=== PATIENT | female | born 1970 | race Caucasian/White ===

== ENCOUNTER 2019-09-13 20:26 | Emergency (ER) | payer OTHER ==
[~2019-09-13] VITALS: Ht 162.5 cm; Wt 112.6 kg
[2019-09-13] MEDS ORDERED: NS IV 1000 ML 1,000 ML IV ONE (21:00)
[2019-09-13] MEDS ORDERED: methylPREDNISolone 125 MG (Solu-MEDROL) VIAL IVP ONE (21:00)
[2019-09-13] MEDS ORDERED: HYDROmorphone 2 MG/ML VIAL (DILAUDID) IV ONE ×2 (21:00→22:45)
--- NOTE | 2019-09-13 21:17 | ED Abdominal Pain ---
General Chief Complaint: Abdominal/GI Problems Stated Complaint: LOWER ABD PAIN,VOMITING,BLOOD IN STOOL Nursing Triage Note: PT. REPORTED SHE IS HERE VISITING. PT. STARTED HAVING PAIN AROUND 9:00 AM. THE PAIN IS IN THE LEFT LOWER SIDE OF ABD. SHE HAS HAD VOMITING, AND DIARREHA AND BLOODY STOOL. Sepsis Screen: No Definite Risk Source of Information: Patient Exam Limitations: No Limitations History of Present Illness Date Seen by Provider: Sep 13, 2019 Time Seen by Provider: 20:37 Initial Comments 49-year-old female presents to the emergency room with the recent onset of acute abdominal pain in the left lower quadrant. Patient was diagnosed with ulcerative colitis 8-9 months ago and she is under the care of Teodoro Ruelas nurse practitioner [facility] in [place]. Patient has nausea and vomiting she admits to having bloody stools she is on medication for ulcerative colitis which includes sulfasalazine Bentyl mesalamine and hydrocortisone suppositories. Patient states that she occasionally has iron infusions because of chronic anemia. She states that she normally gets pain medication fluids and steroids IV when she comes in the emergency room. She denies any cardiac or pulmonary issues. The patient has feces consistent with chronic steroid administration with a schaeffer facies. Patient also has excoriated lesions in her forearms numerous places. Patient has given informed consent for diagnostic and therapeutic services. IV fluids will be started laboratory and imaging tests have been ordered. Timing/Duration: 1 Day Severity/Quality: Moderate, Cramping (history of ulcerative colitis with recurrent episodes of colitis) Location: LLQ, Flank, Suprapubic Radiation: LLQ, Back Modifying Factors: Improves With Defecating, Improves With Eating Associated Symptoms: Back Pain Allergies and Home Medications Allergies Coded Allergies: cephalexin (Verified Allergy, Unknown, 09/13/19) ketorolac (Verified Allergy, Unknown, 09/13/19) prochlorperazine (Verified Allergy, Unknown, 09/13/19) Patient Home Medication List Home Medication List Reviewed: Yes Review of Systems Review of Systems Constitutional: malaise, weakness, weight gain EENTM: No Symptoms Reported Respiratory: No Symptoms Reported Cardiovascular: No Symptoms Reported Gastrointestinal: Abdominal Pain, Nausea, Rectal Bleeding Genitourinary: No Symptoms Reported Musculoskeletal: back pain, muscle weakness Skin: change in color, lesions (multiple open excoriated lesions on both forearms identified) Psychiatric/Neurological: Anxiety Endocrine: No Symptoms Reported Hematologic/Lymphatic: No Symptoms Reported Past Ehnkxiy-Treywy-Layajq Hx Patient Social History Alcohol Use: Denies Use Recreational Drug Use: No Smoking Status: Former Smoker Recent Foreign Travel: No Contact w/Someone Who Travel: No Recent Infectious Disease Expo: No Recent Hopitalizations: No Physical Abuse: No Sexual Abuse: No Mistreated: No Fear: No Seasonal Allergies Seasonal Allergies: No Past Medical History Surgeries: Yes Appendectomy, Gallbladder, Hysterectomy, Rectal Respiratory: No Cardiac: No Neurological: No Genitourinary: No Gastrointestinal: Yes Abdominal Hernia, Colitis Musculoskeletal: No Endocrine: No HEENT: No Cancer: No Psychosocial: Yes Anxiety Integumentary: No Blood Disorders: No Family Medical History Reviewed Nursing Family Hx Physical Exam Vital Signs Vital Signs - First Documented 09/13/19 20:31 Temp 36.7 Pulse 110 Resp 20 B/P (MAP) 165/110 (128) Pulse Ox 96 O2 Delivery Room Air Capillary Refill : Less Than 3 Seconds Height/Weight/BMI Height: '" Weight: lbs. oz. kg; 42.00 BMI Method: General Appearance: WD/WN, moderate distress HEENT: PERRL/EOMI, normal ENT inspection, TMs normal, pharynx normal Neck: non-tender, full range of motion, supple, normal inspection Respiratory: chest non-tender, lungs clear, normal breath sounds, no respiratory distress, no accessory muscle use Cardiovascular: regular rate, rhythm, no edema, no gallop, no JVD, no murmur (patient has a history of a cardiac stent in July 2019) Peripheral Pulses: 2+ Carotid (R), 2+ Carotid (L) Gastrointestinal: abnormal bowel sounds (decreased), distended, tenderness (bilateral lower quadrants consistent with diagnosis of diverticulitis and patient stabilization recommended to the patient but he refuses and states he wants to see his private physician in the morning) Extremities: normal range of motion, non-tender, normal inspection, no pedal edema, no calf tenderness Back: normal inspection, no CVA tenderness, no vertebral tenderness Neurologic/Psychiatric: chef french II-XII nml as tested, no motor/sensory deficits, alert, normal mood/affect, oriented x 3 Skin: normal color, warm/dry Lymphatic: no adenopathy Focused Exam Lactate Level 09/13/19 21:13: Lactic Acid Level 1.57 Lactic Acid Level Laboratory Tests Test 09/13/19 21:13 Lactic Acid Level 1.57 MMOL/L (0.50-2.00) Progress/Results/Core Measures Results/Orders Lab Results Laboratory Tests Test 09/13/19 21:13 09/13/19 22:28 Range/Units White Blood Count 5.0 4.3-11.0 10^3/uL Red Blood Count 3.81 L 4.35-5.85 10^6/uL Hemoglobin 10.3 L 11.5-16.0 G/DL Hematocrit 33 L 35-52 % Mean Corpuscular Volume 86 80-99 FL Mean Corpuscular Hemoglobin 27 25-34 PG Mean Corpuscular Hemoglobin Concent 31 L 32-36 G/DL Red Cell Distribution Width 18.7 H 10.0-14.5 % Platelet Count 239 130-400 10^3/uL Mean Platelet Volume 9.4 7.4-10.4 FL Neutrophils (%) (Auto) 72 42-75 % Lymphocytes (%) (Auto) 14 12-44 % Monocytes (%) (Auto) 11 0-12 % Eosinophils (%) (Auto) 1 0-10 % Basophils (%) (Auto) 0 0-10 % Neutrophils # (Auto) 3.6 1.8-7.8 X 10^3 Lymphocytes # (Auto) 0.7 L 1.0-4.0 X 10^3 Monocytes # (Auto) 0.5 0.0-1.0 X 10^3 Eosinophils # (Auto) 0.1 0.0-0.3 10^3/uL Basophils # (Auto) 0.0 0.0-0.1 10^3/uL Neutrophils % (Manual) 80 % Lymphocytes % (Manual) 9 % Monocytes % (Manual) 7 % Eosinophils % (Manual) 3 % Band Neutrophils 1 % Microcytosis MODERATE Sodium Level 140 135-145 MMOL/L Potassium Level 3.7 3.6-5.0 MMOL/L Chloride Level 104 98-107 MMOL/L Carbon Dioxide Level 21 21-32 MMOL/L Anion Gap 15 H 5-14 MMOL/L Blood Urea Nitrogen 10 7-18 MG/DL Creatinine 0.54 L 0.60-1.30 MG/DL Estimat Glomerular Filtration Rate > 60 BUN/Creatinine Ratio 19 Glucose Level 123 H 70-105 MG/DL Lactic Acid Level 1.57 0.50-2.00 MMOL/L Calcium Level 9.1 8.5-10.1 MG/DL Corrected Calcium 9.2 8.5-10.1 MG/DL Total Bilirubin 0.2 0.1-1.0 MG/DL Aspartate Amino Transf (AST/SGOT) 18 5-34 U/L Alanine Aminotransferase (ALT/SGPT) 29 0-55 U/L Alkaline Phosphatase 109 40-136 U/L Total Protein 6.7 6.4-8.2 GM/DL Albumin 3.9 3.2-4.5 GM/DL Urine Color YELLOW Urine Clarity CLEAR Urine pH 6.0 5-9 Urine Specific [place] 1.025 H 1.016-1.022 Urine Protein NEGATIVE NEGATIVE Urine Glucose (UA) NEGATIVE NEGATIVE Urine Ketones NEGATIVE NEGATIVE Urine Nitrite NEGATIVE NEGATIVE Urine Bilirubin NEGATIVE NEGATIVE Urine Urobilinogen 0.2 < = 1.0 MG/DL Urine Leukocyte Esterase NEGATIVE NEGATIVE Urine RBC (Auto) NEGATIVE NEGATIVE Urine RBC 0-2 /HPF Urine WBC 5-10 H /HPF Urine Squamous Epithelial Cells 5-10 /HPF Urine Crystals NONE /LPF Urine Bacteria FEW H /HPF Urine Casts NONE /LPF Urine Mucus SMALL H /LPF Urine Culture Indicated YES Micro Results Microbiology 09/13/19 Influenza Types A,B Antigen (XIMENA) - Final, Complete My Orders Orders - SHIN REYNOLDS DO Cbc And Manual Diff (09/13/19 20:50) Comprehensive Metabolic Panel (09/13/19 20:50) Urinalysis (09/13/19 20:50) Lactic Acid Analyzer (09/13/19 20:50) Blood Culture (09/13/19 20:50) Lactic Acid Analyzer (09/13/19 20:50) Ns Iv 1000 Ml (Sodium Chloride 0.9%) (09/13/19 21:00) Methylprednisolone Sod Succ (Solu-Medrol (09/13/19 21:00) Chest Pa/Lat (2 View) (09/13/19 20:50) Influenza A And B Antigens (09/13/19 20:50) Hydromorphone Injection (Dilaudid Inject (09/13/19 21:00) Hydromorphone Injection (Dilaudid Inject (09/13/19 22:45) Urine Culture (1/24/20 22:28) Medications Given in ED Current Medications Medications Dose Ordered Sig/Stiven Route Start Time Stop Time Status Last Admin Dose Admin Hydromorphone HCl 0.5 mg ONCE ONCE IV 09/13/19 21:00 09/13/19 21:01 DC 09/13/19 21:19 0.5 MG Hydromorphone HCl 0.5 mg ONCE ONCE IV 09/13/19 22:45 09/13/19 22:46 DC 09/13/19 22:36 0.5 MG Methylprednisolone Sodium Succinate 125 mg ONCE ONCE IVP 09/13/19 21:00 09/13/19 21:01 DC 09/13/19 21:19 125 MG Sodium Chloride 1,000 ml @ 100 mls/hr Q10H ONCE IV 09/13/19 21:00 09/13/19 22:58 DC 09/13/19 21:19 100 MLS/HR Vital Signs/I&O 09/13/19 09/13/19 20:31 22:57 Temp 36.7 36.7 Pulse 110 88 Resp 20 20 B/P (MAP) 165/110 (128) 140/85 (128) Pulse Ox 96 96 O2 Delivery Room Air Blood Pressure Mean: 128 Progress Progress Note : Time: 22:11 Progress Note After evaluation reveals a patient's hemoglobin is 10.3 creatinine 0.5 for glucose 123 lactic acid was 1.57 chest x-ray only shows chronic changes. Evaluation patient is progressing well she has responded to the IV analgesics and steroid load. Patient needs to follow-up with her gastroenterology team at [facility]. At 2224 patient reported she was again having more abdominal cramping and asked for a second injection of pain meds. She agreed to provide a urine sample first. Departure Impression Primary Impression: Ulcerative colitis without complications Additional Impression: Abdominal pain Disposition: HOME, SELF-CARE Condition: Stable Departure-Patient Inst. Decision time for Depature: 23:07 Referrals: NO,LOCAL PHYSICIAN (PCP) Primary Care Physician Patient Instructions: Colitis, Ulcerative Colitis (DC) Add. Discharge Instructions: Patient is ready for discharge she has been hydrated. Her abdominal pain is decreased patient had received total of 1 mg of hydromorphone and 125 mg of Solu-Medrol. Patient will follow up with her primary care provider at [facility] All discharge instructions reviewed with patient and/or family. Voiced understanding. SHIN REYNOLDS DO Sep 13, 2019 21:17
[2019-09-13 21:20] LABS: BASOPHILS % (AUTO) 0 % (0-10); EOSINOPHILS # (AUTO) 0.1 10^3/uL (0.0-0.3); EOSINOPHILS % (AUTO) 1 % (0-10); HEMATOCRIT 33 % (35-52); HEMOGLOBIN 10.3 G/DL (11.5-16.0); LYMPHOCYTES # (AUTO) 0.7 X 10^3 (1.0-4.0); LYMPHOCYTES % (AUTO) 14 % (12-44); MEAN CORPUSCULAR HEMOGLOBIN 27 PG (25-34); MEAN CORPUSCULAR HGB CONC 31 G/DL (32-36); MEAN CORPUSCULAR VOLUME 86 FL (80-99); MEAN PLATELET VOLUME 9.4 FL (7.4-10.4); MONOCYTES # (AUTO) 0.5 X 10^3 (0.0-1.0); MONOCYTES % (AUTO) 11 % (0-12); NEUTROPHILS # (AUTO) 3.6 X 10^3 (1.8-7.8); NEUTROPHILS % (AUTO) 72 % (42-75); PLATELET COUNT 239 10^3/uL (130-400); RED CELL DISTRIBUTION WIDTH 18.7 % (10.0-14.5)
[2019-09-13 21:29] LABS: BAND NEUTROPHILS 1 %; EOSINOPHILS % (MANUAL) 3 %; LYMPHOCYTES % (MANUAL) 9 %; MICROCYTOSIS MODERATE; MONOCYTES % (MANUAL) 7 %; NEUTROPHILS % (MANUAL) 80 %
[2019-09-13 21:38] LABS: CARBON DIOXIDE 21 MMOL/L (21-32); CHLORIDE 104 MMOL/L (98-107); POTASSIUM 3.7 MMOL/L (3.6-5.0); SODIUM 140 MMOL/L (135-145)
[2019-09-13 21:39] LABS: ALANINE AMINOTRANSFERASE 29 U/L (0-55); ALBUMIN 3.9 GM/DL (3.2-4.5); ALKALINE PHOSPHATASE 109 U/L (40-136); BILIRUBIN,TOTAL 0.2 MG/DL (0.1-1.0); BUN/CREATININE RATIO 19; CALCIUM 9.1 MG/DL (8.5-10.1); CREATININE SERUM 0.54 MG/DL (0.60-1.30); GFR ESTIMATED > 60; GLUCOSE 123 MG/DL (70-105); TOTAL PROTEIN 6.7 GM/DL (6.4-8.2)
--- NOTE | 2019-09-13 21:49 | Diagnostic Imaging Report ---
INDICATION: Bloody stools, diarrhea, left lower quadrant pain and vomiting. EXAMINATION: Two view chest, 09/13/2019. FINDINGS: Heart and pulmonary vasculature are unremarkable. Atelectasis is seen at the bases with chronic interstitial changes noted. No effusions or infiltrates. IMPRESSION: Chronic findings. No acute process. Dictated by: Dictated on workstation # [id number]
[2019-09-13 22:45] LABS: BACTERIA,URINE FEW /HPF; BILIRUBIN,URINE NEGATIVE (NEGATIVE); CLARITY,URINE CLEAR; COLOR,URINE YELLOW; GLUCOSE, URINE (UA) NEGATIVE (NEGATIVE); KETONES,URINE NEGATIVE (NEGATIVE); LEUKOCYTE ESTERASE ,URINE NEGATIVE (NEGATIVE); NITRITE,URINE NEGATIVE (NEGATIVE); PROTEIN,URINE NEGATIVE (NEGATIVE); RBC,URINE 0-2 /HPF
[2019-09-13 22:57] VITALS: BP 140/85
== END 2019-09-13 22:58 | disposition home or self-care (01) ==
LOC: ER FS 20:27
DX: K51.90 Ulcerative colitis, unspecified, without complications (principal); Z90.49 Acquired absence of other specified parts of digestive tract; Z90.710 Acquired absence of both cervix and uterus; Z88.1 Allergy status to other antibiotic agents; Z88.6 Allergy status to analgesic agent; Z88.8 Allergy status to other drugs, medicaments and biological substances; Z87.891 Personal history of nicotine dependence
CPT/HCPCS: 36415; 71046; 80053; 81000; 83605; 85007; 85027; 87040; 87088; 87804; 96361; 96374; 96375; 96376

== ENCOUNTER 2019-09-26 00:38 | Emergency (ER) | payer OTHER ==
[~2019-09-26] VITALS: Ht 162.6 cm; Wt 113.4 kg
[2019-09-26] MEDS ORDERED: NS IV 1000 ML 1,000 ML IV SCH (01:00)
[2019-09-26] MEDS ORDERED: methylPREDNISolone 125 MG (Solu-MEDROL) VIAL IVP ONE (01:00)
[2019-09-26] MEDS ORDERED: fentaNYL INJECTION 100 MCG/2 ML AMP IVP ONE ×2 (01:00→01:45)
--- NOTE | 2019-09-26 01:00 | ED GI ---
General Chief Complaint: Abdominal/GI Problems Stated Complaint: ABD PAIN Nursing Triage Note: PT AMBULATE TO ROOM FS04 WITH C/O ABD PAIN, N/V, BLOOD DIARRHEA SINCE 1000 YESTERDAY. PT STATES HX OF ULCERATIVE COLLITIS AND THAT THIS FEELS LIKE UC. PT STATES SHE SEES A PROVIDER IN AND IS IN THIS AREA VISITING FAMILY. Sepsis Screen: No Definite Risk Source of Information: Patient Exam Limitations: No Limitations History of Present Illness Date Seen by Provider: Sep 26, 2019 Time Seen by Provider: 00:58 Initial Comments Patient complains of bloody diarrhea nausea vomiting and abdominal cramping since 10 a.m. yesterday. She has a history of ulcerative colitis and this feels like that. She was in the ER for same on September 09. She received IV fluids steroids and pain medicine at that time and improved. Has appointment with her GI doctor next week. Says she is compliant with her Bentyl sulfasalazine and hydrocortisone suppositories. Allergies and Home Medications Allergies Coded Allergies: cephalexin (Verified Allergy, Unknown, 09/13/19) ketorolac (Verified Allergy, Unknown, 09/13/19) prochlorperazine (Verified Allergy, Unknown, 09/13/19) Patient Home Medication List Home Medication List Reviewed: Yes Review of Systems Review of Systems Constitutional: No fever; malaise Respiratory: No Symptoms Reported Cardiovascular: No Symptoms Reported Gastrointestinal: Abdominal Pain, Blood Streaked Stools, Diarrhea, Nausea, Vomiting Genitourinary: No Symptoms Reported Musculoskeletal: no symptoms reported Psychiatric/Neurological: No Symptoms Reported All Other Systems Reviewed Negative Unless Noted: Yes Past Vbdavpz-[id number]-Yxwwzc Hx Patient Social History Alcohol Use: Denies Use Recreational Drug Use: No Smoking Status: Never a Smoker 2nd Hand Smoke Exposure: No Recent Foreign Travel: No Contact w/Someone Who Travel: No Recent Infectious Disease Expo: No Recent Hopitalizations: No Physical Abuse: No Sexual Abuse: No Mistreated: No Fear: No Seasonal Allergies Seasonal Allergies: No Past Medical History Surgeries: Yes Appendectomy, Gallbladder, Hysterectomy, Rectal Respiratory: No Cardiac: No Neurological: No Genitourinary: No Gastrointestinal: Yes Abdominal Hernia, Colitis Musculoskeletal: No Endocrine: No HEENT: No Cancer: No Psychosocial: Yes Anxiety Integumentary: No Blood Disorders: No Physical Exam Vital Signs Vital Signs - First Documented 09/26/19 00:51 Temp 36.6 Pulse 101 Resp 17 B/P (MAP) 154/101 (118) O2 Delivery Room Air Capillary Refill : Less Than 3 Seconds Height/Weight/BMI Height: '" Weight: lbs. oz. kg; 42.00 BMI Method: General Appearance: WD/WN, no apparent distress HEENT: PERRL/EOMI, pharynx normal Neck: supple Respiratory: lungs clear, normal breath sounds Cardiovascular: regular rate, rhythm, no edema Gastrointestinal: normal bowel sounds, soft; No guarding, No rebound; tendern ess (left lower quadrant tenderness) Extremities: normal inspection Neurologic/Psychiatric: alert, normal mood/affect Skin: normal color, warm/dry Focused Exam Lactate Level 09/26/19 01:14: Lactic Acid Level 1.53 Lactic Acid Level Laboratory Tests Test 09/26/19 01:14 Lactic Acid Level 1.53 MMOL/L (0.50-2.00) Progress/Results/Core Measures Results/Orders Lab Results Laboratory Tests Test 09/26/19 01:07 09/26/19 01:14 Range/Units White Blood Count 6.6 4.3-11.0 10^3/uL Red Blood Count 3.58 L 4.35-5.85 10^6/uL Hemoglobin 9.8 L 11.5-16.0 G/DL Hematocrit 31 L 35-52 % Mean Corpuscular Volume 88 80-99 FL Mean Corpuscular Hemoglobin 27 25-34 PG Mean Corpuscular Hemoglobin Concent 31 L 32-36 G/DL Red Cell Distribution Width 17.0 H 10.0-14.5 % Platelet Count 263 130-400 10^3/uL Mean Platelet Volume 9.6 7.4-10.4 FL Neutrophils (%) (Auto) 79 H 42-75 % Lymphocytes (%) (Auto) 9 L 12-44 % Monocytes (%) (Auto) 9 0-12 % Eosinophils (%) (Auto) 1 0-10 % Basophils (%) (Auto) 0 0-10 % Neutrophils # (Auto) 5.2 1.8-7.8 X 10^3 Lymphocytes # (Auto) 0.6 L 1.0-4.0 X 10^3 Monocytes # (Auto) 0.6 0.0-1.0 X 10^3 Eosinophils # (Auto) 0.1 0.0-0.3 10^3/uL Basophils # (Auto) 0.0 0.0-0.1 10^3/uL Sodium Level 143 135-145 MMOL/L Potassium Level 3.5 L 3.6-5.0 MMOL/L Chloride Level 104 98-107 MMOL/L Carbon Dioxide Level 25 21-32 MMOL/L Anion Gap 14 5-14 MMOL/L Blood Urea Nitrogen 6 L 7-18 MG/DL Creatinine 0.56 L 0.60-1.30 MG/DL Estimat Glomerular Filtration Rate > 60 BUN/Creatinine Ratio 11 Glucose Level 155 H 70-105 MG/DL Calcium Level 9.2 8.5-10.1 MG/DL Corrected Calcium 9.2 8.5-10.1 MG/DL Magnesium Level 1.7 1.6-2.4 MG/DL Total Bilirubin 0.2 0.1-1.0 MG/DL Aspartate Amino Transf (AST/SGOT) 20 5-34 U/L Alanine Aminotransferase (ALT/SGPT) 35 0-55 U/L Alkaline Phosphatase 118 40-136 U/L C-Reactive Protein 4.00 H <0.50 MG/DL Total Protein 6.9 6.4-8.2 GM/DL Albumin 4.0 3.2-4.5 GM/DL Lipase 32 8-78 U/L Lactic Acid Level 1.53 0.50-2.00 MMOL/L My Orders Orders - MIKI CASTRO MD Iv 1000 Ml (Sodium Chloride 0.9%) (09/26/19 01:00) Cbc With Automated Diff (09/26/19 00:49) Comprehensive Metabolic Panel (09/26/19 00:49) Lactic Acid Analyzer (09/26/19 00:49) Lipase (09/26/19 00:49) Magnesium (09/26/19 00:49) Crp Fs (09/26/19 00:49) Methylprednisolone Sod Succ (Solu-Medrol (09/26/19 01:00) Fentanyl Injection (Sublimaze Injection (09/26/19 01:00) Ed Iv/Invasive Line Start (09/26/19 01:21) Medications Given in ED Current Medications Medications Dose Ordered Sig/Stiven Route Start Time Stop Time Status Last Admin Dose Admin Fentanyl Citrate 75 mcg ONCE ONCE IVP 09/26/19 01:00 2/6/20 01:01 DC 09/26/19 01:12 75 MCG Methylprednisolone Sodium Succinate 125 mg ONCE ONCE IVP 09/26/19 01:00 09/26/19 01:01 DC 09/26/19 01:12 125 MG Vital Signs/I&O 09/26/19 00:51 Temp 36.6 Pulse 101 Resp 17 B/P (MAP) 154/101 (118) O2 Delivery Room Air Blood Pressure Mean: 118 Progress Progress Note : Time: 01:43 Progress Note Feels better after medications and fluids. Test results discussed with patient. I do not think she needs a CT scan at this point (not acute abdomen). Stable for discharge Departure Impression Primary Impression: Abdominal pain Additional Impression: Ulcerative colitis Disposition: HOME, SELF-CARE Condition: Stable Departure-Patient Inst. Decision time for Depature: 01:44 Referrals: NO,LOCAL PHYSICIAN (PCP/Family) Primary Care Physician Patient Instructions: Ulcerative Colitis (DC) Add. Discharge Instructions: Clear liquid diet for next 24 hours. Continue regular medicines. Take your Stephenson for pain. See your Dr. next week as scheduled. All discharge instructions reviewed with patient and/or family. Voiced understanding. MIKI CASTRO MD Sep 26, 2019 01:00
[2019-09-26 01:23] LABS: HEMATOCRIT 31 % (35-52); HEMOGLOBIN 9.8 G/DL (11.5-16.0); MEAN CORPUSCULAR HEMOGLOBIN 27 PG (25-34); MEAN CORPUSCULAR VOLUME 88 FL (80-99); WHITE BLOOD COUNT 6.6 10^3/uL (4.3-11.0)
[2019-09-26 01:24] LABS: BASOPHILS % (AUTO) 0 % (0-10); EOSINOPHILS # (AUTO) 0.1 10^3/uL (0.0-0.3); EOSINOPHILS % (AUTO) 1 % (0-10); LYMPHOCYTES # (AUTO) 0.6 X 10^3 (1.0-4.0); LYMPHOCYTES % (AUTO) 9 % (12-44); MEAN CORPUSCULAR HGB CONC 31 G/DL (32-36); MEAN PLATELET VOLUME 9.6 FL (7.4-10.4); MONOCYTES # (AUTO) 0.6 X 10^3 (0.0-1.0); MONOCYTES % (AUTO) 9 % (0-12); NEUTROPHILS # (AUTO) 5.2 X 10^3 (1.8-7.8); NEUTROPHILS % (AUTO) 79 % (42-75); PLATELET COUNT 263 10^3/uL (130-400)
[2019-09-26 01:33] LABS: BILIRUBIN,TOTAL 0.2 MG/DL (0.1-1.0); BUN/CREATININE RATIO 11; CALCIUM 9.2 MG/DL (8.5-10.1); CARBON DIOXIDE 25 MMOL/L (21-32); CHLORIDE 104 MMOL/L (98-107); CREATININE SERUM 0.56 MG/DL (0.60-1.30); GFR ESTIMATED > 60; GLUCOSE 155 MG/DL (70-105); MAGNESIUM 1.7 MG/DL (1.6-2.4); POTASSIUM 3.5 MMOL/L (3.6-5.0); SODIUM 143 MMOL/L (135-145)
[2019-09-26 01:34] LABS: ALANINE AMINOTRANSFERASE 35 U/L (0-55); ALKALINE PHOSPHATASE 118 U/L (40-136); LIPASE 32 U/L (8-78); TOTAL PROTEIN 6.9 GM/DL (6.4-8.2)
[2019-09-26 02:23] VITALS: BP 149/78
== END 2019-09-26 02:23 | disposition home or self-care (01) ==
LOC: EDUNIT# 00:38 → ER FS 00:40
DX: K51.90 Ulcerative colitis, unspecified, without complications (principal); Z88.1 Allergy status to other antibiotic agents; Z88.6 Allergy status to analgesic agent; Z88.8 Allergy status to other drugs, medicaments and biological substances; Z90.49 Acquired absence of other specified parts of digestive tract; Z90.710 Acquired absence of both cervix and uterus
CPT/HCPCS: 36415; 80053; 83605; 83690; 83735; 85025; 86141

== ENCOUNTER 2019-10-06 18:50 | Emergency (ER) | payer OTHER ==
[~2019-10-06] VITALS: Ht 162 cm; Wt 113.0 kg
--- NOTE | 2019-10-06 19:36 | ED General ---
General Chief Complaint: Abdominal/GI Problems Stated Complaint: ABD PAIN,VOMITING Nursing Triage Note: PT PRESENTS WITH LLQ PAIN THAT STARTED AROUND 0900 TODAY. PT ALSO COMPLAINING OF NAUSEA AND DIARRHEA Nursing Sepsis Screen: No Definite Risk Source of Information: Patient History of Present Illness Date Seen by Provider: Oct 06, 2019 Time Seen by Provider: 19:43 Initial Comments Patient is a 49-year-old female with known past medical history significant for ulcerative colitis. She comes to the ER today with what she describes to be a typical flare of her symptoms. She has small amounts of blood in the stool. She has had diarrhea and vomiting over the course of today only. She has abdominal pain that is in the lower left quadrant. No fever. She has not eaten or drank since this morning. Denies urinary symptoms. Patient does take mesalamine home and she has doubled her dose according to instruction she had previously been given but this did not help alleviate her symptoms. Allergies and Home Medications Allergies Coded Allergies: cephalexin (Verified Allergy, Unknown, 09/13/19) ketorolac (Verified Allergy, Unknown, 09/13/19) prochlorperazine (Verified Allergy, Unknown, 09/13/19) Home Medications Oxycodone Hcl 5 Mg Tab, 10 MG PO Q6H PRN for PAIN-SEVERE Prescribed by: MARQUES WANG on 10/06/192109 Patient Home Medication List Home Medication List Reviewed: Yes Review of Systems Review of Systems Constitutional: no symptoms reported EENTM: no symptoms reported Respiratory: no symptoms reported Cardiovascular: no symptoms reported Gastrointestinal: see HPI Genitourinary: no symptoms reported Musculoskeletal: no symptoms reported Skin: no symptoms reported All Other Systems Reviewed Negative Unless Noted: Yes Past Xorovzb-Ypzjoh-Iopbxz Hx Patient Social History Alcohol Use: Denies Use Recreational Drug Use: No Smoking Status: Never a Smoker 2nd Hand Smoke Exposure: No Recent Foreign Travel: No Contact w/Someone Who Travel: No Recent Infectious Disease Expo: No Recent Hopitalizations: No Physical Abuse: No Sexual Abuse: No Seasonal Allergies Seasonal Allergies: No Past Medical History Surgeries: Yes Appendectomy, Gallbladder, Hysterectomy, Rectal Respiratory: No Cardiac: Yes High Cholesterol Neurological: No Genitourinary: No Gastrointestinal: Yes Abdominal Hernia, Colitis Musculoskeletal: No Endocrine: No HEENT: No Cancer: No Psychosocial: Yes Anxiety, Depression Integumentary: No Blood Disorders: No Physical Exam Vital Signs Vital Signs - First Documented 10/06/19 19:11 Temp 37.1 Pulse 118 Resp 18 B/P (MAP) 191/136 (154) Pulse Ox 100 O2 Delivery Room Air Capillary Refill : Less Than 3 Seconds Height, Weight, BMI Height: '" Weight: lbs. oz. kg; 43.00 BMI Method: General Appearance: No Apparent Distress, WD/WN, Other (mild distress due to discomfort) HEENT: PERRL/EOMI, Normal ENT Inspection Neck: Full Range of Motion, Supple Respiratory: Lungs Clear, Normal Breath Sounds Cardiovascular: Regular Rate, Rhythm Gastrointestinal: Soft, Other (tenderness to palpation diffusely but no guarding or rebound.) Extremity: Normal Capillary Refill Neurologic/Psychiatric: Alert, Oriented x3 Skin: Normal Color Progress/Results/Core Measures Suspected Sepsis Recent Fever Within 48 Hours: No Infection Criteria Present: None New/Unexplained Altered Menta: No Sepsis Screen: No Definite Risk SIRS Temperature: Pulse: 118 Respiratory Rate: 18 Laboratory Tests 10/06/19 20:05: White Blood Count 6.9 Blood Pressure 191 /136 Mean: 154 Laboratory Tests 10/06/19 20:05: Creatinine 0.53L, Platelet Count 318, Total Bilirubin 0.2 Results/Orders Lab Results Laboratory Tests Test 10/06/19 19:46 10/06/19 20:05 Range/Units Urine Color YELLOW Urine Clarity CLEAR Urine pH 7.5 5-9 Urine Specific [place] 1.015 L 1.016-1.022 Urine Protein NEGATIVE NEGATIVE Urine Glucose (UA) NEGATIVE NEGATIVE Urine Ketones NEGATIVE NEGATIVE Urine Nitrite NEGATIVE NEGATIVE Urine Bilirubin NEGATIVE NEGATIVE Urine Urobilinogen 0.2 < = 1.0 MG/DL Urine Leukocyte Esterase NEGATIVE NEGATIVE Urine RBC (Auto) NEGATIVE NEGATIVE Urine RBC NONE /HPF Urine WBC NONE /HPF Urine Squamous Epithelial Cells 2-5 /HPF Urine Crystals NONE /LPF Urine Bacteria FEW H /HPF Urine Casts NONE /LPF Urine Mucus NEGATIVE /LPF Urine Culture Indicated NO White Blood Count 6.9 4.3-11.0 10^3/uL Red Blood Count 3.83 L 4.35-5.85 10^6/uL Hemoglobin 10.7 L 11.5-16.0 G/DL Hematocrit 33 L 35-52 % Mean Corpuscular Volume 86 80-99 FL Mean Corpuscular Hemoglobin 28 25-34 PG Mean Corpuscular Hemoglobin Concent 32 32-36 G/DL Red Cell Distribution Width 16.5 H 10.0-14.5 % Platelet Count 318 130-400 10^3/uL Mean Platelet Volume 9.7 7.4-10.4 FL Neutrophils (%) (Auto) 78 H 42-75 % Lymphocytes (%) (Auto) 10 L 12-44 % Monocytes (%) (Auto) 8 0-12 % Eosinophils (%) (Auto) 2 0-10 % Basophils (%) (Auto) 0 0-10 % Neutrophils # (Auto) 5.4 1.8-7.8 X 10^3 Lymphocytes # (Auto) 0.7 L 1.0-4.0 X 10^3 Monocytes # (Auto) 0.6 0.0-1.0 X 10^3 Eosinophils # (Auto) 0.1 0.0-0.3 10^3/uL Basophils # (Auto) 0.0 0.0-0.1 10^3/uL Sodium Level 140 135-145 MMOL/L Potassium Level 3.7 3.6-5.0 MMOL/L Chloride Level 102 98-107 MMOL/L Carbon Dioxide Level 25 21-32 MMOL/L Anion Gap 13 5-14 MMOL/L Blood Urea Nitrogen 11 7-18 MG/DL Creatinine 0.53 L 0.60-1.30 MG/DL Estimat Glomerular Filtration Rate > 60 BUN/Creatinine Ratio 21 Glucose Level 124 H 70-105 MG/DL Calcium Level 9.4 8.5-10.1 MG/DL Corrected Calcium 9.5 8.5-10.1 MG/DL Total Bilirubin 0.2 0.1-1.0 MG/DL Aspartate Amino Transf (AST/SGOT) 14 5-34 U/L Alanine Aminotransferase (ALT/SGPT) 21 0-55 U/L Alkaline Phosphatase 114 40-136 U/L Total Protein 6.9 6.4-8.2 GM/DL Albumin 3.9 3.2-4.5 GM/DL My Orders Orders - MARQUES WANG DO Ed Iv/Invasive Line Start (10/06/19 19:41) Cbc With Automated Diff (10/06/19 19:41) Comprehensive Metabolic Panel (10/06/19 19:41) Urinalysis (10/06/19 19:41) Ondansetron Injection (Zofran Injectio (10/06/19 19:45) Ns Iv 1000 Ml (Sodium Chloride 0.9%) (10/06/19 19:45) Hydromorphone Injection (Dilaudid Inject (10/06/19 19:45) Hydromorphone Injection (Dilaudid Inject (10/06/19 20:45) Medications Given in ED Current Medications Medications Dose Ordered Sig/Stiven Route Start Time Stop Time Status Last Admin Dose Admin Hydromorphone HCl 1 mg ONCE ONCE IVP 10/06/19 19:45 10/06/19 19:46 DC 10/06/19 20:07 1 MG Hydromorphone HCl 1.5 mg Q2HR PRN IV 10/06/19 20:45 10/06/19 20:43 1.5 MG Ondansetron HCl 4 mg ONCE ONCE IVP 10/06/19 19:45 10/06/19 19:46 DC 10/06/19 20:07 4 MG Vital Signs/I&O 10/06/19 19:11 Temp 37.1 Pulse 118 Resp 18 B/P (MAP) 191/136 (154) Pulse Ox 100 O2 Delivery Room Air Capillary Refill : Less Than 3 Seconds Blood Pressure Mean: 154 Progress Note : Time: 19:45 Progress Note Patient is seen and examined. Based on her physical exam, I do not feel imaging is warranted this evening although this can change if some dramatic lab results are returned. Plan is to give IV fluids and pain medication. Will check basic labs. 20:40: Patient is reexamined. Labs are reviewed with no acute findings. Patient is feeling improved but does still continue to have significant pain. We'll give an additional dose of Dilaudid. IV fluids are running. 21:10: Patient currently feeling much improved and requesting discharge home. She is emulating a steady gait. She is tolerating by mouth. Patient is discharged to home and recommended follow-up with her primary care physician as per her normal routine. She is given #10 oxycodone for pain over the next couple of days. Departure Impression Primary Impression: Abdominal pain Disposition: HOME, SELF-CARE Condition: Improved Departure-Patient Inst. Referrals: NO,LOCAL PHYSICIAN (PCP/Family) Primary Care Physician Scripts Oxycodone Hcl (Oxycodone IR) 5 Mg Tab 10 MG PO Q6H PRN for PAIN-SEVERE for 2 Days, #10 TAB Prov: MARQUES WANG DO 10/06/19 MARQUES WANG DO Oct 06, 2019 19:36
[2019-10-06] MEDS ORDERED: ONDANSETRON 4 MG/2 ML (SDV) Z0FRAN IVP ONE (19:45)
[2019-10-06] MEDS ORDERED: NS IV 1000 ML 1,000 ML IV SCH (19:45)
[2019-10-06] MEDS ORDERED: HYDROmorphone 2 MG/ML VIAL (DILAUDID) IVP ONE (19:45)
[2019-10-06 20:04] LABS: BACTERIA,URINE FEW /HPF; BILIRUBIN,URINE NEGATIVE (NEGATIVE); CLARITY,URINE CLEAR; COLOR,URINE YELLOW; GLUCOSE, URINE (UA) NEGATIVE (NEGATIVE); KETONES,URINE NEGATIVE (NEGATIVE); LEUKOCYTE ESTERASE ,URINE NEGATIVE (NEGATIVE); NITRITE,URINE NEGATIVE (NEGATIVE); PH,URINE 7.5 (5-9); PROTEIN,URINE NEGATIVE (NEGATIVE)
[2019-10-06 20:17] LABS: BASOPHILS % (AUTO) 0 % (0-10); EOSINOPHILS # (AUTO) 0.1 10^3/uL (0.0-0.3); EOSINOPHILS % (AUTO) 2 % (0-10); HEMATOCRIT 33 % (35-52); HEMOGLOBIN 10.7 G/DL (11.5-16.0); LYMPHOCYTES # (AUTO) 0.7 X 10^3 (1.0-4.0); LYMPHOCYTES % (AUTO) 10 % (12-44); MEAN CORPUSCULAR HEMOGLOBIN 28 PG (25-34); MEAN CORPUSCULAR HGB CONC 32 G/DL (32-36); MEAN CORPUSCULAR VOLUME 86 FL (80-99); MEAN PLATELET VOLUME 9.7 FL (7.4-10.4); MONOCYTES # (AUTO) 0.6 X 10^3 (0.0-1.0); MONOCYTES % (AUTO) 8 % (0-12); NEUTROPHILS # (AUTO) 5.4 X 10^3 (1.8-7.8); NEUTROPHILS % (AUTO) 78 % (42-75); PLATELET COUNT 318 10^3/uL (130-400); RED CELL DISTRIBUTION WIDTH 16.5 % (10.0-14.5); WHITE BLOOD COUNT 6.9 10^3/uL (4.3-11.0)
[2019-10-06 20:33] LABS: BUN/CREATININE RATIO 21; CARBON DIOXIDE 25 MMOL/L (21-32); CHLORIDE 102 MMOL/L (98-107); CREATININE SERUM 0.53 MG/DL (0.60-1.30); GFR ESTIMATED > 60; GLUCOSE 124 MG/DL (70-105); POTASSIUM 3.7 MMOL/L (3.6-5.0); SODIUM 140 MMOL/L (135-145)
[2019-10-06 20:34] LABS: ALANINE AMINOTRANSFERASE 21 U/L (0-55); ALBUMIN 3.9 GM/DL (3.2-4.5); ALKALINE PHOSPHATASE 114 U/L (40-136); BILIRUBIN,TOTAL 0.2 MG/DL (0.1-1.0); CALCIUM 9.4 MG/DL (8.5-10.1); TOTAL PROTEIN 6.9 GM/DL (6.4-8.2)
[2019-10-06] MEDS ORDERED: HYDROmorphone 2 MG/ML VIAL (DILAUDID) IV PRN (20:45)
[2019-10-06] MEDS ORDERED: OXC5T PO (21:10)
[2019-10-06 21:14] VITALS: BP 151/91
== END 2019-10-06 21:18 | disposition home or self-care (01) ==
LOC: EDUNIT# 18:50 → ER FS 18:51
DX: R10.32 Left lower quadrant pain (principal); Z88.1 Allergy status to other antibiotic agents; Z88.6 Allergy status to analgesic agent; Z88.8 Allergy status to other drugs, medicaments and biological substances; Z90.49 Acquired absence of other specified parts of digestive tract; Z90.710 Acquired absence of both cervix and uterus
CPT/HCPCS: 36415; 80053; 81000; 85025

== ENCOUNTER 2019-10-08 20:55 | Emergency (ER) | payer OTHER ==
[~2019-10-08] VITALS: Ht 160 cm; Wt 115.0 kg
[~2019-10-08 20:55] MED LIST: OXC5T PO
[2019-10-08 21:30] LABS: BASOPHILS % (AUTO) 0 % (0-10); EOSINOPHILS # (AUTO) 0.1 10^3/uL (0.0-0.3); EOSINOPHILS % (AUTO) 2 % (0-10); HEMATOCRIT 33 % (35-52); HEMOGLOBIN 10.4 G/DL (11.5-16.0); LYMPHOCYTES # (AUTO) 0.7 X 10^3 (1.0-4.0); LYMPHOCYTES % (AUTO) 11 % (12-44); MEAN CORPUSCULAR HEMOGLOBIN 28 PG (25-34); MEAN CORPUSCULAR HGB CONC 32 G/DL (32-36); MEAN CORPUSCULAR VOLUME 87 FL (80-99); MEAN PLATELET VOLUME 9.3 FL (7.4-10.4); MONOCYTES # (AUTO) 0.5 X 10^3 (0.0-1.0); MONOCYTES % (AUTO) 7 % (0-12); NEUTROPHILS # (AUTO) 5.3 X 10^3 (1.8-7.8); NEUTROPHILS % (AUTO) 80 % (42-75); PLATELET COUNT 299 10^3/uL (130-400); RED CELL DISTRIBUTION WIDTH 15.9 % (10.0-14.5); WHITE BLOOD COUNT 6.6 10^3/uL (4.3-11.0)
[2019-10-08] MEDS ORDERED: NS 100 ML (IVPB) BAG IV ONE (21:30)
[2019-10-08] MEDS ORDERED: CATHETER FLUSH 10 ML SYR IV PRN (21:30)
[2019-10-08] MEDS ORDERED: HOLD METFORMIN - RECEIVED CONTRAST 20 ML VIAL IV SCH (21:30)
[2019-10-08] MEDS ORDERED: IOHEXOL 350 MG/ML 100 ML (OMNIPAQUE 350) VIAL IV ONE (21:30)
--- NOTE | 2019-10-08 21:33 | ED GI ---
General Chief Complaint: Abdominal/GI Problems Stated Complaint: LEFT LOWER ABD PAIN,VOMITING,BLOOD IN STOOL Nursing Triage Note: PT COMPLAINING OF LLQ PAIN. PT SEEN 2 DAYS AGO WITH SAME SYMPTOMS. PT STATES SHE HAS AN APPT WITH HER GI DR TOMORROW Sepsis Screen: No Definite Risk Source of Information: Patient History of Present Illness Date Seen by Provider: Oct 08, 2019 Time Seen by Provider: 21:33 Initial Comments 49-year-old female presenting with continued complaints of left lower quadrant abdominal pain. She has a history of Crohn's and it has been flared up in the last several days. She was seen here 2 days ago on the and her symptoms had improved with treatment. She has doubled her sulfasalazine as well as been taking oxycodone for pain. She uses Zofran at home but today she had increased pain and vomiting. She continues to have blood this well. She has an appointment to see her GI doctor on Monday afternoon in [place]. However tonight her symptoms were bad enough that she came to the emergency department to see if there is anything else that could be done. Allergies and Home Medications Allergies Coded Allergies: cephalexin (Verified Allergy, Unknown, 09/13/19) ketorolac (Verified Allergy, Unknown, 09/13/19) prochlorperazine (Verified Allergy, Unknown, 09/13/19) Home Medications Oxycodone Hcl 5 Mg Tab, 10 MG PO Q6H PRN for PAIN-SEVERE Prescribed by: MARQUES WANG on 10/06/190 Patient Home Medication List Home Medication List Reviewed: Yes Review of Systems Review of Systems Constitutional: chills; No fever; malaise EENTM: No Symptoms Reported Respiratory: No Symptoms Reported Cardiovascular: No Symptoms Reported Gastrointestinal: See HPI, Abdominal Pain (especially in the left lower quadrant), Diarrhea, Nausea, Rectal Bleeding, Vomiting Genitourinary: Denies Burning, Denies Frequency, Denies Pain Musculoskeletal: no symptoms reported Skin: no symptoms reported Psychiatric/Neurological: Anxiety Endocrine: No Symptoms Reported Past Aihzkpc-Wxpouo-Ziowhc Hx Past Med/Social Hx: Reviewed Nursing Past Med/Soc Hx Patient Social History Alcohol Use: Denies Use Recreational Drug Use: No Smoking Status: Never a Smoker 2nd Hand Smoke Exposure: No Recent Foreign Travel: No Contact w/Someone Who Travel: No Recent Infectious Disease Expo: No Recent Hopitalizations: No Seasonal Allergies Seasonal Allergies: No Past Medical History Surgeries: Yes Appendectomy, Gallbladder, Hysterectomy, Rectal Respiratory: No Cardiac: Yes High Cholesterol Neurological: No Genitourinary: No Gastrointestinal: Yes Abdominal Hernia, Colitis, Crohns Disease Musculoskeletal: No Endocrine: No HEENT: No Cancer: No Psychosocial: Yes Anxiety, Depression Integumentary: No Blood Disorders: No Physical Exam Vital Signs Vital Signs - First Documented 10/08/19 21:00 Temp 36.4 Pulse 102 Resp 18 B/P (MAP) 176/127 (143) Pulse Ox 99 O2 Delivery Room Air Capillary Refill : Less Than 3 Seconds Height/Weight/BMI Height: '" Weight: lbs. oz. kg; 44.00 BMI Method: General Appearance: WD/WN, moderate distress, obese HEENT: PERRL/EOMI, pharynx normal Neck: non-tender, supple, normal inspection Respiratory: chest non-tender, lungs clear, normal breath sounds Cardiovascular: normal peripheral pulses, regular rate, rhythm Gastrointestinal: soft, no pulsatile mass, abnormal bowel sounds (hypoactive), guarding ( left lower quadrant); No rebound; tenderness (left lower quadrant); No hernia Extremities: normal range of motion, non-tender, normal capillary refill Back: normal inspection, no CVA tenderness, no vertebral tenderness Neurologic/Psychiatric: alert, oriented x 3 Skin: normal color, warm/dry Progress/Results/Core Measures Results/Orders Lab Results Laboratory Tests Test 10/08/19 21:19 10/08/19 22:10 Range/Units White Blood Count 6.6 4.3-11.0 10^3/uL Red Blood Count 3.78 L 4.35-5.85 10^6/uL Hemoglobin 10.4 L 11.5-16.0 G/DL Hematocrit 33 L 35-52 % Mean Corpuscular Volume 87 80-99 FL Mean Corpuscular Hemoglobin 28 25-34 PG Mean Corpuscular Hemoglobin Concent 32 32-36 G/DL Red Cell Distribution Width 15.9 H 10.0-14.5 % Platelet Count 299 130-400 10^3/uL Mean Platelet Volume 9.3 7.4-10.4 FL Neutrophils (%) (Auto) 80 H 42-75 % Lymphocytes (%) (Auto) 11 L 12-44 % Monocytes (%) (Auto) 7 0-12 % Eosinophils (%) (Auto) 2 0-10 % Basophils (%) (Auto) 0 0-10 % Neutrophils # (Auto) 5.3 1.8-7.8 X 10^3 Lymphocytes # (Auto) 0.7 L 1.0-4.0 X 10^3 Monocytes # (Auto) 0.5 0.0-1.0 X 10^3 Eosinophils # (Auto) 0.1 0.0-0.3 10^3/uL Basophils # (Auto) 0.0 0.0-0.1 10^3/uL Sodium Level 141 135-145 MMOL/L Potassium Level 3.5 L 3.6-5.0 MMOL/L Chloride Level 101 98-107 MMOL/L Carbon Dioxide Level 27 21-32 MMOL/L Anion Gap 13 5-14 MMOL/L Blood Urea Nitrogen 8 7-18 MG/DL Creatinine 0.56 L 0.60-1.30 MG/DL Estimat Glomerular Filtration Rate > 60 BUN/Creatinine Ratio 14 Glucose Level 117 H 70-105 MG/DL Calcium Level 9.4 8.5-10.1 MG/DL Corrected Calcium 9.5 8.5-10.1 MG/DL Total Bilirubin 0.2 0.1-1.0 MG/DL Aspartate Amino Transf (AST/SGOT) 15 5-34 U/L Alanine Aminotransferase (ALT/SGPT) 20 0-55 U/L Alkaline Phosphatase 113 40-136 U/L Total Protein 6.6 6.4-8.2 GM/DL Albumin 3.9 3.2-4.5 GM/DL Lipase 28 8-78 U/L Urine Color YELLOW Urine Clarity CLEAR Urine pH 7.0 5-9 Urine Specific [place] 1.010 L 1.016-1.022 Urine Protein NEGATIVE NEGATIVE Urine Glucose (UA) NEGATIVE NEGATIVE Urine Ketones NEGATIVE NEGATIVE Urine Nitrite NEGATIVE NEGATIVE Urine Bilirubin NEGATIVE NEGATIVE Urine Urobilinogen 0.2 < = 1.0 MG/DL Urine Leukocyte Esterase NEGATIVE NEGATIVE Urine RBC (Auto) NEGATIVE NEGATIVE Urine RBC 0-2 /HPF Urine WBC 0-2 /HPF Urine Squamous Epithelial Cells 0-2 /HPF Urine Crystals NONE /LPF Urine Bacteria NEGATIVE /HPF Urine Casts NONE /LPF Urine Mucus NEGATIVE /LPF Urine Culture Indicated NO My Orders Orders - STERLING STREETER MD Comprehensive Metabolic Panel (10/08/19 20:58) Lipase (10/08/19 20:58) Ua Culture If Indicated (10/08/19 20:58) Ed Iv/Invasive Line Start (10/08/19 20:58) Cbc With Automated Diff (10/08/19 20:58) Ct Abdomen/Pelvis W (10/08/19 20:58) Iohexol Injection (Omnipaque 350 Mg/Ml 1 (10/08/19 21:30) Received Contrast (Hold Metformin- Contr (10/08/19 21:30) Sodium Chloride Flush (Catheter Flush Sy (10/08/19 21:30) Ns (Ivpb) (Sodium Chloride 0.9% Ivpb Bag (10/08/19 21:30) Ns Iv 1000 Ml (Sodium Chloride 0.9%) (10/08/19 22:04) Hydromorphone Injection (Dilaudid Inject (10/08/19 22:04) Ondansetron Injection (Zofran Injectio (10/08/19 22:04) Methylprednisolone Sod Succ (Solu-Medrol (10/08/19 22:47) Hydromorphone Injection (Dilaudid Inject (10/08/19 22:47) Rx-Ondansetron Po (Rx-Zofran Po) (10/08/19 23:30) Hydromorphone Injection (Dilaudid Inject (10/08/19 23:30) Medications Given in ED Current Medications Medications Dose Ordered Sig/Stiven Route Start Time Stop Time Status Last Admin Dose Admin Iohexol 100 ml ONCE ONCE IV 10/08/19 21:30 10/08/19 21:31 DC 10/08/19 21:31 100 ML Sodium Chloride 10 ml NEEDED PRN IV 10/08/19 21:30 10/08/19 21:32 10 ML Sodium Chloride 100 ml ONCE ONCE IV 10/08/19 21:30 10/08/19 21:31 DC 10/08/19 21:31 100 ML Vital Signs/I&O 10/08/19 21:00 Temp 36.4 Pulse 102 Resp 18 B/P (MAP) 176/127 (143) Pulse Ox 99 O2 Delivery Room Air Blood Pressure Mean: 143 Progress Progress Note #1: Progress Note Recheck labs and compared to the . Since her symptoms have continued and worsened will obtain a CT scan to see if there is been any change or if she might have an abscess or fluid collection that might be contributing to her symptoms Progress Note #2: Time: 21:58 Progress Note Updated patient that her labs remained stable without elevation of her white blood cell count. Her hemoglobin is stable at 10.4. Her chemistry is stable without acute significant abnormality on her electrolytes, renal or hepatic function. Will add on IV fluids in addition to Dilaudid and Zofran for her pain and nausea. Awaiting CT scan to determine disposition Progress Note #3: Time: 22:[address] scan shows chronic inflammatory changes but no acute abscess or perforation. LLQ does not show acute changes and appears stable from CT done Apr 2019. Will see if can control her pain with medicines tonight and see how she feels after the dilaudid and zofran infuses. Progress Note #4: Time: 22:49 Progress Note d/w pt that tests are all stable so will try repeating dilaudid and give solumedrol to try and calm down inflammation and see if can get her to a tolerable level for discharge. Progress Note #5: Time: 23:24 Progress Note On recheck her pain was between 5-6 and she felt with just a little more pain med she could go home. will give 0.5 mg dilaudid and send with zofran take home pack. she has 2 oxycodone at home still and has appt Monday afternoon with GI in . Diagnostic Imaging Diagonstic Imaging: CT Plain Films/CT/US/NM/MRI: abdomen, pelvis Comments NAME: PAULA [facility] REC#: [id number] PT STATUS: REG ER : 1970 PHYSICIAN: STERLING STREETER MD ADMIT DATE: 10/08/19/ER FS Signed Date of Exam:10/08/19 CT ABDOMEN/PELVIS W INDICATION: Abdominal pain. TECHNIQUE: Multiple contiguous axial images were obtained through the abdomen and pelvis after administration of intravenous contrast. Auto Exposure Controls were utilized during the CT exam to meet ALARA standards for radiation dose reduction. COMPARISON: 05/04/2019. The visualized portions of the lung bases demonstrate no consolidation. A small 4 mm nodule in the left lower lobe is unchanged. There is no pleural fluid or free intraperitoneal air. The liver shows diffuse fatty infiltration, without focal lesion. Patient has had cholecystectomy. There is no biliary dilatation. The spleen, adrenals, and pancreas appear normal. The kidneys bilaterally appear unremarkable. There is no retroperitoneal mass or adenopathy. There is no ascites or abscess. There are postoperative changes status post appendectomy. Urinary bladder appears unremarkable. Visualized bowel loops show no overt obstruction. There is again noted to be some wall thickening in the ascending colon and transverse colon compatible with colitis, this finding has not changed compared to the previous study. IMPRESSION: No acute change compared to 05/04/2019. Findings compatible with colitis with wall thickening and the ascending and transverse colon appears unchanged from 05/04/2019. There is no abscess or bowel obstruction. Patient appears to have had prior appendectomy. There is diffuse fatty infiltration of the liver. Patient's had prior cholecystectomy. A small 4 mm nodule in the left lower lobe is noted which is probably not of significance as it has not changed compared to 06/06/2017. Dictated by: Dictated on workstation # [id number] Dict: 10/08/192157 Trans: 10/08/192207 [facility] [id number] Interpreted by: IZABELLA SARGENT MD Electronically signed by: IZABELLA SARGENT MD 10/08/192207 Departure Impression Primary Impression: Ulcerative colitis, left sided Qualified Codes: K51.511 - Left sided colitis with rectal bleeding Additional Impression: Rectal hemorrhage due to ulcerative colitis Disposition: HOME, SELF-CARE Condition: Improved Departure-Patient Inst. Decision time for Depature: 23:31 Referrals: NO,LOCAL PHYSICIAN (PCP/Family) Primary Care Physician Patient Instructions: Ulcerative Colitis (DC), Inflammatory Bowel Disease (DC) Add. Discharge Instructions: Follow up with your GI doctor Monday as scheduled. Continued your regular medicines as prescribed. All discharge instructions reviewed with patient and/or family. Voiced understanding. STERLING STREETER MD Oct 08, 2019 21:33
[2019-10-08 21:48] LABS: BUN/CREATININE RATIO 14; CARBON DIOXIDE 27 MMOL/L (21-32); CHLORIDE 101 MMOL/L (98-107); CREATININE SERUM 0.56 MG/DL (0.60-1.30); GFR ESTIMATED > 60; GLUCOSE 117 MG/DL (70-105); POTASSIUM 3.5 MMOL/L (3.6-5.0); SODIUM 141 MMOL/L (135-145)
[2019-10-08 21:49] LABS: ALANINE AMINOTRANSFERASE 20 U/L (0-55); ALBUMIN 3.9 GM/DL (3.2-4.5); ALKALINE PHOSPHATASE 113 U/L (40-136); BILIRUBIN,TOTAL 0.2 MG/DL (0.1-1.0); CALCIUM 9.4 MG/DL (8.5-10.1); LIPASE 28 U/L (8-78); TOTAL PROTEIN 6.6 GM/DL (6.4-8.2)
[2019-10-08] MEDS ORDERED: HYDROmorphone 2 MG/ML VIAL (DILAUDID) IV STA ×3 (22:04→23:30)
[2019-10-08] MEDS ORDERED: NS IV 1000 ML 1,000 ML IV STA (22:04)
[2019-10-08] MEDS ORDERED: ONDANSETRON 4 MG/2 ML (SDV) Z0FRAN IVP STA (22:04)
--- NOTE | 2019-10-08 22:09 | Diagnostic Imaging Report ---
INDICATION: Abdominal pain. TECHNIQUE: Multiple contiguous axial images were obtained through the abdomen and pelvis after administration of intravenous contrast. Auto Exposure Controls were utilized during the CT exam to meet ALARA standards for radiation dose reduction. COMPARISON: 05/04/2019. The visualized portions of the lung bases demonstrate no consolidation. A small 4 mm nodule in the left lower lobe is unchanged. There is no pleural fluid or free intraperitoneal air. The liver shows diffuse fatty infiltration, without focal lesion. Patient has had cholecystectomy. There is no biliary dilatation. The spleen, adrenals, and pancreas appear normal. The kidneys bilaterally appear unremarkable. There is no retroperitoneal mass or adenopathy. There is no ascites or abscess. There are postoperative changes status post appendectomy. Urinary bladder appears unremarkable. Visualized bowel loops show no overt obstruction. There is again noted to be some wall thickening in the ascending colon and transverse colon compatible with colitis, this finding has not changed compared to the previous study. IMPRESSION: No acute change compared to 05/04/2019. Findings compatible with colitis with wall thickening and the ascending and transverse colon appears unchanged from 05/04/2019. There is no abscess or bowel obstruction. Patient appears to have had prior appendectomy. There is diffuse fatty infiltration of the liver. Patient's had prior cholecystectomy. A small 4 mm nodule in the left lower lobe is noted which is probably not of significance as it has not changed compared to 06/06/2017. Dictated by: Dictated on workstation # [id number]
[2019-10-08 22:20] LABS: BACTERIA,URINE NEGATIVE /HPF; BILIRUBIN,URINE NEGATIVE (NEGATIVE); CLARITY,URINE CLEAR; COLOR,URINE YELLOW; GLUCOSE, URINE (UA) NEGATIVE (NEGATIVE); KETONES,URINE NEGATIVE (NEGATIVE); LEUKOCYTE ESTERASE ,URINE NEGATIVE (NEGATIVE); NITRITE,URINE NEGATIVE (NEGATIVE); PROTEIN,URINE NEGATIVE (NEGATIVE); RBC,URINE 0-2 /HPF; SQUAMOUS EPITHELIAL CELL,UR 0-2 /HPF; WBC,URINE 0-2 /HPF
[2019-10-08] MEDS ORDERED: methylPREDNISolone 125 MG (Solu-MEDROL) VIAL IVP STA (22:47)
[2019-10-08] MEDS ORDERED: RX-ONDANSETRON 4 MG ODT (ZOFRAN) PPK #4 PO PRN (23:30)
[2019-10-08 23:43] VITALS: BP 160/88
== END 2019-10-08 23:42 | disposition home or self-care (01) ==
LOC: EDUNIT# 20:55 → ER FS 20:56
DX: K51.511 Left sided colitis with rectal bleeding (principal); Z88.1 Allergy status to other antibiotic agents; Z88.6 Allergy status to analgesic agent; Z88.8 Allergy status to other drugs, medicaments and biological substances
CPT/HCPCS: 36415; 74177; 80053; 81000; 83690; 85025

== ENCOUNTER 2019-10-13 19:32 | Emergency (ER) | payer OTHER ==
[~2019-10-13] VITALS: Ht 162.6 cm; Wt 118.9 kg
[2019-10-13] MEDS ORDERED: ONDANSETRON 4 MG/2 ML (SDV) Z0FRAN IVP STA (20:29)
[2019-10-13] MEDS ORDERED: NS IV 1000 ML 1,000 ML IV STA (20:29)
[2019-10-13] MEDS ORDERED: methylPREDNISolone 125 MG (Solu-MEDROL) VIAL IVP STA (20:29)
[2019-10-13 20:59] LABS: BACTERIA,URINE TRACE /HPF; BILIRUBIN,URINE NEGATIVE (NEGATIVE); CLARITY,URINE CLEAR; COLOR,URINE YELLOW; GLUCOSE, URINE (UA) NEGATIVE (NEGATIVE); KETONES,URINE NEGATIVE (NEGATIVE); LEUKOCYTE ESTERASE ,URINE NEGATIVE (NEGATIVE); NITRITE,URINE NEGATIVE (NEGATIVE); PH,URINE 6.5 (5-9); PROTEIN,URINE NEGATIVE (NEGATIVE); SQUAMOUS EPITHELIAL CELL,UR 0-2 /HPF
[2019-10-13 21:00] LABS: BASOPHILS % (AUTO) 1 % (0-10); EOSINOPHILS # (AUTO) 0.1 10^3/uL (0.0-0.3); EOSINOPHILS % (AUTO) 1 % (0-10); HEMATOCRIT 32 % (35-52); HEMOGLOBIN 10.4 G/DL (11.5-16.0); LYMPHOCYTES # (AUTO) 0.6 X 10^3 (1.0-4.0); LYMPHOCYTES % (AUTO) 9 % (12-44); MEAN CORPUSCULAR HEMOGLOBIN 28 PG (25-34); MEAN CORPUSCULAR HGB CONC 32 G/DL (32-36); MEAN CORPUSCULAR VOLUME 87 FL (80-99); MEAN PLATELET VOLUME 9.4 FL (7.4-10.4); MONOCYTES # (AUTO) 0.5 X 10^3 (0.0-1.0); MONOCYTES % (AUTO) 8 % (0-12); NEUTROPHILS # (AUTO) 5.2 X 10^3 (1.8-7.8); NEUTROPHILS % (AUTO) 77 % (42-75); PLATELET COUNT 280 10^3/uL (130-400); RED CELL DISTRIBUTION WIDTH 15.9 % (10.0-14.5); WHITE BLOOD COUNT 6.7 10^3/uL (4.3-11.0)
[2019-10-13] MEDS ORDERED: HYDROmorphone 2 MG/ML VIAL (DILAUDID) IV ONE (21:00)
[2019-10-13 21:16] LABS: ALANINE AMINOTRANSFERASE 22 U/L (0-55); ALBUMIN 3.8 GM/DL (3.2-4.5); ALKALINE PHOSPHATASE 117 U/L (40-136); BILIRUBIN,TOTAL < 0.2 MG/DL (0.1-1.0); BUN/CREATININE RATIO 23; CALCIUM 8.8 MG/DL (8.5-10.1); CARBON DIOXIDE 26 MMOL/L (21-32); CHLORIDE 98 MMOL/L (98-107); CREATININE SERUM 0.52 MG/DL (0.60-1.30); GFR ESTIMATED > 60; GLUCOSE 129 MG/DL (70-105); LIPASE 43 U/L (8-78); POTASSIUM 3.9 MMOL/L (3.6-5.0); SODIUM 137 MMOL/L (135-145); TOTAL PROTEIN 6.6 GM/DL (6.4-8.2)
--- NOTE | 2019-10-13 22:13 | ED GI ---
General Chief Complaint: Abdominal/GI Problems Stated Complaint: LEFT LOWER ABDOMINAL PAIN/NAUSEA AND VOMITTING Nursing Triage Note: pt states she has been having an ulcerative colitis flair up the past week, states she saw primary Monday who wanted her to double up on medications. has gi appointment this week Sepsis Screen: No Definite Risk Source of Information: Patient History of Present Illness Date Seen by Provider: Oct 13, 2019 Time Seen by Provider: 22:13 Initial Comments 49-year-old female presenting with recurrent complaints of some abdominal pain. She has a history of ulcerative colitis and inflammatory bowel disease and has been flaring up over the last week or better. This is her third visit in the last week week coming to the emergency department. She did give to her primary clinic on Monday and saw her regular doctor as well. She has an appointment to see her GI specialist on Monday. She has been doubling up on her mesalamine but still having increased pain. She states that after her visit on the she had been doing better until tonight. She has had nausea but no vomiting. She has continued to see some blood in her stool. She does have steroid suppositories. S he continues to try and treat this at home but was having increased pain so she came to the emergency department. Allergies and Home Medications Allergies Coded Allergies: cephalexin (Verified Allergy, Unknown, 09/13/19) ketorolac (Verified Allergy, Unknown, 09/13/19) prochlorperazine (Verified Allergy, Unknown, 09/13/19) Home Medications Oxycodone Hcl 5 Mg Tab, 10 MG PO Q6H PRN for PAIN-SEVERE Prescribed by: MARQUES WANG on 10/06/192109 Prednisone 20 Mg Tab, 40 MG PO DAILY Prescribed by: STERLING STREETER on 10/13/192231 Patient Home Medication List Home Medication List Reviewed: Yes Review of Systems Review of Systems Constitutional: No chills, No fever; malaise EENTM: No Symptoms Reported Respiratory: No Symptoms Reported Cardiovascular: No Symptoms Reported Gastrointestinal: See HPI, Abdominal Pain (left sided), Diarrhea (bloody diarrhea), Nausea, Rectal Bleeding Genitourinary: Denies Burning, Denies Pain Musculoskeletal: no symptoms reported Skin: no symptoms reported Psychiatric/Neurological: No Symptoms Reported Past [place]-Samndo-Tvqahh Hx Past Med/Social Hx: Reviewed Nursing Past Med/Soc Hx Patient Social History Alcohol Use: Denies Use Recreational Drug Use: No 2nd Hand Smoke Exposure: No Recent Foreign Travel: No Contact w/Someone Who Travel: No Recent Infectious Disease Expo: No Recent Hopitalizations: No Physical Abuse: No Sexual Abuse: No Mistreated: No Fear: No Seasonal Allergies Seasonal Allergies: No Past Medical History Surgeries: Yes Appendectomy, Gallbladder, Hysterectomy, Rectal Respiratory: No Cardiac: Yes High Cholesterol Neurological: No Genitourinary: No Gastrointestinal: Yes Abdominal Hernia, Colitis, Crohns Disease Musculoskeletal: No Endocrine: No HEENT: No Cancer: No Psychosocial: Yes Anxiety, Depression Integumentary: No Blood Disorders: No Physical Exam Vital Signs Vital Signs - First Documented 10/13/19 20:23 Temp 36.4 Pulse 100 Resp 14 B/P (MAP) 165/117 (133) Pulse Ox 96 O2 Delivery Room Air Capillary Refill : Less Than 3 Seconds Height/Weight/BMI Height: '" Weight: lbs. oz. 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, alert, oriented x 3 Skin: normal color, warm/dry Progress/Results/Core Measures Results/Orders Lab Results Laboratory Tests Test 10/13/19 20:45 Range/Units White Blood Count 6.7 4.3-11.0 10^3/uL Red Blood Count 3.71 L 4.35-5.85 10^6/uL Hemoglobin 10.4 L 11.5-16.0 G/DL Hematocrit 32 L 35-52 % Mean Corpuscular Volume 87 80-99 FL Mean Corpuscular Hemoglobin 28 25-34 PG Mean Corpuscular Hemoglobin Concent 32 32-36 G/DL Red Cell Distribution Width 15.9 H 10.0-14.5 % Platelet Count 280 130-400 10^3/uL Mean Platelet Volume 9.4 7.4-10.4 FL Neutrophils (%) (Auto) 77 H 42-75 % Lymphocytes (%) (Auto) 9 L 12-44 % Monocytes (%) (Auto) 8 0-12 % Eosinophils (%) (Auto) 1 0-10 % Basophils (%) (Auto) 1 0-10 % Neutrophils # (Auto) 5.2 1.8-7.8 X 10^3 Lymphocytes # (Auto) 0.6 L 1.0-4.0 X 10^3 Monocytes # (Auto) 0.5 0.0-1.0 X 10^3 Eosinophils # (Auto) 0.1 0.0-0.3 10^3/uL Basophils # (Auto) 0.0 0.0-0.1 10^3/uL Urine Color YELLOW Urine Clarity CLEAR Urine pH 6.5 5-9 Urine Specific [place] 1.015 L 1.016-1.022 Urine Protein NEGATIVE NEGATIVE Urine Glucose (UA) NEGATIVE NEGATIVE Urine Ketones NEGATIVE NEGATIVE Urine Nitrite NEGATIVE NEGATIVE Urine Bilirubin NEGATIVE NEGATIVE Urine Urobilinogen 0.2 < = 1.0 MG/DL Urine Leukocyte Esterase NEGATIVE NEGATIVE Urine RBC (Auto) NEGATIVE NEGATIVE Urine RBC NONE /HPF Urine WBC 2-5 /HPF Urine Squamous Epithelial Cells 0-2 /HPF Urine Crystals NONE /LPF Urine Leucine Crystals /LPF Urine Bacteria TRACE /HPF Urine Casts NONE /LPF Urine Mucus NEGATIVE /LPF Urine Culture Indicated YES Sodium Level 137 135-145 MMOL/L Potassium Level 3.9 3.6-5.0 MMOL/L Chloride Level 98 98-107 MMOL/L Carbon Dioxide Level 26 21-32 MMOL/L Anion Gap 13 5-14 MMOL/L Blood Urea Nitrogen 12 7-18 MG/DL Creatinine 0.52 L 0.60-1.30 MG/DL Estimat Glomerular Filtration Rate > 60 BUN/Creatinine Ratio 23 Glucose Level 129 H 70-105 MG/DL Calcium Level 8.8 8.5-10.1 MG/DL Corrected Calcium 9.0 8.5-10.1 MG/DL Total Bilirubin < 0.2 0.1-1.0 MG/DL Aspartate Amino Transf (AST/SGOT) 20 5-34 U/L Alanine Aminotransferase (ALT/SGPT) 22 0-55 U/L Alkaline Phosphatase 117 40-136 U/L Total Protein 6.6 6.4-8.2 GM/DL Albumin 3.8 3.2-4.5 GM/DL Lipase 43 8-78 U/L My Orders Orders - STERLING STREETER MD Comprehensive Metabolic Panel (10/13/19 20:29) Lipase (10/13/19 20:) Ua Culture If Indicated (10/13/19 20:29) Ed Iv/Invasive Line Start (10/13/19 20:29) Cbc With Automated Diff (10/13/19 20:29) Ns Iv 1000 Ml (Sodium Chloride 0.9%) (10/13/19 20:29) Ondansetron Injection (Zofran Injectio (10/13/19 20:29) Methylprednisolone Sod Succ (Solu-Medrol (10/13/19 20:29) Hydromorphone Injection (Dilaudid Inject (10/13/19 21:00) Urine Culture (10/13/19 20:45) Hydromorphone Injection (Dilaudid Inject (10/13/19 22:27) Medications Given in ED Current Medications Medications Dose Ordered Sig/Stiven Route Start Time Stop Time Status Last Admin Dose Admin Hydromorphone HCl 1 mg ONCE ONCE IV 10/13/19 21:00 10/13/19 21:01 DC 10/13/19 21:27 1 MG Vital Signs/I&O 10/13/19 20:23 Temp 36.4 Pulse 100 Resp 14 B/P (MAP) 165/117 (133) Pulse Ox 96 O2 Delivery Room Air Blood Pressure Mean: 133 Progress Progress Note #1: Progress Note obtain labs and urine while I was in performing a procedure on another patient. Will start with Solumedrol, IVF and Zofran for her symptoms. Progress Note #2: Time: 20:58 Progress Note Pt still having pain but labs appear stable. will give a dose of Dilaudid 1 mg to see if that helps her symptoms. Progress Note #3: Time: 22:22 Progress Note Respiratory patient that her tests were all stable and no significant change from the last week. With her having a CT scan at this week and an appointment coming up on Monday with GI will repeat an additional dose of Dilaudid and then discharge on a steroid. Keep her appointment with GI this week and continue on her regular medicines at home. Departure Impression Primary Impression: Ulcerative colitis, left sided Qualified Codes: K51.511 - Left sided colitis with rectal bleeding Disposition: HOME, SELF-CARE Condition: Stable Departure-Patient Inst. Decision time for Depature: 22:29 Referrals: NO,LOCAL PHYSICIAN (PCP/Family) Primary Care Physician Patient Instructions: Inflammatory Bowel Disease (DC), Ulcerative Colitis (DC) Add. Discharge Instructions: Continue to stay well hydrated Try the steroids for pain and inflammation. Keep your follow up with your GI doctor on Monday as scheduled All discharge instructions reviewed with patient and/or family. Voiced understanding. Scripts Prednisone (Prednisone) 20 Mg Tab 40 MG PO DAILY for inflammatory bowel for 7 Days, #14 TAB 0 Refills Prov: STERLING STREETER MD 10/13/[address]ER MD Oct 13, 2019 22:13
[2019-10-13] MEDS ORDERED: HYDROmorphone 2 MG/ML VIAL (DILAUDID) IV STA (22:27)
[2019-10-13] MEDS ORDERED: PRD20T PO (22:32)
[2019-10-13 22:44] VITALS: BP 164/121
== END 2019-10-13 22:44 | disposition home or self-care (01) ==
LOC: EDUNIT# 19:32 → ER FS 19:34
DX: K51.511 Left sided colitis with rectal bleeding (principal); Z88.1 Allergy status to other antibiotic agents; Z88.6 Allergy status to analgesic agent; Z88.8 Allergy status to other drugs, medicaments and biological substances
CPT/HCPCS: 36415; 80053; 81000; 83690; 85025; 87088; 99282

== ENCOUNTER → 2019-10-26 | Emergency (ER) | payer OTHER ==
[~2019-10-26] VITALS: Ht 162.5 cm; Wt 114.7 kg
[~2019-10-26] MED LIST changes: +PRD20T PO
[2019-10-26 19:20] VITALS: BP 162/110
--- NOTE | 2019-10-26 19:46 | NUR ---
pt. left AMA after talking with the doctor.
--- NOTE | 2019-10-26 19:50 | NUR ---
pt. left without signing the AMA form.
--- NOTE | 2019-10-26 19:57 | ED Abdominal Pain ---
General Chief Complaint: Abdominal/GI Problems Stated Complaint: LOWER LEFT ABD PAIN V/D Nursing Triage Note: Pt. arrived to the er with the c/o N/V/D for 5 days. Pt was seen in the ER a couple of weeks ago for the same complaint and was to see her GI Doctor. Pt stated she did see her GI Doctor and her medication that she takes was increased and she is to make a diary of everything she eats and if not better she stated she will have to have a scope in the future. Sepsis Screen: No Definite Risk History of Present Illness Date Seen by Provider: Oct 26, 2019 Time Seen by Provider: 19:50 Initial Comments 49-year-old female states she has history of Crohn's describes sharp abdominal pain and rectal pain diarrhea with some blood earlier today some vomiting no fevers she was seen at least 3 times here last month having received IV Dilaudid each time Allergies and Home Medications Allergies Coded Allergies: cephalexin (Verified Allergy, Unknown, 09/13/19) ketorolac (Verified Allergy, Unknown, 09/13/19) prochlorperazine (Verified Allergy, Unknown, 09/13/19) Home Medications Oxycodone Hcl 5 Mg Tab, 10 MG PO Q6H PRN for PAIN-SEVERE Prescribed by: MARQUES WANG on 10/06/192109 Prednisone 20 Mg Tab, 40 MG PO DAILY Prescribed by: STERLING STREETER on 10/13/192231 Patient Home Medication List Home Medication List Reviewed: Yes Review of Systems Review of Systems Constitutional: No fever EENTM: No Symptoms Reported Respiratory: No Symptoms Reported Cardiovascular: No Symptoms Reported Gastrointestinal: Abdominal Pain, Diarrhea, Vomiting Genitourinary: No Symptoms Reported Musculoskeletal: no symptoms reported Skin: no symptoms reported Psychiatric/Neurological: No Symptoms Reported Past Fhgieai-Ofncse-Vlhayt Hx Patient Social History 2nd Hand Smoke Exposure: No Recent Foreign Travel: No Contact w/Someone Who Travel: No Recent Infectious Disease Expo: No Recent Hopitalizations: No Physical Abuse: No Sexual Abuse: No Mistreated: No Fear: No Seasonal Allergies Seasonal Allergies: No Past Medical History Surgeries: Yes Appendectomy, Gallbladder, Hysterectomy, Rectal Respiratory: No Cardiac: Yes High Cholesterol, Hypertension Neurological: No Genitourinary: No Gastrointestinal: Yes Abdominal Hernia, Colitis, Crohns Disease Musculoskeletal: No Endocrine: No HEENT: No Cancer: No Psychosocial: Yes Anxiety, Depression Integumentary: No Blood Disorders: No Physical Exam Vital Signs Vital Signs - First Documented 10/26/19 19:20 Temp 36.6 Pulse 115 Resp 22 B/P (MAP) 162/110 (127) Pulse Ox 98 O2 Delivery Room Air Capillary Refill : Less Than 3 Seconds Height/Weight/BMI Height: '" Weight: lbs. oz. kg; 43.00 BMI Method: General Appearance: WD/WN, mild distress HEENT: PERRL/EOMI, pharynx normal, other (mucosa moist) Neck: supple Respiratory: lungs clear Cardiovascular: regular rate, rhythm Gastrointestinal: normal bowel sounds; No guarding, No rebound; other (mild difuse tenderness) Progress/Results/Core Measures Results/Orders My Orders Orders - LIZZETH FERRER MD Iv Heplock-Insert (Order) (10/26/19 19:33) Cbc With Automated Diff (10/26/19 19:33) Comprehensive Metabolic Panel (10/26/19 19:33) Lipase (10/26/19 19:33) Lactic Acid Analyzer (10/26/19 19:33) Vital Signs/I&O 10/26/19 19:20 Temp 36.6 Pulse 115 Resp 22 B/P (MAP) 162/110 (127) Pulse Ox 98 O2 Delivery Room Air Blood Pressure Mean: 127 Progress Progress Note : Progress Note a work up (IV, IV fluids, lab work, etc) was ordered explained to patient I would not order IV narcotics prior to having lab results or further information to indicate that this would be justified based on the results of her assessment she then almost immediately got up and left the ER without further discussion she understands that a workup had been ordered to assess her condition, but does not wish to pursue it Departure Impression Primary Impression: Abdominal pain Qualified Codes: R10.84 - Generalized abdominal pain Disposition: 07 AGAINST MEDICAL ADVICE Condition: Against Medical Advice Departure-Patient Inst. Referrals: NO,LOCAL PHYSICIAN (PCP/Family) Primary Care Physician LIZZETH FERRER MD Oct 26, 2019 19:57
--- OUTSIDE RECORDS SUMMARY | 2019-10-30 04:01 | XMS REPORT | Continuity of Care Document ---
Author Author [facility] Organization [facility] Address 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 Name Role Phone UNKNOWN PCP Unavailable Allergies, Adverse Reactions, Alerts Allergen Type Severity Reaction Last Updated Verified Status Prochlorperazine Allergy Severe ANXIETY July 27, 2019 Yes Active Cephalexin Allergy Moderate HIVES July 27, 2019 Yes Active Ketorolac Allergy Moderate HIVES July 27, 2019 Yes A ctive Medications Medication Status Dose Units Route Sig Qty Days Start Date End Date Instructions Alprazolam Active 2 Once A Day as needed for Anxiety Dicyclomine Hcl Active 20 Four Times Duloxetine Hcl Active 60 Once A Day for Anxiety Ferrous Gluconate Active 240 Once A Day for Supplement Lansoprazole Active 30 Once A Day for Gerd Mirtazapine Active 15 Everyday At 9 Pm for Sleep Simvastatin Active 40 Once A Day for High Cholestrol Sulfasalazine Active 500 Four Times Problems No problem information available. Procedures Procedure Date Performed Status THER/PROPH/DIAG IV INF INIT June 28, 2019 completed TX/PRO/DX INJ NEW DRUG ADDON June 28, 2019 completed EMERGENCY DEPT VISIT June 28, 2019 completed ROUTINE VENIPUNCTURE July 27, [address] ABD & PELVIS W/O CONTRAST July 27, 2019 completed COMPREHEN METABOLIC PANEL July 27, 2019 completed URINALYSIS NONAUTO W/SCOPE July 27, 2019 completed BL SMEAR W/DIFF WBC COUNT July 27, 2019 completed COMPLETE CBC W/AUTO DIFF WBC July 27, 2019 completed THER/PROPH/DIAG INJ SC/IM July 27, 2019 completed EMERGENCY DEPT VISIT July 27, 2019 completed EMERGENCY DEPT VISIT July 27, 2019 completed INJECTION, MORPHINE SULFATE, UP TO 10 MG July 27, 2019 completed Computed tomography of abdomen and pelvis without contrast N ovember 2019 completed Computed tomography of abdomen and pelvis without contrast D ec2018 completed Insertion of intravenous saline lock July 27, 2019 act silvia Relevant Diagnostic Tests and/or Laboratory Data Laboratory Results Test Date/Time Result Interpretation Reference Range Result Co mment Performing Site White Blood Count October 27, 2019 6:45am 5.6 4.0-11.0 MAIN LAB, [address] [facility] [address] [place] [address] Red Blood Count October 27, 2019 6:45am 4.05 3.80-5.80 MAIN LAB, [address] [facility] [address] [place] [address] Hemoglobin October 27, 2019 6:45am 11.4 11.5-16.5 MAIN LAB, [facility] [address] [place] [address] Hematocrit October 27, 2019 6:45am 35.6 37.0-47.0 MAIN LAB, [address] [place] [address] [address] [place] [address] Mean Corpuscular Volume October 27, 2019 6:45am 88 76- 96 MAIN LAB, [address] [place] [address] [address] [place] [address] Mean Corpuscular Hemoglobin October 27, 2019 6:45am 28.1 27.0-32.0 MAIN LAB, [address] [place] [address] [address] [place] [address] Mean Corpuscular Hemoglobin Concent October 27, 2019 6:45am 32.0 31.0-35.0 MAIN LAB, [address] [place] [address] [address] [place] [address] Red Cell Distribution Width October 27, 2019 6:45am 14.7 11.0-16.0 MAIN LAB, [address] [place] [address] [address] [place] [address] Platelet Count October 27, 2019 6:45am 215 150-500 MAIN LAB, [address] [place] [address] [address] [place] [address] Mean Platelet Volume October 27, 2019 6:45am 9.5 6.0-10 .0 MAIN LAB, [address] [place] [address] [address] [place] [address] Neutrophils (%) (Auto) October 27, 2019 6:45am 93.8 45.0 -70.0 MAIN LAB, [address] [place] [address] [address] [place] [address] Lymphocytes (%) (Auto) October 27, 2019 6:45am 4.9 20.0 -40.0 MAIN LAB, [address] [facility] [address] [place] [address] Monocytes (%) (Auto) October 27, 2019 6:45am 1.1 3.0-10 .0 MAIN LAB, [address] [facility] [address] [place] [address] Eosinophils (%) (Auto) October 27, 2019 6:45am 0.0 1.0- 5.0 MAIN LAB, [address] [place] [address] [address] [place] [address] Basophils (%) (Auto) October 27, 2019 6:45am 0.2 0.0-0. 5 MAIN LAB, [address] [place] [address] [address] [place] [address] Neutrophils # (Auto) October 27, 2019 6:45am 5.21 2.00-7 .50 MAIN LAB, [address] [place] [address] [address] [place] [address] Lymphocytes # (Auto) October 27, 2019 6:45am 0.27 1.50-4 .00 MAIN LAB, [address] [place] [address] [address] [place] [address] Monocytes # (Auto) October 27, 2019 6:45am 0.06 0.20-0.8 0 MAIN LAB, [address] [place] [address] [address] [place] [address] Eosinophils # (Auto) October 27, 2019 6:45am 0.00 0.04-0 .40 MAIN LAB, [address] [place] [address] [address] [place] [address] Basophils # (Auto) October 27, 2019 6:45am 0.01 0.02-0.1 0 MAIN LAB, [address] [place] [address] [address] [place] [address] Neutrophils % (Manual) October 27, 2019 6:45am 94 39-7 9 MAIN LAB, [address] [place] [address] [address] [place] [address] Band Neutrophils % October 27, 2019 6:45am 0 0-10 MAIN LAB, [address] [place] [address] [address] [place] [address] Lymphocytes % (Manual) October 27, 2019 6:45am 4 20-6 0 MAIN LAB, [address] [place] [address] [address] [place] [address] Monocytes % (Manual) October 27, 2019 6:45am 2 0-9 MAIN LAB, [address] [place] [address] [address] [place] [address] Eosinophils % (Manual) October 27, 2019 6:45am 0 0-7 MAIN LAB, [address] [place] [address] [address] [place] [address] Basophils % (Manual) October 27, 2019 6:45am 0 0-8 MAIN LAB, [address] [place] [address] [address] [place] [address] Platelet Morphology Comment October 27, 2019 6:45am ADEQUATE MAIN LAB, [address] [place] [address] [address] [place] [address] Red Blood Cell Morphology October 27, 2019 6:45am NORMAL MAIN LAB, [address] [place] [address] [address] [place] [address] Volume Urine Centrifuged October 27, 2019 7:25am 12 Test based ON 12 ml volume. MAIN LAB, [address] [place] [address] [address] [place] [address] Urine Color October 27, 2019 7:25am STRAW STRAW MAIN LAB, [address] [place] [address] [place] [address] Urine Clarity October 27, 2019 7:25am CLEAR CLEAR MAIN LAB, [address] [place] [address] [address] [place] [address] Urine Specific [place] October 27, 2019 7:25am 1.020 1.01 0-1.020 MAIN LAB, [address] [place] [address] [address] [place] [address] Urine pH October 27, 2019 7:25am 5.5 5.0-6.0 MAIN LAB, [address] [place] [address] [address] [place] [address] Urine Leukocyte Esterase October 27, 2019 7:25am NEGATIVE NE GATIVE MAIN LAB, [address] [place] [address] [address] [place] [address] Urine Nitrite October 27, 2019 7:25am NEGATIVE NEGATIVE MAIN LAB, [address] [place] [address] [address] [place] [address] Urine Protein October 27, 2019 7:25am NEGATIVE NEGATIVE MAIN LAB, [address] [place] [address] [address] [place] [address] Urine Glucose (UA) October 27, 2019 7:25am 2+ NEGATIVE MAIN LAB, [address] [place] [address] [address] [place] [address] Urine Ketones October 27, 2019 7:25am 1+ NEGATIVE MAIN LAB, [address] [place] [address] [place] [address] Urine Urobilinogen October 27, 2019 7:25am 0.2 0.2-1.0 MAIN LAB, [address] [place] [address] [address] [place] [address] Urine Bilirubin October 27, 2019 7:25am NEGATIVE NEGATIVE MAIN LAB, [address] [facility] [address] [place] [address] Urine Occult Blood October 27, 2019 7:25am TRACE NEGATIVE MAIN LAB, [address] [facility] [address] [place] [address] Urine WBC October 27, 2019 7:25am NONE OCCASIONAL MAIN LAB, [address] [facility] [address] [place] [address] Urine RBC October 27, 2019 7:25am 2-4 OCCASIONAL MAIN LAB, [address] [facility] [address] [place] [address] Urine Epithelial Cells October 27, 2019 7:25am NONE OCCA SIONAL MAIN LAB, [address] [facility] [address] [place] [address] Urine Other Casts October 27, 2019 7:25am NONE NEGATIVE MAIN LAB, [address] [facility] [address] [place] [address] Urine Bacteria October 27, 2019 7:25am NONE NONE MAIN LAB, [address] [facility] [address] [place] [address] Urine Other Crystals October 27, 2019 7:25am NONE NONE MAIN LAB, [address] [facility] [address] [place] [address] Urine Mucus October 27, 2019 7:25am NONE NONE MAIN LAB, [address] [facility] [address] [place] [address] Urine Culture Indicated October 27, 2019 7:25am NO NO MAIN LAB, [address] [facility] [address] [place] [address] Sodium Level October 27, 2019 6:45am 137 137-145 MAIN LAB, [address] [facility] [address] [place] [address] Potassium Level October 27, 2019 6:45am 4.1 3.5-5.1 MAIN LAB, [address] [facility] [address] [place] [address] Chloride Level October 27, 2019 6:45am 101 98-107 MAIN LAB, [address] [facility] [address] [place] [address] Carbon Dioxide Level October 27, 2019 6:45am 23.8 22-30 MAIN LAB, [address] [facility] [address] [place] [address] Anion Gap October 27, 2019 6:45am 16.3 8-16 MAIN LAB, [address] [facility] [address] [place] [address] Blood Urea Nitrogen October 27, 2019 6:45am 11 7-17 MAIN LAB, [address] [facility] [address] [place] [address] Creatinine October 27, 2019 6:45am 0.97 0.52-1.04 MAIN LAB, [address] [facility] [address] [place] [address] Est Glomerular Filtrat Rate mL/min October 27, 2019 6:45am 60.79 GFR NORMALS:Stage I: GFR >90Stage II GFR 60-89Stage III GFR 30-60Stage IV: GFR 15-29Stage V: GFR <15 MAIN LAB, [address] [facility] [address] [place] [address] BUN/Creatinine Ratio October 27, 2019 6:45am 11.34 MAIN LAB, [address] [place] [address] [address] [place] [address] Glucose Level October 27, 2019 6:45am 322 74-106 MAIN LAB, [address] [place] [address] [address] [place] [address] Hemoglobin A1c October 27, 2019 6:45am 7.3 4.0-5.6 MAIN LAB, [address] [place] [address] [address] [place] [address] Calculated Osmolality October 27, 2019 6:45am 294.9 273-3 04 MAIN LAB, [address] [place] [address] [address] [place] [address] Calcium Level October 27, 2019 6:45am 8.4 8.4-10.2 MAIN LAB, [address] [place] [address] [address] [place] [address] Total Bilirubin October 27, 2019 6:45am 0.2 0.2-1.3 MAIN LAB, [address] [place] [address] [address] [place] [address] Aspartate Amino Transf (AST/SGOT) October 27, 2019 6:45am 17 14-36 MAIN LAB, [address] [place] [address] [address] [place] [address] Alanine Aminotransferase (ALT/SGPT) October 27, 2019 6:45am 42 9-52 MAIN LAB, [address] [place] [address] [address] [place] [address] Alkaline Phosphatase October 27, 2019 6:45am 158 38-126 MAIN LAB, [address] [place] [address] [address] [place] [address] Total Protein October 27, 2019 6:45am 7.0 6.4-8.4 MAIN LAB, [address] [place] [address] [address] [place] [address] Albumin October 27, 2019 6:45am 3.3 3.4-5.5 MAIN LAB, [address] [facility] [address] [place] [address] Globulin October 27, 2019 6:45am 3.7 2.3-3.5 MAIN LAB, [address] [facility] [address] [place] [address] Albumin/Globulin Ratio October 27, 2019 6:45am 0.891 MAIN LAB, [address] [facility] [address] [place] [address] Lipase October 27, 2019 6:45am 121 23-300 MAIN LAB, [address] [facility] [address] [place] [address] Phencyclidine (PCP) Screen July 27, 2019 1:00pm NEGATIVE NEGATIVE MAIN LAB, [address] [facility] [address] [facility] [place] [address] Propoxyphene Screen July 27, 2019 1:00pm NEGATIVE NEGA TIVE MAIN LAB, [address] [facility] [address] [place] [address] C-Reactive Protein October 27, 2019 7:25am 0.9 0-0.9 MAIN LAB, [address] [facility] [address] [place] [address] Health Concerns Concerns Follow up with primary care provider Advance Directives Advance Directive Response Recorded Date/Time Advance Directives No June 28, 2019 1 0:16pm Advance Directive on File No July 27, 2019 12:18pm Durable POA for HC No July 27, 2019 1 2:18pm Power of Nail Technician No July 27, 2019 1 2:18pm Organ Donor No July 27, 2019 1 2:18pm Living Will No July 27, 2019 1 2:18pm Chief Complaint and Reason for Visit Chief Complaint Abdominal Pain Reason for Visit [id number] Encounters Encounter Location(s) Arrival/Admit Date Discharge/Depart Date Provider(s) Departed Emergency Room [facility] October 27, 2019 6: 46am October 27, 2019 9:10am DENTON HOOPER DNP Departed Emergency Room [facility] July 27, 2019 12:42pm July 27, 2019 3:07pm PERRI LIPSCOMB APRN Departed Emergency Room [facility] June 28, 2019 10:10pm June 29, 2019 12:40am KINGA ROGERS Recent Diagnosis Onset Date Abdominal pain Assessments Diagnosis Onset Date Resolution Status Abdominal pain Functional Status Observation Response Date Recorded Activities of Daily Living Performs w/o Assistance October 6:50am Goals Acute Goals Problem: General Exam Goal:Continued Wellness Instructions: Follow up with Primary Care Provider & Follow Discharge Instructions given in ER. Immunizations Immunization Event Date Not Given Reason Dose Number Tentering Machine Off Bearer Lot Number Vaccine Information Statement (VIS) Detail Mental Status Observation Response Date Recorded Cognitive Function Intact October 27, 2019 6:50 am Medical Equipment No Medical Equipment Information available Insurance Providers Guarantor Mignon Rg Address [address] [place] [id number] Contact Info. Home Phone: Payer Policy Id Coverage Id Subscriber's Name Subscriber Id Effect silvia Date Expiration Date [employer] [id number] Mignon Rg [id number] Plan of Treatment Continue ulcerative colitis flare regimen. Follow up with your primary care provider this next week. Talk with primary care provider about A1C results for diabetes (lab results not available at this time) Push fluids. Call or return to the ER if needed. Future Tests Future scheduled test information is unavailable Pending Tests Pending diagnostic test information is unavailable Future Visits Future appointment information is unavailable Referrals to Other Providers Reason for Referral Referral Start Date Provider Provider Conta ct Information Provider Address UNKNOWN Future Procedures Future procedure information is unavailable Future Medications Future medication information is unavailable Patient Instructions Ulcerative Colitis (DC) Social History Smoking Status Status Date of Observation October 27, 2019 6:48am Observation Status Observation Response Date of Response Alcohol Use none October 27, 2019 7:37 am Drug Use none October 27, 2019 7:37 am Smoking Status Former smoker October 27, 2019 6:48 am Smoked in the last 12 months? No October 27, 2019 6:48am Do you dip or chew tobacco? Yes October 26 6:48am Approx how many cigs per day? 0 October 27, 2019 6:48am Level of Dependence Low October 27, 2019 6:48 am Former smoker, last day smoked? 11/05 6:48am Assigned Sex Female Vital Signs Vital Reading Result Collection Date/Time Weight 250 [lb_av] October 27, 2019 6:47 am BMI (Body Mass Index) 42.9 kg/m2 October 27, 2019 6: 47am
--- OUTSIDE RECORDS SUMMARY | 2019-10-30 04:02 | XMS REPORT | Continuity of Care Document ---
Author Author [facility] Address [address] [place] [address] Phone Care Team Providers Care Machine Compositor Name Role Phone Surya Nicolas Rndphys Unavailable Shivani Cheng PCP Monique Ray Jr Rndphys Allergies, Adverse Reactions, Alerts Allergen Type Severity Reaction Last Updated Verified Status cephalexin Allergy Unkno wn Hives October 02, 2019 11:13pm Yes Active ketorolac Allergy Unknown Hives October 02, 2019 11:13pm Yes Active prochlorperazine Adverse Reaction Shakiness October 02, 2019 11:13p m Yes Active Medications Medication Status Dose Units Route Sig Qty Days Start Date End Date Instructions Prednisone Active 0 Route .COMPLEX 63 September 15, 2019 7:10pm 10 mg orally ;6 po qd x 3d then 5 po qd x 3d, then 4 po qd x 3d, then 3 po qd x 3d, then 2 po qd x 3d then 1 po qd x 3d then stop Hydrocodone-Acetaminophen Active 1 TAB Oral Q4H 10 September 15, 2019 7:10pm Sulfasalazine Active 500 MG Oral Four Times Daily September 16, 2019 8:58am Acetaminophen Active 500 MG Oral Every 6 Hours August 24, 2017 11:39am Simvastatin Active 40 MG Oral Daily August 24, 2017 11:39am Dicyclomine Active 20 MG Oral Three Times a Day August 24, 2017 11:39am Gemfibrozil Active 600 MG Oral Twice a Day August 24, 2017 11:39am Lansoprazole Active 30 MG Oral Twice a Day August 24, 2017 11:39am Alprazolam Active 2 MG Oral Daily August 24, 2017 11:39am Duloxetine Active 120 MG Oral Daily August 24, 2017 11:39am Mirtazapine Active 15 MG Oral Bedtime February 07, 2018 11:53am Hydrocortisone Active 1 APPLIC Rectally Bedtime 28.35 February 07, 2018 12:11pm Ciprofloxacin Hcl Active 500 MG Oral Twice a Day 14 October 03, 2019 3:19am Methylprednisolone Active 0 Oral .COMPLEX October 24, 2019 12:02am orally per package directions Problems Active Problems Medical Problem Onset Date Status Abdominal pain, left lower quadrant Active Long-term current use of anxiolytic medication Active Generalized anxiety disorder with panic attacks Active MDD (major depressive disorder) Active Insomnia Active Ulcerative colitis with rectal bleeding Active Diverticulosis Active Hepatic steatosis Acti ve Type 2 diabetes mellitus Active Colitis Active Diarrhea Active Mixed hyperlipidemia A ctive Drug-seeking behavior Active RUBY (iron deficiency anemia) Active Morbid obesity with BMI of 40.0-44.9, adult Active Newly diagnosed diabetes Active COPD (chronic obstructive pulmonary disease) Active GERD (gastroesophageal reflux disease) Active Abdominal pain Active Abdominal pain Active Hemorrhoids Active Hepatosplenomegaly Act silvia Hypertension Active Ulcerative colitis Act silvia Nausea Active Ulcerative colitis, chronic Active Inactive/Resolved Problems Medical Problem Onset Date Status Acute on chronic blood loss anemia Resolved Hematuria Resolved Infective proctitis Re solved Gastroenteritis Resolv ed Hyperglycemia Resolved Ileus Resolved Narcotic bowel syndrome Resolved Proctitis Resolved Resolved History of appendectomy Resolved History of esophagogastroduodenoscopy (EGD) Resolved History of colonoscopy Resolved Constipation Resolved Spasmodic colon Resolv ed Procedures Procedure Date Performed Status CT abdomen pelvis w con October 22 8:41pm completed Blood Culture October 23, 2019 active XR acute abdomen series October 24 7:04pm active Relevant Diagnostic Tests and/or Laboratory Data Laboratory Results Test Date/Time Result Interpretation Reference Range Result Comment Performing Site White Blood Count October 23, 2019 7:45pm 5.1 10^3/uL 4.5-11.0 [facility], [address] [facility] [address] White Blood Count October 25, 2019 7:40pm 6.6 10^3/uL 4.5-11.0 [facility] [address] [facility] [address] Red Blood Count October 23, 2019 7:45pm 4.28 10^6/uL 3.50-5.40 [facility] [address] [facility] [address] Red Blood Count October 25, 2019 7:40pm 3.62 10^6/uL 3.50-5.40 [facility], [address] [facility] [address] Hemoglobin October 23, 2019 7:45pm 12.0 g/dL 12.0-16.0 [facility], [address] [facility] [address] Hemoglobin October 25, 2019 7:40pm 10.1 g/dL 12.0-16.0 [facility], [address] [facility] percy [facility] [address] Hematocrit October 25, 2019 7:40pm 31.2 % 36-48 [facility], [address] [place] [address] Hematocrit October 23, 2019 7:45pm 36.5 % 36-48 [facility], [address] [place] [address] Mean Corpuscular Volume October 24, 2 020 7:40pm 86.1 fL 79-99 [facility], [address] [facility] [address] Mean Corpuscular Volume October 22 020 7:45pm 85.4 fL 79-99 [facility], [address] [facility] [address] Mean Corpuscular Hemoglobin October 7:40pm 27.9 pg 25.0-34.0 [facility], [address] [facility] [address] Mean Corpuscular Hemoglobin October 7:45pm 28.0 pg 25.0-34.0 [facility], [address] [place] [address] [facility] [address] Mean Corpuscular Hemoglobin Concent October 23, 2019 7:45pm 32.8 g/dL 31.0-36.0 [facility], [address] [facility] [address] Mean Corpuscular Hemoglobin Concent October 25, 2019 7:40pm 32.4 g/dL 31.0-36.0 [facility], [address] [place] [address] Red Cell Distribution Width October 7:40pm 16.9 % 11.0-15.0 [facility], [address] [place] [address] [facility] [address] Red Cell Distribution Width October 7:45pm 16.7 % 11.0-15.0 [facility], [address] [facility] [address] Platelet Count October 23, 2019 7:45pm 239 10^3 uL 130-400 [facility], [address] [place] [facility] [address] Platelet Count October 25, 2019 7:40pm 214 10^3 uL 130-400 [facility], [address] [place] [facility] [address] Mean Platelet Volume October 25, 2019 7:40p m 7.2 fL 7.0-11.0 [facility], [address] [facility] [address] Mean Platelet Volume October 23, 2019 7:45p m 7.6 fL 7.0-11.0 [facility], [address] [facility] [address] Neutrophils (%) (Auto) October 22 7:45pm 79.4 % 43.0-72.0 [facility], [address] [facility] [address] Lymphocytes (%) (Auto) October 22 7:45pm 9.4 % 15.0-45.0 [facility], [address] [facility] [address] Monocytes (%) (Auto) October 23, 2019 7:45p m 9.5 % 1.0-12.0 [facility], [address] [facility] [address] Eosinophils (%) (Auto) October 22 7:45pm 0.8 % 0.0-6.0 [facility], [address] [facility] [address] Basophils (%) (Auto) October 23, 2019 7:45p m 0.9 % 0.0-2.0 [facility], [address] [place] [address] Neutrophils # (Auto) October 23, 2019 7:45p m 4.1 10^3 uL 1.0-8.0 [facility], [address] [facility] [address] Lymphocytes # (Auto) October 23, 2019 7:45p m 0.5 10^3 uL 1.0-3.0 [facility], [address] [place] [address] Monocytes # (Auto) October 23, 2019 7:45pm 0.5 10^3 uL 0.0-1.0 [facility], [address] [place] [address] Eosinophils # (Auto) October 23, 2019 7:45p m 0.0 10^3 uL 0.0-0.4 [facility], [address] [place] [address] Basophils # (Auto) October 23, 2019 7:45pm 0.0 10^3 uL 0.0-0.2 [facility], [address] [place] [address] Neutrophils % (Manual) October 24 7:40pm 83.0 % 50-65 [facility], [address] [place] [address] Lymphocytes % (Manual) October 24 7:40pm 8.0 % 15-45 [facility], [address] [place] [address] Monocytes % (Manual) October 25, 2019 7:40p m 6.0 % 0-10 [facility], [address] [place] [address] Eosinophils % (Manual) October 24 7:40pm 3.0 % 0-5 [facility], [address] [place] [address] Neutrophils # (Manual) October 24 7:40pm 5.5 # 1.0-8.0 [facility], [address] [place] [address] Lymphocytes # (Manual) October 24 7:40pm 0.5 # 1.0-3.0 [facility], [address] [place] [address] Monocytes # (Manual) October 25, 2019 7:40p m 0.4 # 0.0-1.0 [facility], [address] [facility] [address] Eosinophils # (Manual) October 24 7:40pm 0.2 # 0.0-0.4 [facility], [address] [place] [address] Anisocytosis October 25, 2019 7:40pm 1+ [facility], [address] [place] [address] Erythrocyte Sedimentation Rate October 23, 2019 7:45pm 39 mm/Hr 0-20 [facility], [address] [place] [address] Prothrombin Time October 23, 2019 7:45pm 11.8 Seconds 11.8-14.7 [facility], [address] [place] [address] INR International Normalized Ratio M 2019 7:45pm 0.87 0.87-1.14 Therapeutic Range: Prophylaxis - Thromb osis 2.0-3.0 Mechanical Heart Valves 2.5-3.5 Myocardial Infarction 2.0-3.0 [facility], [address] [place] [address] Urine Color October 25, 2019 8:41pm Yellow Yellow [facility], [address] [place] [address] Urine Color October 23, 2019 10:13pm Yellow Yellow [facility], [address] [place] [address] Urine Appearance October 25, 2019 8:41pm Clear Clear [facility], [address] [place] [address] Urine Appearance October 23, 2019 10:13pm Clear Clear [facility], [address] [place] [address] Urine pH October 23, 2019 10:13pm 6.0 [facility], [address] [place] [address] Urine pH October 25, 2019 8:41pm 5.5 [facility], [address] [place] [address] Urine Specific Dodson October 24 8:41pm 1.025 [facility], [address] [place] [address] Urine Specific Dodson October 22 10:13pm 1.010 [facility], [address] [place] [address] Urine Protein October 25, 2019 8:41pm Negative Neg-Trace [facility], [address] [place] [address] Urine Protein October 23, 2019 10:13pm Negative Neg-Trace [facility], [address] [place] [address] Urine Glucose (UA) October 25, 2019 8:41pm Negative Negative [facility], [address] [place] [address] Urine Glucose (UA) October 23, 2019 10:13pm Negative Negative [facility], [address] [facility] [address] Urine Ketones October 23, 2019 10:13pm Negative Negative [facility], [address] [facility] [address] Urine Ketones October 25, 2019 8:41pm Negative Negative [facility], [address] [place] [address] Urine Blood October 23, 2019 10:13pm Negative Negative [facility], [address] [facility] [address] Urine Blood October 25, 2019 8:41pm Negative Negative [facility], [address] [facility] [address] Urine Nitrite October 25, 2019 8:41pm Negative Negative [facility], [address] [facility] [address] Urine Nitrite October 23, 2019 10:13pm Negative Negative [facility], [address] [facility] [address] Urine Bilirubin October 23, 2019 10:13pm Negative Negative [facility], [address] [facility] [address] Urine Bilirubin October 25, 2019 8:41pm Negative Negative [facility], [address] [facility] [address] Urine Urobilinogen October 25, 2019 8:41pm 0.2 [facility], [address] [facility] [address] Urine Urobilinogen October 23, 2019 10:13pm 0.2 [facility], [address] [facility] [address] Urine Leukocyte Esterase October 25, 2019 8:41pm Negative Negative [facility], [address] [facility] [address] Urine Leukocyte Esterase October 23, 2019 10:13pm Negative Negative [facility], [address] [facility] [address] Urine Culture Indicated October 22, 2 020 10:13pm Not Indicated No Culture Reflex Ordered.The specimen did not meet the following criteria OR contained >25 epithelials, indicating contamination. * Culture Criteria: * * * * Urinalysis Leukocyte 1+ or > * * Urinalysis Nitrates + * * Microscopic WBC 10 or > * * Microscopic Bacteria 2+ or > * * Microscopic Yeast 2+ or > * [facility], [address] [place] [address] Urine Culture Indicated October 24 8:41pm Not Indicated No Culture Reflex Ordered.The specimen did not meet the following criteria OR contained >25 epithelials, indicating contamination. * Culture Criteria: * * * * Urinalysis Leukocyte 1+ or > * * Urinalysis Nitrates + * * Microscopic WBC 10 or > * * Microscopic Bacteria 2+ or > * * Microscopic Yeast 2+ or > * [address] [place] [address] Urinalysis Comment October 25, 2019 8:41pm See comment Asymptomatic bacteriuria should seldom if ever be treated unless related to or urologic surgery.Symptomatic urinary tract infection (UTI) is defined by 2 or more of the following without an alternative explanation:- Fever- Flank pain or tenderness- Suprapubic pain or tenderness- Costovertebral angle pain or tenderness- Acute hematuria- Dysuria- New or marked increase in frequency / urgencyPyuria alone is not a criterion for symptomatic UTI.Source: [facility] Safety Network Criteria for Defining UTI EventsTreatment [id number] line: Nitrofurantoin for 5 days; Bactrim DS for 3 [id number] line: Beta-lactams for 5 days; Cipro or Levaquin for 3 daysTingley Fluoroquinolones for severe infections or those with no alternative treatment options. Serious adverse effects outweigh benefits for patients with uncomplicated infections [address] [address] Urinalysis Comment October 23, 2019 10:13pm See comment Asymptomatic bacteriuria should seldom if ever be treated unless related to or urologic surgery.Symptomatic urinary tract infection (UTI) is defined by 2 or more of the following without an alternative explanation:- Fever- Flank pain or tenderness- Suprapubic pain or tenderness- Costovertebral angle pain or tenderness- Acute hematuria- Dysuria- New or marked increase in frequency / urgencyPyuria alone is not a criterion for symptomatic UTI.Source: [facility] Safety Network Criteria for Defining UTI EventsTreatment [id number] line: Nitrofurantoin for 5 days; Bactrim DS for 3 [id number] line: Beta-lactams for 5 days; Cipro or Levaquin for 3 daysTingley Fluoroquinolones for severe infections or those with no alternative treatment options. Serious adverse effects outweigh benefits for patients with uncomplicated infections [address] [place] [address] Sodium Level October 23, 2019 7:45pm 139 mmol/L 135-150 [facility], [address] [facility] [address] Sodium Level October 25, 2019 7:40pm 140 mmol/L 135-150 [facility], [address] [facility] [address] Potassium Level October 25, 2019 7:40pm 3.5 mmol/L 3.4-5.2 [facility], [address] [place] [address] Potassium Level October 23, 2019 7:45pm 3.4 mmol/L 3.4-5.2 [facility], [address] [place] [address] Chloride Level October 23, 2019 7:45pm 102 mmol/L 100-112 [facility], [address] [place] [address] Chloride Level October 25, 2019 7:40pm 107 mmol/L 100-112 [facility], [address] [place] [address] Carbon Dioxide Level October 25, 2019 7:40p m 22 mEq/L 18 [facility], [address] [place] [address]187 Carbon Dioxide Level October 23, 2019 7:45p m 23 mEq/L 1830 [facility], [address] [place] [address] Anion Gap October 25, 2019 7:40pm 11 mmol/L 811 [facility], [address] [place] [address] Anion Gap October 23, 2019 7:45pm 14 mmol/L 8 [facility], [address] [place] [address] Blood Urea Nitrogen October 25, 2019 7:40pm 16 mg/dL 01-08 [facility], [address] [place] [address] Blood Urea Nitrogen October 23, 2019 7:45pm 10 mg/dL 01-08 [facility], [address] [place] [address] Creatinine October 25, 2019 7:40pm 0.69 mg/dL 0.60-1.30 [facility], [address] [place] [address] Creatinine October 23, 2019 7:45pm 0.78 mg/dL 0.60-1.30 [facility], [address] [facility] [address] Glomerular Filtration Rate Calc Bernard h 2019 7:45pm > 60 mL/Min The GFR is not validated for use in drug dosing adjustments.Continue to use estimated creatinine clearance per dosingreference text.Chronic Kidney Disease is defined as either kidney damage ora GFR less than 60 ml/min that persists for at least 3months. Stage 3 = 30-59 ml/min Stage 4 = 15-29 ml/min Stage 5 = <15 ml/min [facility], [address] [facility] [address] Glomerular Filtration Rate Calc Bernard 2019 7:40pm > 60 mL/Min The GFR is not validated for use in drug dosing adjustments.Continue to use estimated creatinine clearance per dosingreference text.Chronic Kidney Disease is defined as either kidney damage ora GFR less than 60 ml/min that persists for at least 3months. Stage 3 = 30-59 ml/min Stage 4 = 15-29 ml/min Stage 5 = <15 ml/min [facility], [address] [facility] [address] Glucose Level October 23, 2019 7:45pm 170 mg/dL 70-99 [facility], [address] [facility] [address] Glucose Level October 25, 2019 7:40pm 170 mg/dL 70-99 [facility], [address] [facility] [address] Lactic Acid Level October 23, 2019 11:26pm 2.2 mmol/L 0.4-2.0 Critical result called and verbal read back verified. [facility], [address] [place] [address] Calcium Level October 23, 2019 7:45pm 9.3 mg/dL 8.6-10.5 [facility], [address] [facility] [address] Calcium Level October 25, 2019 7:40pm 8.8 mg/dL 8.6-10.5 [facility], [address] [facility] [address] Total Bilirubin October 23, 2019 7:45pm 0.3 mg/dL 0.0-1.2 [facility], [address] [place] [address]14 Total Bilirubin October 25, 2019 7:40pm < 0.2 mg/dL 0.0-1.2 [facility], [address] [place] [address] Aspartate Amino Transf (AST/SGOT) [facility] 2019 7:45pm 20 U/L [facility], [address] [place] [address]54 Aspartate Amino Transf (AST/SGOT) [facility] 2019 7:40pm 14 U/L [facility], [address] [place] [address]63 Alanine Aminotransferase (ALT/SGPT) October 23, 2019 7:45pm 30 U/L [facility], [address] [place] [address]190 Alanine Aminotransferase (ALT/SGPT) October 25, 2019 7:40pm 30 U/L [facility], [address] [place] [address] Troponin I October 23, 2019 7:45pm 0.02 ng/mL 0.00-0.05 [facility], [address] [place] [address] C-Reactive Protein, Quantitative Mar 2019 7:40pm 4.6 mg/L <5.1 [facility], [address] [place] [address]233 C-Reactive Protein, Quantitative Mar 2019 7:45pm 17.9 mg/L <5.1 [facility], [address] [place] [address] 15471 Total Protein October 23, 2019 7:45pm 7.2 g/dL 6.4-8.2 [facility], [address] [place] [address]171 Total Protein October 25, 2019 7:40pm 6.2 g/dL 6.4-8.2 [facility], [address] [place] [address] Albumin October 25, 2019 7:40pm 3.2 g/dL 3.3-4.5 [facility], [address] [place] [address]29 Albumin October 23, 2019 7:45pm 3.6 g/dL 3.3-4.5 [facility], [address] [place], [place] [id number] Albumin/Globulin Ratio October 22 7:45pm 1.0 0.7-2.0 [facility], [facility] [place], [place] [id number] Albumin/Globulin Ratio October 24 7:40pm 1.1 0.7-2.0 [facility], [facility] [place] [id number] Alkaline Phosphatase October 23, 2019 7:45p m 156 U/L 50-136 [facility], [facility] [address] [place], [place] [id number] Alkaline Phosphatase October 25, 2019 7:40p m 128 U/L 50-136 [facility], [facility] [address] [place], [place] [id number] Lipase October 23, 2019 7:45pm 33 U/L 8-78 [facility], [facility] [address] [place] [address] Lipase October 25, 2019 7:40pm 38 U/L 8-78 [facility], [address] [place] [address] Procalcitonin October 23, 2019 7:45pm 0.08 ng/mL 0.00-0.10 PCT Conc. Interpretation < 0.5 ng/mL Low risk for progression to severe sepsis &/or shock0.5-2.0 ng/mL Sepsis should be considered> 2.0 ng/mL High risk for progression to severe sepsis &/or shock [facility], [facility] [place] [id number] Diagnostic Imaging Reports Report Dictated Date/Time Dictated By Status Radiology Report October 23, 2019 9:52pm [place] [address] CT Scan Report Signed Patient: Mignon Rg MR#: [id number] : 1970 Acct:[id number] Age/Sex: 49 / F ADM Date: 10/23/19 Loc: ED Attending Provider: Ordering Provider: Edgar W Fidencio,DO Date of Service: 10/23/19 Procedure(s): CT abdomen pelvis w con Accession Number(s): [id number] EXAM: CT Abdomen and Pelvis with IV contrast INDICATION: Left lower quadrant abdominal pain. History of ulcerative colitis TECHNIQUE: Multi-detector row CT images were acquired from the lung bases through the abdomen and pelvis with the use of IV contrast. Sagittal and coronal images were acquired from the transaxial data. All CT scans performed at this facility utilize dose optimization techniques as appropriate to the exam, including the following: Automated exposure control and adjustment of the mA and/or KV according to patient size (this includes techniques or standardized protocols for targeted exams where dose is matched to the indication/reason for exam). IV CONTRAST: Administered ORAL CONTRAST: None DLP: [id number] mGycm COMPARISON: CT abdomen pelvis dated 10/03/2019 FINDINGS: Stable punctate scar in the left lower lobe (series 3, image 11). Normal size heart. The liver is mildly enlarged, with mild to moderate diffuse steatosis. No discrete hepatic lesion. The major portal veins are patent. Prior cholecystectomy without biliary ductal dilatation. Mild splenomegaly measuring 14 cm craniocaudal. Normal adrenal glands. Normal pancreas. Normal kidneys. No retroperitoneal lymphadenopathy. Aortoiliac vessels are patent and normal caliber containing mild atherosclerotic plaque. The small and large bowel loops are normal in caliber. Submucosal fatty deposition in the proximal colon. Prior appendectomy. Mild asymmetric anterior rectal wall thickening in the mid/lower rectum (series 3, image 87) this appears similar to prior study, and is in a similar location where there was acute appearing inflammation in May 2017. No lymphadenopathy, fluid collection, or free air. Normal urinary bladder. Vaginal cuff is grossly normal. There is no pelvic lymphadenopathy. No destructive osseous lesion is seen. There are new calcific densities medial to the medial acetabulum on the right (series 4, image 85). IMPRESSION: 1. No bowel obstruction, fluid collection, or ascites. Prior appendectomy. 2. Mild asymmetric anterior mid/lower rectal wall thickening which is in the location of prior inflammation when compared to a CT abdomen pelvis dated 06/05/2017. This may represent residual scarring. Consider follow-up with colonoscopy if not recently performed. 3. New calcific densities medial to the right acetabulum since 10/03/2019, which may represent heterotopic ossification or sequelae of interval trauma. No acute fracture is identified. 4. Mild Hepatosplenomegaly. Mild to moderate diffuse hepatic steatosis. Dictated By: Stella Stokes MD Signed By: 10/23/192151 DD/ 51 TD/TT: Trading Floor Operator: SANYA cc: Edgar Nicolas DO; Charles Cheng~ Health Concerns Health Concerns may be documented in an alternate section. Advance Directives Advance Directive Response Recorded Date/Time Advance Directive on File? No September 15, 2019 10:49pm Chief Complaint and Reason for Visit Chief Complaint abdominal pain Abdominal Pain Encounters Encounter Location(s) [facility] rival/Admit Date Discharge/Depart Date Provider(s) Departed Emergency [facility] October 23, 2019 7:28pm October 23 12:11am null Departed Emergency [facility]gency [facility] October 25, 2019 6:23pm October 24 9:37pm null Assessments No Assessments Information Available Family History Relationship Condition A ge at Onset Recorded Date/Time Unknown Family History U nknown October 25, 2019 8:23pm Functional Status No Functional Status information available Goals Acute Goals Problem: Abdominal Pain Goal: Relief of abdominal pain Plan: Refer to patient instructions provided. Problem: General Adult Complaint Goal: Establish baseline assessment. Return to ADL's. Plan: Refer to patient instructions provided. Immunizations No Immunization Information Available Mental Status No Mental Status Information Available Medical Equipment No Medical Equipment Information available Insurance Providers Guarantor Mignon Rg Address [address] [address] Contact Info. Home Phone: Payer Policy Id Coverage Id Subscriber's Name Subscriber Id Effective Date Expiration Date [facility] [id number] Mignon Rg [id number] Self Pay Self N/A Plan of Treatment Future Tests Future scheduled test information is unavailable Pending Tests Pending diagnostic test information is unavailable Future Visits Future appointment information is unavailable Referrals to Other Providers Reason for Referral Referral Start Date Provider Provider Conta ct Information Provider Address Soham Soto Work Phone: [address] [facility] [address] [address] Preferably in the next 1 to 2 days Thom robles Email: [email or web address] Work Phone: [facility] [address], [address] [place] [address] DRGorgeNONE NONE NONE NONE [facility] NONE NONE [facility] NONE NONE [facility] DRGorgeNONE DRGorgeNONE DRGorgeNONE DRGorgeNONE DRGorgeNONE DRGorgeNONE DRGorgeNONE DRGorgeNONE DRGorgeNONE DRGorgeNONE [facility] DOCTOR Soham Soto Work Phone: [address] [facility] [address] [facility] NONE NONE Jude Talbert Work Phone: [facility] [address] [place] [address] NONE [facility] NONE NONE DRGorgeNONE NONE Future Procedures Future procedure information is unavailable Future Medications Future medication information is unavailable Patient Instructions Abdominal Pain (ED) Gastroenteritis (ED) Hemorrhoids (ED) Hematuria (ED) Abdominal Pain (ED) Constipation (ED) Acute Diarrhea (ED) Acute Abdominal Pain (ED) Acute Abdominal Pain (ED) Abdominal Pain (ED) Irritable Bowel Syndrome (ED) Anemia (ED) Ulcerative Colitis (DC) Colitis (ED) Ulcerative Colitis (ED) Abdominal Pain (ED) Abdominal Pain (ED) Colitis (ED) Ulcerative Colitis (ED) Social History Smoking Status Status Date of Observation Ex-smoker (finding) October 25, 2019 6:36pm Observation Status Observation Response Lito e of Response quit date 11/05 6:36pm second hand exposure Yes October 25, 2019 6:36pm housing house October 25, 2019 6:36pm household members family October 25, 2019 6:36pm children October 24 6:36pm service No Bernard 2019 6:36pm Recent Travel No October 242019 8:23pm current occupational status employed October 25, 2019 6:36pm current occupational exposures/hazards No October 25, 2019 6:36pm Assigned Sex Female Vital Signs Vital Reading Result Ref erence Range Collection Date/Time Height 64 [in_i] October 23, 2019 7:34pm Weight 250.00 [lb_av] October 23, 2019 7:34pm Body Temperature 97.6 [degF] 97.5-99.5 October 23, 2019 7:34pm Heart Rate 107 /min 60-90 October 24, 2019 12:01am Respiratory rate 0 /min -October 24, 2019 12:01am Oxygen saturation by Pulse oximetry 95 % 90- 100 October 24, 2019 12:01am BP Systolic 129 mm[Hg] 1 00-160 October 24, 2019 12:01am BP Diastolic 85 mm[Hg] 5 0-80 October 24, 2019 12:01am BMI (Body Mass Index) 42.9 kg/m2 October 23, 2019 7:34pm Height 64 [in_i] October 25, 2019 6:27pm Weight 250.00 [lb_av] October 25, 2019 6:27pm Body Temperature 99.0 [degF] 97.5-99.5 October 25, 2019 6:35pm Heart Rate 107 /min 60-90 October 25, 2019 6:35pm Respiratory rate 20 /min -October 25, 2019 6:35pm Oxygen saturation by Pulse oximetry 100 % 90-100 October 25, 2019 6:35pm BP Systolic 147 mm[Hg] 1 00-160 October 25, 2019 6:35pm BP Diastolic 105 mm[Hg] 50-80 October 25, 2019 6:35pm BMI (Body Mass Index) 42.9 kg/m2 October 25, 2019 6:27pm Hospital Discharge Instructions Additional Instructions 1. Continue your home medications, including your home pain medications. 2. Continue the recommendations provided by your software applications developer. 3. Clear liquids until you are feeling better, then advance your diet slowly as tolerated. 4. Follow with your software applications developer in the next 1 to 2 days for close follow -up, return to the emergency room if needed
--- OUTSIDE RECORDS SUMMARY | 2019-10-30 04:02 | XMS REPORT | Continuity of Care Document ---
Author Author [facility] Address [address] [place] [address] Phone Care Team Providers Care Service Associate Name Role Phone Surya Nicolas Rndphys Unavailable [...] Active Ulcerative colitis Act silvia Nausea Active Constipation Active Ulcerative colitis, chronic Active Hypokalemia Active Inactive/Resolved Problems Medical Problem Onset Date [...] 8:41pm completed Blood Culture October 23, 2019 completed XR abdomen min 2V October 28, 2019 8:09pm completed XR acute abdomen series October 24 7:04pm completed Relevant Diagnostic Tests and/or Laboratory Data Laboratory Results Test Date/Time Result Interpretation Reference Range Result Comment Performing Site White Blood Count October 23, 2019 7:45pm 5.1 10^3/uL 4.5-11.0 [facility], [address] [facility] [address] White Blood Count October 28, 2019 7:50pm 7.4 10^3/uL 4.5-11.0 [facility] [address] [facility] [address] White Blood Count October 25, 2019 7:40pm 6.6 10^3/uL 4.5-11.0 [facility], [address] [place] [facility] [address] Red Blood Count October 28, 2019 7:50pm 3.77 10^6/uL 3.50-5.40 [facility], [address] [facility] [address] Red Blood Count October 23, 2019 7:45pm 4.28 10^6/uL 3.50-5.40 [facility], [address] [facility] [address] Red Blood Count October 25, 2019 7:40pm 3.62 10^6/uL 3.50-5.40 [facility], [address] [place] [address] [facility] [address] Hemoglobin October 23, 2019 7:45pm 12.0 g/dL 12.0-16.0 [facility], [address] [place] [address] [facility] [address] Hemoglobin October 25, 2019 7:40pm 10.1 g/dL 12.0-16.0 [facility], [address] [facility] percy [facility] [address] Hemoglobin October 28, 2019 7:50pm 10.7 g/dL 12.0-16.0 [facility], [address] [place] [address] [facility] [address] Hematocrit October 25, 2019 7:40pm 31.2 % 36-48 [facility], [address] [place] [address] Hematocrit October 28, 2019 7:50pm 32.5 % 36-48 [facility], [address] [place] [address] Hematocrit October 23, 2019 7:45pm 36.5 % 36-48 [facility], [address] [place] [address] Mean Corpuscular Volume October 24, 2 020 7:40pm 86.1 fL 79- [facility], [address] [place] [address] [place] [address] Mean Corpuscular Volume October 22, 2 020 7:45pm 85.4 fL 79- [facility], [address] [facility] [address] Mean Corpuscular Volume October 27, 020 7:50pm 86.1 fL 79-99 [facility], [address] [facility] [address] Mean Corpuscular Hemoglobin October 7:50pm 28.3 pg 25.0-34.0 [facility], [address] [facility] [address] Mean Corpuscular Hemoglobin October 7:45pm 28.0 pg 25.0-34.0 [facility], [address] [facility] [address] Mean Corpuscular Hemoglobin October 7:40pm 27.9 pg 25.0-34.0 [facility], [address] [facility] [address] Mean Corpuscular Hemoglobin Concent October 28, 2019 7:50pm 32.9 g/dL 31.0-36.0 [facility], [address] [facility] [address] Mean Corpuscular Hemoglobin Concent October 23, 2019 7:45pm 32.8 g/dL 31.0-36.0 [facility], [address] [facility] [address] Mean Corpuscular Hemoglobin Concent October 25, 2019 7:40pm 32.4 g/dL 31.0-36.0 [facility], [address] [facility] [address] Red Cell Distribution Width October 7:40pm 16.9 % 11.0-15.0 [facility], [address] [facility] [address] Red Cell Distribution Width October 7:50pm 16.7 % 11.0-15.0 [facility], [address] [facility] [address] Red Cell Distribution Width October 7:45pm 16.7 % 11.0-15.0 [facility], [address] [facility] [address] Platelet Count October 25, 2019 7:40pm 214 10^3 uL 130-400 [facility], [address] [facility] [address] Platelet Count October 28, 2019 7:50pm 255 10^3 uL 130-400 [facility], [address] [facility] [address] Platelet Count October 23, 2019 7:45pm 239 10^3 uL 130-400 [facility], [address] [facility] [address] Mean Platelet Volume October 25, 2019 7:40p m 7.2 fL 7.0-11.0 [facility], [address] [facility] [address] Mean Platelet Volume October 28, 2019 7:50p m 7.2 fL 7.0-11.0 [facility], [address] [facility] [address] Mean Platelet Volume October 23, 2019 7:45p m 7.6 fL 7.0-11.0 [facility], [address] [facility] [address] Neutrophils (%) (Auto) October 22 7:45pm 79.4 % 43.0-72.0 [facility], [address] [facility] [address] Lymphocytes (%) (Auto) October 22 7:45pm 9.4 % 15.0-45.0 [facility], [address] [facility] [address] Monocytes (%) (Auto) October 23, 2019 7:45p m 9.5 % 1.0-12.0 [facility], [address] [facility] [address] Eosinophils (%) (Auto) October 22 7:45pm 0.8 % 0.0-6.0 [facility], [address] [facility] [address] Basophils (%) (Auto) October 23, 2019 7:45p m 0.9 % 0.0-2.0 [facility], [address] [facility] [address] Neutrophils # (Auto) October 23, 2019 7:45p m 4.1 10^3 uL 1.0-8.0 [facility], [address] [facility] [address] Lymphocytes # (Auto) October 23, 2019 7:45p m 0.5 10^3 uL 1.0-3.0 [facility], [address] [facility] [address] Monocytes # (Auto) October 23, 2019 7:45pm 0.5 10^3 uL 0.0-1.0 [facility], [address] [place] [address] percy [facility] [address] Eosinophils # (Auto) October 23, 2019 7:45p m 0.0 10^3 uL 0.0-0.4 [facility], [address] [place] [address] percy [facility] [address] Basophils # (Auto) October 23, 2019 7:45pm 0.0 10^3 uL 0.0-0.2 [facility], [address] [place] [address] Neutrophils % (Manual) October 24 7:40pm 83.0 % 50-65 [facility], [address] [place] [address] Neutrophils % (Manual) October 27 7:50pm 80.0 % 50-65 [facility], [address] [place] [address] Lymphocytes % (Manual) October 27 7:50pm 11.0 % 15-45 [facility], [address] [place] [address] Lymphocytes % (Manual) October 24 7:40pm 8.0 % 15-45 [facility], [address] [place] [address] Monocytes % (Manual) October 25, 2019 7:40p m 6.0 % 0-10 [facility], [address] [place] [address] percy [facility] [address] Monocytes % (Manual) October 28, 2019 7:50p m 7.0 % 0-10 [facility], [address] [place] [address] Eosinophils % (Manual) October 24 7:40pm 3.0 % 0-5 [facility], [address] [place] [address] Eosinophils % (Manual) October 27 7:50pm 2.0 % 0-5 [facility], [address] [place] [address] percy [facility] [address] Neutrophils # (Manual) October 27 7:50pm 5.9 # 1.0-8.0 [facility], [address] [place] [address] Neutrophils # (Manual) October 24 7:40pm 5.5 # 1.0-8.0 [facility], [address] [place] [address] Lymphocytes # (Manual) October 24 7:40pm 0.5 # 1.0-3.0 [facility], [address] [place] [address] Lymphocytes # (Manual) October 27 7:50pm 0.8 # 1.0-3.0 [facility], [address] [place] [address] Monocytes # (Manual) October 28, 2019 7:50p m 0.5 # 0.0-1.0 [facility], [address] [place] [address] Monocytes # (Manual) October 25, 2019 7:40p m 0.4 # 0.0-1.0 [facility], [address] [place] [address] Eosinophils # (Manual) October 24 7:40pm 0.2 # 0.0-0.4 [facility], [address] [place], [place] [id number] Eosinophils # (Manual) October 27 7:50pm 0.1 # 0.0-0.4 [facility], [address] [place], [place] [id number] Anisocytosis October 25, 2019 7:40pm 1+ [facility], [address] [place] [address] Erythrocyte Sedimentation Rate October 23, 2019 7:45pm 39 mm/Hr 0-20 [facility], [facility]. [address] [place] [address] Prothrombin Time October 23, 2019 7:45pm 11.8 Seconds 11.8-14.7 [facility], [address] [place] [address] INR International Normalized Ratio M 2019 7:45pm 0.87 0.87-1.14 Therapeutic Range: Prophylaxis - Thromb osis 2.0-3.0 Mechanical Heart Valves 2.5-3.5 Myocardial Infarction 2.0-3.0 [facility], [address] [place] [address] Urine Color October 28, 2019 7:58pm Yellow Yellow [facility], [facility] [place] [address] Urine Color October 25, 2019 8:41pm Yellow Yellow [facility], [address] [place] [address] Urine Color October 23, 2019 10:13pm Yellow Yellow [facility], [address] [facility] [address] Urine Appearance October 23, 2019 10:13pm Clear Clear [facility], [address] [facility] Priya greer [facility] [address] Urine Appearance October 25, 2019 8:41pm Clear Clear [facility], [address] [facility] Priya greer [facility] [address] Urine Appearance October 28, 2019 7:58pm Clear Clear [facility], [address] [place] [address] Urine pH October 25, 2019 8:41pm 5.5 [facility], [address] [place] [address]67 Urine pH October 23, 2019 10:13pm 6.0 [facility], [address] [place] [address] Urine pH October 28, 2019 7:58pm 6.5 [facility], [address] [place] [address] Urine Specific [place] October 22 10:13pm 1.010 [facility], [address] [place] [address] Urine Specific [place] October 24 8:41pm 1.025 [facility], [address] [place] [address]312 Urine Specific [place] October 27 7:58pm <=1.005 [facility], [address] [place] [address] Urine Protein October 25, 2019 8:41pm Negative Neg-Trace [facility], [address] [place], [place] [address]gabriella greer [facility] [address] Urine Protein October 28, 2019 7:58pm Negative Neg-Trace [facility], [address] [place] [address] [facility] [address] Urine Protein October 23, 2019 10:13pm Negative Neg-Trace [facility], [address] [place] [address] [facility] [address] Urine Glucose (UA) October 28, 2019 7:58pm Negative Negative [facility], [address] [place] [address] [facility] [address] Urine Glucose (UA) October 23, 2019 10:13pm Negative Negative [facility], [address] [facility] [address] Urine Glucose (UA) October 25, 2019 8:41pm Negative Negative [facility], [address] [place] [address] Urine Ketones October 23, 2019 10:13pm Negative Negative [facility], [address] [place] [address] Urine Ketones October 25, 2019 8:41pm Negative Negative [facility], [address] [facility] [address] Urine Ketones October 28, 2019 7:58pm Negative Negative [facility], [address] [facility] [address] Urine Blood October 23, 2019 10:13pm Negative Negative [facility], [address] [facility] [address] Urine Blood October 28, 2019 7:58pm Negative Negative [facility], [address] [facility] [address] Urine Blood October 25, 2019 8:41pm Negative Negative [facility], [address] [facility] [address] Urine Nitrite October 23, 2019 10:13pm Negative Negative [facility], [address] [facility] [address] Urine Nitrite October 28, 2019 7:58pm Negative Negative [facility], [address] [facility] [address] Urine Nitrite October 25, 2019 8:41pm Negative Negative [facility], [address] [facility] [address] Urine Bilirubin October 25, 2019 8:41pm Negative Negative [facility], [address] [facility] [address] Urine Bilirubin October 23, 2019 10:13pm Negative Negative [facility], [address] [facility] [address] Urine Bilirubin October 28, 2019 7:58pm Negative Negative [facility], [address] [facility] [address] Urine Urobilinogen October 23, 2019 10:13pm 0.2 [facility], [address] [place] [address] Urine Urobilinogen October 25, 2019 8:41pm 0.2 [facility], [address] [place] [address] Urine Urobilinogen October 28, 2019 7:58pm 0.2 [facility], [address] [facility] [address] Urine Leukocyte Esterase October 25, 2019 8:41pm Negative Negative [facility], [address] [facility] [address] Urine Leukocyte Esterase October 28, 2019 7:58pm Negative Negative [facility], [address] [facility] [address] Urine Leukocyte Esterase October 23, 2019 10:13pm Negative Negative [facility], [address] [facility] [address] Urine Culture Indicated October 22 10:13pm Not Indicated No Culture Reflex Ordered.The specimen did not meet the following criteria OR contained >25 epithelials, indicating contamination. * Culture Criteria: * * * * Urinalysis Leukocyte 1+ or > * * Urinalysis Nitrates + * * Microscopic WBC 10 or > * * Microscopic Bacteria 2+ or > * * Microscopic Yeast 2+ or > * [facility], [address] [facility] [address] Urine Culture Indicated October 27 7:58pm Not Indicated No Culture Reflex Ordered.The specimen did not meet the following criteria OR contained >25 epithelials, indicating contamination. * Culture Criteria: * * * * Urinalysis Leukocyte 1+ or > * * Urinalysis Nitrates + * * Microscopic WBC 10 or > * * Microscopic Bacteria 2+ or > * * Microscopic Yeast 2+ or > * [facility], [address] [place] [address] Urine Culture Indicated October 24 8:41pm Not [...] * Microscopic Yeast 2+ or > * [address] [address] Urinalysis Comment October 25, 2019 8:41pm See [...] is not a criterion for symptomatic UTI.Source: [facility] National Healthcare Safety Network Criteria for Defining UTI EventsTreatment [id number] line: Nitrofurantoin for 5 days; Bactrim DS for 3 [id number] line: Beta-lactams for 5 days; Cipro or Levaquin for 3 daysR[place] Fluoroquinolones for severe infections or those with no alternative treatment options. Serious adverse effects outweigh benefits for patients with uncomplicated infections [address] [place] [address] Urinalysis Comment October 28, 2019 7:58pm See comment Asymptomatic bacteriuria should seldom if [...] is not a criterion for symptomatic UTI.Source: [facility] National Healthcare Safety Network Criteria for Defining UTI EventsTreatment [id number] line: Nitrofurantoin for 5 days; Bactrim DS for 3 [id number] line: Beta-lactams for 5 days; Cipro or Levaquin for 3 daysR[place] Fluoroquinolones for severe infections or those with no alternative treatment options. Serious adverse effects outweigh benefits for patients with uncomplicated infections [address] [place] [address] [place] [address] Urinalysis Comment October 23, 2019 10:13pm See [...] is not a criterion for symptomatic UTI.Source: [facility] National Healthcare Safety Network Criteria for Defining UTI EventsTreatment [id number] line: Nitrofurantoin for 5 days; Bactrim DS for 3 [id number] line: Beta-lactams for 5 days; Cipro or Levaquin for 3 daysR[place] Fluoroquinolones for severe infections or those with no alternative treatment options. Serious adverse effects outweigh benefits for patients with uncomplicated infections [facility], [address] [facility] [address] Sodium Level October 23, 2019 7:45pm 139 mmol/L 135-150 [facility], [address] [facility] [address] Sodium Level October 28, 2019 7:50pm 140 mmol/L 135-150 [facility], [address] [facility] [address] Sodium Level October 25, 2019 7:40pm 140 mmol/L 135-150 [facility], [address] [facility] [address] Potassium Level October 23, 2019 7:45pm 3.4 mmol/L 3.4-5.2 [facility], [address] [facility] [address] Potassium Level October 25, 2019 7:40pm 3.5 mmol/L 3.4-5.2 [facility], [address] [facility] [address] Potassium Level October 28, 2019 7:50pm 3.2 mmol/L 3.4-5.2 [facility], [address] [facility] [address] Chloride Level October 23, 2019 7:45pm 102 mmol/L 100-112 [facility], [address] [place] [address] Chloride Level October 25, 2019 7:40pm 107 mmol/L 100-112 [facility], [address] [facility] percy [facility] [address] Chloride Level October 28, 2019 7:50pm 104 mmol/L 100-112 [facility], [address] [facility] percy [facility] [address] Carbon Dioxide Level October 23, 2019 7:45p m 23 mEq/L [facility], [address] [facility] [address] Carbon Dioxide Level October 28, 2019 7:50p m 24 mEq/L [facility], [address] [facility] [address] Carbon Dioxide Level October 25, 2019 7:40p m 22 mEq/L 18 [facility], [address] [facility] [address] Anion Gap October 28, 2019 7:50pm 12 mmol/L 8 [facility], [address] [facility] [address] Anion Gap October 23, 2019 7:45pm 14 mmol/L 03-31 [facility], [address] [facility] [address] Anion Gap October 25, 2019 7:40pm 11 mmol/L 8 [facility], [address] [facility] [address] Blood Urea Nitrogen October 23, 2019 7:45pm 10 mg/dL 01-08 [facility], [address] [facility] [address] Blood Urea Nitrogen October 25, 2019 7:40pm 16 mg/dL 01-08 [facility], [address] [facility] [address] Blood Urea Nitrogen October 28, 2019 7:50pm 14 mg/dL 01-08 [facility], [address] [facility] [address] Creatinine October 23, 2019 7:45pm 0.78 mg/dL 0.60-1.30 [facility], [address] [facility] [address] Creatinine October 28, 2019 7:50pm 0.81 mg/dL 0.60-1.30 [facility], [address] [facility] [address] Creatinine October 25, 2019 7:40pm 0.69 mg/dL 0.60-1.30 [facility], [address] [facility] [address] Glomerular Filtration Rate Calc Bernard h 2019 7:50pm > 60 mL/Min The GFR is not validated for use in drug dosing adjustments.Continue to use estimated creatinine clearance per dosingreference text.Chronic Kidney Disease is defined as either kidney damage ora GFR less than 60 ml/min that persists for at least 3months. Stage 3 = 30-59 ml/min Stage 4 = 15-29 ml/min Stage 5 = <15 ml/min [facility], [address] [facility] [address] Glomerular Filtration Rate Calc Bernard h 2019 [...] 15-29 ml/min Stage 5 = <15 ml/min [facility], [address] [facility] [address] Glomerular Filtration Rate Calc Bernard h 2019 7:40pm > 60 mL/Min The GFR is not validated for use in drug dosing adjustments.Continue to use estimated creatinine clearance per dosingreference text.Chronic Kidney Disease is defined as either kidney damage ora GFR less than 60 ml/min that persists for at least 3months. Stage 3 = 30-59 ml/min Stage 4 = 15-29 ml/min Stage 5 = <15 ml/min [facility], [address] [facility] [address] Glucose Level October 28, 2019 7:50pm 147 mg/dL 70-99 [facility], [address] [facility] [address] Glucose Level October 23, 2019 7:45pm 170 mg/dL 70-99 [facility], [address] [facility] [address] Glucose Level October 25, 2019 7:40pm 170 mg/dL 70-99 [facility], [address] [facility] [address] Lactic Acid Level October 23, 2019 11:26pm 2.2 mmol/L 0.4-2.0 Critical result called and verbal read back verified. [facility], [address] [facility] [address] Calcium Level October 28, 2019 7:50pm 8.9 mg/dL 8.6-10.5 [facility], [address] [facility] [address] Calcium Level October 23, 2019 7:45pm 9.3 mg/dL 8.6-10.5 [facility], [address] [facility] [address] Calcium Level October 25, 2019 7:40pm 8.8 mg/dL 8.6-10.5 [facility], [address] [facility] [address] Total Bilirubin October 23, 2019 7:45pm 0.3 mg/dL 0.0-1.2 [facility], [address] [facility] [address] Total Bilirubin October 28, 2019 7:50pm 0.2 mg/dL 0.0-1.2 [facility], [address] [facility] [address] Total Bilirubin October 25, 2019 7:40pm < 0.2 mg/dL 0.0-1.2 [facility], [address] [facility] [address] Aspartate Amino Transf (AST/SGOT) [facility] 2019 7:50pm 14 U/L [facility], [address] [facility] [address] Aspartate Amino Transf (AST/SGOT) [facility] 2019 7:40pm 14 U/L [facility], [address] [facility] [address]647 Aspartate Amino Transf (AST/SGOT) [facility] 2019 7:45pm 20 U/L [facility], [address] [facility] [address] Alanine Aminotransferase (ALT/SGPT) October 25, 2019 7:40pm 30 U/L [facility], [address] [facility] [address] Alanine Aminotransferase (ALT/SGPT) October 28, 2019 7:50pm 25 U/L [facility], [address] [facility] [address] Alanine Aminotransferase (ALT/SGPT) October 23, 2019 7:45pm 30 U/L 12- [facility], [address] [place] [address] Troponin I October 23, 2019 7:45pm 0.02 ng/mL 0.00-0.05 [facility], [address] [facility] [address] C-Reactive Protein, Quantitative Mar 2019 7:45pm 17.9 mg/L <5.1 [facility], [address] [place] [address] C-Reactive Protein, Quantitative Mar 2019 7:40pm 4.6 mg/L <5.1 [facility], [address] [place] [address]31 Total Protein October 25, 2019 7:40pm 6.2 g/dL 6.4-8.2 [facility], [address] [facility] [address] Total Protein October 23, 2019 7:45pm 7.2 g/dL 6.4-8.2 [facility], [address] [facility] [address] Total Protein October 28, 2019 7:50pm 6.4 g/dL 6.4-8.2 [facility], [address] [facility] [address] Albumin October 23, 2019 7:45pm 3.6 g/dL 3.3-4.5 [facility], [address] [place] [address] Albumin October 25, 2019 7:40pm 3.2 g/dL 3.3-4.5 [facility], [address] [place] [address] Albumin October 28, 2019 7:50pm 3.3 g/dL 3.3-4.5 [facility], [address] [place] [address] Albumin/Globulin Ratio October 22 7:45pm 1.0 0.7-2.0 [facility], [address] [facility] [address] Albumin/Globulin Ratio October 24 7:40pm 1.1 0.7-2.0 [facility], [address] [facility] [address] Albumin/Globulin Ratio October 27 7:50pm 1.1 0.7-2.0 [facility], [address] [place] [address] Alkaline Phosphatase October 25, 2019 7:40p m 128 U/L 50-136 [facility], [address] [place] [address] Alkaline Phosphatase October 23, 2019 7:45p m 156 U/L 50-136 [facility], [address] [place] [address] Alkaline Phosphatase October 28, 2019 7:50p m 133 U/L 50-136 [facility], [address] [place] [address] 31203 Lipase October 28, 2019 7:50pm 50 U/L 8-78 [facility], [address] [place] [address] Lipase October 23, 2019 7:45pm 33 U/L 8-78 [facility], [address] [place] [address] Lipase October 25, 2019 7:40pm 38 U/L 8-78 [facility], [address] [place] [address]606 Procalcitonin October 23, 2019 7:45pm 0.08 ng/mL 0.00-0.10 PCT Conc. Interpretation < 0.5 ng/mL Low risk for progression to severe sepsis &/or shock0.5-2.0 ng/mL Sepsis should be considered> 2.0 ng/mL High risk for progression to severe sepsis &/or shock [facility], [address] [place] [address] Microbiology Results Procedure Source Result Collection Date/Time Result Date/Time Result Comment Performing Site Blood Culture Blood Bloo d cultures are monitored every 10 minutes. October 23, 2019 8:10pm October 28, 2019 8:21pm [facility], [address] [place], [place] [id number] Diagnostic Imaging Reports Report Dictated Date/Time Dictated By Status Radiology Report October 23, 2019 9:52pm Stella Stokes MD completed [place] [id number] CT Scan Report Signed Patient: Mignon Rg MR#: [id number] : 1970 Acct:[id number] Age/Sex: 49 / F ADM Date: 10/23/19 Loc: ED Attending Provider: Ordering Provider: Edgar Nicolas DO Date of Service: 10/23/19 Procedure(s): CT abdomen pelvis w con Accession Number(s): [id number] EXAM: CT Abdomen and Pelvis with IV [...] MD Signed By: 10/23/192151 DD/ 51 TD/TT: Land Degradation Analyst: SANYA cc: Edgar Nicolas DO; Charles Cheng~ Radiology Report October 25, 2019 9:54pm Stella Stokes MD completed [place] [address] [place] [address] XRay Report Signed Patient: Mignon Rg MR#: [id number] : 1970 Acct:[id number] Age/Sex: 49 / F ADM Date: 10/25/19 Loc: ED Attending Provider: Ordering Provider: Mike Dent PA-C Date of Service: 10/25/19 Procedure(s): XR acute abdomen series Accession Number(s): [id number] Exam: Acute abdomen series Clinical history: Ulcerative colitis. Technique: PA view of the chest, upright views of the abdomen and AP views of the abdomen obtained. Comparison: CT abdomen pelvis dated 10/23/2019. Findings: Heart size and pulmonary vasculature is within normal limits. No pleural effusion, pneumothorax, or focal consolidation is seen. Cholecystectomy clips are seen. Scattered gas throughout nondilated small and large bowel. No free air seen beneath the hemidiaphragms. The osseous structures are intact. No abnormal calcifications. Impression: No evidence of mechanical bowel obstruction or free intraperitoneal air. Dictated By: Stella Stokes MD Signed By: 10/25/192153 DD/ 53 TD/TT: Land Degradation Analyst: SANYA cc: Mike Dent PA-C; Charles Cheng~ Health Concerns Health Concerns may be documented in an alternate section. Advance Directives Advance Directive Response Recorded Date/Time Advance Directive on File? No September 15, 2019 10:49pm Chief Complaint and Reason for Visit Chief Complaint abdominal pain Abdominal Pain abdominal pain Encounters Encounter Location(s) Ar rival/Admit Date Discharge/Depart Date Provider(s) [facility] October 23, 2019 7:28pm October 23 12:11am null [facility] October 25, 2019 6:23pm October 24 9:37pm null [facility] October 28, 2019 7:46pm October 27 9:35pm null Assessments No Assessments Information Available Family History Relationship Condition A ge at Onset Recorded Date/Time Unknown Family History U nknown October 28, 2019 8:08pm Functional Status No Functional Status information available Goals Acute Goals Problem: Abdominal Pain Goal: Relief of abdominal pain Plan: Refer to patient instructions provided. Problem: General Adult Complaint Goal: Establish baseline assessment. Return to [facility]'s. Plan: Refer to patient instructions provided. Problem: Abdominal Pain Goal: Relief of abdominal pain Plan: Refer to patient instructions provided. Immunizations No Immunization Information Available Mental Status No Mental Status Information Available Medical Equipment No Medical Equipment Information available Insurance Providers Guarantor Mignon Rg Address [address] [facility] [address] Contact Info. Home Phone: Payer Policy Id Coverage Id Subscriber's Name Subscriber Id Effective Date Expiration Date [facility] [id number] Mignon Rg [id number] Self Pay Self N/A Plan of Treatment Future Tests Future scheduled test information is unavailable Pending Tests Pending diagnostic test information is unavailable Future Visits Future appointment information is unavailable Referrals to Other Providers Reason for Referral Referral Start Date Provider Provider Conta ct Information Provider Address Soham Soto Work Phone: [address] [facility] [address] [address]NONE CUELLO Preferably in the next 1 to 2 days Thom Desouza [facility] Email: [email or web address] Work Phone: [facility] [address], [place] [address] [place] [address] DRGorgeNONE NONE NONE NONE [facility] NONE NONE [facility] NONE NONE [facility] NONE NONE NONE NONE NONE DRGorgeNONE NONE NONE NONE NONE [place] OUT DOCTOR Prosper Soto Work Phone: [address] [facility] [address] [facility] Work Phone: [address] [facility] [address] [facility] DR.NONE BALDWINNONE Jude Talbert Work Phone: [facility] [address] [place] [address] NONE [facility] NONE NONE NONE NONE Future Procedures Future procedure information is [...] Pain (ED) Colitis (ED) Ulcerative Colitis (ED) Constipation (ED) Hypokalemia (ED) Ulcerative Colitis (ED) Social History Smoking Status Status Date of Observation Ex-smoker (finding) October 28, 2019 7:52pm Observation Status Observation Response Lito e of Response quit date 11/05 7:52pm second hand exposure Yes October 28, 2019 7:52pm housing house October 28, 2019 7:52pm household members family October 28, 2019 7:52pm children October 27 7:52pm service No Bernard h 2019 7:52pm Recent Travel No October 272019 8:08pm current occupational status employed October 28, 2019 7:52pm current occupational exposures/hazards No October 28, 2019 7:52pm Assigned Sex Female Vital Signs Vital Reading Result Ref erence Range Collection Date/Time Height 64 [in_i] October 23, 2019 7:34pm Weight 250.00 [lb_av] October 23, 2019 7:34pm Body Temperature 97.6 [degF] 97.5-99.5 October 23, 2019 7:34pm Heart Rate 107 /min 60-90 October 24, 2019 12:01am Respiratory rate 0 /min 12-20 October 24, 2019 12:01am Oxygen saturation by Pulse [...] Index) 42.9 kg/m2 October 25, 2019 6:27pm Height 64 [in_i] October 28, 2019 7:49pm Weight 250.00 [lb_av] October 28, 2019 7:49pm Body Temperature 97.3 [degF] 97.5-99.5 October 28, 2019 7:52pm Heart Rate 115 /min 60-90 October 28, 2019 7:52pm Respiratory rate 18 /min 12-20 October 28, 2019 7:52pm Oxygen saturation by Pulse oximetry 95 % 90- 100 October 28, 2019 9:30pm BP Systolic 171 mm[Hg] 1 00-160 October 28, 2019 9:20pm BP Diastolic 106 mm[Hg] 50-80 October 28, 2019 9:20pm BMI (Body Mass Index) 42.9 kg/m2 October 28, 2019 7:49pm Hospital Discharge Instructions Additional Instructions 1. Continue your home medications, including your home pain medications. 2. Continue the recommendations provided by your copy reader. 3. Clear liquids until you are feeling better, then advance your diet slowly as tolerated. 4. Follow with your copy reader in the next 1 to 2 days for close follow -up, return to the emergency room if needed
--- OUTSIDE RECORDS SUMMARY | 2019-10-30 04:03 | XMS REPORT | Continuity of Care Document ---
Author Author [facility] Address [address] [place] [address] Phone Care Team Providers Care Gas Pump Attendant Name Role Phone Trista Nicolas M. Michael PCP Allergies, Adverse Reactions, Alerts Allergen Type Severity [...] Active 500 MG Oral Twice a Day October 03, 2019 3:19am Methylprednisolone Active 0 [...] completed Blood Culture October 23, 2019 active Relevant Diagnostic Tests and/or Laboratory Data Laboratory Results Test Date/Time Result Interpretation Reference Range Result Comment Performing Site White Blood Count October 23, 2019 7:45pm 5.1 10^3/uL 4.5-11.0 [facility], [address] [facility] [address] Red Blood Count October 23, 2019 7:45pm 4.28 10^6/uL 3.50-5.40 [facility], [address] [facility] [address] Hemoglobin October 23, 2019 7:45pm 12.0 g/dL 12.0-16.0 [facility], [address] [facility] [address] Hematocrit October 23, 2019 7:45pm 36.5 % 36-48 [facility] [address] [facility] [address] Mean Corpuscular Volume October 22 7:45pm 85.4 fL 79-99 [facility], [address] [place] [address] [facility] [address] Mean Corpuscular Hemoglobin October 7:45pm 28.0 pg 25.0-34.0 [facility], [address] [facility] [address] Mean Corpuscular Hemoglobin Concent October 23, 2019 7:45pm 32.8 g/dL 31.0-36.0 [facility], [address] [facility] [address] Red Cell Distribution Width October 7:45pm 16.7 % 11.0-15.0 [facility], [address] [place] [address] Platelet Count October 23, 2019 7:45pm 239 10^3 uL 130-400 [facility], [address] [place] [address] Mean Platelet Volume October 23, 2019 7:45p m 7.6 fL 7.0-11.0 [facility], [address] [place] [address] Neutrophils (%) (Auto) October 22 7:45pm 79.4 % 43.0-72.0 [facility], [address] [place] [address] Lymphocytes (%) (Auto) October 22 7:45pm 9.4 % 15.0-45.0 [facility], [address] [place] [address] Monocytes (%) (Auto) October 23, 2019 7:45p m 9.5 % 1.0-12.0 [facility], [address] [facility] [address] Eosinophils (%) (Auto) October 22 7:45pm 0.8 % 0.0-6.0 [facility], [address] [place] [address] Basophils (%) (Auto) October 23, 2019 7:45p m 0.9 % 0.0-2.0 [facility], [address] [place] [address] Neutrophils # (Auto) October 23, 2019 7:45p m 4.1 10^3 uL 1.0-8.0 [facility], [address] [place] [address] Lymphocytes # (Auto) October 23, 2019 7:45p m 0.5 10^3 uL 1.0-3.0 [facility], [address] [place] [address] Monocytes # (Auto) October 23, 2019 7:45pm 0.5 10^3 uL 0.0-1.0 [facility], [address] [place] [address] Eosinophils # (Auto) October 23, 2019 7:45p m 0.0 10^3 uL 0.0-0.4 [facility], [address] [place] [address] Basophils # (Auto) October 23, 2019 7:45pm 0.0 10^3 uL 0.0-0.2 [facility], [address] [place] [address] Erythrocyte Sedimentation Rate October 23, 2019 7:45pm 39 mm/Hr 0-20 [facility], [address] [place] [address] Prothrombin Time October 23, 2019 7:45pm 11.8 Seconds 11.8-14.7 [facility], [address] [place], [place] [address] INR International Normalized Ratio M 2019 7:45pm 0.87 0.87-1.14 Therapeutic Range: Prophylaxis - Thromb osis 2.0-3.0 Mechanical Heart Valves 2.5-3.5 Myocardial Infarction 2.0-3.0 [facility], [address] [place] [address] Urine Color October 23, 2019 10:13pm Yellow Yellow [facility], [address] [place] [address] Urine Appearance October 23, 2019 10:13pm Clear Clear [facility], [address] [place] [address] Urine pH October 23, 2019 10:13pm 6.0 [facility], [address] [place] [address] Urine Specific [place] October 22 10:13pm 1.010 [facility], [address] [place] [address] Urine Protein October 23, 2019 10:13pm Negative Neg-Trace [facility], [address] [facility] [address] Urine Glucose (UA) October 23, 2019 10:13pm Negative Negative [facility], [address] [facility] [address] Urine Ketones October 23, 2019 10:13pm Negative Negative [facility], [address] [facility] [address] Urine Blood October 23, 2019 10:13pm Negative Negative [facility], [address] [facility] [address] Urine Nitrite October 23, 2019 10:13pm Negative Negative [facility], [address] [facility] [address] Urine Bilirubin October 23, 2019 10:13pm Negative Negative [facility], [address] [facility] [address] Urine Urobilinogen October 23, 2019 10:13pm 0.2 [facility], [address] [place] [address] Urine Leukocyte Esterase October 23, 2019 10:13pm Negative Negative [facility], [address] [facility] [address] Urine Culture Indicated October 22 020 10:13pm Not Indicated No Culture Reflex Ordered.The specimen did not meet the following criteria OR contained >25 epithelials, indicating contamination. * Culture Criteria: * * * * Urinalysis Leukocyte 1+ or > * * Urinalysis Nitrates + * * Microscopic WBC 10 or > * * Microscopic Bacteria 2+ or > * * Microscopic Yeast 2+ or > * [facility], [address] [facility] [address] Urinalysis Comment October 23, 2019 10:13pm See [...] is not a criterion for symptomatic UTI.Source: [facility] National Healthcare Safety Network Criteria for Defining UTI EventsTreatment [id number] line: Nitrofurantoin for 5 days; Bactrim DS for 3 [id number] line: Beta-lactams for 5 days; Cipro or Levaquin for 3 daysWoodworth Fluoroquinolones for severe infections or those with no alternative treatment options. Serious adverse effects outweigh benefits for patients with uncomplicated infections [facility], [address] [place] [address] Sodium Level October 23, 2019 7:45pm 139 mmol/L 135-150 [facility], [address] [place] [address] Potassium Level October 23, 2019 7:45pm 3.4 mmol/L 3.4-5.2 [facility], [address] [place] [address] Chloride Level October 23, 2019 7:45pm 102 mmol/L 100-112 [facility], [address] [place] [address] Carbon Dioxide Level October 23, 2019 7:45p m 23 mEq/L 18-30 [facility] [address] [place] [address]47 Anion Gap October 23, 2019 7:45pm 14 mmol/L 8- [facility], [address] [place] [address] Blood Urea Nitrogen October 23, 2019 7:45pm 10 mg/dL 5- [place] [address] [place] [address] Creatinine October 23, 2019 7:45pm 0.78 mg/dL 0.60-1.30 [facility], [address] [place] [address]885 Glomerular Filtration Rate Calc [facility] 2019 7:45pm > 60 mL/Min The GFR is not validated for use in drug dosing adjustments.Continue to use estimated creatinine clearance per dosingreference text.Chronic Kidney Disease is defined as either kidney damage ora GFR less than 60 ml/min that persists for at least 3months. Stage 3 = 30-59 ml/min Stage 4 = 15-29 ml/min Stage 5 = <15 ml/min [facility], [address] [place] [address] Glucose Level October 23, 2019 7:45pm 170 mg/dL 70-99 [facility], [facility] [place] [address] Lactic Acid Level October 23, 2019 11:26pm 2.2 mmol/L 0.4-2.0 Critical result called and verbal read back verified. [facility], [facility] [place] [address] Calcium Level October 23, 2019 7:45pm 9.3 mg/dL 8.6-10.5 [facility], [address] [place] [address] Total Bilirubin October 23, 2019 7:45pm 0.3 mg/dL 0.0-1.2 [facility], [address] [place] [address] Aspartate Amino Transf (AST/SGOT) [facility] 2019 7:45pm 20 U/L 6-37 [facility], [facility] [address] [place] [address]27 Alanine Aminotransferase (ALT/SGPT) October 23, 2019 7:45pm 30 U/L 12-78 [facility], [facility] [address] [place] [address] Troponin I October 23, 2019 7:45pm 0.02 ng/mL 0.00-0.05 [facility], [facility] [place] [address] C-Reactive Protein, Quantitative Mar 2019 7:45pm 17.9 mg/L <5.1 [facility], [facility] [place] [address] Total Protein October 23, 2019 7:45pm 7.2 g/dL 6.4-8.2 [facility], [facility] [address] [address] Albumin October 23, 2019 7:45pm 3.6 g/dL 3.3-4.5 [facility], [address] [place], [place] [id number] Albumin/Globulin Ratio October 22 7:45pm 1.0 0.7-2.0 [place] [id number] Alkaline Phosphatase October 23, 2019 7:45p m 156 U/L 50-136 [facility], [address] [place], [place] [id number] Lipase October 23, 2019 7:45pm 33 U/L 8-78 [facility], [address] [place] [address] Procalcitonin October 23, 2019 7:45pm 0.08 ng/mL 0.00-0.10 PCT Conc. Interpretation < 0.5 ng/mL Low risk for progression to severe sepsis &/or shock0.5-2.0 ng/mL Sepsis should be considered> 2.0 ng/mL High risk for progression to severe sepsis &/or shock [facility], [address] [place], [place] [id number] Health Concerns Health Concerns may be documented in an alternate section. Advance Directives Advance Directive Response Recorded Date/Time Advance Directive on File? No September 15, 2019 10:49pm Chief Complaint and Reason for Visit Chief Complaint abdominal pain Encounters Encounter Location(s) Ar rival/Admit Date Discharge/Depart Date Provider(s) Departed Emergency [facility]alt-Emergency Department October 23, 2019 7:28pm October 23 12:11am null Assessments No Assessments Information Available Family History Relationship Condition A ge at Onset Recorded Date/Time Unknown Family History U nknown October 23, 2019 9:32pm Functional Status No Functional Status information available Goals Acute Goals Problem: Abdominal Pain Goal: Relief of abdominal pain Plan: Refer to patient instructions provided. Immunizations No Immunization Information Available Mental Status No Mental Status Information Available Medical Equipment No Medical Equipment Information available Insurance Providers Guarantor Mignon Rg Address [address] [facility] [address] Contact Info. Home Phone: Payer Policy Id Coverage Id Subscriber's Name Subscriber Id Effective Date Expiration Date [employer] [id number] Mignon Ifrah [id number] Self Pay Self N/A Plan of Treatment Future Tests Future scheduled test information is unavailable Pending Tests Pending diagnostic test information is unavailable Future Visits Future appointment information is unavailable Referrals to Other Providers Reason for Referral Referral Start Date Provider Provider Conta ct Information Provider Address Soham Soto Work Phone: [address] [facility] [address]NONE Preferably in the next 1 to 2 days Thom Desouza trista Email: [email or web address] Work Phone: [facility] [address] [place] [address] [facility] [address].NONE DR.NONE [facility] DR.NONE DR.NONE [facility] DR.NONE DR.NONE [facility] DR.NONE DR.NONE DR.NONE DR.NONE DR.NONE DR.NONE DR.NONE DR.NONE DR.NONE DR.NONE [facility] DR.NONE DR.NONE Jude Talbert Work Phone: [facility] [address] [place] [facility] [address]NONE [facility] DR.NONE DR.NONE DR.NONE DR.NONE Future Procedures Future procedure information is unavailable [...] Pain (ED) Abdominal Pain (ED) Colitis (ED) Social History Smoking Status Status Date of Observation Ex-smoker (finding) October 23, 2019 7:34pm Observation Status Observation Response Lito e of Response quit date 11/05 7:34pm second hand exposure Yes October 23, 2019 7:34pm housing house October 23, 2019 7:34pm household members family October 23, 2019 7:34pm children October 22 7:34pm service No Bernard 2019 7:34pm Recent Travel No October 222019 9:32pm current occupational status employed October 23, 2019 7:34pm current occupational exposures/hazards No October 23, 2019 7:34pm Assigned Sex Female Vital Signs Vital Reading Result Ref erence Range Collection Date/Time Height 64 [in_i] October 23, 2019 7:34pm Weight 250.00 [lb_av] October 23, 2019 7:34pm Body Temperature 97.6 [degF] 97.5-99.5 October 23, 2019 7:34pm Heart Rate 107 /min 60-90 October 24, 2019 12:01am Respiratory rate 0 /min 12-October 24, 2019 12:01am Oxygen saturation by Pulse oximetry 95 % 90- 100 October 24, 2019 12:01am BP Systolic 129 mm[Hg] 1 00-160 October 24, 2019 12:01am BP Diastolic 85 mm[Hg] 5 0-80 October 24, 2019 12:01am BMI (Body Mass Index) 42.9 kg/m2 October 23, 2019 7:34pm Hospital Discharge Instructions Additional Instructions 1. Continue your home medications, including your home pain medications. 2. Continue the recommendations provided by your insulation cutter and former. 3. Clear liquids until you are feeling better, then advance your diet slowly as tolerated. 4. Follow with your insulation cutter and former in the next 1 to 2 days for close follow -up, return to the emergency room if needed
--- OUTSIDE RECORDS SUMMARY | 2019-10-30 04:05 | XMS REPORT | Continuity of Care Document ---
Author Author [facility] Organization [facility] Address [address] [place] [address] Phone Support Name Relationship Address Phone Kirsten García PRS K[place] Mendoza [phone] Ken Catherine PRS [address] [place] [address] Allergies, Adverse Reactions, Alerts Allergen Type Severity Reaction Last Updated Verified Status cephalexin Allergy Rash October 27, 2019 Yes Acti ve ketorolac Allergy Hives October 27, 2019 Yes Acti ve prochlorperazine Adverse Reaction Palpitations October 27, 2019 Yes Active Medications Medication Status Dose Units Route Sig Qty Days Start Date End Date Instructions Hydrocodone-Acetaminophen Discontinued 1 TAB Q8H 7 June 03, 2019 12:24am June 16, 2019 8:21pm Methylprednisolone Discontinued 4 MG DAILY June 16, 2019 8:20pm June 23, 2019 10:48am Prednisone Discontinued 0 .COMPLEX 48 June 16, 2019 10:17pm June 23, 2019 10:48am follow package instructions. QS Hydrocodone-Acetaminophen Discontinued 1 TAB Q8H 10 June 16, 2019 10:20pm August 16, 2019 9:26pm Prednisone Discontinued 10 MG DAILY 60 June 23, 2019 3:04pm August 16, 2019 9:27pm two tid 4 day, one qid 4 day, one tid 4 day, one bid 4 day Metoclopramide Hcl Discontinued 10 MG THREE TIMES A DAY June 24, 2019 8:24am October 27, 2019 9:05am Sulfasalazine Active 500 MG Q6H May 05, 2019 2:08pm Hydrocodone-Acetaminophen Discontinued 1 TAB EVERY 4-6 HOURS May 05, 2019 2:08pm June 23, 2019 10:47am Simvastatin Active 40 MG DAILY May 05, 2019 2:08pm Dicyclomine Active 20 MG FOUR TIMES DAILY May 05, 2019 2:08pm Gemfibrozil Discontinued 600 MG TWICE A DAY May 05, 2019 2:08pm October 27, 2019 9:05am Lansoprazole Active 30 MG DAILY May 05, 2019 2:08pm Mirtazapine Discontinued 15 MG DAILY AT BEDTIME May 05, 2019 2:08pm October 27, 2019 9:05am Alprazolam Active 2 MG DAILY May 05, 2019 2:08pm Duloxetine Active 120 MG DAILY AT BEDTIME May 05, 2019 2:08pm Prednisone Discontinued 20 MG DAILY 5 5 September 26, 2019 4:00pm October 27, 2019 9:05am Nitrofurantoin Monohyd/M-Cryst Discontinue d 100 MG TWICE A DAY 14 September 26, 2019 4:02pm October 27, 2019 9:05am must administ er with a meal/food Prednisone Discontinued 60 MG DAILY 12 4 October 27, 2019 5:11am October 27, 2019 9:05am Problems Active Problems Medical Problem Onset Date Status UTI (urinary tract infection) Active Hx of ulcerative colitis Active Exacerbation of ulcerative colitis Active Patient refusal of treatment Active Anemia Active Colitis Active Depressed Active HLD (hyperlipidemia) A ctive Proctitis Active MDD (major depressive disorder), recurrent episode, mi ld Active Abdominal pain Active Abdominal pain Active Hypertension Active Ulcerative colitis Act silvia Ulcerative colitis Act silvia Proctocolitis Active Abdominal pain, non-surgical Active Acidosis, lactic Activ e Inactive/Resolved Problems Medical Problem Onset Date Status Intractable abdominal pain Resolved Pancolitis Resolved Abdominal pain Resolve d Abdominal pain Resolve d Procedures No procedure information available. Relevant Diagnostic Tests and/or Laboratory Data Laboratory Results Test Date/Time Result Interpretation Reference Range Result Comment Performing Site White Blood Count 4.6 K/uL 4.8-10.8 [facility], [address] [place] [address] 48221 Red Blood Count 3.98 M /uL 4.20-5.40 [facility], [address] [place] [address] 35616 Hemoglobin 11.1 gm/dL 12.0-16.0 [facility], [address] [place] [address] 13114 Hematocrit 35.1 % 37.0-47.0 [facility], [address] [place] [address] 69553 Mean Corpuscular Volume 88.2 fL 81.0-99.0 [facility], [address] [place] [address] Mean Corpuscular Hemoglobin 27.8 pg 27.0-31.0 [facility], [address] [place] [address] Mean Corpuscular Hemoglobin Concent 31.6 g/dL 30.0-37.0 [facility], [address] [place] [address] Red Cell Distribution Width 18.1 % 11.5-14.5 [facility], [address] [place] [address] Platelet Count 216 K/uL 130-400 [facility], [address] [place] [address] Neutrophils (%) (Auto) 91.1 % 42.2-75.2 [facility], [address] [place] [address] Lymphocytes (%) (Auto) 5.1 % 20.5-51.1 [facility], [address] [place] [address] Monocytes (%) (Auto) 2 .2 % 0.0-10.0 [facility], [address] [place] [address] Eosinophils (%) (Auto) 0.5 % 0.0-3.0 [facility], [address] [place] [address] Basophils (%) (Auto) 0 .9 % 0.0-1.0 [facility], [address] [place] [address] Neutrophils # (Auto) 4 .2 K/uL 2.0-6.9 [facility], [address] [place] [address] Lymphocytes # (Auto) 0 .2 K/uL 1.2-3.4 [facility], [address] [place] [address] Monocytes # (Auto) 0.1 K/ul 0.1-0.6 [facility], [address] [place] [address] Eosinophils # (Auto) 0 .0 K/uL 0.0-0.7 [facility], [address] [place] [address] Basophils # (Auto) 0.0 K/ul 0.0-0.20 [facility], [address] [place] [address] 43601 Urine Color Yellow Yellow [facility], [address] [place] [address] 86408 Urine Appearance CLEAR Clear [facility], [address] [place] [address] 29231 Urine Glucose (UA) 2+ (500 mg/dL) mg/dL Negative [facility], [address] [place] [address]29 Urine Bilirubin Negati ve mg/dL Negative [facility], [address] [place] [address] 78482 Urine Ketones Negative mg/dL Negative [facility], [address] [place] [address] 79980 Urine Specific Kerman 1.010 1.010-1.025 [facility], [address] [place] [address] 69382 Urine Occult Blood Neg ative Negative [facility], [address] [place] [address] 80600 Urine pH 6.0 [facility], [address] [place] [address] 49053 Urine Protein Negative mg/dL Negative [facility], [address] [place] [address] 15195 Urine Urobilinogen 0.2 mg/dL E.U./dL Negative [facility], [address] [place] [address] 14241 Urine Nitrate Negative Negative [facility], [address] [place] [address] 73639 Urine Leukocyte Esterase Negative Negative [facility], [address] [place] [address] 60099 Urine RBC 0-1 /hpf None [facility], [address] [place] [address] 53383 Urine WBC Negative /hpf [facility], [address] [place] [address] 46258 Urine Squamous Epithelial Cells 1-2 /hpf [facility], [address] [place] [address] 60160 Urine Bacteria Negative Negative [facility], [address] [place] [address] 70803 Sodium Level 138 mEq/L 136-145 [facility], [address] [place] [address] 04267 Potassium Level 4.1 mE q/L 3.5-5.0 [facility], [address] [place] [address] 98896 Chloride Level 102 mEq /L 98-107 [facility], [address] [address] Carbon Dioxide Level 2 3.5 mEq/L 21-32 [facility], [address] [place] [address] 95606 Random Glucose 245 mg/ dL 70-110 [facility], [address] [place] [address] 65366 Blood Urea Nitrogen 11 mg/dL 7-18 C [facility], [address] [place] [address] 00025 Creatinine 0.8 mg/dL 0.6-1.0 [facility], [address] [place] [address] 84574 Glomerular Filtration Rate Calc 75.9 mL/min [facility], [address] [place], [place] [id number] Calcium Level 8.5 mg/dL 8.8-10.5 [facility], [address] [place] [address] 69187 Total Bilirubin 0.20 m g/dL 0.00-1.00 [facility], [address] [place], [place] [id number] Aspartate Amino Transf (AST/SGOT) 20 U/L 15-37 [facility], [address] [place] [address] 32505 Alanine Aminotransferase (ALT/SGPT) 42 U/L 12-78 [facility], [address] [place] [address] 21003 Total Protein 6.9 gm/dL 6.4-8.2 [facility], [address] [place] [address] 94864 Albumin 3.4 gm/dL 3.4-5.0 [facility], [address] [place] [address] 69353 Alkaline Phosphatase 1 52 U/L 50-136 [facility], [address] [place] [address] 17313 Lipase 135 U/L 65-230 [facility], [address] [place] [address] 64430 Diagnostic Imaging Reports Report Dictated Date/Time Dictated By Status Radiology Report July 28, 2019 3:22pm Kash Wiley MD completed [facility] [address] [place] [address] Scan Report Signed Patient: Mignon Kirk MR#: [id number] : 1970 Acct:[id number] Age/Sex: 49 / F ADM Date: 9 Loc: MS 242-[address]: Ezio Pollard MD Ordering Physician: Valeriy Gallegos MD Date of Service: 07/27/19 Procedure(s): Abdomen pelvis w Accession Number(s): [id number] cc: ~ Patient: Mignon Kirk Time Out: 15:22 Exam(s): CT ABDOMEN + PELVIS W Contrast IV Amt: 100ml of omnipaque 300 CT ABDOMEN AND PELVIS WITH CONTRAST INDICATION: Pain. COMPARISON: 06/23/2019. TECHNIQUE: Multiple contiguous axial CT images are obtained through the abdomen and pelvis after the intravenous administration of contrast dated 07/27/2019. Sagittal and coronal reformatted images are reviewed. FINDINGS: The visualized lung bases are clear. The liver demonstrates diffusely decreased density throughout, consistent with fatty infiltration of the liver. No focal hepatic mass. The spleen is unremarkable. The adrenal glands are unremarkable. The pancreas is unremarkable. Cholecystectomy. The bilateral kidneys and ureters are unremarkable. Scattered vascular calcifications without aneurysmal dilatation of the abdominal aorta. The urinary bladder is unremarkable. The uterus is not visualized, likely surgically absent. No abnormal adnexal mass lesion. Eccentric mural thickening of the rectum is identified. Prior appendectomy. Diffuse mural thickening of the colon wall is noted with mild fatty infiltration without adjacent fat stranding. No bowel obstruction or pneumatosis. No significant adenopathy, free air or free fluid within the abdomen or pelvis. No acute osseous abnormality. IMPRESSION: 1. Slightly irregular and eccentric mural thickening of the rectum. This could relate to an underlying infectious or inflammatory process. However, direct visualization is recommended as underlying malignancy at this location is not excluded. 2. Appearance of the colon likely relates to sequelae of reported history of ulcerative colitis. 3. Fatty infiltration of the liver. 4. Cholecystectomy, appendectomy and hysterectomy. 5. Additional findings as above. 6. Agree with preliminary interpretation. All CT scans use one or more of the following dose optimizing techniques: automated exposure control, mA and/or KvP adjustment based on patient size and exam type or iterative reconstruction. at 1522 Dictated By: Kash Wiley MD Signed By: 07/28/19 1522 07/28/19 1522 DD/ 1522 TD/TT: 07/28/19 1522Transcriptionist: MERYL Radiology Report July 28, 2019 5:53pm Marianne Johnston MD [facility] [address] [place] [address] CT Scan Report Signed Patient: Mignon Kirk MR#: [id number] : 1970 Acct:[id number] Age/Sex: 49 / F ADM Date: 9 Loc: MS 242-[address]: Ezio Pollard MD Ordering Physician: Ezio Pollard MD Date of Service: 07/28/19 Procedure(s): CTA abdomen pelvis w/wo Accession Number(s): [id number] cc: ~ Patient: Mignon Kirk Time Out: 17:53 Exam(s): CTA ABDOMEN + PELVIS W/WO Contrast IV Amt: 100 ML OMNIPAQUE 300 EXAM: CT ANGIOGRAM OF THE ABDOMEN AND PELVIS WITH CONTRAST INDICATION: Patient with lactic acidosis. Patient has surgical history of hysterectomy, cholecystectomy, appendectomy and hernia repair. COMPARISON: CT scan of the abdomen and pelvis with contrast dated 07/27/2019. TECHNIQUE: CT angiogram of the abdomen and pelvis performed with 100 mL of Omnipaque 300 IV contrast. Coronal and sagittal MIP images were created to better evaluate anatomy. 3-D rotating MIP images of the abdominal and pelvic vascular structures were created. FINDINGS: The visualized lung bases are clear. Bones show no significant abnormality. There is diffuse low attenuation changes seen throughout the liver likely related to diffuse fatty infiltration. The spleen, pancreas and adrenal glands are unremarkable. The gallbladder is surgically absent. There is no intrahepatic ductal dilation. The common bile duct measures roughly 12 mm and is stable. There is no obstructive abnormality seen. Both kidneys are unremarkable with no stones, mass or hydronephrosis. The bladder is partially fluid filled and otherwise unremarkable. The uterus is surgically resected. The ovaries are not visualized and may also be surgically resected. Anterior abdominal wall periumbilical changes are also noted which may be related to history of hernia repair. There is no intraabdominal free air or free fluid. There is no lymphadenopathy. There is diffuse gastric wall thickening which may be related to incomplete distention. There is no intestinal obstruction. There is bowel wall thickening involving the rectum. This was also noted on prior CT scan dated 07/27/2019. There is also decompression of the left colon with bowel wall thickening which may be related to incomplete distention. Appendectomy changes are seen. The remainder of the intestines are unremarkable. Small bowel shows no significant abnormality. There is no aneurysmal dilation involving the abdominal aorta or iliac arteries. There is mild atherosclerotic disease without significant stenosis. The celiac artery, SMA and bilateral renal arteries are patent. The KOKO is patent. The extra-abdominal and extra-pelvic soft tissue structures are unremarkable. Appendectomy is noted. IMPRESSION: 1. There is stable bowel wall thickening involving the rectum which may be related to proctitis, but a mass should be excluded. Colonoscopy may help better evaluate. 2. There is also bowel wall thickening of the left colon and stomach, but these structures are incompletely distended. 3. There is diffuse fatty infiltration of the liver. 4. Postop changes are seen consistent with cholecystectomy, appendectomy and hysterectomy. Anterior abdominal wall periumbilical changes are also noted which may be related to history of hernia repair. 5. There is no evidence of aneurysmal dilation or dissection involving the abdominal aorta or iliac arteries. 6. I agree with [facility] report. All CT scans use one or more of the following dose optimizing techniques: automated exposure control, mA and/or KvP adjustment based on patient size and exam type, or iterative reconstruction. at 1753 Dictated By: Marianne Johnston MD Signed By: 07/28/191752 DD/ 52 TD/TT: 07/28/191752Transcriptionist: OV Health Concerns Health Concerns may be documented in an alternate section. Advance Directives Advance Directive Response Recorded Date/Time Does the patient have an Advance Directive on File? No July 27, 2019 9:08pm Do you have a Medical Power of Wind Turbine Technician? N o July 27, 2019 9:08pm Do you have a Health Care Proxy? No July 27, 2019 9:08pm Do you have a Living Will? No July 27, 2019 9:08pm Chief Complaint and Reason for Visit Chief Complaint LLQ abdominal pain H X colitis Encounters Encounter Location(s) Ar rival/Admit Date Discharge/Depart Date Provider(s) Discharged Inpatient [facility]Surgical July 27, 2019 8:35pm July 212018 11:35am Omari Adams MD Departed Emergency [facility]Emergency Department October 27, 2019 1:14am October 27, 2019 5:18am null Assessments Please return to the emergency department in 12 hours for abdominal recheck. Please return sooner with any new, worsening, further concerning symptoms. Please follow-up with yo shiv sponge hooker at the next available appointment. Functional Status No Functional Status information available Goals Goals may be documented in an alternate section. Immunizations No Immunization Information Available Mental Status No Mental Status Information Available Medical Equipment No Medical Equipment Information available Insurance Providers Guarantor Mignon Kirk Address [address] [facility] [address] Contact Info. Home Phone: Payer Policy Id Coverage Id Subscriber's Name Subscriber Id Effective Date Expiration Date Cigna Other [id number] Mignon Kirk [id number] Self Pay Self N/A Plan of Treatment Future Tests Future scheduled test information is unavailable Pending Tests Pending diagnostic test information is unavailable Future Visits Future appointment information is unavailable Referrals to Other Providers Reason for Referral Referral Start Date Provider Provider Conta ct Information Provider Address Call for next available appointment. P lease return to the emergency department if you are unable to be seen by your primary care physician in the instructed timeframe. Please return to the emergency department any new, worsening, further concerning symptoms. PCP Your Call for next available appointment. Pl ease return to the emergency department if you are unable to be seen by your sponge hooker in the instructed timeframe. Please return to the emergency department any new, worsening, further concerning symptoms. Director Channel Your Future Procedures Future procedure information is unavailable Future Medications Future medication information is unavailable Patient Instructions Ulcerative Colitis (ED) Chronic Abdominal Pain (ED) Social History Smoking Status Status Date of Observation Unknown if ever smoked October 26 1:52am Observation Status Observation Response Lito e of Response Smoking Status Former Smoker October 27, 2019 1:52am Exposure to Secondhand Smoke No October 27, 2019 1:52am Alcohol Use Occasionally October 27, 2019 1:52am Illicit Drug Use No Bernard 2019 1:52am Assigned Sex Female Vital Signs Vital Reading Result Ref erence Range Collection Date/Time Height 64 [in_i] October 27, 2019 1:15am Weight 113.39 kg October 27, 2019 1:15am Body Temperature 98.4 [degF] 97.5-100.3 October 27, 2019 5:00am Heart Rate 124 /min 60-1 00 October 27, 2019 5:10am Respiratory rate 22 /min 12-20 October 27, 2019 5:10am Oxygen saturation by Pulse oximetry 98 % 95- 100 October 27, 2019 5:10am BP Systolic 225 mm[Hg] 9 0-140 October 27, 2019 5:10am BP Diastolic 113 mm[Hg] 60-90 October 27, 2019 5:10am BMI (Body Mass Index) 42.9 kg/m2 October 27, 2019 1:15am
== END ==
LOC: EDUNIT# 19:12 → ER FS 19:14
DX: R10.84 Generalized abdominal pain (principal); Z88.1 Allergy status to other antibiotic agents; Z88.6 Allergy status to analgesic agent; Z88.8 Allergy status to other drugs, medicaments and biological substances; Z87.19 Personal history of other diseases of the digestive system
CPT/HCPCS: 99282

== ENCOUNTER 2019-11-07 23:09 | Emergency (ER) | payer OTHER ==
[~2019-11-07] VITALS: Ht 163 cm; Wt 118.4 kg
[2019-11-07] MEDS ORDERED: ONDA4TAB11 (23:33)
[2019-11-07] MEDS ORDERED: TRAZ-227 (23:33)
[2019-11-07] MEDS ORDERED: METR500T (23:33)
[2019-11-07] MEDS ORDERED: DCCL10A2 PO (23:33)
[2019-11-07] MEDS ORDERED: SLF500T PO (23:33)
[2019-11-07] MEDS ORDERED: SIMV40TA PO (23:33)
[2019-11-07] MEDS ORDERED: DULO60CA6 PO (23:33)
[2019-11-07] MEDS ORDERED: ALPR2TAB4 (23:33)
[2019-11-07] MEDS ORDERED: CIPR500T4 (23:33)
[2019-11-07] MEDS ORDERED: DULO60CA59 (23:33)
[2019-11-07] MEDS ORDERED: LACTATED RINGERS 1,000 ML IV ONE (23:36)
[2019-11-07] MEDS ORDERED: fentaNYL INJECTION 100 MCG/2 ML AMP IVP ONE (23:45)
[2019-11-08 00:01] LABS: BILIRUBIN,URINE NEGATIVE (NEGATIVE); CLARITY,URINE CLEAR; COLOR,URINE YELLOW; GLUCOSE, URINE (UA) NEGATIVE (NEGATIVE); KETONES,URINE NEGATIVE (NEGATIVE); LEUKOCYTE ESTERASE ,URINE NEGATIVE (NEGATIVE); NITRITE,URINE NEGATIVE (NEGATIVE); PH,URINE 5.5 (5-9); PROTEIN,URINE NEGATIVE (NEGATIVE)
[2019-11-08 00:02] LABS: BASOPHILS % (AUTO) 0 % (0-10); EOSINOPHILS # (AUTO) 0.1 10^3/uL (0.0-0.3); EOSINOPHILS % (AUTO) 1 % (0-10); HEMATOCRIT 30 % (35-52); HEMOGLOBIN 9.5 G/DL (11.5-16.0); LYMPHOCYTES # (AUTO) 0.6 X 10^3 (1.0-4.0); LYMPHOCYTES % (AUTO) 12 % (12-44); MEAN CORPUSCULAR HEMOGLOBIN 28 PG (25-34); MEAN CORPUSCULAR HGB CONC 31 G/DL (32-36); MEAN CORPUSCULAR VOLUME 89 FL (80-99); MEAN PLATELET VOLUME 8.4 FL (7.4-10.4); MONOCYTES # (AUTO) 0.3 X 10^3 (0.0-1.0); MONOCYTES % (AUTO) 6 % (0-12); NEUTROPHILS % (AUTO) 81 % (42-75); PLATELET COUNT 252 10^3/uL (130-400)
[2019-11-08 00:11] LABS: BACTERIA,URINE TRACE /HPF; WBC,URINE RARE /HPF
[2019-11-08 00:12] LABS: AMORPHOUS SEDIMENT,UR RARE AMOR URATES /LPF
[2019-11-08 00:15] LABS: AMPHETAMINE SCREEN, URINE NEGATIVE (NEGATIVE); BARBITURATE SCREEN URINE NEGATIVE (NEGATIVE); BENZODIAZEPINES SCREEN URINE POSITIVE (NEGATIVE); CANNABINOID SCREEN, URINE NEGATIVE (NEGATIVE); COCAINE SCREEN URINE NEGATIVE (NEGATIVE); METHADONE STAT NEGATIVE (NEGATIVE); METHAMPHETAMINE SCREEN URINE S NEGATIVE (NEGATIVE); OPIATE SCREEN URINE POSITIVE (NEGATIVE); OXYCODONE STAT NEGATIVE (NEGATIVE); PROPOXYPHENE STAT NEGATIVE (NEGATIVE); TRICYCLIC ANTIDEPRESSANTS SCRE NEGATIVE (NEGATIVE)
[2019-11-08 00:22] LABS: ERYTHROCYTE SEDIMENTATION RATE 63 MM/HR (0-30)
[2019-11-08 00:33] LABS: ALANINE AMINOTRANSFERASE 27 U/L (0-55); ALBUMIN 3.8 GM/DL (3.2-4.5); ALKALINE PHOSPHATASE 125 U/L (40-136); BILIRUBIN,TOTAL 0.2 MG/DL (0.1-1.0); BUN/CREATININE RATIO 18; CALCIUM 8.6 MG/DL (8.5-10.1); CARBON DIOXIDE 25 MMOL/L (21-32); CHLORIDE 104 MMOL/L (98-107); CREATININE SERUM 0.74 MG/DL (0.60-1.30); GFR ESTIMATED > 60; GLUCOSE 118 MG/DL (70-105); LIPASE 18 U/L (8-78); POTASSIUM 3.9 MMOL/L (3.6-5.0); SODIUM 140 MMOL/L (135-145); TOTAL PROTEIN 6.5 GM/DL (6.4-8.2)
[2019-11-08] MEDS ORDERED: morphine INJ 10 MG/ML 1ML (SYR OR VIAL) IVP STA (01:20)
[2019-11-08] MEDS ORDERED: OXYC-471 PO (01:28)
[2019-11-08] MEDS ORDERED: PRD20T PO (01:28)
--- NOTE | 2019-11-08 01:28 | ED Abdominal Pain ---
General Chief Complaint: Abdominal/GI Problems Stated Complaint: LEFT LOWER ABD PAIN,NAUSEA,DIARRHEA Nursing Triage Note: left lower abdominal pain, n/v/d Sepsis Screen: No Definite Risk Source of Information: Patient, Old Records Exam Limitations: No Limitations History of Present Illness Date Seen by Provider: Nov 07, 2019 Time Seen by Provider: 23:22 Initial Comments This 49-year-old woman presents to the emergency room with abdominal pain, nausea, vomiting, and diarrhea. She has history of ulcerative colitis presumptively diagnosed by CT scans. She has not yet had colonoscopy. She has been seen numerous times in the emergency room at [place]. She lives in the [place] area and sees Teodoro Ruelas NP at [facility]. However, she recently has been staying with her aunt in [place] and her niece in [place]. She states she was seen at her PCP office earlier today and had labs and a CT scan obtained. She presently takes sulfasalazine and Bentyl regularly. Her PCP today started her on Cipro, Flagyl, Zofran, and hydrocodone. She reports labs were unremarkable. CT scans on chart suggest proximal colon inflammation. She is afebrile. Allergies and Home Medications Allergies Coded Allergies: cephalexin (Verified Allergy, Unknown, 09/13/19) ketorolac (Verified Allergy, Unknown, 09/13/19) prochlorperazine (Verified Allergy, Unknown, 09/13/19) Home Medications Dicyclomine HCl 20 Mg/2 Ml Inj, 20 MG PO QID, (Reported) Oxycodone HCl/Acetaminophen 1 Each Tablet, 1 EACH PO Q4H PRN for PAIN-SEVERE Prescribed by: LAURA VINCENT on 11/08/19 0129 Oxycodone Hcl 5 Mg Tab, 10 MG PO Q6H PRN for PAIN-SEVERE Prescribed by: MARQUES WANG on 10/06/192109 Prednisone 20 Mg Tab, 40 MG PO DAILY Prescribed by: STERLING STREETER on 10/13/192231 Prednisone 20 Mg Tab, 40 MG PO DAILY Prescribed by: LAURA VINCENT on 11/08/19 0128 Sulfasalazine 500 Mg Tablet, 500 MG PO QID, (Reported) Patient Home Medication List Home Medication List Reviewed: Yes Review of Systems Review of Systems Constitutional: no symptoms reported EENTM: No Symptoms Reported Respiratory: No Symptoms Reported Cardiovascular: No Symptoms Reported Gastrointestinal: See HPI Genitourinary: No Symptoms Reported Musculoskeletal: no symptoms reported Skin: no symptoms reported Psychiatric/Neurological: See HPI Endocrine: No Symptoms Reported Hematologic/Lymphatic: No Symptoms Reported Past Wjhadft-Jrhrvl-Yodgij Hx Past Med/Social Hx: Reviewed and Corrections made Patient Social History Alcohol Use: Rarely Uses Recreational Drug Use: No Smoking Status: Former Smoker 2nd Hand Smoke Exposure: No Recent Foreign Travel: No Contact w/Someone Who Travel: No Recent Infectious Disease Expo: No Recent Hopitalizations: No Physical Abuse: No Sexual Abuse: No Mistreated: No Fear: No Immunizations Up To Date Tetanus Booster (TDap): Unknown Seasonal Allergies Seasonal Allergies: No Past Medical History Surgeries: Yes Appendectomy, Gallbladder, Hysterectomy, Rectal Respiratory: No Cardiac: Yes High Cholesterol, Hypertension 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 oz. 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 tested, no motor/sensory deficits, alert, normal mood/affect, oriented x 3 Skin: normal color, warm/dry Progress/Results/Core Measures Results/Orders Lab Results Laboratory Tests Test 11/07/19 23:50 Range/Units White Blood Count 5.0 4.3-11.0 10^3/uL Red Blood Count 3.42 L 4.35-5.85 10^6/uL Hemoglobin 9.5 L 11.5-16.0 G/DL Hematocrit 30 L 35-52 % Mean Corpuscular Volume 89 80-99 FL Mean Corpuscular Hemoglobin 28 25-34 PG Mean Corpuscular Hemoglobin Concent 31 L 32-36 G/DL Red Cell Distribution Width 14.0 10.0-14.5 % Platelet Count 252 130-400 10^3/uL Mean Platelet Volume 8.4 7.4-10.4 FL Neutrophils (%) (Auto) 81 H 42-75 % Lymphocytes (%) (Auto) 12 12-44 % Monocytes (%) (Auto) 6 0-12 % Eosinophils (%) (Auto) 1 0-10 % Basophils (%) (Auto) 0 0-10 % Neutrophils # (Auto) 4.0 1.8-7.8 X 10^3 Lymphocytes # (Auto) 0.6 L 1.0-4.0 X 10^3 Monocytes # (Auto) 0.3 0.0-1.0 X 10^3 Eosinophils # (Auto) 0.1 0.0-0.3 10^3/uL Basophils # (Auto) 0.0 0.0-0.1 10^3/uL Erythrocyte Sedimentation Rate 63 H 0-30 MM/HR Urine Color YELLOW Urine Clarity CLEAR Urine pH 5.5 5-9 Urine Specific [place] 1.015 L 1.016-1.022 Urine Protein NEGATIVE NEGATIVE Urine Glucose (UA) NEGATIVE NEGATIVE Urine Ketones NEGATIVE NEGATIVE Urine Nitrite NEGATIVE NEGATIVE Urine Bilirubin NEGATIVE NEGATIVE Urine Urobilinogen 0.2 < = 1.0 MG/DL Urine Leukocyte Esterase NEGATIVE NEGATIVE Urine RBC (Auto) NEGATIVE NEGATIVE Urine RBC NONE /HPF Urine WBC RARE /HPF Urine Crystals PRESENT H /LPF Urine Amorphous Sediment RARE MELVI URATES H /LPF Urine Bacteria TRACE /HPF Urine Casts NONE /LPF Urine Mucus NEGATIVE /LPF Urine Culture Indicated NO Sodium Level 140 135-145 MMOL/L Potassium Level 3.9 3.6-5.0 MMOL/L Chloride Level 104 98-107 MMOL/L Carbon Dioxide Level 25 21-32 MMOL/L Anion Gap 11 5-14 MMOL/L Blood Urea Nitrogen 13 7-18 MG/DL Creatinine 0.74 0.60-1.30 MG/DL Estimat Glomerular Filtration Rate > 60 BUN/Creatinine Ratio 18 Glucose Level 118 H 70-105 MG/DL Calcium Level 8.6 8.5-10.1 MG/DL Corrected Calcium 8.8 8.5-10.1 MG/DL Total Bilirubin 0.2 0.1-1.0 MG/DL Aspartate Amino Transf (AST/SGOT) 12 5-34 U/L Alanine Aminotransferase (ALT/SGPT) 27 0-55 U/L Alkaline Phosphatase 125 40-136 U/L C-Reactive Protein High Sensitivity 1.64 H 0.00-0.50 MG/DL Total Protein 6.5 6.4-8.2 GM/DL Albumin 3.8 3.2-4.5 GM/DL Lipase 18 8-78 U/L Urine Opiates Screen POSITIVE H NEGATIVE Urine Oxycodone Screen NEGATIVE NEGATIVE Urine Methadone Screen NEGATIVE NEGATIVE Urine Propoxyphene Screen NEGATIVE NEGATIVE Urine Barbiturates Screen NEGATIVE NEGATIVE Ur Tricyclic Antidepressants Screen NEGATIVE NEGATIVE Urine Phencyclidine Screen NEGATIVE NEGATIVE Urine Amphetamines Screen NEGATIVE NEGATIVE Urine Methamphetamines Screen NEGATIVE NEGATIVE Urine Benzodiazepines Screen POSITIVE H NEGATIVE Urine Cocaine Screen NEGATIVE NEGATIVE Urine Cannabinoids Screen NEGATIVE NEGATIVE My Orders Orders - LAURA KASPER MD Ed Iv/Invasive Line Start (11/07/19 23:25) Cbc With Automated Diff (11/07/19 23:25) Comprehensive Metabolic Panel (11/07/19 23:25) Hs C Reactive Protein (11/07/19 23:25) Erythrocyte Sedimentation Rate (11/07/19 23:25) Drug Screen Stat (Urine) (11/07/19 23:25) Lipase (11/07/19 23:25) Ua Culture If Indicated (11/07/19 23:25) Fentanyl Injection (Sublimaze Injection (11/07/19 23:45) Lactated Ringers (Lr 1000 Ml Iv Solution (11/07/19 23:36) Methylprednisolone Sod Succ (Solu-Medrol (11/08/19 01:30) Morphine Injection (Morphine Injection (11/08/19 01:20) Oxycodone/Apap 5/325mg Tablet (Percocet (11/08/19 01:30) Medications Given in ED Current Medications Medications Dose Ordered Sig/Stiven Route Start Time Stop Time Status Last Admin Dose Admin Fentanyl Citrate 50 mcg ONCE ONCE IVP 11/07/19 23:45 11/07/19 23:46 DC 11/07/19 23:43 50 MCG Lactated Ringer's 1,000 ml @ 0 mls/hr Q0M ONCE IV 11/07/19 23:36 11/07/19 23:37 DC 11/07/19 23:43 0 MLS/HR Methylprednisolone Sodium Succinate 125 mg ONCE ONCE IVP 11/08/19 01:30 11/08/19 01:31 DC 11/08/19 01:37 125 MG Oxycodone/ Acetaminophen 1 tab ONCE ONCE PO 11/08/19 01:30 11/08/19 01:31 DC 11/08/19 01:37 1 TAB Vital Signs/I&O 11/07/19 11/07/19 11/08/19 11/08/19 23:19 23:43 01:37 01:40 Temp 36.6 36.6 36.6 36.5 Pulse 106 89 Resp 18 16 B/P (MAP) 154/114 (127) 141/90 (127) Pulse Ox 93 94 O2 Delivery Room Air Room Air Blood Pressure Mean: 127 Progress Progress Note : Progress Note Labs were drawn as we do not have access to the labs performed earlier today. ESR was elevated but labs otherwise were relatively unremarkable. Hemoglobin was stable as she states her prior hemoglobin was about 9.5. Patient was initially treated with fentanyl for control of her pain. This was not effective. It was followed by morphine and oxycodone. Patient was asking for dialogue by name. We discussed the need to have her chronic pain managed by a primary care provider for consistency. She reports that has been over a month since she use steroids. I administered Solu-Medrol and prescribed prednisone. She was encouraged to keep her follow-up with the broomcorn thresher next week and to pursue endoscopy. Departure Impression Primary Impression: Ulcerative colitis Qualified Codes: K51.919 - Ulcerative colitis, unspecified with unspecified complications Additional Impression: Generalized abdominal pain Disposition: HOME, SELF-CARE Condition: Improved Departure-Patient Inst. Decision time for Depature: 01:23 Referrals: NO,LOCAL PHYSICIAN (PCP/Family) Primary Care Physician Patient Instructions: Acute Abdomen (Belly Pain), Ulcerative Colitis in Adults Add. Discharge Instructions: Drink plenty of clear liquids to stay well-hydrated. Use your previously prescribed medications as directed. For less severe pain you may use the hydrocodone previously prescribed. For more severe pain you may use the oxycodone prescribed from the ER. Keep your referral appointment with the broomcorn thresher. Discuss medication adjustments and endoscopy. Return to care if you have worsening symptoms. Please work out a system of pain management with your primary care provider that does not involve frequent visits to the emergency room. Chronic pain management should be provided by a single physician with consistency and routine. All discharge instructions reviewed with patient and/or family. Voiced understanding. Scripts Oxycodone HCl/Acetaminophen (Oxycodone-Acetaminophen 5-325) 1 Each Tablet 1 EACH PO Q4H PRN for PAIN-SEVERE MDD 6, #5 TAB Prov: LAURA KASPER MD 11/08/19 Prednisone (Prednisone) 20 Mg Tab 40 MG PO DAILY, #8 TAB 0 Refills Prov: LAURA KASPER MD 11/08/19 LAURA KASPER MD Nov 08, 2019 01:28
[2019-11-08] MEDS ORDERED: oxyCODONE/APAP 5/325MG (PERCOCET 5) TABLET PO ONE (01:30)
[2019-11-08] MEDS ORDERED: methylPREDNISolone 125 MG (Solu-MEDROL) VIAL IVP ONE (01:30)
[2019-11-08 01:40] VITALS: BP 141/90
== END 2019-11-08 01:43 | disposition home or self-care (01) ==
LOC: EDUNIT# 23:09 → ER 23:12
DX: K51.90 Ulcerative colitis, unspecified, without complications (principal); Z88.1 Allergy status to other antibiotic agents; Z88.6 Allergy status to analgesic agent; Z88.8 Allergy status to other drugs, medicaments and biological substances; Z87.891 Personal history of nicotine dependence
CPT/HCPCS: 36415; 80053; 80306; 81000; 83690; 85025; 85652; 86141; 96361; 96374; 96375

== ENCOUNTER 2019-11-13 12:45 | Emergency (ER) | payer OTHER ==
[~2019-11-13] VITALS: Ht 163 cm; Wt 115.2 kg
[~2019-11-13 12:45] MED LIST changes: +ALPR2TAB4; +CIPR500T4; +DCCL10A2 PO; +DULO60CA59; +DULO60CA6 PO; +METR500T; +ONDA4TAB11; +OXYC-471 PO; +SIMV40TA PO; +SLF500T PO; +TRAZ-227
[2019-11-13] MEDS ORDERED: NS IV 1000 ML 1,000 ML IV ONE (13:30)
[2019-11-13] MEDS ORDERED: ONDANSETRON 4 MG/2 ML (SDV) Z0FRAN IVP ONE ×2 (13:30→16:00)
--- NOTE | 2019-11-13 13:35 | ED GI ---
General Chief Complaint: Abdominal/GI Problems Stated Complaint: LLQ PAIN; N&V; BLOODY STOOL Nursing Triage Note: Patient reports LLQ abdomen with with N/V/D. Patient reports this started at 0030 this morning Sepsis Screen: No Definite Risk Source of Information: Patient Exam Limitations: No Limitations, Physical Impairments (is nauseated and in pain) History of Present Illness Date Seen by Provider: Nov 13, 2019 Time Seen by Provider: 13:14 Initial Comments 49-year-old female presents to the emergency room brought in by herself. Patient reports that she has had nausea vomiting and hematochezia. Patient has a history of ulcerative colitis and has been treated with medications. He states that she's had multiple episodes of any medication the past was told to come to the emergency room by her GI specialist. Patient states the blood was bright red although she is not actively bleeding at this time. Patient has multiple excoriations on her upper arms she states that these skin lesions or from her ulcerative colitis. Patient was asking for pain medication and nausea medication upon arrival. Patient is obese and appears cushingoid and may have been on steroids in the past. She denies cardiovascular or pulmonary disease. Denies renal disease. Patient to give informed consent for diagnostic and therapeutic services. Patient does appear to be dehydrated states that she has not been able to keep any liquids down without throwing them up she did consent for IV hydration. Patient admits to aren't deficiency and anemia of chronic disease. Timing/Duration: 3-4 Days Severity/Quality: Moderate Location: RLQ, LLQ, Epigastric, Flank Radiation: Back, Epigastric, Flank, Periumbilical Activities at Onset: Activity (appears to make his symptoms worse) Modifying Factors: Improves With Coughing, Improves With Defecating (. Some pressure although she does have a medication history), Improves With Eating, Improves With Vomiting Associated Symptoms: Back Pain, Fatigue, Nausea/Vomiting, Weakness Allergies and Home Medications Allergies Coded Allergies: cephalexin (Verified Allergy, Unknown, 09/13/19) ketorolac (Verified Allergy, Unknown, 09/13/19) prochlorperazine (Verified Allergy, Unknown, 09/13/19) Home Medications Dicyclomine HCl 20 Mg/2 Ml Inj, 20 MG PO QID, (Reported) Oxycodone HCl/Acetaminophen 1 Each Tablet, 1 EACH PO Q4H PRN for PAIN-SEVERE Prescribed by: LAURA VINCENT on 11/08/19 0129 Oxycodone Hcl 5 Mg Tab, 10 MG PO Q6H PRN for PAIN-SEVERE Prescribed by: MARQUES WANG on 10/06/192109 Prednisone 20 Mg Tab, 40 MG PO DAILY Prescribed by: STERLING STREETER on 10/13/192231 Prednisone 20 Mg Tab, 40 MG PO DAILY Prescribed by: LAURA VINCENT on 11/08/19 0128 Sulfasalazine 500 Mg Tablet, 500 MG PO QID, (Reported) Patient Home Medication List Home Medication List Reviewed: Yes Review of Systems Review of Systems Constitutional: malaise, weakness, weight gain EENTM: No Symptoms Reported, Nose Congestion Respiratory: No Symptoms Reported, Cough (minimal) Cardiovascular: Lightheadedness Gastrointestinal: Abdomen Distended, Abdominal Pain, Blood Streaked Stools, Nausea, Rectal Bleeding, Vomiting, Other (history of ulcerative colitis) Genitourinary: No Symptoms Reported Musculoskeletal: back pain, muscle weakness Skin: change in color, lesions (excoriative lesions of the upper extremities) Psychiatric/Neurological: Anxiety, Depressed Endocrine: No Symptoms Reported (unable to tolerate fluids) Hematologic/Lymphatic: Anemia (iron deficiency anemia of chronic disease) Past Sefgdpx-Wfmeji-Wpniif Hx Past Med/Social Hx: Reviewed Nursing Past Med/Soc Hx Patient Social History Alcohol Use: Denies Use Recreational Drug Use: No Smoking Status: Never a Smoker 2nd Hand Smoke Exposure: No Recent Foreign Travel: No Contact w/Someone Who Travel: No Recent Infectious Disease Expo: No Recent Hopitalizations: No Immunizations Up To Date Tetanus Booster (TDap): Unknown Seasonal Allergies Seasonal Allergies: No Past Medical History Surgeries: Yes Appendectomy, Gallbladder, Hysterectomy, Rectal Respiratory: No Cardiac: Yes High Cholesterol, Hypertension Neurological: No QUALITY HEAD History: Hysterectomy Genitourinary: No Gastrointestinal: Yes Abdominal Hernia, Colitis, Gastroesophageal Reflux, Gastrointestinal Bleed (history of ulcerative colitis) Musculoskeletal: No Chronic Back Pain Endocrine: No HEENT: No Cancer: No Psychosocial: Yes Anxiety, Depression Integumentary: Yes (patient has multiple lesions on her upper extremities that are excoriated) Blood Disorders: Yes (iron deficiency and anemia of chronic disease) Physical Exam Vital Signs Vital Signs - First Documented 11/13/19 13:01 Temp 36.6 Pulse 108 Resp 18 B/P (MAP) 128/108 (115) Pulse Ox 98 O2 Delivery Room Air Capillary Refill : Less Than 3 Seconds Height/Weight/BMI Height: '" Weight: lbs. oz. kg; 43.00 BMI Method: General Appearance: moderate distress (from nausea and vomiting), obese (bases and appears cushingoid) HEENT: PERRL/EOMI, normal ENT inspection, pharynx normal Neck: non-tender, full range of motion, supple, normal inspection Respiratory: chest non-tender, lungs clear, normal breath sounds, no respiratory distress, no accessory muscle use Cardiovascular: normal peripheral pulses, regular rate, rhythm, no edema, no gallop, no JVD, no murmur Peripheral Pulses: 2+ Carotid (R), 2+ Carotid (L) Gastrointestinal: distended Extremities: normal range of motion, non-tender, normal inspection, no pedal edema, no calf tenderness, normal capillary refill Back: normal inspection, decreased range of motion, muscle spasm, vertebral tenderness 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, no motor/sensory deficits, alert, normal mood/affect, oriented x 3 Skin: normal color, other (multiple excoriated lesions on both upper extremities) Lymphatic: no adenopathy Progress/Results/Core Measures Results/Orders Lab Results Laboratory Tests Test 11/13/19 13:05 11/13/19 13:25 11/13/19 13:50 Range/Units Urine Opiates Screen NEGATIVE NEGATIVE Urine Oxycodone Screen NEGATIVE NEGATIVE Urine Methadone Screen NEGATIVE NEGATIVE Urine Propoxyphene Screen NEGATIVE NEGATIVE Urine Barbiturates Screen NEGATIVE NEGATIVE Ur Tricyclic Antidepressants Screen NEGATIVE NEGATIVE Urine Phencyclidine Screen NEGATIVE NEGATIVE Urine Amphetamines Screen NEGATIVE NEGATIVE Urine Methamphetamines Screen NEGATIVE NEGATIVE Urine Benzodiazepines Screen POSITIVE H NEGATIVE Urine Cocaine Screen NEGATIVE NEGATIVE Urine Cannabinoids Screen NEGATIVE NEGATIVE Urine Color YELLOW Urine Clarity CLEAR Urine pH 7.0 5-9 Urine Specific [place] 1.020 1.016-1.022 Urine Protein NEGATIVE NEGATIVE Urine Glucose (UA) TRACE H NEGATIVE Urine Ketones NEGATIVE NEGATIVE Urine Nitrite NEGATIVE NEGATIVE Urine Bilirubin NEGATIVE NEGATIVE Urine Urobilinogen 0.2 < = 1.0 MG/DL Urine Leukocyte Esterase NEGATIVE NEGATIVE Urine RBC (Auto) NEGATIVE NEGATIVE Urine RBC NONE /HPF Urine WBC RARE /HPF Urine Squamous Epithelial Cells RARE /HPF Urine Crystals NONE /LPF Urine Bacteria NONE /HPF Urine Casts NONE /LPF Urine Mucus NEGATIVE /LPF Urine Culture Indicated NO White Blood Count 6.7 4.3-11.0 10^3/uL Red Blood Count 3.75 L 4.35-5.85 10^6/uL Hemoglobin 10.4 L 11.5-16.0 G/DL Hematocrit 33 L 35-52 % Mean Corpuscular Volume 87 80-99 FL Mean Corpuscular Hemoglobin 28 25-34 PG Mean Corpuscular Hemoglobin Concent 32 32-36 G/DL Red Cell Distribution Width 14.0 10.0-14.5 % Platelet Count 279 130-400 10^3/uL Mean Platelet Volume 9.6 7.4-10.4 FL Neutrophils (%) (Auto) 81 H 42-75 % Lymphocytes (%) (Auto) 9 L 12-44 % Monocytes (%) (Auto) 7 0-12 % Eosinophils (%) (Auto) 1 0-10 % Basophils (%) (Auto) 0 0-10 % Neutrophils # (Auto) 5.5 1.8-7.8 X 10^3 Lymphocytes # (Auto) 0.6 L 1.0-4.0 X 10^3 Monocytes # (Auto) 0.5 0.0-1.0 X 10^3 Eosinophils # (Auto) 0.0 0.0-0.3 10^3/uL Basophils # (Auto) 0.0 0.0-0.1 10^3/uL Neutrophils % (Manual) 74 % Lymphocytes % (Manual) 17 % Monocytes % (Manual) 8 % Eosinophils % (Manual) 0 % Basophils % (Manual) 0 % Band Neutrophils 1 % Blood Morphology Comment NORMAL Sodium Level 141 135-145 MMOL/L Potassium Level 3.7 3.6-5.0 MMOL/L Chloride Level 102 98-107 MMOL/L Carbon Dioxide Level 25 21-32 MMOL/L Anion Gap 14 5-14 MMOL/L Blood Urea Nitrogen 17 7-18 MG/DL Creatinine 0.62 0.60-1.30 MG/DL Estimat Glomerular Filtration Rate > 60 BUN/Creatinine Ratio 27 Glucose Level 115 H 70-105 MG/DL Calcium Level 8.6 8.5-10.1 MG/DL Corrected Calcium 9.0 8.5-10.1 MG/DL Magnesium Level 1.9 1.6-2.4 MG/DL Total Bilirubin 0.2 0.1-1.0 MG/DL Aspartate Amino Transf (AST/SGOT) 11 5-34 U/L Alanine Aminotransferase (ALT/SGPT) 16 0-55 U/L Alkaline Phosphatase 118 40-136 U/L Total Protein 6.4 6.4-8.2 GM/DL Albumin 3.5 3.2-4.5 GM/DL My Orders Orders - SHIN REYNOLDS DO Cbc And Manual Diff (11/13/19 13:25) Comprehensive Metabolic Panel (11/13/19 13:25) Magnesium (11/13/19 13:25) Urinalysis (11/13/19 13:25) Drug Screen Stat (Urine) (11/13/19 13:25) Ns Iv 1000 Ml (Sodium Chloride 0.9%) (11/13/19 13:30) Peripheral Iv Line Care 00,04,08,12,16,20 (11/13/19 13:25) Ondansetron Injection (Zofran Injectio (11/13/19 13:30) Hydromorphone Injection (Dilaudid Inject (11/13/19 14:45) Ondansetron Injection (Zofran Injectio (11/13/19 16:00) Hydromorphone Injection (Dilaudid Inject (11/13/19 16:00) Medications Given in ED Current Medications Medications Dose Ordered Sig/Stiven Route Start Time Stop Time Status Last Admin Dose Admin Hydromorphone HCl 1 mg ONCE ONCE IVP 11/13/19 14:45 11/13/19 14:46 DC 11/13/19 14:51 1 MG Ondansetron HCl 4 mg ONCE ONCE IVP 11/13/19 13:30 11/13/19 13:31 DC 11/13/19 13:52 4 MG Sodium Chloride 1,000 ml @ 100 mls/hr Q10H ONCE IV 11/13/19 13:30 11/13/19 23:29 11/13/19 13:52 100 MLS/HR Vital Signs/I&O 11/13/19 11/13/19 13:01 14:51 Temp 36.6 36.6 Pulse 108 Resp 18 B/P (MAP) 128/108 (115) Pulse Ox 98 O2 Delivery Room Air Blood Pressure Mean: 115 Departure Impression Primary Impression: Ulcerative colitis Additional Impressions: Hematochezia Abdominal pain Disposition: HOME, SELF-CARE Condition: Improved Departure-Patient Inst. Decision time for Depature: 16:05 Referrals: NO,LOCAL PHYSICIAN (PCP) Primary Care Physician Patient Instructions: Acute Abdomen (Belly Pain), Adult (DC), Bloody Stools, Dehydration, Adult (DC), Ulcerative Colitis in Adults Add. Discharge Instructions: Patient had CT scan of her abdomen 1 month ago and did not want to have repeat CT scan. She has ulcerative colitis and has had a prior history of rectal ulcers with bleeding and believes that this is what it is again. Patient will follow up with her component design engineer continue on her medications she was given 21 mg injections of Dilaudid while she was in the emergency room and 24 mg injections of Zofran. She feels better and wants to continue with clear liquids at home. All discharge instructions reviewed with patient and/or family. Voiced understanding. SHIN REYNOLDS DO Nov 13, 2019 13:35
[2019-11-13 13:59] LABS: BILIRUBIN,URINE NEGATIVE (NEGATIVE); CLARITY,URINE CLEAR; COLOR,URINE YELLOW; GLUCOSE, URINE (UA) TRACE (NEGATIVE); KETONES,URINE NEGATIVE (NEGATIVE); LEUKOCYTE ESTERASE ,URINE NEGATIVE (NEGATIVE); NITRITE,URINE NEGATIVE (NEGATIVE); PROTEIN,URINE NEGATIVE (NEGATIVE)
[2019-11-13 14:00] LABS: SQUAMOUS EPITHELIAL CELL,UR RARE /HPF; WBC,URINE RARE /HPF
[2019-11-13 14:02] LABS: HEMATOCRIT 33 % (35-52); HEMOGLOBIN 10.4 G/DL (11.5-16.0); MEAN CORPUSCULAR HEMOGLOBIN 28 PG (25-34); MEAN CORPUSCULAR VOLUME 87 FL (80-99); WHITE BLOOD COUNT 6.7 10^3/uL (4.3-11.0)
[2019-11-13 14:03] LABS: BASOPHILS % (AUTO) 0 % (0-10); EOSINOPHILS % (AUTO) 1 % (0-10); LYMPHOCYTES # (AUTO) 0.6 X 10^3 (1.0-4.0); LYMPHOCYTES % (AUTO) 9 % (12-44); MEAN CORPUSCULAR HGB CONC 32 G/DL (32-36); MEAN PLATELET VOLUME 9.6 FL (7.4-10.4); MONOCYTES # (AUTO) 0.5 X 10^3 (0.0-1.0); MONOCYTES % (AUTO) 7 % (0-12); NEUTROPHILS # (AUTO) 5.5 X 10^3 (1.8-7.8); NEUTROPHILS % (AUTO) 81 % (42-75); PLATELET COUNT 279 10^3/uL (130-400)
--- OUTSIDE RECORDS SUMMARY | 2019-11-13 14:05 | XMS REPORT | Continuity of Care Document ---
Author Author [facility] Address [address] [place] [address] Phone Care Team Providers Care Curtain Stretcher Name Role Phone Shivani Cheng PCP Monique Ray Jr Rndphys [...] Constipation Resolved Spasmodic colon Resolv ed Procedures No procedure information available. Relevant Diagnostic Tests and/or Laboratory Data Laboratory Results Test Date/Time Result Interpretation Reference Range Result Comment Performing Site White Blood Count November 11, 2019 7:30pm 6.8 10^3/uL 4.5-11.0 [facility], [facility] [address] [facility] [address] Red Blood Count November 11, 2019 7:30pm 3.34 10^6/uL 3.50-5.40 [place] [address] [facility] [address] Hemoglobin November 11, 2019 7:30pm 9.4 g/dL 12.0-16.0 [place] [address] [facility] [address] Hematocrit November 11, 2019 7:30pm 28.3 % 36-48 [place] [address] [address] [facility] [address] Mean Corpuscular Volume November 11, 2019 7:30pm 84.7 fL 79-99 [facility], [address] [facility] [address] Mean Corpuscular Hemoglobin November 102019 7:30pm 28.2 pg 25.0-34.0 [facility], [address] [place] [address] Mean Corpuscular Hemoglobin Concent November 11, 2019 7:30pm 33.3 g/dL 31.0-36.0 [facility], [address] [place] [address] Red Cell Distribution Width November 102019 7:30pm 15.0 % 11.0-15.0 [facility], [address] [place] [address] percy [facility] [address] Platelet Count November 11, 2019 7:30pm 270 10^3 uL 130-400 [facility], [address] [place] [address] [facility] [address] Mean Platelet Volume November 10 0 7:30pm 7.1 fL 7.0-11.0 [facility], [address] [facility] [address] Neutrophils % (Manual) November 10 020 7:30pm 80.0 % 50-65 [facility], [address] [place] [address] [facility] [address] Band Neutrophils % (Manual) November 102019 7:30pm 2.0 % 0-10 [facility], [address] [facility] [address] Lymphocytes % (Manual) November 10 020 7:30pm 9.0 % 15-45 [facility], [address] [facility] [address] Monocytes % (Manual) November 10 0 7:30pm 5.0 % 0-10 [facility], [address] [facility] [address] Eosinophils % (Manual) November 10 020 7:30pm 4.0 % 0-5 [facility], [facility] [facility] [address] Neutrophils # (Manual) November 10 020 7:30pm 5.6 # 1.0-8.0 [facility], [facility] [facility] [address] Lymphocytes # (Manual) November 10 020 7:30pm 0.6 # 1.0-3.0 [facility], [address] [facility] [address] Monocytes # (Manual) November 10 0 7:30pm 0.3 # 0.0-1.0 [facility], [address] [facility] [place] [address] Eosinophils # (Manual) November 10 7:30pm 0.3 # 0.0-0.4 [facility], [address] [place] [address] Anisocytosis November 11, 2019 7:30pm 1+ [facility], [address] [place] [address] Urine Color November 11, 2019 8:25pm Yellow Yellow [facility], [address] [facility] [address] Urine Appearance November 11, 2019 8:25pm Clear Clear [facility], [address] [place] [address] Urine pH November 11, 2019 8:25pm 6.5 [facility], [address] [place] [address] Urine Specific [place] November 10 8:25pm 1.015 [facility], [address] [place] [address] Urine Protein November 11, 2019 8:25pm Negative Neg-Trace [facility], [address] [place] [address] Urine Glucose (UA) November 11, 2019 8:25pm Negative Negative [facility], [address] [place] [address] Urine Ketones November 11, 2019 8:25pm Negative Negative [facility], [address] [facility] [address] Urine Blood November 11, 2019 8:25pm Negative Negative [facility], [address] [place] [address] [facility] [address] Urine Nitrite November 11, 2019 8:25pm Negative Negative [facility], [address] [facility] [address] Urine Bilirubin November 11, 2019 8:25pm Negative Negative [facility], [address] [facility] [address] [facility] [address] Urine Urobilinogen November 11, 2019 8:25pm 0.2 [facility], [address] [facility] [address] Urine Leukocyte Esterase November 11, 2019 8:25pm Negative Negative [facility], [address] [facility] [address] Urine Culture Indicated November 11, 2019 8:25pm Not Indicated No Culture Reflex Ordered.The specimen did not meet the following criteria OR contained >25 epithelials, indicating contamination. * Culture Criteria: * * * * Urinalysis Leukocyte 1+ or > * * Urinalysis Nitrates + * * Microscopic WBC 10 or > * * Microscopic Bacteria 2+ or > * * Microscopic Yeast 2+ or > * [facility], [address] [facility] [address] Urinalysis Comment November 11, 2019 8:25pm See comment Asymptomatic bacteriuria should seldom if [...] is not a criterion for symptomatic UTI.Source: [facility] National Healthcare Safety Network Criteria for Defining UTI EventsTreatment [id number] line: Nitrofurantoin for 5 days; Bactrim DS for 3 [id number] line: Beta-lactams for 5 days; Cipro or Levaquin for 3 [place] Fluoroquinolones for severe infections or those with no alternative treatment options. Serious adverse effects outweigh benefits for patients with uncomplicated infections [facility], [address] [facility] [address] Sodium Level November 11, 2019 7:30pm 138 mmol/L 135-150 [facility], [address] [facility] [address] Potassium Level November 11, 2019 7:30pm 3.5 mmol/L 3.4-5.2 [facility], [address] [facility] [address] Chloride Level November 11, 2019 7:30pm 102 mmol/L 100-112 [facility], [address] [facility] [address] Carbon Dioxide Level November 10 0 7:30pm 23 mEq/L 18-30 [facility], [address] [facility] [address] Anion Gap November 11, 2019 7:30pm 13 mmol/L 8-11 [facility], [address] [facility] [address] Blood Urea Nitrogen November 11, 2019 7:30p m 14 mg/dL 5-21 [facility], [address] [facility] [address] Creatinine November 11, 2019 7:30pm 0.72 mg/dL 0.60-1.30 [facility], [address] [facility] [address] Glomerular Filtration Rate Calc Bernard h 2019 7:30pm > 60 mL/Min The GFR is not validated for use in drug dosing adjustments.Continue to use estimated creatinine clearance per dosingreference text.Chronic Kidney Disease is defined as either kidney damage ora GFR less than 60 ml/min that persists for at least 3months. Stage 3 = 30-59 ml/min Stage 4 = 15-29 ml/min Stage 5 = <15 ml/min [facility], [address] [facility] [address] Glucose Level November 11, 2019 7:30pm 136 mg/dL 70-99 [facility], [address] [place] [address] Calcium Level November 11, 2019 7:30pm 8.9 mg/dL 8.6-10.5 [facility], [address] [place] [address] Total Bilirubin November 11, 2019 7:30pm 0.2 mg/dL 0.0-1.2 [facility], [address] [place] [address] Aspartate Amino Transf (AST/SGOT) [facility] 2019 7:30pm 10 U/L 6-37 [facility], [address] [place] [address] Alanine Aminotransferase (ALT/SGPT) November 11, 2019 7:30pm 19 U/L 12-78 [facility], [address] [place] [address] Total Protein November 11, 2019 7:30pm 6.2 g/dL 6.4-8.2 [facility], [address] [place] [address] Albumin November 11, 2019 7:30pm 3.3 g/dL 3.3-4.5 [facility], [address] [place] [address] Albumin/Globulin Ratio November 10 020 7:30pm 1.1 0.7-2.0 [facility], [address] [place] [address] Alkaline Phosphatase November 10 0 7:30pm 114 U/L 50-136 [facility], [address] [place] [address] Lipase November 11, 2019 7:30pm 35 U/L 8-78 [facility], [address] [place] [address] Health Concerns Health Concerns may be documented in an alternate section. Advance Directives Advance Directive Response Recorded Date/Time Advance Directive on File? No September 15, 2019 10:49pm Chief Complaint and Reason for Visit Chief Complaint abdominal pain Encounters Encounter Location(s) Ar rival/Admit Date Discharge/Depart Date Provider(s) Departed Emergency [facility] ealt-Emergency Department November 11, 2019 6:52pm November 11, 2019 9:25pm null Assessments No Assessments Information Available Family History Relationship Condition A ge at Onset Recorded Date/Time Unknown Family History U nknown November 11, 2019 7:07pm Functional Status No Functional Status information available Goals Acute Goals Problem: Abdominal Pain Goal: Relief of abdominal pain Plan: Refer to patient instructions provided. Immunizations No Immunization Information Available Mental Status No Mental Status Information Available Medical Equipment No Medical Equipment Information available Insurance Providers Guarantor Mignon Rg Address [address] [address] Contact Info. Home Phone: Payer Policy Id Coverage Id Subscriber's Name Subscriber Id Effective Date Expiration Date Jena [id number] Mignon Ifrah [id number] Self Pay Self N/A Plan of Treatment Future Tests Future scheduled test information is unavailable Pending Tests Pending diagnostic test information is unavailable Future Visits Future appointment information is unavailable Referrals to Other Providers Reason for Referral Referral Start Date Provider Provider Conta ct Information Provider Address Soham Soto Work Phone: [address] [place] [address] DRGorgeNONE NONE Preferably in the next 1 to 2 days Thom Desouza [facility] Email: [email or web address] Work Phone: [facility] [address] [place] [address] [address]NONE DR.NONE [facility] DR.NONE DR.NONE [facility] DR.NONE DR.NONE [facility] DR.NONE DR.NONE DR.NONE DR.NONE DR.NONE DR.NONE DR.NONE DR.NONE DR.NONE DRGorgeNONE OF [facility] DOCTOR Soham Soto Work Phone: [address] [place] [address] Soham Soto Work Phone: [address] [place] [address] Soham Soto Work Phone: [address] [place] [address] [facility] NONE DRGorgeNONE Jude Talbert Work Phone: [facility] [address] [place] [address] DRGorgeNONE [facility] NONE DR.NONE BALDWINNONE NONE Future Procedures Future procedure information is [...] Constipation (ED) Hypokalemia (ED) Ulcerative Colitis (ED) Abdominal Pain (ED) Social History Smoking Status Status Date of Observation Ex-smoker (finding) November 11, 2019 7:01pm Observation Status Observation Response Lito e of Response Recent Travel No October 222019 9:32pm Recent Travel No 2019 12:46am Recent Travel No 2019 3:09pm Recent Travel No March 012018 5:19pm Recent Travel No October 192018 8:31pm Recent Travel No uar y 2018 1:15am Recent Travel No Decembe r 2017 10:32pm Recent Travel No Novembe r 2017 8:38am Recent Travel No June 18, 2018 6:34pm Recent Travel No June 03, 2018 9:05pm Recent Travel No February 072017 12:03pm quit date 11/05 7:01pm second hand exposure Yes November 11, 2019 7:01pm housing house October 7:01pm household members family November 11, 2019 7:01pm children November 10, 2 020 7:01pm service No Bernard h 2019 7:01pm current occupational status employed November 11, 2019 7:01pm current occupational exposures/hazards No November 11, 2019 7:01pm Recent Travel No October 272019 8:08pm Recent Travel No October 242019 8:23pm Recent Travel No September 15, 2019 10:58pm Recent Travel No 2017 9:10pm Recent Travel No March 032017 3:48pm Recent Travel No December 10:32pm Assigned Sex Female Vital Signs Vital Reading Result Ref erence Range Collection Date/Time Height 64 [in_i] November 11, 2019 6:59pm Weight 250.00 [lb_av] November 11, 2019 6:59pm Body Temperature 98.7 [degF] 97.5-99.5 November 11, 2019 7:00pm Heart Rate 104 /min 60-90 November 11, 2019 9:15pm Respiratory rate 13 /min 12-20 November 11, 2019 9:08pm Oxygen saturation by Pulse oximetry 98 % 90- 100 November 11, 2019 9:16pm BP Systolic 162 mm[Hg] 1 00-160 November 11, 2019 9:08pm BP Diastolic 120 mm[Hg] 50-80 November 11, 2019 9:08pm BMI (Body Mass Index) 42.9 kg/m2 November 11, 2019 6:59pm Hospital Discharge Instructions Additional Instructions 1. Follow up with PCP/GI for further evaluation and treatment. 2. Push fluids. 3. Continue Oxycodone at home as directed. 4. Continue other pain medications. 5. Return here if worse or concerns.
[2019-11-13 14:13] LABS: ALANINE AMINOTRANSFERASE 16 U/L (0-55); ALKALINE PHOSPHATASE 118 U/L (40-136); BILIRUBIN,TOTAL 0.2 MG/DL (0.1-1.0); BUN/CREATININE RATIO 27; CALCIUM 8.6 MG/DL (8.5-10.1); CARBON DIOXIDE 25 MMOL/L (21-32); CHLORIDE 102 MMOL/L (98-107); CREATININE SERUM 0.62 MG/DL (0.60-1.30); GFR ESTIMATED > 60; GLUCOSE 115 MG/DL (70-105); MAGNESIUM 1.9 MG/DL (1.6-2.4); POTASSIUM 3.7 MMOL/L (3.6-5.0); SODIUM 141 MMOL/L (135-145)
[2019-11-13 14:14] LABS: ALBUMIN 3.5 GM/DL (3.2-4.5); TOTAL PROTEIN 6.4 GM/DL (6.4-8.2)
[2019-11-13 14:34] LABS: AMPHETAMINE SCREEN, URINE NEGATIVE (NEGATIVE); BARBITURATE SCREEN URINE NEGATIVE (NEGATIVE); BENZODIAZEPINES SCREEN URINE POSITIVE (NEGATIVE); CANNABINOID SCREEN, URINE NEGATIVE (NEGATIVE); COCAINE SCREEN URINE NEGATIVE (NEGATIVE); METHADONE STAT NEGATIVE (NEGATIVE); METHAMPHETAMINE SCREEN URINE S NEGATIVE (NEGATIVE); OPIATE SCREEN URINE NEGATIVE (NEGATIVE); OXYCODONE STAT NEGATIVE (NEGATIVE); PROPOXYPHENE STAT NEGATIVE (NEGATIVE); TRICYCLIC ANTIDEPRESSANTS SCRE NEGATIVE (NEGATIVE)
[2019-11-13] MEDS ORDERED: HYDROmorphone 2 MG/ML VIAL (DILAUDID) IVP ONE (14:45)
[2019-11-13 15:05] LABS: BAND NEUTROPHILS 1 %; BASOPHILS % (MANUAL) 0 %; EOSINOPHILS % (MANUAL) 0 %; LYMPHOCYTES % (MANUAL) 17 %; MONOCYTES % (MANUAL) 8 %; NEUTROPHILS % (MANUAL) 74 %; RBC MORPH NORMAL
[2019-11-13] MEDS ORDERED: HYDROmorphone 2 MG/ML VIAL (DILAUDID) IV ONE (16:00)
[2019-11-13 16:17] VITALS: BP 150/98
== END 2019-11-13 16:20 | disposition home or self-care (01) ==
LOC: EDUNIT# 12:45 → ER FS 12:46
DX: K51.90 Ulcerative colitis, unspecified, without complications (principal); I10 Essential (primary) hypertension; E78.00 Pure hypercholesterolemia, unspecified; K21.9 Gastro-esophageal reflux disease without esophagitis; M54.9 Dorsalgia, unspecified; F41.9 Anxiety disorder, unspecified; F32.9 Major depressive disorder, single episode, unspecified; D50.9 Iron deficiency anemia, unspecified; D63.8 Anemia in other chronic diseases classified elsewhere; L98.9 Disorder of the skin and subcutaneous tissue, unspecified
CPT/HCPCS: 36415; 80053; 80306; 81000; 83735; 85007; 85027; 99282

== ENCOUNTER 2019-11-15 21:25 | Emergency (ER) | payer OTHER ==
[~2019-11-15] VITALS: Ht 162 cm; Wt 113.0 kg
--- OUTSIDE RECORDS SUMMARY | 2019-11-15 21:32 | XMS REPORT | Continuity of Care Document ---
Author Author [facility] Address [address] 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 Name Role Phone Shivani Cheng PCP Gabriella Donnelly Rndphys Surya Nicolas Rndphys Unavailable Allergies, Adverse Reactions, Alerts Allergen Type [...] 24, 2019 12:02am orally per package directions Metronidazole Active 500 MG Oral Three Times a Day November 14, 2019 10:47am Ciprofloxacin Hcl Active 500 MG Oral Twice a Day 14 November 14, 2019 10:48am Problems Active Problems Medical Problem Onset Date Status Abdominal pain, left lower quadrant Active Long-term current use of anxiolytic medication Active Generalized anxiety disorder with panic attacks Active MDD (major depressive disorder) Active Insomnia Active Ulcerative colitis with rectal bleeding Active Diverticulosis Active Hepatic steatosis Acti ve Type 2 diabetes mellitus Active Colitis Active Colitis Active Diarrhea Active Mixed hyperlipidemia [...] Active Constipation Active Ulcerative colitis, chronic Active Abdominal pain, acute, left lower quadrant Active Hypokalemia Active Inactive/Resolved Problems Medical Problem Onset Date Status Acute on chronic blood loss anemia Resolved Hematuria Resolved Infective proctitis Re solved Gastroenteritis Resolv ed Hyperglycemia Resolved Ileus Resolved Narcotic bowel syndrome Resolved Proctitis Resolved Resolved History of appendectomy Resolved History of esophagogastroduodenoscopy (EGD) Resolved History of colonoscopy Resolved Constipation Resolved Spasmodic colon Resolv ed Procedures Procedure Date Performed Status XR abdomen 1V November 14, 2019 8:06am completed Relevant Diagnostic Tests and/or Laboratory Data Laboratory Results Test Date/Time Result Interpretation Reference Range Result Comment Performing Site White Blood Count November 14, 2019 8:35am 8.7 10^3/uL 4.5-11.0 [facility] [address] [facility] [address] White Blood Count November 11, 2019 7:30pm 6.8 10^3/uL 4.5-11.0 [facility] [address] [facility] [address] Red Blood Count November 14, 2019 8:35am 3.96 10^6/uL 3.50-5.40 [facility], [address] [facility] [address] Red Blood Count November 11, 2019 7:30pm 3.34 10^6/uL 3.50-5.40 [facility], [address] [facility] [address] Hemoglobin November 14, 2019 8:35am 11.0 g/dL 12.0-16.0 [facility], [address] [facility] [address] Hemoglobin November 11, 2019 7:30pm 9.4 g/dL 12.0-16.0 [facility], [address] [place] [address] percy [facility] [address] Hematocrit November 14, 2019 8:35am 34.1 % 36-48 [facility], [address] [place] [address] Hematocrit November 11, 2019 7:30pm 28.3 % 36-48 [facility], [address] [place] [address] Mean Corpuscular Volume November 14, 2019 8:35am 86.1 fL 79-99 [facility], [address] [place] [address] [facility] [address] Mean Corpuscular Volume November 11, 2019 7:30pm 84.7 fL 79-99 [facility], [address] [place] [address] [facility] [address] Mean Corpuscular Hemoglobin November 102019 7:30pm 28.2 pg 25.0-34.0 [facility], [address] [place] [address] Mean Corpuscular Hemoglobin November 132019 8:35am 27.8 pg 25.0-34.0 [facility], [address] [place] [address] Mean Corpuscular Hemoglobin Concent November 14, 2019 8:35am 32.2 g/dL 31.0-36.0 [facility], [address] [place] [address] Mean Corpuscular Hemoglobin Concent November 11, 2019 7:30pm 33.3 g/dL 31.0-36.0 [facility], [address] [place] [address] Red Cell Distribution Width November 102019 7:30pm 15.0 % 11.0-15.0 [facility], [address] [place] [address] Red Cell Distribution Width November 132019 8:35am 15.0 % 11.0-15.0 [facility], [address] [place] [address] Platelet Count November 14, 2019 8:35am 261 10^3 uL 130-400 [facility], [address] [place] [address] Platelet Count November 11, 2019 7:30pm 270 10^3 uL 130-400 [facility], [address] [place] [address] Mean Platelet Volume November 10 0 7:30pm 7.1 fL 7.0-11.0 [facility], [address] [place] [address] Mean Platelet Volume November 13 0 8:35am 7.6 fL 7.0-11.0 [facility], [address] [place] [address] Neutrophils % (Manual) November 10 020 7:30pm 80.0 % 50-65 [facility], [address] [place] [address] Neutrophils % (Manual) November 13 020 8:35am 96.0 % 50-65 [facility], [address] [place] [address] Band Neutrophils % (Manual) November 132019 8:35am 1.0 % 0-10 [facility], [address] [place] [address] Band Neutrophils % (Manual) November 102019 7:30pm 2.0 % 0-10 [facility], [address] [place] [address] Lymphocytes % (Manual) November 10 020 7:30pm 9.0 % 15-45 [facility], [address] [place] [address] Lymphocytes % (Manual) November 13 020 8:35am 3.0 % 15-45 [facility], [address] [place] [address] Monocytes % (Manual) November 10 0 7:30pm 5.0 % 0-10 [facility], [address] [facility] [address] Eosinophils % (Manual) November 10 020 7:30pm 4.0 % 0-5 [facility], [address] [facility] [address] Neutrophils # (Manual) November 13 8:35am 8.4 # 1.0-8.0 [facility], [address] [facility] [address] Neutrophils # (Manual) November 10 7:30pm 5.6 # 1.0-8.0 [facility], [address] [facility] [address] Lymphocytes # (Manual) November 13 8:35am 0.3 # 1.0-3.0 [facility], [address] [facility] [address] Lymphocytes # (Manual) November 10 7:30pm 0.6 # 1.0-3.0 [facility], [address] [place] [address] Monocytes # (Manual) November 10 0 7:30pm 0.3 # 0.0-1.0 [facility], [address] [place] [address] Eosinophils # (Manual) November 10 7:30pm 0.3 # 0.0-0.4 [facility], [address] [place] [address] Anisocytosis November 11, 2019 7:30pm 1+ [facility], [address] [place] [address] Erythrocyte Sedimentation Rate November 14, 2019 8:35am 37 mm/Hr 0-20 [facility], [address] [place] [address] Urine Color November 11, 2019 8:25pm Yellow Yellow [facility], [address] [place] [address] Urine Color November 14, 2019 9:22am Yellow Yellow [facility], [address] [place] [address] Urine Appearance November 14, 2019 9:22am Clear Clear [facility], [address] [place] [address] [place] [address] Urine Appearance November 11, 2019 8:25pm Clear Clear [facility], [address] [facility] [facility] [address] Urine pH November 14, 2019 9:22am 6.0 [facility], [address] [facility] [place] [address] Urine pH November 11, 2019 8:25pm 6.5 [facility], [address] [facility] [address] Urine Specific [place] November 13, 2 020 9:22am 1.010 [facility], [address] [facility] [address] Urine Specific [place] November 10, 2 020 8:25pm 1.015 [facility], [address] [facility] [place] percy [facility] [address] Urine Protein November 14, 2019 9:22am Negative Neg-Trace [facility], [address] [facility] [place] [address] Urine Protein November 11, 2019 8:25pm Negative Neg-Trace [facility], [address] [place] [address] [facility] [address] Urine Glucose (UA) November 14, 2019 9:22am 3+ Negative [facility], [address] [place] [address] [facility] [address] Urine Glucose (UA) November 11, 2019 8:25pm Negative Negative [facility], [address] [place], [place] [address]g[facility]ella [facility] [address] Urine Ketones November 14, 2019 9:22am Negative Negative [facility], [address] [place] [address] [place] [address] Urine Ketones November 11, 2019 8:25pm Negative Negative [facility], [address] [facility] [address] Urine Blood November 14, 2019 9:22am Negative Negative [facility], [address] [facility] [address] Urine Blood November 11, 2019 8:25pm Negative Negative [facility], [address] [facility] [address] Urine Nitrite November 11, 2019 8:25pm Negative Negative [facility], [address] [facility] [place] [address] Urine Nitrite November 14, 2019 9:22am Negative Negative [facility], [address] [facility] [address] Urine Bilirubin November 11, 2019 8:25pm Negative Negative [facility], [address] [place] [address] Urine Bilirubin November 14, 2019 9:22am Negative Negative [facility], [address] [place] [address] Urine Urobilinogen November 14, 2019 9:22am 0.2 [facility], [address] [place] [address] Urine Urobilinogen November 11, 2019 8:25pm 0.2 [facility], [address] [place] [address] Urine Leukocyte Esterase November 14, 2019 9:22am Negative Negative [facility], [address] [place] [address] Urine Leukocyte Esterase November 11, 2019 8:25pm Negative Negative [facility], [address] [place] [address] Urine Culture Indicated November 11, 2019 8:25pm [...] * Microscopic Yeast 2+ or > * [facility], [address] [place] [address] Urine Culture Indicated November 14, 2019 9:22am Not Indicated No Culture Reflex Ordered.The specimen did not meet the following criteria OR contained >25 epithelials, indicating contamination. * Culture Criteria: * * * * Urinalysis Leukocyte 1+ or > * * Urinalysis Nitrates + * * Microscopic WBC 10 or > * * Microscopic Bacteria 2+ or > * * Microscopic Yeast 2+ or > * [facility], [address] [place] [address] Urinalysis Comment November 11, 2019 8:25pm See [...] symptomatic UTI.Source: [facility] National Healthcare Safety Network Criteria for Defining UTI EventsTreatment [id number] line: Nitrofurantoin for 5 days; Bactrim DS for 3 syje9jt line: Beta-lactams for 5 days; Cipro or Levaquin for 3 daysBaker Fluoroquinolones for severe infections or those with no alternative treatment options. Serious adverse effects outweigh benefits for patients with uncomplicated infections [facility], [address] [place] [address] Urinalysis Comment November 14, 2019 9:22am See comment Asymptomatic bacteriuria should seldom if [...] symptomatic UTI.Source: [facility] National Healthcare Safety Network Criteria for Defining UTI EventsTreatment [id number] line: Nitrofurantoin for 5 days; Bactrim DS for 3 mgel3gm line: Beta-lactams for 5 days; Cipro or Levaquin for 3 daysBaker Fluoroquinolones for severe infections or those with no alternative treatment options. Serious adverse effects outweigh benefits for patients with uncomplicated infections [facility], [address] [facility] [address] Sodium Level November 14, 2019 8:35am 137 mmol/L 135-150 [facility], [address] [facility] [address] Sodium Level November 11, 2019 7:30pm 138 mmol/L 135-150 [facility], [address] [facility] [address] Potassium Level November 14, 2019 8:35am 4.3 mmol/L 3.4-5.2 [facility], [address] [facility] [address] Potassium Level November 11, 2019 7:30pm 3.5 mmol/L 3.4-5.2 [facility], [address] [facility] [address] Chloride Level November 11, 2019 7:30pm 102 mmol/L 100-112 [facility], [address] [facility] [address] Chloride Level November 14, 2019 8:35am 100 mmol/L 100-112 [facility], [address] [place] [address] Carbon Dioxide Level November 10 0 7:30pm 23 mEq/L [facility], [address] [facility] [address] Carbon Dioxide Level November 13 0 8:35am 22 mEq/L [facility], [address] [facility] [address] Anion Gap November 11, 2019 7:30pm 13 mmol/L 8 [facility], [address] [facility] [address] Anion Gap November 14, 2019 8:35am 15 mmol/L 03-31 [facility], [address] [facility] [address] Blood Urea Nitrogen November 14, 2019 8:35a m 10 mg/dL 01-08 [facility], [address] [facility] [address] Blood Urea Nitrogen November 11, 2019 7:30p m 14 mg/dL 01-08 [facility], [address] [place] [address] Creatinine November 11, 2019 7:30pm 0.72 mg/dL 0.60-1.30 [facility], [address] [facility] [address] Creatinine November 14, 2019 8:35am 0.81 mg/dL 0.60-1.30 [facility], [address] [facility] [address] Glomerular Filtration Rate Calc [facility] 2019 8:35am > 60 mL/Min The GFR is not validated for use in drug dosing adjustments.Continue to use estimated creatinine clearance per dosingreference text.Chronic Kidney Disease is defined as either kidney damage ora GFR less than 60 ml/min that persists for at least 3months. Stage 3 = 30-59 ml/min Stage 4 = 15-29 ml/min Stage 5 = <15 ml/min [facility], [address] [facility] [address] Glomerular Filtration Rate Calc [facility] 2019 7:30pm > 60 mL/Min The GFR is not validated for use in drug dosing adjustments.Continue to use estimated creatinine clearance per dosingreference text.Chronic Kidney Disease is defined as either kidney damage ora GFR less than 60 ml/min that persists for at least 3months. Stage 3 = 30-59 ml/min Stage 4 = 15-29 ml/min Stage 5 = <15 ml/min [facility], [address] [place] [address] Glucose Level November 11, 2019 7:30pm 136 mg/dL 70-99 [facility], [address] [place] [address] Glucose Level November 14, 2019 8:35am 335 mg/dL 70-99 [facility], [address] [place] [address] Calcium Level November 11, 2019 7:30pm 8.9 mg/dL 8.6-10.5 [facility], [address] [place] [address] Calcium Level November 14, 2019 8:35am 9.4 mg/dL 8.6-10.5 [facility], [address] [place] [address] Total Bilirubin November 14, 2019 8:35am 0.2 mg/dL 0.0-1.2 [facility], [address] [place] [address] Total Bilirubin November 11, 2019 7:30pm 0.2 mg/dL 0.0-1.2 [facility], [address] [place] [address] Aspartate Amino Transf (AST/SGOT) [facility] 2019 7:30pm 10 U/L [facility], [address] [place] [address] Aspartate Amino Transf (AST/SGOT) [facility] 2019 8:35am 13 U/L [facility], [facility] [address] [place] [address] Alanine Aminotransferase (ALT/SGPT) November 14, 2019 8:35am 17 U/L [facility], [address] [place] [address] Alanine Aminotransferase (ALT/SGPT) November 11, 2019 7:30pm 19 U/L [facility], [facility]. [address] [place] [address] C-Reactive Protein, Quantitative Mar 2019 8:35am 9.7 mg/L <5.1 [facility], [address] [place] [address] Total Protein November 11, 2019 7:30pm 6.2 g/dL 6.4-8.2 [facility], [address] [place] [address] Total Protein November 14, 2019 8:35am 7.0 g/dL 6.4-8.2 [facility], [address] [place] [address] Albumin November 11, 2019 7:30pm 3.3 g/dL 3.3-4.5 [facility], [address] [place] [address] Albumin November 14, 2019 8:35am 3.5 g/dL 3.3-4.5 [facility], [address] [place] [address] Albumin/Globulin Ratio November 10, 020 7:30pm 1.1 0.7-2.0 [facility], [address] [place] [address] Albumin/Globulin Ratio November 13, 020 8:35am 1.0 0.7-2.0 [facility], [address] [place] [address] Alkaline Phosphatase November 13 0 8:35am 130 U/L 50-136 [facility], [address] [place] [address] Alkaline Phosphatase November 10 0 7:30pm 114 U/L 50-136 [facility], [address] [place] [address] Lipase November 11, 2019 7:30pm 35 U/L 8-78 [facility], [address] [place] [address] Lipase November 14, 2019 8:35am 16 U/L 8-78 N [facility], [address] [place] [address] Health Concerns Health Concerns may be documented in an alternate section. Advance Directives Advance Directive Response Recorded Date/Time Advance Directive on File? No September 15, 2019 10:49pm Chief Complaint and Reason for Visit Chief Complaint abdominal pain Abdominal Pain Encounters Encounter Location(s) Ar rival/Admit Date Discharge/Depart Date Provider(s) Departed Emergency [facility] Department November 11, 2019 6:52pm November 11, 2019 9:25pm null Departed Emergency [facility] November 14, 2019 7:43am November 14, 2019 11:15am null Assessments No Assessments Information Available Family History Relationship Condition A ge at Onset Recorded Date/Time Unknown Family History U nknown November 14, 2019 8:12am Functional Status No Functional Status information available [...] Providers Guarantor Mignon Rg Address [address] [address] Contact Info. Home Phone: Payer Policy Id Coverage Id Subscriber's Name Subscriber Id Effective Date Expiration Date Jena [id number] Mignon Rg [id number] Self Pay Self N/A Plan of Treatment Future Tests Future scheduled test information is unavailable Pending Tests Pending diagnostic test information is unavailable Future Visits Future appointment information is unavailable Referrals to Other Providers Reason for Referral Referral Start Date Provider Provider Conta ct Information Provider Address Soham Soto Work Phone: [address] [place] [address] Soham Soto Work Phone: [address] [place] [address] NONE NONE Preferably in the next 1 to 2 days Thom [facility] Email: [email or web address] [place] Work Phone: [facility] [address], [place] [address] [facility] [address].NONE [facility] DRGorgeNONE DRGorgeNONE [facility] DRGorgeNONE DR.NONE [facility] DR.NONE DR.NONE DR.NONE DR.NONE DR.NONE DR.NONE DR.NONE DR.NONE DR.NONE DR.NONE OF [facility] DOCTOR Soham Soto Work Phone: [address] [place] [address] Soham Soto Work Phone: [address] [facility] [address] M Prosper Soto Work Phone: [address] [facility] [address] [facility] [address].NONE Jude Talbert Work Phone: [facility] [address] [place] [facility] [address] [address]NONE CUELLO [facility] DR.NONE DR.NONE DR.NONE CUELLO Future Procedures Future procedure information is unavailable [...] (ED) Abdominal Pain (ED) Abdominal Pain (ED) Social History Smoking Status Status Date of Observation Ex-smoker (finding) November 14, 2019 7:52am Observation Status Observation Response Lito e of Response quit date 11/05 7:52am second hand exposure Yes November 14, 2019 7:52am housing house October 7:52am household members family November 14, 2019 7:52am children November 13, 020 7:52am service No Bernard 2019 7:52am current occupational status employed November 14, 2019 7:52am current occupational exposures/hazards No November 14, 2019 7:52am Recent Travel No October 222019 9:32pm Recent Travel No [email or web address] 12:46am Recent Travel No uar 2019 3:09pm Recent Travel No March 012018 5:19pm Recent Travel No October 192018 8:31pm Recent Travel No Februar y 2018 1:15am Recent Travel No Decembe r 2017 10:32pm Recent Travel No Novembe r 2017 8:38am Recent Travel No June 18, 2018 6:34pm Recent Travel No June 03, 2018 9:05pm Recent Travel No February 072017 12:03pm Recent Travel No October 272019 8:08pm Recent [...] 11, 2019 9:15pm Respiratory rate 13 /min 12-November 11, 2019 9:08pm Oxygen saturation by Pulse oximetry 98 % 90- 100 November 11, 2019 9:16pm BP Systolic 162 mm[Hg] 1 00-160 November 11, 2019 9:08pm BP Diastolic 120 mm[Hg] 50-80 November 11, 2019 9:08pm BMI (Body Mass Index) 42.9 kg/m2 November 11, 2019 6:59pm Height 64 [in_i] November 14, 2019 7:49am Weight 250.00 [lb_av] November 14, 2019 7:49am Body Temperature 97.7 [degF] 97.5-99.5 November 14, 2019 7:54am Heart Rate 95 /min 60-90 November 14, 2019 7:54am Respiratory rate 20 /min 12-20 November 14, 2019 7:54am Oxygen saturation by Pulse oximetry 93 % 90- 100 November 14, 2019 11:01am BP Systolic 167 mm[Hg] 1 00-160 November 14, 2019 11:15am BP Diastolic 104 mm[Hg] 50-80 November 14, 2019 11:15am BMI (Body Mass Index) 42.9 kg/m2 November 14, 2019 7:49am Hospital Discharge Instructions Additional Instructions 1. Follow up with PCP/GI for further evaluation and treatment. 2. Push fluids. 3. Continue Oxycodone at home as directed. 4. Continue other pain medications. 5. Return here if worse or concerns.
[2019-11-15] MEDS ORDERED: NS IV 1000 ML 1,000 ML IV SCH (21:45)
--- NOTE | 2019-11-15 21:51 | ED Abdominal Pain ---
General Chief Complaint: Abdominal/GI Problems Stated Complaint: LEFT LOWER ABD PAIN,VOMITING,BLOOD IN STOOL Nursing Triage Note: Pt complaining of LLQ pain with nausea, vomiting, and diarrhea Sepsis Screen: No Definite Risk Source of Information: Patient Exam Limitations: No Limitations History of Present Illness Date Seen by Provider: Nov 15, 2019 Time Seen by Provider: 21:36 Initial Comments This 49-year-old female presents to the emergency room for the ninth time over the past 2 months. Patient consistently states she has pain in her lower left abdomen. She states that she has diarrhea and does not believe that she is constipated. She is concerned about a possible mass in her abdomen. Her last CT scan of her abdomen was in mid September and she states that the symptoms have worsened over time. Patient does have a history of ulcer colitis has been treated with sulfasalazine for colitis.. Patient is also on a combination of alprazolam and oxycodone. I had informed the patient and her visit 2 days ago that this combination is dangerous and she should work with her provider to gradually decrease the benzodiazepine. Patient states that she has not been able to get in to see her primary care provider has seen the emergency room 8 times prior to this admission. Strong recommendation for gastroenterology follow-up was made to days ago. Patient has given informed consent for diagnostic and therapeutic services. She is upset about recommendations to follow-up in the outpatient clinic when she states she can make an appointment to see her primary care provider. Timing/Duration: 1 Week (chronic left lower quadrant pain over the past 2 months and 9 subsequent emergency room visits) Severity/Quality: Moderate, Cramping, Stabbing Location: LLQ, Flank Radiation: LLQ, Back, Flank Activities at Onset: Activity, Emotional Stress Modifying Factors: Improves With Breathing, Improves With Defecating (with diarrhea per patient), Improves With Lying down Associated Symptoms: Back Pain, Nausea/Vomiting, Weakness Allergies and Home Medications Allergies Coded Allergies: cephalexin (Verified Allergy, Unknown, 09/13/19) ketorolac (Verified Allergy, Unknown, 09/13/19) prochlorperazine (Verified Allergy, Unknown, 09/13/19) Home Medications Dicyclomine HCl 20 Mg/2 Ml Inj, 20 MG PO QID, (Reported) Ondansetron HCl 4 Mg Tab, 4 MG PO Q6H Prescribed by: SHIN REYNOLDS on 11/15/19 2307 Oxycodone HCl/Acetaminophen 1 Each Tablet, 1 EACH PO Q4H PRN for PAIN-SEVERE Prescribed by: LAURA VINCENT on 11/08/19 0129 Oxycodone Hcl 5 Mg Tab, 10 MG PO Q6H PRN for PAIN-SEVERE Prescribed by: MARQUES WANG on 10/06/192109 Prednisone 20 Mg Tab, 40 MG PO DAILY Prescribed by: STERLING STREETER on 10/13/192231 Prednisone 20 Mg Tab, 40 MG PO DAILY Prescribed by: LAURA VINCENT on 11/08/19 0128 Sulfasalazine 500 Mg Tablet, 500 MG PO QID, (Reported) Patient Home Medication List Home Medication List Reviewed: Yes Review of Systems Review of Systems Constitutional: malaise, weakness, other (Rondec abdominal pain left lower quadrant) EENTM: No Symptoms Reported Respiratory: No Symptoms Reported, Shortness of Air (with exertion secondary to pain) Cardiovascular: See HPI (history of hyperlipidemia and hypertension) Gastrointestinal: Abdominal Pain (left lower quadrant over the past 2 months 9 ER visits) Genitourinary: Other (suprapubic pain patient believes is from her GI system) Musculoskeletal: back pain, muscle pain (lumbar paraspinal muscles), muscle stiffness Skin: change in color, lesions (numerous excoriated lesions on the upper extremities patient admits that she picks her scab's) Psychiatric/Neurological: Anxiety, Depressed (or chronic pain) Endocrine: Other (patient has been on 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) Past Rjrcijr-Lreqdh-Eibjeb Hx Past Med/Social Hx: Reviewed Nursing Past Med/Soc Hx Patient Social History Alcohol Use: Denies Use Recreational Drug Use: No Smoking Status: Never a Smoker 2nd Hand Smoke Exposure: No Recent Foreign Travel: No Contact w/Someone Who Travel: No Recent Infectious Disease Expo: No Recent Hopitalizations: No Physical Abuse: No Sexual Abuse: No Immunizations Up To Date Tetanus Booster (TDap): Unknown Seasonal Allergies Seasonal Allergies: No Past Medical History Surgeries: Yes Appendectomy, Gallbladder, Hysterectomy, Rectal Respiratory: No Cardiac: Yes High Cholesterol, Hypertension 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 Genitourinary: No Gastrointestinal: Yes Abdominal Hernia, Colitis, Gastroesophageal Reflux, Gastrointestinal Bleed, Chronic Diarrhea Musculoskeletal: Yes (chronic back pain) Degenerate Disk Disease, Arthritis, Chronic Back Pain Endocrine: Yes (patient has a cushingoid facies consistent with prednisone use) HEENT: No Cancer: No Psychosocial: Yes Anxiety, Depression Integumentary: Yes (patient has multiple lesions on her upper extremities that are excoriated) Blood Disorders: Yes (iron deficiency and anemia of chronic disease) Physical Exam Vital Signs Vital Signs - First Documented 11/15/19 21:27 Temp 36.9 Pulse 108 Resp 18 B/P (MAP) 155/102 (119) Pulse Ox 98 O2 Delivery Room Air Capillary Refill : Less Than 3 Seconds Height/Weight/BMI Height: '" Weight: lbs. oz. kg; 43.00 BMI Method: General Appearance: moderate distress (veterinary to abdominal pain), obese (morbid), other HEENT: PERRL/EOMI, normal ENT inspection, pharynx normal Neck: non-tender, full range of motion, supple, normal inspection (with a endomorphic build) Respiratory: chest non-tender, lungs clear, normal breath sounds, no respiratory distress, no accessory muscle use, rales (secondary to atelectasis in the posterior bases that clear with deep inhalation) Cardiovascular: regular rate, rhythm, no edema, no gallop, no JVD, no murmur Peripheral Pulses: 2+ Carotid (R), 2+ Carotid (L) Gastrointestinal: normal bowel sounds, soft, no organomegaly, no pulsatile mass, tenderness (left lower quadrant no peritoneal reaction) Extremities: normal range of motion (decreased range of motion secondary to obesity), non-tender, normal inspection, no pedal edema, no calf tenderness (negative Homans sign) Back: normal inspection, CVA tenderness (L), muscle spasm (lumbar paraspinal muscles) 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 The patient admits I picked my scabs".), warm/dry, other (old excoriated lesions on both forearms) Lymphatic: no adenopathy Focused Exam Lactate Level 11/15/19 21:52: Lactic Acid Level 1.64 Lactic Acid Level Laboratory Tests Test 11/15/19 21:52 Lactic Acid Level 1.64 MMOL/L (0.50-2.00) Progress/Results/Core Measures Results/Orders Lab Results Laboratory Tests Test 11/15/19 21:50 11/15/19 21:52 Range/Units Urine Color YELLOW Urine Clarity CLEAR Urine pH 6.5 5-9 Urine Specific [place] 1.015 L 1.016-1.022 Urine Protein NEGATIVE NEGATIVE Urine Glucose (UA) NEGATIVE NEGATIVE Urine Ketones TRACE H NEGATIVE Urine Nitrite NEGATIVE NEGATIVE Urine Bilirubin NEGATIVE NEGATIVE Urine Urobilinogen 0.2 < = 1.0 MG/DL Urine Leukocyte Esterase NEGATIVE NEGATIVE Urine RBC (Auto) TRACE H NEGATIVE Urine RBC 5-10 H /HPF Urine WBC NONE /HPF Urine Crystals NONE /LPF Urine Bacteria NONE /HPF Urine Casts NONE /LPF Urine Mucus SMALL H /LPF Urine Culture Indicated NO Urine Opiates Screen NEGATIVE NEGATIVE Urine Oxycodone Screen NEGATIVE NEGATIVE Urine Methadone Screen NEGATIVE NEGATIVE Urine Propoxyphene Screen NEGATIVE NEGATIVE Urine Barbiturates Screen NEGATIVE NEGATIVE Ur Tricyclic Antidepressants Screen NEGATIVE NEGATIVE Urine Phencyclidine Screen NEGATIVE NEGATIVE Urine Amphetamines Screen NEGATIVE NEGATIVE Urine Methamphetamines Screen NEGATIVE NEGATIVE Urine Benzodiazepines Screen POSITIVE H NEGATIVE Urine Cocaine Screen NEGATIVE NEGATIVE Urine Cannabinoids Screen NEGATIVE NEGATIVE White Blood Count 10.6 4.3-11.0 10^3/uL Red Blood Count 3.81 L 4.35-5.85 10^6/uL Hemoglobin 10.5 L 11.5-16.0 G/DL Hematocrit 33 L 35-52 % Mean Corpuscular Volume 87 80-99 FL Mean Corpuscular Hemoglobin 28 25-34 PG Mean Corpuscular Hemoglobin Concent 32 32-36 G/DL Red Cell Distribution Width 13.6 10.0-14.5 % Platelet Count 285 130-400 10^3/uL Mean Platelet Volume 9.2 7.4-10.4 FL Neutrophils (%) (Auto) 84 H 42-75 % Lymphocytes (%) (Auto) 7 L 12-44 % Monocytes (%) (Auto) 8 0-12 % Eosinophils (%) (Auto) 0 0-10 % Basophils (%) (Auto) 0 0-10 % Neutrophils # (Auto) 8.8 H 1.8-7.8 X 10^3 Lymphocytes # (Auto) 0.7 L 1.0-4.0 X 10^3 Monocytes # (Auto) 0.8 0.0-1.0 X 10^3 Eosinophils # (Auto) 0.0 0.0-0.3 10^3/uL Basophils # (Auto) 0.0 0.0-0.1 10^3/uL Neutrophils % (Manual) 89 % Lymphocytes % (Manual) 4 % Monocytes % (Manual) 5 % Eosinophils % (Manual) 0 % Basophils % (Manual) 0 % Band Neutrophils 2 % Blood Morphology Comment NORMAL Sodium Level 137 135-145 MMOL/L Potassium Level 3.3 L 3.6-5.0 MMOL/L Chloride Level 97 L 98-107 MMOL/L Carbon Dioxide Level 26 21-32 MMOL/L Anion Gap 14 5-14 MMOL/L Blood Urea Nitrogen 17 7-18 MG/DL Creatinine 0.73 0.60-1.30 MG/DL Estimat Glomerular Filtration Rate > 60 BUN/Creatinine Ratio 23 Glucose Level 203 H 70-105 MG/DL Lactic Acid Level 1.64 0.50-2.00 MMOL/L Calcium Level 9.0 8.5-10.1 MG/DL Corrected Calcium 9.1 8.5-10.1 MG/DL Total Bilirubin 0.2 0.1-1.0 MG/DL Aspartate Amino Transf (AST/SGOT) 8 5-34 U/L Alanine Aminotransferase (ALT/SGPT) 16 0-55 U/L Alkaline Phosphatase 114 40-136 U/L Total Protein 6.6 6.4-8.2 GM/DL Albumin 3.9 3.2-4.5 GM/DL My Orders Orders - SHIN REYNOLDS DO Cbc And Manual Diff (11/15/19 21:42) Comprehensive Metabolic Panel (11/15/19 21:42) Lactic Acid Analyzer (11/15/19 21:42) Urinalysis (11/15/19 21:42) Ns Iv 1000 Ml (Sodium Chloride 0.9%) (11/15/19 21:45) Ct Abdomen/Pelvis Wo (11/15/19 21:42) Drug Screen Stat (Urine) (11/15/19 21:45) Ed Iv/Invasive Line Start (11/15/19 21:51) Ondansetron Injection (Zofran Injectio (11/15/19 22:03) Ondansetron Injection (Zofran Injectio (11/15/19 22:30) Medications Given in ED Current Medications Medications Dose Ordered Sig/Stiven Route Start Time Stop Time Status Last Admin Dose Admin Ondansetron HCl 4 mg ONCE ONCE IVP 11/15/19 22:30 11/15/19 22:31 DC 11/15/19 22:21 4 MG Vital Signs/I&O 11/15/19 21:27 Temp 36.9 Pulse 108 Resp 18 B/P (MAP) 155/102 (119) Pulse Ox 98 O2 Delivery Room Air Blood Pressure Mean: 119 Progress Progress Note : Time: 22:[address] Scan imaging results are completed. WBC 10.6 hemoglobin 10.5 potassium 3.3 glucose 203 creatinine 0.73 lactate 1.64 and urine tox screen is positive for benzodiazepines patient is prescribed alprazolam. Patient's altered also prescribed oxycodone however this is difficult to test with our laboratory assessment. CT scan of the abdomen reveals bowel is nondilated no free air or diverticulitis cholecystectomy and hysterectomy are seen hepatomegaly and probable hepatic steatosis seen no obstructing ureteral calculi or hydronephrosis. Aortic atherosclerosis no abdominal aortic aneurysm. Small fat- containing ventral abdominal wall hernia. This does not appear to be obstructed. The patient was informed of the findings and recommended to hydrate and Zofran 4 mg IV was given for the nausea. Patient has been in the emergency room 9 times over the past 2 months and has been strongly commended to follow-up with her primary care team for chronic abdominal pain. There is no evidence of cancer no evidence of other acute lower bowel abnormalities. Patient was strongly advised to hydrate minimized her opioid use and in light of the high levels of anxiety behavioral services are also recommended. Patient has some difficulty understanding the incongruity of some her statements. Again she said that she would follow-up with her primary care providers. Initial ECG Impression Date: Nov 15, 2019 Departure Impression Primary Impression: Abdominal pain Additional Impression: Nausea alone Disposition: HOME, SELF-CARE Condition: Improved Departure-Patient Inst. Decision time for Depature: 23:03 Referrals: NO,LOCAL PHYSICIAN (PCP) Primary Care Physician Patient Instructions: Dehydration, Adult (DC), Nausea and Vomiting, Adult (DC), Viral Gastroenteritis, Adult (DC) Add. Discharge Instructions: 49-year-old female presents with left lower quadrant pain but no evidence of significant pathology. Patient has chronic pain and has used opioid therapy however I do not believe continued opioids are appropriate. Zofran 4 mg IV was given to the patient and she was strongly encouraged to follow up with her primary care providers. Patient should hydrate with water and avoid any foods or spicy or irritating to her GI system. All discharge instructions reviewed with patient and/or family. Voiced understanding. Scripts Ondansetron HCl (Zofran) 4 Mg Tab 4 MG PO Q6H for Nausea, #20 TAB Prov: SHIN REYNOLDS DO 11/15/19 SHIN REYNOLDS DO Nov 15, 2019 21:51
[2019-11-15 22:02] LABS: BILIRUBIN,URINE NEGATIVE (NEGATIVE); CLARITY,URINE CLEAR; COLOR,URINE YELLOW; GLUCOSE, URINE (UA) NEGATIVE (NEGATIVE); KETONES,URINE TRACE (NEGATIVE); LEUKOCYTE ESTERASE ,URINE NEGATIVE (NEGATIVE); NITRITE,URINE NEGATIVE (NEGATIVE); PH,URINE 6.5 (5-9); PROTEIN,URINE NEGATIVE (NEGATIVE)
[2019-11-15] MEDS ORDERED: ONDANSETRON 4 MG/2 ML (SDV) Z0FRAN ONE (22:03)
[2019-11-15 22:09] LABS: BASOPHILS % (AUTO) 0 % (0-10); EOSINOPHILS % (AUTO) 0 % (0-10); HEMATOCRIT 33 % (35-52); HEMOGLOBIN 10.5 G/DL (11.5-16.0); LYMPHOCYTES # (AUTO) 0.7 X 10^3 (1.0-4.0); LYMPHOCYTES % (AUTO) 7 % (12-44); MEAN CORPUSCULAR HEMOGLOBIN 28 PG (25-34); MEAN CORPUSCULAR HGB CONC 32 G/DL (32-36); MEAN CORPUSCULAR VOLUME 87 FL (80-99); MEAN PLATELET VOLUME 9.2 FL (7.4-10.4); MONOCYTES # (AUTO) 0.8 X 10^3 (0.0-1.0); MONOCYTES % (AUTO) 8 % (0-12); NEUTROPHILS # (AUTO) 8.8 X 10^3 (1.8-7.8); NEUTROPHILS % (AUTO) 84 % (42-75); PLATELET COUNT 285 10^3/uL (130-400); RED CELL DISTRIBUTION WIDTH 13.6 % (10.0-14.5); WHITE BLOOD COUNT 10.6 10^3/uL (4.3-11.0)
[2019-11-15 22:29] LABS: BUN/CREATININE RATIO 23; CARBON DIOXIDE 26 MMOL/L (21-32); CHLORIDE 97 MMOL/L (98-107); CREATININE SERUM 0.73 MG/DL (0.60-1.30); GFR ESTIMATED > 60; POTASSIUM 3.3 MMOL/L (3.6-5.0); SODIUM 137 MMOL/L (135-145)
[2019-11-15 22:29] LABS: AMPHETAMINE SCREEN, URINE NEGATIVE (NEGATIVE); BARBITURATE SCREEN URINE NEGATIVE (NEGATIVE); BENZODIAZEPINES SCREEN URINE POSITIVE (NEGATIVE); CANNABINOID SCREEN, URINE NEGATIVE (NEGATIVE); COCAINE SCREEN URINE NEGATIVE (NEGATIVE); METHADONE STAT NEGATIVE (NEGATIVE); METHAMPHETAMINE SCREEN URINE S NEGATIVE (NEGATIVE); OPIATE SCREEN URINE NEGATIVE (NEGATIVE); OXYCODONE STAT NEGATIVE (NEGATIVE); PROPOXYPHENE STAT NEGATIVE (NEGATIVE); TRICYCLIC ANTIDEPRESSANTS SCRE NEGATIVE (NEGATIVE)
[2019-11-15 22:30] LABS: ALANINE AMINOTRANSFERASE 16 U/L (0-55); ALBUMIN 3.9 GM/DL (3.2-4.5); ALKALINE PHOSPHATASE 114 U/L (40-136); BILIRUBIN,TOTAL 0.2 MG/DL (0.1-1.0); GLUCOSE 203 MG/DL (70-105); TOTAL PROTEIN 6.6 GM/DL (6.4-8.2)
[2019-11-15] MEDS ORDERED: ONDANSETRON 4 MG/2 ML (SDV) Z0FRAN IVP ONE (22:30)
[2019-11-15 22:36] LABS: BAND NEUTROPHILS 2 %; BASOPHILS % (MANUAL) 0 %; EOSINOPHILS % (MANUAL) 0 %; LYMPHOCYTES % (MANUAL) 4 %; MONOCYTES % (MANUAL) 5 %; NEUTROPHILS % (MANUAL) 89 %; RBC MORPH NORMAL
[2019-11-15] MEDS ORDERED: ONDN4T PO (23:07)
[2019-11-15 23:20] VITALS: BP 150/99
--- NOTE | 2019-11-16 07:38 | Diagnostic Imaging Report ---
PROCEDURE: CT abdomen and pelvis without contrast. TECHNIQUE: Multiple contiguous axial images were obtained through the abdomen and pelvis without the use of intravenous contrast. Auto Exposure Controls were utilized during the CT exam to meet ALARA standards for radiation dose reduction. INDICATION: Left lower quadrant abdominal pain. COMPARISON: 10/08/[address] with IV contrast. FINDINGS: Lung bases are clear. Diffuse fatty infiltration of the liver. Cholecystectomy clips. The pancreas, spleen, adrenals, kidneys, collecting systems and bladder negative. Hysterectomy. Appendectomy. Mild colonic diverticulosis without evidence of active diverticulitis. No evidence of bowel obstruction. No free intraperitoneal air or fluid. No lymphadenopathy. No acute osseous findings. IMPRESSION: 1. No acute CT findings in the abdomen or pelvis on this noncontrast exam. 2. Hepatic steatosis. 3. Cholecystectomy. Appendectomy. Hysterectomy. Dictated by: Dictated on workstation # [id number]
== END 2019-11-15 23:21 | disposition home or self-care (01) ==
LOC: EDUNIT# 21:25 → ER FS 21:26
DX: R10.32 Left lower quadrant pain (principal); R11.0 Nausea; I10 Essential (primary) hypertension; E78.00 Pure hypercholesterolemia, unspecified; K21.9 Gastro-esophageal reflux disease without esophagitis; F41.9 Anxiety disorder, unspecified; F32.9 Major depressive disorder, single episode, unspecified
CPT/HCPCS: 36415; 74176; 80053; 80306; 81000; 83605; 85007; 85027; 96361; 96374

== ENCOUNTER 2019-12-20 21:16 | Emergency (ER) | payer OTHER ==
[~2019-12-20] VITALS: Ht 64 cm; Wt 105.0 kg
[~2019-12-20 21:16] MED LIST changes: +ONDN4T PO
--- OUTSIDE RECORDS SUMMARY | 2019-12-20 21:23 | XMS REPORT ---
Author Author Mignon Pace [facility] Address [address] [place] [address] Care Team Providers Care Mobile Home Park Manager Name Role Phone Jh Pace Unavailable PROBLEMS Type Condition ICD9-CM Code [id number] Code Onset Dates Condition S tatus SNOMED Code Problem GERD (gastroesophageal reflux disease) K21.9 Active 455048706 Problem Hyperlipidemia E78.5 Active 54812 004 Problem Depression F32.9 Active 08409244 Problem Major depressive disorder in full remission, unspecified whether recurrent F32.5 Active 28620753 Problem Anxiety F41.9 Active 39649461 Problem Hypercholesterolemia E78.00 Active 11554057 Problem Tobacco dependence F17.200 Active 8 8011814 Problem Chronic anemia D64.9 Active 20286 8006 Problem GERD without esophagitis K21.9 Activ e 156168270 Problem Essential hypertension I10 Active [id number] ALLERGIES No Information ENCOUNTERS Encounter Location Date Diagnosis [facility] [address] [facility] [id number] [address] Nov, [address] [address] 18 F eb, 2019 GERD without esophagitis K21.[address] [address] 23 J an, 2019 Chronic anemia D64.9 ; Essential hypertension I10 ; Major depressive disorder in full remission, unspecified whether recurrent F32.5 ; Hypercholesterolemia E78.00 and GERD without esophagitis K21.[address] [address] 08 J un, [address] [address] 07 J un, 2017 Screening for diabetes mellitus (DM) Z13.1 ; Screening for thyroid disorder Z13.29 ; Elevated liver enzymes R74.8 ; Hypercholesteremia E78.00 ; Essential hypertension I10 and GERD without esophagitis K21.9 [facility] [address] [facility] [id number] [address] Jun, [facility] [address] [place] [id number] 17 N ov, 2015 Adult Medicine [address] [facility] [id number] [address] Jun, [facility] [address] [place] [address], 2015 Hyperlipidemia E78.5 ; Anemia D64.9 ; GERD (gastroesophageal reflux disease) K21.9 and Tobacco dependence F17.200 IMMUNIZATIONS No Known Immunizations SOCIAL HISTORY Never Assessed REASON FOR VISIT Care Coordination PLAN OF CARE VITAL SIGNS MEDICATIONS Unknown Medications RESULTS No Results PROCEDURES No Known procedures INSTRUCTIONS MEDICATIONS ADMINISTERED No Known Medications MEDICAL (GENERAL) HISTORY Type Description Date Medical History Anemia Medical History High Cholesterol Medical History GERD Medical History Anxiety Medical History Depression Surgical History Appendectomy Surgical History Gallbladder Surgical History Complete Hysterectomy Surgical History Umbilical Hernia Repair Surgical History R ACL Repair Surgical History R Carpal Tunnel Surgical History R Foot Surgical History colonoscopy with polypectomy 05/2016 Hospitalization History Surgeries Hospitalization History Multiple Staph Infections, IV Antibi otics Needed
--- OUTSIDE RECORDS SUMMARY | 2019-12-20 21:26 | XMS REPORT | Continuity of Care Document ---
Author Author [facility] Organization [facility] Address 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 Name Role Phone UNKNOWN PCP Unavailable Allergies, Adverse Reactions, Alerts Allergen Type Severity Reaction Last Updated Verified Status Prochlorperazine Allergy Severe ANXIETY November 18, 2019 Yes Active Cephalexin Allergy Moderate HIVES November 18, 2019 Yes Ac tive Ketorolac Allergy Moderate HIVES November 18, 2019 Yes Act silvia Medications Medication Status Dose Units Route Sig Qty Days Start Date End Date Instructions Alprazolam Active 2 Once A Day as needed for Anxiety Dicyclomine Hcl Active 20 Four Times Duloxetine Hcl Active 60 Once A Day for Anxiety Ferrous Gluconate Active 240 Once A Day for Supplement Lansoprazole Active 30 Once A Day for Gerd Simvastatin Active 40 Once A Day for High Cholestrol Sulfasalazine Active 500 Four Times Mirtazapine Discontinued 15 Everyday At 9 Pm for Sleep November 18, 2019 Prednisone Discontinued 20 Once A Day 18 Mar 2019 2:42am November 18, 2019 3 Each day for 3 days then 2 Each day fo r 3 days then 1 Each day for3 days Problems No problem information available. Procedures Procedure [...] TO 10 MG July 27, 2019 completed ROUTINE VENIPUNCTURE October 27, 2019 completed COMPREHEN METABOLIC PANEL October 27, 2019 completed URINALYSIS NONAUTO W/SCOPE October 27, 2019 completed GLYCOSYLATED HEMOGLOBIN TEST October 27, 2019 completed ASSAY OF LIPASE October 27, 2019 completed BL SMEAR W/DIFF WBC COUNT October 27, 2019 completed COMPLETE CBC W/AUTO DIFF WBC October 27, 2019 completed C-REACTIVE PROTEIN October 27, 2019 completed HYDRATE IV INFUSION ADD-ON October 27, 2019 completed THER/PROPH/DIAG INJ IV PUSH October 27, 2019 completed TX/PRO/DX INJ NEW DRUG ADDON October 27, 2019 completed EMERGENCY DEPT VISIT October 27, 2019 completed EMERGENCY DEPT VISIT October 27, 2019 completed INJECTION, HYDROMORPHONE, UP TO 4 MG October 27, 2019 completed INJECTION, ONDANSETRON HYDROCHLORIDE, PER 1 MG October 27, 2019 completed INJECTION, FENTANYL CITRATE, 0.1 MG October 27, 2019 completed INFUSION, NORMAL SALINE SOLUTION , 1000 CC October 27, 2019 completed THER/PROPH/DIAG INJ SC/IM November 14, 2019 completed EMERGENCY DEPT VISIT November 14, 2019 completed EMERGENCY DEPT VISIT November 14, 2019 completed INJECTION, HYDROMORPHONE, UP TO 4 MG November 14, 2019 completed INJECTION, METHYLPREDNISOLONE SODIUM SUCCINATE, UP TO 125 MG November 14, 2019 completed Computed tomography of abdomen and pelvis without contrast N ov2018 completed Computed tomography of abdomen and pelvis without contrast D ecember 2018 completed Insertion of intravenous saline lock July 27, 2019 act silvia Relevant Diagnostic Tests and/or Laboratory Data Laboratory Results Test Date/Time Result Interpretation Reference Range Result Co mment Performing Site White Blood Count November 18, 2019 8:10pm 8.1 4.0-11.0 MAIN LAB, [address] [facility] [address] [place] [address] Red Blood Count November 18, 2019 8:10pm 3.96 3.80-5.80 MAIN LAB, [address] [facility] [address] [place] [address] Hemoglobin November 18, 2019 8:10pm 10.9 11.5-16.5 MAIN LAB, [address] [facility] [address] [place] [address] Hematocrit November 18, 2019 8:10pm 35.0 37.0-47.0 MAIN LAB, [facility] [address] [place] [address] Mean Corpuscular Volume November 18, 2019 8:10pm 88 76 -96 MAIN LAB, [address] [place] [address] [address] [place] [address] Mean Corpuscular Hemoglobin November 18, 2019 8:10pm 27.5 27.0-32.0 MAIN LAB, [address] [place] [address] [address] [place] [address] Mean Corpuscular Hemoglobin Concent November 18, 2019 8:10pm 31.1 31.0-35.0 MAIN LAB, [address] [place] [address] [address] [place] [address] Red Cell Distribution Width November 18, 2019 8:10pm 13.5 11.0-16.0 MAIN LAB, [address] [place] [address] [address] [place] [address] Platelet Count November 18, 2019 8:10pm 282 150-500 MAIN LAB, [address] [place] [address] [address] [place] [address] Mean Platelet Volume November 18, 2019 8:10pm 9.0 6.0-1 0.0 MAIN LAB, [address] [place] [address] [address] [place] [address] Neutrophils (%) (Auto) November 18, 2019 8:10pm 82.6 45. 0-70.0 MAIN LAB, [address] [place] [address] [address] [place] [address] Lymphocytes (%) (Auto) November 18, 2019 8:10pm 8.4 20. 0-40.0 MAIN LAB, [address] [place] [address] [address] [place] [address] Monocytes (%) (Auto) November 18, 2019 8:10pm 7.6 3.0-1 0.0 MAIN LAB, [address] [place] [address] [address] [place] [address] Eosinophils (%) (Auto) November 18, 2019 8:10pm 0.9 1.0 -5.0 MAIN LAB, [address] [place] [address] [address] [place] [address] Basophils (%) (Auto) November 18, 2019 8:10pm 0.5 0.0-0 .5 MAIN LAB, [address] [place] [address] [address] [place] [address] Neutrophils # (Auto) November 18, 2019 8:10pm 6.70 2.00- 7.50 MAIN LAB, [address] [place] [address] [address] [place] [address] Lymphocytes # (Auto) November 18, 2019 8:10pm 0.68 1.50- 4.00 MAIN LAB, [address] [place] [address] [address] [place] [address] Monocytes # (Auto) November 18, 2019 8:10pm 0.62 0.20-0. 80 MAIN LAB, [address] [place] [address] [address] [place] [address] Eosinophils # (Auto) November 18, 2019 8:10pm 0.07 0.04- 0.40 MAIN LAB, [address] [place] [address] [address] [place] [address] Basophils # (Auto) November 18, 2019 8:10pm 0.04 0.02-0. 10 MAIN LAB, [address] [place] [address] [address] [place] [address] Neutrophils % (Manual) October 27, 2019 6:45am 94 39-7 9 MAIN LAB, [address] [place] [address] [address] [place] [address] Band Neutrophils % October 27, 2019 6:45am 0 0-10 MAIN LAB, [address] [place] [address] [address] [place] [address] Lymphocytes % (Manual) October 27, 2019 6:45am 4 20-6 0 MAIN LAB, [address] [place] [address] [address] [place] [address] Monocytes % (Manual) October 27, 2019 6:45am 2 0-9 MAIN LAB, [address] [place] [address] [address] [place] [address] Eosinophils % (Manual) October 27, 2019 6:45am 0 0-7 MAIN LAB, [address] [place] [address] [address] [place] [address] Basophils % (Manual) October 27, 2019 6:45am 0 0-8 MAIN LAB, [address] [place] [address] [address] [place] [address] Platelet Morphology Comment October 27, 2019 6:45am ADEQUATE MAIN LAB, [address] [place] [address] [address] [place] [address] Red Blood Cell Morphology October 27, 2019 6:45am NORMAL MAIN LAB, [address] [place] [address] [address] [place] [address] Volume Urine Centrifuged October 27, 2019 7:25am 12 Test based ON 12 ml volume. MAIN LAB, [address] [place] [address] Urine Color October 27, 2019 7:25am STRAW STRAW MAIN LAB, [address] [place] [address] [address] [place] [address] Urine Clarity October 27, 2019 7:25am CLEAR CLEAR MAIN LAB, [address] [place] [address] [place] [address] Urine Specific Elmer October 27, 2019 7:25am 1.020 1.01 0-1.020 MAIN LAB, [address] [place] [address] [facility] [place] [address] Urine pH October 27, 2019 7:25am 5.5 5.0-6.0 MAIN LAB, [address] [place] [address] [facility] [place] [address] Urine Leukocyte Esterase October 27, 2019 7:25am NEGATIVE NE GATIVE MAIN LAB, [address] [place] [address] Urine Nitrite October 27, 2019 7:25am NEGATIVE NEGATIVE MAIN LAB, [address] [place] [address] Urine Protein October 27, 2019 7:25am NEGATIVE NEGATIVE MAIN LAB, [address] [place] [address] Urine Glucose (UA) October 27, 2019 7:25am 2+ NEGATIVE MAIN LAB, [address] [place] [address] Urine Ketones October 27, 2019 7:25am 1+ NEGATIVE MAIN LAB, [address] [place] [address] Urine Urobilinogen October 27, 2019 7:25am 0.2 0.2-1.0 MAIN LAB, [address] [place] [address] Urine Bilirubin October 27, 2019 7:25am NEGATIVE NEGATIVE MAIN LAB, [address] [place] [address] [place] [address] Urine Occult Blood October 27, 2019 7:25am TRACE NEGATIVE MAIN LAB, [address] [place] [address] Urine WBC October 27, 2019 7:25am NONE OCCASIONAL MAIN LAB, [address] [place] [address] Urine RBC October 27, 2019 7:25am 2-4 OCCASIONAL MAIN LAB, [address] [place] [address] Urine Epithelial Cells October 27, 2019 7:25am NONE OCCA SIONAL MAIN LAB, [address] [place] [address] [address] [place] [address] Urine Other Casts October 27, 2019 7:25am NONE NEGATIVE MAIN LAB, [address] [facility] [address] [place] [address] Urine Bacteria October 27, 2019 7:25am NONE NONE MAIN LAB, [address] [facility] [address] [place] [address] Urine Other Crystals October 27, 2019 7:25am NONE NONE MAIN LAB, [address] [facility] [address] [place] [address] Urine Mucus October 27, 2019 7:25am NONE NONE MAIN LAB, [address] [facility] [address] [place] [address] Urine Culture Indicated October 27, 2019 7:25am NO NO MAIN LAB, [address] [place] [address] [address] [place] [address] Sodium Level November 18, 2019 8:10pm 139 137-145 MAIN LAB, [facility] [address] [place] [address] Potassium Level November 18, 2019 8:10pm 3.3 3.5-5.1 MAIN LAB, [address] [place] [address] [address] [place] [address] Chloride Level November 18, 2019 8:10pm 101 98-107 MAIN LAB, [address] [place] [address] [address] [place] [address] Carbon Dioxide Level November 18, 2019 8:10pm 30.7 22-30 MAIN LAB, [address] [place] [address] [address] [place] [address] Anion Gap November 18, 2019 8:10pm 10.6 8-16 MAIN LAB, [address] [place] [address] [address] [place] [address] Blood Urea Nitrogen November 18, 2019 8:10pm 8 7-17 MAIN LAB, [address] [place] [address] [address] [place] [address] Creatinine November 18, 2019 8:10pm 0.81 0.52-1.04 MAIN LAB, [address] [facility] [address] [place] [address] Est Glomerular Filtrat Rate mL/min November 18, 2019 8:10pm 74.84 GFR NORMALS:Stage I: GFR >90Stage II GFR 60-89Stage III GFR 30-60Stage IV: GFR 15-29Stage V: GFR <15 MAIN LAB, [address] [place] [address] [address] [place] [address] BUN/Creatinine Ratio November 18, 2019 8:10pm 9.87 MAIN LAB, [address] [facility] [address] [place] [address] Glucose Level November 18, 2019 8:10pm 161 74-106 MAIN LAB, [address] [facility] [address] [place] [address] Hemoglobin A1c October 27, 2019 6:45am 7.3 4.0-5.6 MAIN LAB, [address] [facility] [address] [place] [address] Calculated Osmolality November 18, 2019 8:10pm 288.8 273- 304 MAIN LAB, [address] [facility] [address] [place] [address] Calcium Level November 18, 2019 8:10pm 8.5 8.4-10.2 MAIN LAB, [address] [place] [address] [address] [place] [address] Total Bilirubin November 18, 2019 8:10pm 0.3 0.2-1.3 MAIN LAB, [address] [place] [address] [address] [place] [address] Aspartate Amino Transf (AST/SGOT) October 27, 2019 6:45am 17 14-36 MAIN LAB, [address] [place] [address] [place] [address] Alanine Aminotransferase (ALT/SGPT) November 18, 2019 8:10pm 20 9-52 MAIN LAB, [address] [place] [address] [address] [place] [address] Alkaline Phosphatase November 18, 2019 8:10pm 120 38-12 6 MAIN LAB, [address] [place] [address] [address] [place] [address] Total Protein November 18, 2019 8:10pm 7.0 6.4-8.4 MAIN LAB, [address] [place] [address] [address] [place] [address] Albumin November 18, 2019 8:10pm 3.2 3.4-5.5 MAIN LAB, [address] [place] [address] [address] [place] [address] Globulin November 18, 2019 8:10pm 3.8 2.3-3.5 MAIN LAB, [facility] [address] [place] [address] Albumin/Globulin Ratio November 18, 2019 8:10pm 0.842 MAIN LAB, [address] [place] [address] [address] [place] [address] Lipase November 18, 2019 8:10pm 80 23-300 MAIN LAB, [facility] [address] [place] [address] Lactic Acid Level November 18, 2019 8:10pm 1.7 0.4-2.0 MAIN LAB, [address] [facility] [address] [facility] [place] [address] Phencyclidine (PCP) Screen July 27, 2019 1:00pm NEGATIVE NEGATIVE MAIN LAB, [address] [facility] [address] [place] [address] Propoxyphene Screen July 27, 2019 1:00pm NEGATIVE NEGA TIVE MAIN LAB, [address] [facility] [address] [facility] [place] [address] C-Reactive Protein October 27, 2019 7:25am 0.9 0-0.9 MAIN LAB, [address] [facility] [address] [place] [address] Health Concerns Concerns Follow up with PCP. Advance Directives Advance Directive Response Recorded Date/Time Advance Directives No June 28, 2019 1 0:16pm Advance Directive on File No November 17 7:28pm Durable POA for HC No November 18, 2019 7:2 8pm Power of Gate Attendant No November 18, 2019 7:2 8pm Organ Donor Yes November 18, 2019 7:3 3pm Living Will No November 18, 2019 7:2 8pm Chief Complaint and Reason for Visit Chief Complaint Abdominal Pain Reason for Visit [id number] Encounters Encounter Location(s) Arrival/Admit Date Discharge/Depart Date Provider(s) Departed Emergency Room [facility] November 18, 2019 7 :25pm November 18, 2019 8:25pm PRESTON MOORE Departed Emergency Room [facility] November 14, 2019 1 :40am November 14, 2019 2:55am SARANYA DELONG APRN Departed Emergency Room [facility] October 27, 2019 6: 46am October 27, 2019 9:10am DENTON HOOPER DNP Departed Emergency Room [facility] July 27, 2019 12:42pm July 27, 2019 3:07pm PERRI LIPSCOMB APRN Departed Emergency Room [facility] June 28, 2019 10:10pm June 29, 2019 12:40am KINGA ROGERS Assessments No Assessments Information Available Functional Status Observation Response Date Recorded Activities of Daily Living Performs w/o Assistance October 7:29pm Goals Acute Goals Problem: Pain Goal: Decreased Pain Instructions: Follow up with Primary Care Provider & Follow Discharge Instructions given in ER. Immunizations Immunization Event Date Not Given Reason Dose Number Sizing Sponger Lot Number Vaccine Information Statement (VIS) Detail Mental Status Observation Response Date Recorded Cognitive Function Intact November 18, 2019 7:2 9pm Medical Equipment No Medical Equipment Information available Insurance Providers Guarantor Mignon Rg Address [address] [address] Contact Info. Home Phone: Payer Policy Id Coverage Id Subscriber's Name Subscriber Id Effect silvia Date Expiration Date [employer] [id number] Mignon Rg [id number] Plan of Treatment The patient left AMA. Future Tests Future scheduled test information is unavailable Pending Tests Test Name Date ordered Aspartate Amino Transf (AST/SGOT) November 18, 2019 8:1 0pm Future Visits Future appointment information is unavailable Referrals to Other Providers Reason for Referral Referral Start Date Provider Provider Conta ct Information Provider Address UNKNOWN Future Procedures Future procedure information is unavailable Future Medications Future medication information is unavailable Patient Instructions Patient instructions are unavailable Social History Smoking Status Status Date of Observation November 18, 2019 7:29pm Observation Status Observation Response Date of Response Alcohol Use none November 18, 2019 9:4 1pm Drug Use none November 18, 2019 9:4 1pm Smoking Status Former smoker November 18, 2019 7:2 9pm Smoked in the last 12 months? No October 7:29pm Do you dip or chew tobacco? Yes November 18, 2019 7:29pm Approx how many cigs per day? 0 October 7:29pm Level of Dependence Low November 18, 2019 7:2 9pm Former smoker, last day smoked? 11/05November 172019 7:29pm Assigned Sex Female Vital Signs Vital Reading Result Collection Date/Time Weight 247.25 [lb_av] November 18, 2019 7:2 5pm BMI (Body Mass Index) 42.4 kg/m2 November 18, 2019 7 :25pm
[2019-12-20] MEDS ORDERED: ONDANSETRON 4 MG/2 ML (SDV) Z0FRAN IVP ONE (21:30)
[2019-12-20] MEDS ORDERED: LACTATED RINGERS 1,000 ML IV SCH (21:30)
--- NOTE | 2019-12-20 21:38 | ED Abdominal Pain ---
General Chief Complaint: Abdominal/GI Problems Stated Complaint: ABD PAIN,VOMITING,BLOOD IN STOOL Source of Information: Patient Exam Limitations: No Limitations History of Present Illness Date Seen by Provider: December 20, 2019 Time Seen by Provider: 21:18 Initial Comments Patient presents ER by private conveyance with chief complaint of low abdominal pain on the left side with some loose stools with a little blood in it stents about 7:00 this morning. She has a history of ulcerative colitis and feels like she is in flare. She is using hydrocortisone suppositories mesalamine enema and she plans to take those when she gets home. She also has sulfasalazine by mouth last dose at 1730. She took 2 tablets of hydrocodone 5 x 3 25 2 hours ago. She does not feel like her pain is under control. She's having nausea with vomiting. She took some Zofran couple hours ago and says that that helped with her nausea but her pain was not under control. She denies a history of diabetes or heart disease. She does not take any NSAIDs. Her primary care doctor is in [place] as well as her food storeroom clerk who is working on getting her tested so they can start her on Humira as she has been to the ER in the local area 10 times in the past 4 months. She did not call her primary care office today when she started having this flare. She denies dysuria fevers chills cough. She would like something for pain and nausea. She says the reason she is in the area is because she is visiting her cousin. She has had her gallbladder and appendix as well as uterus removed surgically. Last colonoscopy was a year ago demonstrating inflammation and polyps. After she gets her flares under control she plans to have another colonoscopy done through her food storeroom clerk. She states she typically has one flare per month. Allergies and Home Medications Allergies Coded Allergies: cephalexin (Verified Allergy, Unknown, 09/13/19) ketorolac (Verified Allergy, Unknown, 09/13/19) prochlorperazine (Verified Allergy, Unknown, 09/13/19) Home Medications Dicyclomine HCl 20 Mg/2 Ml Inj, 20 MG PO QID, (Reported) Ondansetron HCl 4 Mg Tab, 4 MG PO Q6H Prescribed by: SHIN REYNOLDS on 11/15/19 7574 Oxycodone HCl/Acetaminophen 1 Each Tablet, 1 EACH PO Q4H PRN for PAIN-SEVERE Prescribed by: LAURA VINCENT on 11/08/19 0129 Oxycodone Hcl 5 Mg Tab, 10 MG PO Q6H PRN for PAIN-SEVERE Prescribed by: MARQUES WANG on 10/06/192109 Prednisone 20 Mg Tab, 40 MG PO DAILY Prescribed by: STERLING STREETER on 10/13/192231 Prednisone 20 Mg Tab, 40 MG PO DAILY Prescribed by: LAURA VINCENT on 11/08/19 0128 Sulfasalazine 500 Mg Tablet, 500 MG PO QID, (Reported) Patient Home Medication List Home Medication List Reviewed: Yes Review of Systems Review of Systems Constitutional: No chills, No diaphoresis EENTM: No Blurred Vision, No Double Vision Respiratory: Denies Cough, Denies Orthopnea Cardiovascular: Denies Chest Pain, Denies Lightheadedness Gastrointestinal: See HPI, Abdominal Pain; Denies Constipated; Diarrhea, Nausea, Poor Appetite, Poor Fluid Intake, Rectal Bleeding, Vomiting Genitourinary: Denies Burning, Denies Discharge, Denies Drainage Musculoskeletal: No back pain, No joint pain Psychiatric/Neurological: Denies Anxiety, Denies Depressed All Other Systems Reviewed Negative Unless Noted: Yes Past Avuijgf-Hfyocn-Czetme Hx Patient Social History Alcohol Use: Denies Use Recreational Drug Use: No 2nd Hand Smoke Exposure: No Recent Foreign Travel: No Contact w/Someone Who Travel: No Recent Hopitalizations: No Physical Abuse: No Sexual Abuse: No Mistreated: No Fear: No Immunizations Up To Date Tetanus Booster (TDap): Unknown Seasonal Allergies Seasonal Allergies: No Past Medical History Surgeries: Yes Appendectomy, Gallbladder, Hysterectomy, Rectal Respiratory: No Cardiac: Yes High Cholesterol, Hypertension 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 Genitourinary: No Gastrointestinal: Yes Abdominal Hernia, Colitis, Gastroesophageal Reflux, Gastrointestinal Bleed, Chronic Diarrhea Musculoskeletal: Yes (chronic back pain) Degenerate Disk Disease, Arthritis, Chronic Back Pain Endocrine: Yes (patient has a cushingoid facies consistent with prednisone use) HEENT: No Cancer: No Psychosocial: Yes Anxiety, Depression Integumentary: Yes (patient has multiple lesions on her upper extremities that are excoriated) Blood Disorders: Yes (iron deficiency and anemia of chronic disease) Physical Exam Vital Signs Vital Signs - First Documented 12/20/19 21:34 Temp 36.3 Pulse 98 Resp 18 B/P (MAP) 161/116 (131) Pulse Ox 97 O2 Delivery Room Air Capillary Refill : Height/Weight/BMI Height: '" Weight: lbs. oz. kg; 43.00 BMI Method: General Appearance: WD/WN, mild distress HEENT: PERRL/EOMI, pharynx normal Neck: full range of motion, supple, normal inspection Respiratory: lungs clear, normal breath sounds, no respiratory distress, no accessory muscle use Cardiovascular: normal peripheral pulses, regular rate, rhythm, no edema Peripheral Pulses: 2+ Radial Pulses (R), 2+ Radial Pulses (L) Gastrointestinal: soft, no organomegaly; No rebound; tenderness (left lower quadrant), other (quiescent bowel sounds; negative for psoas sign, Huff's sign) Extremities: normal range of motion, normal inspection, normal capillary refill Neurologic/Psychiatric: alert, normal mood/affect, oriented x 3 Skin: normal color, warm/dry, other (her arms are covered in a myriad of scars) Progress/Results/Core Measures Results/Orders Lab Results Laboratory Tests Test 12/20/19 21:55 12/20/19 22:13 Range/Units White Blood Count 5.5 4.3-11.0 10^3/uL Red Blood Count 3.36 L 4.35-5.85 10^6/uL Hemoglobin 8.9 L 11.5-16.0 G/DL Hematocrit 28 L 35-52 % Mean Corpuscular Volume 85 80-99 FL Mean Corpuscular Hemoglobin 26 25-34 PG Mean Corpuscular Hemoglobin Concent 31 L 32-36 G/DL Red Cell Distribution Width 12.8 10.0-14.5 % Platelet Count 306 130-400 10^3/uL Mean Platelet Volume 9.3 7.4-10.4 FL Neutrophils (%) (Auto) 79 H 42-75 % Lymphocytes (%) (Auto) 12 12-44 % Monocytes (%) (Auto) 7 0-12 % Eosinophils (%) (Auto) 2 0-10 % Basophils (%) (Auto) 0 0-10 % Neutrophils # (Auto) 4.3 1.8-7.8 X 10^3 Lymphocytes # (Auto) 0.7 L 1.0-4.0 X 10^3 Monocytes # (Auto) 0.4 0.0-1.0 X 10^3 Eosinophils # (Auto) 0.1 0.0-0.3 10^3/uL Basophils # (Auto) 0.0 0.0-0.1 10^3/uL Erythrocyte Sedimentation Rate 72 H 0-30 MM/HR Sodium Level 139 135-145 MMOL/L Potassium Level 3.5 L 3.6-5.0 MMOL/L Chloride Level 100 98-107 MMOL/L Carbon Dioxide Level 26 21-32 MMOL/L Anion Gap 13 5-14 MMOL/L Blood Urea Nitrogen 7 7-18 MG/DL Creatinine 0.64 0.60-1.30 MG/DL Estimat Glomerular Filtration Rate > 60 BUN/Creatinine Ratio 11 Glucose Level 131 H 70-105 MG/DL Calcium Level 9.0 8.5-10.1 MG/DL Corrected Calcium 9.2 8.5-10.1 MG/DL Total Bilirubin 0.2 0.1-1.0 MG/DL Aspartate Amino Transf (AST/SGOT) 15 5-34 U/L Alanine Aminotransferase (ALT/SGPT) 27 0-55 U/L Alkaline Phosphatase 123 40-136 U/L C-Reactive Protein 1.50 H <0.50 MG/DL Total Protein 6.4 6.4-8.2 GM/DL Albumin 3.7 3.2-4.5 GM/DL Lipase 29 8-78 U/L Urine Color YELLOW Urine Clarity CLEAR Urine pH 7.0 5-9 Urine Specific [place] 1.015 L 1.016-1.022 Urine Protein NEGATIVE NEGATIVE Urine Glucose (UA) NEGATIVE NEGATIVE Urine Ketones NEGATIVE NEGATIVE Urine Nitrite NEGATIVE NEGATIVE Urine Bilirubin NEGATIVE NEGATIVE Urine Urobilinogen 0.2 < = 1.0 MG/DL Urine Leukocyte Esterase NEGATIVE NEGATIVE Urine RBC (Auto) NEGATIVE NEGATIVE Urine RBC NONE /HPF Urine WBC 0-2 /HPF Urine Squamous Epithelial Cells RARE /HPF Urine Crystals NONE /LPF Urine Bacteria NEGATIVE /HPF Urine Casts NONE /LPF Urine Mucus NONE /LPF Urine Culture Indicated NO Urine Opiates Screen NEGATIVE NEGATIVE Urine Oxycodone Screen NEGATIVE NEGATIVE Urine Methadone Screen NEGATIVE NEGATIVE Urine Propoxyphene Screen NEGATIVE NEGATIVE Urine Barbiturates Screen NEGATIVE NEGATIVE Ur Tricyclic Antidepressants Screen NEGATIVE NEGATIVE Urine Phencyclidine Screen NEGATIVE NEGATIVE Urine Amphetamines Screen NEGATIVE NEGATIVE Urine Methamphetamines Screen NEGATIVE NEGATIVE Urine Benzodiazepines Screen POSITIVE H NEGATIVE Urine Cocaine Screen NEGATIVE NEGATIVE Urine Cannabinoids Screen POSITIVE H NEGATIVE My Orders Orders - NEVAEH DAMON Ondansetron Injection (Zofran Injectio (12/20/19 21:30) Lactated Ringers (Lr 1000 Ml Iv Solution (12/20/19 21:30) Ct Abdomen/Pelvis W (12/20/19 21:29) Cbc With Automated Diff (12/20/19 21:29) Comprehensive Metabolic Panel (12/20/19 21:29) Lipase (12/20/19 21:29) Ua Culture If Indicated (12/20/19 21:29) Erythrocyte Sedimentation Rate (12/20/19 21:29) Crp Fs (12/20/19 21:29) Drug Screen Stat (Urine) (12/20/19 21:29) Ed Iv/Invasive Line Start (12/20/19 21:29) Iohexol Injection (Omnipaque 350 Mg/Ml 1 (12/20/19 21:45) Received Contrast (Hold Metformin- Contr (12/20/19 21:45) Ns (Ivpb) (Sodium Chloride 0.9% Ivpb Bag (12/20/19 21:45) Medications Given in ED Current Medications Medications Dose Ordered Sig/Stiven Route Start Time Stop Time Status Last Admin Dose Admin Iohexol 100 ml ONCE ONCE IV 12/20/19 21:45 12/20/19 21:46 DC 12/20/19 22:06 100 ML Ondansetron HCl 4 mg ONCE ONCE IVP 12/20/19 21:30 12/20/19 21:33 DC 12/20/19 21:51 4 MG Sodium Chloride 100 ml ONCE ONCE IV 12/20/19 21:45 12/20/19 21:46 DC 12/20/19 22:06 100 ML Vital Signs/I&O 12/20/19 21:34 Temp 36.3 Pulse 98 Resp 18 B/P (MAP) 161/116 (131) Pulse Ox 97 O2 Delivery Room Air Progress Progress Note #1: Time: 21:36 Progress Note We have explained to her that we intend to work her up and look for dangerous, surgical emergencies. If she is indeed having labs and CT imaging findings consistent with an ulcerative colitis flare then we would encourage her to use her mesalamine enema and hydrocortisone suppository. We would consider initiating budesonide. Zofran and fluids have been ordered. She had a heart rate in the 90s but otherwise aseptic vital signs. We have explained to her that we do not offer pain meds for chronic problems until we can demonstrate somehow that they are acute. She is okay with this plan at this time. Sure he has a topical steroid suppositories. We have encouraged her to start using today as well as the mesalamine which she has not started using either. She is using the sulfasalazine and hydrocodone so expect to see that in her drug screen. Her quiescent bowel sounds are probably due to her hydrocodone. Progress Note #2: Time: 22:[address] report shows no evidence of significant inflammation abscess or other surgical emergency. Patient's urine drug screen does not reflect any opiates for the patient said she took 10 mg of hydrocodone 2-3 hours prior to arrival. CRP and ESR are not significantly elevated. At this time would be appropriate to continue local rectal therapy with topical steroids, topical mesalamine enemas and sulfasalazine. The patient has not vomited since she's been here after receiving 4 mg of Zofran IV. We will instruct her that she needs to keep follow- up appointments with her food storeroom clerk but she does not appear to have a significantly acute flare requiring any further intervention from the emergency room at this time. We have provided her with a tapering dose of budesonide in case her topical steroids and mesalamine do not help. She has an appointment on Monday of next week with her food storeroom clerk. Diagnostic Imaging Diagonstic Imaging: CT (with IV contrast) Plain Films/CT/US/NM/MRI: abdomen, pelvis Comments Bowels nondilated without wall thickening. No free air or diverticulitis. Aortic atherosclerosis. No abdominal aortic aneurysm. Hepatomegaly and steatosis. Similar focus of hypoattenuation with peripheral enhancement in the central liver, possibly a hemangioma. Cholecystectomy. Hysterectomy. Reviewed: Reviewed [place] Study, Reviewed by Me Departure Impression Primary Impression: Ulcerative colitis, left sided Qualified Codes: K51.511 - Left sided colitis with rectal bleeding Disposition: 01 HOME, SELF-CARE Condition: Stable Departure-Patient Inst. Decision time for Depature: 23:00 Referrals: NO,LOCAL PHYSICIAN (PCP/Family) Primary Care Physician Patient Instructions: Ulcerative Colitis (DC) Add. Discharge Instructions: Drink plenty of water. Start the mesalamine enemas. Start the hydrocortisone suppositories. Tylenol 650 mg every 6 hours as needed for pain. Take your hydrocodone as prescribed. Return to the ER if you experience fever, chest pain etc. Ondansetron 4mg under the tongue every 4 hours as needed for nausea. Follow up with your PCP and food storeroom clerk. If after a week you're still having symptoms then I would encourage you to start the budesonide tapered dose. 3 tablets daily for the first 3 days. Then 2 tablets daily for 3 more days. After that one tablet daily for 3 days. All discharge instructions reviewed with patient and/or family. Voiced understanding. Scripts Budesonide (Budesonide EC) 3 Mg Capdr...er 9 MG PO DAILY for 9 Days, #18 CAP 0 Refills 3 tablets daily x3 days 2 tablets daily x3 days 1 tablet daily x3 days Prov: NEVAEH DAMON 12/20/19 Ondansetron (Ondansetron Odt) 4 Mg Tab.rapdis 4 MG PO Q6H PRN for NAUSEA/VOMITING, #20 TAB 0 Refills Prov: NEVAEH DAMON 12/20/19 NEVAEH DAMON December 20, 2019 21:38
[2019-12-20] MEDS ORDERED: HOLD METFORMIN - RECEIVED CONTRAST 20 ML VIAL IV SCH (21:45)
[2019-12-20] MEDS ORDERED: NS 100 ML (IVPB) BAG IV ONE (21:45)
[2019-12-20] MEDS ORDERED: IOHEXOL 350 MG/ML 100 ML (OMNIPAQUE 350) VIAL IV ONE (21:45)
[2019-12-20 22:04] LABS: HEMATOCRIT 28 % (35-52); HEMOGLOBIN 8.9 G/DL (11.5-16.0); MEAN CORPUSCULAR HEMOGLOBIN 26 PG (25-34); MEAN CORPUSCULAR VOLUME 85 FL (80-99); WHITE BLOOD COUNT 5.5 10^3/uL (4.3-11.0)
[2019-12-20 22:05] LABS: BASOPHILS % (AUTO) 0 % (0-10); EOSINOPHILS % (AUTO) 2 % (0-10); LYMPHOCYTES % (AUTO) 12 % (12-44); MEAN CORPUSCULAR HGB CONC 31 G/DL (32-36); MEAN PLATELET VOLUME 9.3 FL (7.4-10.4); MONOCYTES % (AUTO) 7 % (0-12); NEUTROPHILS % (AUTO) 79 % (42-75); PLATELET COUNT 306 10^3/uL (130-400); RED CELL DISTRIBUTION WIDTH 12.8 % (10.0-14.5)
[2019-12-20 22:06] LABS: EOSINOPHILS # (AUTO) 0.1 10^3/uL (0.0-0.3); LYMPHOCYTES # (AUTO) 0.7 X 10^3 (1.0-4.0); MONOCYTES # (AUTO) 0.4 X 10^3 (0.0-1.0); NEUTROPHILS # (AUTO) 4.3 X 10^3 (1.8-7.8)
--- NOTE | 2019-12-20 22:15 | NUR ---
pt back from ct scan, iv site infiltrated during contrast injection.
[2019-12-20 22:25] LABS: CHLORIDE 100 MMOL/L (98-107); POTASSIUM 3.5 MMOL/L (3.6-5.0); SODIUM 139 MMOL/L (135-145)
[2019-12-20 22:26] LABS: ALANINE AMINOTRANSFERASE 27 U/L (0-55); ALBUMIN 3.7 GM/DL (3.2-4.5); ALKALINE PHOSPHATASE 123 U/L (40-136); BILIRUBIN,TOTAL 0.2 MG/DL (0.1-1.0); BUN/CREATININE RATIO 11; CARBON DIOXIDE 26 MMOL/L (21-32); CREATININE SERUM 0.64 MG/DL (0.60-1.30); GFR ESTIMATED > 60; GLUCOSE 131 MG/DL (70-105); LIPASE 29 U/L (8-78); TOTAL PROTEIN 6.4 GM/DL (6.4-8.2)
[2019-12-20 22:27] LABS: BACTERIA,URINE NEGATIVE /HPF; BILIRUBIN,URINE NEGATIVE (NEGATIVE); CLARITY,URINE CLEAR; COLOR,URINE YELLOW; GLUCOSE, URINE (UA) NEGATIVE (NEGATIVE); KETONES,URINE NEGATIVE (NEGATIVE); LEUKOCYTE ESTERASE ,URINE NEGATIVE (NEGATIVE); NITRITE,URINE NEGATIVE (NEGATIVE); PROTEIN,URINE NEGATIVE (NEGATIVE); SQUAMOUS EPITHELIAL CELL,UR RARE /HPF; WBC,URINE 0-2 /HPF
[2019-12-20 22:43] LABS: AMPHETAMINE SCREEN, URINE NEGATIVE (NEGATIVE); BARBITURATE SCREEN URINE NEGATIVE (NEGATIVE); BENZODIAZEPINES SCREEN URINE POSITIVE (NEGATIVE); CANNABINOID SCREEN, URINE POSITIVE (NEGATIVE); COCAINE SCREEN URINE NEGATIVE (NEGATIVE); METHADONE STAT NEGATIVE (NEGATIVE); METHAMPHETAMINE SCREEN URINE S NEGATIVE (NEGATIVE); OPIATE SCREEN URINE NEGATIVE (NEGATIVE); OXYCODONE STAT NEGATIVE (NEGATIVE); PROPOXYPHENE STAT NEGATIVE (NEGATIVE); TRICYCLIC ANTIDEPRESSANTS SCRE NEGATIVE (NEGATIVE)
[2019-12-20 22:55] LABS: ERYTHROCYTE SEDIMENTATION RATE 72 MM/HR (0-30)
[2019-12-20] MEDS ORDERED: BUDE3CAP5 PO (23:19)
[2019-12-20] MEDS ORDERED: ONDA4TAB11 PO (23:19)
[2019-12-20 23:26] VITALS: BP 167/122
--- NOTE | 2019-12-21 07:21 | Diagnostic Imaging Report ---
EXAMINATION: CT Abdomen and Pelvis with intravenous contrast. TECHNIQUE: Multiple contiguous axial images were obtained through the abdomen and pelvis after the uneventful administration of intravenous contrast. All CT scans use one or more of the following dose optimizing techniques: automated exposure control, MA and/or KvP adjustment based on a patient size and exam type, or iterative reconstruction. HISTORY: Abdominal pain, ulcerative colitis COMPARISON: 11/15/2019 FINDINGS: Limited views of the lower thorax are unremarkable. Liver is steatotic. There is an unchanged low attenuating focus in hepatic segment four with peripheral high attenuation/enhancement. This is unchanged from 06/06/2017 and likely represents an area of heterogeneous fat deposition. There is no biliary ductal dilation. Gallbladder is absent. Pancreas is normal. Spleen is normal. Adrenal glands are normal. The kidneys are normal. There is no hydronephrosis. Urinary bladder is normal. Visualized bowel is normal in caliber without obstruction or inflammation. No free fluid or air. No abdominal or pelvic lymphadenopathy. Aorta is normal in caliber without aneurysm. There are no suspicious osseus lesions. IMPRESSION: 1. No CT evidence of active bowel inflammation. Dictated by: Dictated on workstation # [id number]
== END 2019-12-20 23:26 | disposition home or self-care (01) ==
LOC: EDUNIT# 21:16 → ER FS 21:17
DX: K51.511 Left sided colitis with rectal bleeding (principal); Z88.1 Allergy status to other antibiotic agents; Z88.6 Allergy status to analgesic agent; Z88.8 Allergy status to other drugs, medicaments and biological substances; Z87.19 Personal history of other diseases of the digestive system
CPT/HCPCS: 36415; 74177; 80053; 80306; 81000; 83690; 85025; 85652; 86141

== ENCOUNTER 2020-01-07 00:57 | Emergency (ER) | payer OTHER ==
[~2020-01-07] VITALS: Ht 162.5 cm; Wt 113.6 kg
[~2020-01-07 00:57] MED LIST changes: +BUDE3CAP5 PO; +ONDA4TAB11 PO
[2020-01-07] MEDS ORDERED: ONDANSETRON 4 MG (ZOFRAN) ORAL DISSOLVE TAB PO STA (01:13)
[2020-01-07] MEDS ORDERED: ACETAMINOPHEN 325 MG TABLET PO ONE (01:15)
[2020-01-07] MEDS ORDERED: fentaNYL INJECTION 100 MCG/2 ML AMP IM ONE (01:30)
--- NOTE | 2020-01-07 01:32 | ED Abdominal Pain ---
General Chief Complaint: Abdominal/GI Problems Stated Complaint: ABD ISSUES Nursing Triage Note: PT HAS BEEN SEEN MULTIPLE TIMES IN THE ER WITH THE C/O ABD. PAIN. THIS VISIT TO THE ER THE PT. C/O HAVING N/V/D AND LOWER ABD PAIN. Sepsis Screen: No Definite Risk History of Present Illness Date Seen by Provider: January 07, 2020 Time Seen by Provider: 01:10 Initial Comments The patient is a 49-year-old female with a history of hypertension, hyperlipidemia, long-standing chronic abdominal pain associated with what by her report is a diagnosis of ulcerative colitis. She is status post hysterectomy, appendectomy, cholecystectomy, lysis of adhesions, rectal prolapse repair, rectovaginal fistula repair, multiple endoscopies. She reportedly follows with a GI doctor in [place]. Mignon is very well-known to me as she frequently presents to the emergency department at [facility], where I am on staff, 115 miles from [place]. I am also aware that she visits multiple other regional emergency departments with some frequency. She chronically complains of left lower quadrant pain with nausea, vomiting and hematochezia when she visits the [facility] ED. Labs and imaging generally reveal anemia without other acute process identified. Mignon presents today with concern for 1 day of left lower quadrant abdominal pain in association with nausea, a few episodes of nonbloody vomiting and reported scant hematochezia. Her complaints are identical to those she chronically presents with. She denies fevers, hematemesis, melena, shortness of breath or chest pain, upper or specifically right-sided abdominal pain, flank pain, back pain, dysuria or hematuria. She appears to be in no acute distress. She tried taking her home hydrocodone prior to arrival without complete relief of symptoms. Allergies and Home Medications Allergies Coded Allergies: cephalexin (Verified Allergy, Unknown, 09/13/19) ketorolac (Verified Allergy, Unknown, 09/13/19) prochlorperazine (Verified Allergy, Unknown, 09/13/19) Home Medications Budesonide 3 Mg Capdr...er, 9 MG PO DAILY 3 tablets daily x3 days 2 tablets daily x3 days 1 tablet daily x3 days Prescribed by: NEVAEH DAMON on 12/20/19 3762 Dicyclomine HCl 20 Mg/2 Ml Inj, 20 MG PO QID, (Reported) Ondansetron 4 Mg Tab.rapdis, 4 MG PO Q6H PRN for NAUSEA/VOMITING Prescribed by: NEVAEH DAMON on 12/20/19 2319 Ondansetron HCl 4 Mg Tab, 4 MG PO Q6H Prescribed by: SHIN REYNOLDS on 11/15/19 2307 Oxycodone HCl/Acetaminophen 1 Each Tablet, 1 EACH PO Q4H PRN for PAIN-SEVERE Prescribed by: LAURA VINCENT on 11/08/19 0129 Oxycodone Hcl 5 Mg Tab, 10 MG PO Q6H PRN for PAIN-SEVERE Prescribed by: MARQUES WANG on 10/06/190 Prednisone 20 Mg Tab, 40 MG PO DAILY Prescribed by: STERLING STREETER on 10/13/192231 Prednisone 20 Mg Tab, 40 MG PO DAILY Prescribed by: LAURA VINCENT on 11/08/19 0128 Sulfasalazine 500 Mg Tablet, 500 MG PO QID, (Reported) Patient Home Medication List Home Medication List Reviewed: Yes Review of Systems Review of Systems Constitutional: see HPI All Other Systems Reviewed Negative Unless Noted: Yes (Negative excepted noted.) Past Nglbvnu-Lunlby-Orqtjt Hx Past Med/Social Hx: Reviewed Nursing Past Med/Soc Hx Patient Social History 2nd Hand Smoke Exposure: No Recent Foreign Travel: No Contact w/Someone Who Travel: No Recent Infectious Disease Expo: No Recent Hopitalizations: No Physical Abuse: No Sexual Abuse: No Mistreated: No Fear: No Immunizations Up To Date Tetanus Booster (TDap): Unknown Seasonal Allergies Seasonal Allergies: No Past Medical History Surgeries: Yes Appendectomy, Gallbladder, Hysterectomy, Rectal Respiratory: No Cardiac: Yes High Cholesterol, Hypertension 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 Genitourinary: No Gastrointestinal: Yes Abdominal Hernia, Colitis, Gastroesophageal Reflux, Gastrointestinal Bleed, Chronic Diarrhea Musculoskeletal: Yes (chronic back pain) Degenerate Disk Disease, Arthritis, Chronic Back Pain Endocrine: Yes (patient has a cushingoid facies consistent with prednisone use) HEENT: No Cancer: No Psychosocial: Yes Anxiety, Depression Integumentary: Yes (patient has multiple lesions on her upper extremities that are excoriated) Blood Disorders: Yes (iron deficiency and anemia of chronic disease) Family Medical History Reviewed Nursing Family Hx Physical Exam Vital Signs Vital Signs - First Documented 01/07/20 01:12 Temp 36.8 Pulse 105 Resp 16 B/P (MAP) 184/118 (140) Pulse Ox 97 O2 Delivery Room Air Capillary Refill : Less Than 3 Seconds Height/Weight/BMI Height: '" Weight: lbs. oz. kg; 43.00 BMI Method: General Appearance: no apparent distress Exam Comments This is an older female appearing nontoxic and in no acute distress. Head is normocephalic and atraumatic. Neck is supple and nontender. Oropharynx is moist. Lungs are clear to auscultation at all stations. There is a normal S1 and S2 without rubs or gallops and capillary refill is appropriate, less than 2 seconds globally. Abdomen is soft and nondistended with mild left lower quadrant tenderness to palpation without rebound or guarding. Skin is warm and dry without cyanosis, clubbing or edema. Psychiatrically, the patient demonstrates appropriate mood and affect and is alert. Progress/Results/Core Measures Results/Orders Lab Results Laboratory Tests Test 01/07/20 01:34 01/07/20 01:44 Range/Units Urine Color YELLOW Urine Clarity CLEAR Urine pH 7.0 5-9 Urine Specific [place] 1.010 L 1.016-1.022 Urine Protein NEGATIVE NEGATIVE Urine Glucose (UA) NEGATIVE NEGATIVE Urine Ketones NEGATIVE NEGATIVE Urine Nitrite NEGATIVE NEGATIVE Urine Bilirubin NEGATIVE NEGATIVE Urine Urobilinogen 0.2 < = 1.0 MG/DL Urine Leukocyte Esterase NEGATIVE NEGATIVE Urine RBC (Auto) NEGATIVE NEGATIVE Urine RBC NONE /HPF Urine WBC NONE /HPF Urine Squamous Epithelial Cells RARE /HPF Urine Crystals NONE /LPF Urine Bacteria NONE /HPF Urine Casts NONE /LPF Urine Mucus NEGATIVE /LPF Urine Culture Indicated NO White Blood Count 6.4 4.3-11.0 10^3/uL Red Blood Count 3.77 L 4.35-5.85 10^6/uL Hemoglobin 9.7 L 11.5-16.0 G/DL Hematocrit 31 L 35-52 % Mean Corpuscular Volume 82 80-99 FL Mean Corpuscular Hemoglobin 26 25-34 PG Mean Corpuscular Hemoglobin Concent 31 L 32-36 G/DL Red Cell Distribution Width 13.2 10.0-14.5 % Platelet Count 258 130-400 10^3/uL Mean Platelet Volume 9.8 7.4-10.4 FL Neutrophils (%) (Auto) 83 H 42-75 % Lymphocytes (%) (Auto) 8 L 12-44 % Monocytes (%) (Auto) 6 0-12 % Eosinophils (%) (Auto) 1 0-10 % Basophils (%) (Auto) 0 0-10 % Neutrophils # (Auto) 5.3 1.8-7.8 X 10^3 Lymphocytes # (Auto) 0.5 L 1.0-4.0 X 10^3 Monocytes # (Auto) 0.4 0.0-1.0 X 10^3 Eosinophils # (Auto) 0.1 0.0-0.3 10^3/uL Basophils # (Auto) 0.0 0.0-0.1 10^3/uL Neutrophils % (Manual) 87 % Lymphocytes % (Manual) 7 % Monocytes % (Manual) 4 % Eosinophils % (Manual) 1 % Basophils % (Manual) 0 % Band Neutrophils 1 % Blood Morphology Comment NORMAL Sodium Level 143 135-145 MMOL/L Potassium Level 3.6 3.6-5.0 MMOL/L Chloride Level 103 98-107 MMOL/L Carbon Dioxide Level 27 21-32 MMOL/L Anion Gap 13 5-14 MMOL/L Blood Urea Nitrogen 13 7-18 MG/DL Creatinine 0.72 0.60-1.30 MG/DL Estimat Glomerular Filtration Rate > 60 BUN/Creatinine Ratio 18 Glucose Level 228 H 70-105 MG/DL Calcium Level 8.6 8.5-10.1 MG/DL Corrected Calcium 8.7 8.5-10.1 MG/DL Total Bilirubin 0.2 0.1-1.0 MG/DL Aspartate Amino Transf (AST/SGOT) 11 5-34 U/L Alanine Aminotransferase (ALT/SGPT) 19 0-55 U/L Alkaline Phosphatase 117 40-136 U/L Total Protein 6.4 6.4-8.2 GM/DL Albumin 3.9 3.2-4.5 GM/DL Lipase 37 8-78 U/L My Orders Orders - LEANNE CADE MD Cbc With Automated Diff (01/07/20 01:13) Comprehensive Metabolic Panel (01/07/20 01:13) Lipase (01/07/20 01:13) Ua Culture If Indicated (01/07/20 01:13) Ondansetron Oral Dissolve Tab (Zofran (01/07/20 01:13) Acetaminophen Tablet/Caplet (Tylenol T (01/07/20 01:15) Fentanyl Injection (Sublimaze Injection (01/07/20 01:30) Manual Differential (01/07/20 01:44) Medications Given in ED Current Medications Medications Dose Ordered Sig/Stiven Route Start Time Stop Time Status Last Admin Dose Admin Acetaminophen 975 mg ONCE ONCE PO 01/07/20 01:15 01/07/20 01:16 DC 01/07/20 01:29 975 MG Fentanyl Citrate 75 mcg ONCE ONCE IM 01/07/20 01:30 01/07/20 01:31 DC 01/07/20 01:28 75 MCG Vital Signs/I&O 01/07/20 01:12 Temp 36.8 Pulse 105 Resp 16 B/P (MAP) 184/118 (140) Pulse Ox 97 O2 Delivery Room Air Blood Pressure Mean: 140 Progress Progress Note : Time: 01:33 Progress Note 49-year-old female, well-known to me from her frequent presentations to another emergency department 115 miles from here for chronic abdominal pain, who presents for acute on chronic left lower quadrant discomfort, hematochezia and nausea. She appears to be in no acute distress and clinical examination is reassuring. She has had a reassuring CT scan of the abdomen and pelvis at this facility as recently as 12/20/2019, for the same symptoms she presents with today. We will check labs and will treat discomfort with a single dose of intramuscular fentanyl as well as some Tylenol and if workup is reassuring the patient will be discharged to follow up this week (on Monday) with her GI specialist as she states she already plans to. She has Zofran and hydrocodone available at home for pain control. The patient understands and agrees with this plan of care. 0230: Workup is as above, generally without evidence of acute process. Hemoglobin is around baseline for Ms. Rg. No evidence of an emergency condition is identified. Given her benign abdominal examination and reassuring labwork, I do not see benefit in subjecting her to further ionizing radiation with a repeat CT scan at this time. The patient will be discharged. I note that the last time she was here she was prescribed a steroid taper; she states she took it. Glucose is a little elevated at this visit; I am hesitant to prescribe large doses of steroids given hyperglycemia today (no formal DM diagnosis per patient). We will therefore prescribe low-dose prednisone for a few days and I have instructed Ms. Rg to follow up her elevated blood sugars with her PCP. She understands that if she feels worse instead of better or develops other new symptoms of concern that she was should return to the emergency department right away for reevaluation. All questions are answered. Departure Impression Primary Impression: Chronic abdominal pain Disposition: HOME, SELF-CARE Condition: Improved Departure-Patient Inst. Referrals: NO,LOCAL PHYSICIAN (PCP/Family) Primary Care Physician Patient Instructions: Chronic Pain (DC) Add. Discharge Instructions: Follow-up very closely with your primary care physician as well as your GI specialist, both ideally within the next 2-4 days. Please call your GI specialist later today to secure a close follow-up appointment within that timeframe if you do not already have one scheduled. Continue to take your home pain and nausea medication as prescribed. Take the prednisone for the next few days as prescribed. Return to the emergency department right away with worsening symptoms or with any other new symptoms of concern. Scripts Prednisone (Prednisone) 20 Mg Tab 20 MG PO DAILY, #4 TAB 0 Refills Prov: LEANNE CADE MD 01/07/20 LEANNE CADE MD January 07, 2020 01:32
[2020-01-07 02:02] LABS: CLARITY,URINE CLEAR; COLOR,URINE YELLOW
[2020-01-07 02:03] LABS: HEMATOCRIT 31 % (35-52); HEMOGLOBIN 9.7 G/DL (11.5-16.0); MEAN CORPUSCULAR HEMOGLOBIN 26 PG (25-34); MEAN CORPUSCULAR HGB CONC 31 G/DL (32-36); MEAN CORPUSCULAR VOLUME 82 FL (80-99); RED CELL DISTRIBUTION WIDTH 13.2 % (10.0-14.5); WHITE BLOOD COUNT 6.4 10^3/uL (4.3-11.0)
[2020-01-07 02:03] LABS: BILIRUBIN,URINE NEGATIVE (NEGATIVE); GLUCOSE, URINE (UA) NEGATIVE (NEGATIVE); KETONES,URINE NEGATIVE (NEGATIVE); LEUKOCYTE ESTERASE ,URINE NEGATIVE (NEGATIVE); NITRITE,URINE NEGATIVE (NEGATIVE); PROTEIN,URINE NEGATIVE (NEGATIVE); SQUAMOUS EPITHELIAL CELL,UR RARE /HPF
[2020-01-07 02:04] LABS: BASOPHILS % (AUTO) 0 % (0-10); EOSINOPHILS # (AUTO) 0.1 10^3/uL (0.0-0.3); EOSINOPHILS % (AUTO) 1 % (0-10); LYMPHOCYTES # (AUTO) 0.5 X 10^3 (1.0-4.0); LYMPHOCYTES % (AUTO) 8 % (12-44); MEAN PLATELET VOLUME 9.8 FL (7.4-10.4); MONOCYTES # (AUTO) 0.4 X 10^3 (0.0-1.0); MONOCYTES % (AUTO) 6 % (0-12); NEUTROPHILS # (AUTO) 5.3 X 10^3 (1.8-7.8); NEUTROPHILS % (AUTO) 83 % (42-75); PLATELET COUNT 258 10^3/uL (130-400)
[2020-01-07 02:15] LABS: CARBON DIOXIDE 27 MMOL/L (21-32); CHLORIDE 103 MMOL/L (98-107); POTASSIUM 3.6 MMOL/L (3.6-5.0); SODIUM 143 MMOL/L (135-145)
[2020-01-07 02:16] LABS: ALANINE AMINOTRANSFERASE 19 U/L (0-55); ALBUMIN 3.9 GM/DL (3.2-4.5); ALKALINE PHOSPHATASE 117 U/L (40-136); BILIRUBIN,TOTAL 0.2 MG/DL (0.1-1.0); BUN/CREATININE RATIO 18; CALCIUM 8.6 MG/DL (8.5-10.1); CREATININE SERUM 0.72 MG/DL (0.60-1.30); GFR ESTIMATED > 60; GLUCOSE 228 MG/DL (70-105); LIPASE 37 U/L (8-78); TOTAL PROTEIN 6.4 GM/DL (6.4-8.2)
[2020-01-07 02:20] LABS: BAND NEUTROPHILS 1 %; BASOPHILS % (MANUAL) 0 %; EOSINOPHILS % (MANUAL) 1 %; LYMPHOCYTES % (MANUAL) 7 %; MONOCYTES % (MANUAL) 4 %; NEUTROPHILS % (MANUAL) 87 %; RBC MORPH NORMAL
[2020-01-07] MEDS ORDERED: PRD20T PO (02:26)
[2020-01-07 02:33] VITALS: BP 174/98
== END 2020-01-07 02:35 | disposition home or self-care (01) ==
LOC: EDUNIT# 00:57 → ER FS 00:59
DX: G89.29 Other chronic pain (principal); R10.32 Left lower quadrant pain; Z88.1 Allergy status to other antibiotic agents; Z88.6 Allergy status to analgesic agent; Z88.8 Allergy status to other drugs, medicaments and biological substances; Z79.52 Long term (current) use of systemic steroids; Z90.49 Acquired absence of other specified parts of digestive tract; Z87.19 Personal history of other diseases of the digestive system
CPT/HCPCS: 36415; 80053; 81000; 83690; 85007; 85027

== ENCOUNTER 2020-01-23 12:03 | Emergency (ER) | payer OTHER ==
[~2020-01-23] VITALS: Ht 162 cm; Wt 113.0 kg
[2020-01-23] MEDS ORDERED: NS IV 1000 ML 1,000 ML IV SCH (12:15)
[2020-01-23] MEDS ORDERED: ONDANSETRON 4 MG/2 ML (SDV) Z0FRAN IVP ONE ×2 (12:15→12:45)
[2020-01-23] MEDS ORDERED: morphine INJ 10 MG/ML 1ML (SYR OR VIAL) IVP STA (12:30)
[2020-01-23] MEDS ORDERED: IOHEXOL 350 MG/ML 100 ML (OMNIPAQUE 350) VIAL IV ONE (12:45)
[2020-01-23] MEDS ORDERED: CATHETER FLUSH 10 ML SYR IV PRN (12:45)
[2020-01-23] MEDS ORDERED: NS 100 ML (IVPB) BAG IV ONE (12:45)
[2020-01-23] MEDS ORDERED: HOLD METFORMIN - RECEIVED CONTRAST 20 ML VIAL IV SCH (12:45)
--- NOTE | 2020-01-23 12:59 | ED Abdominal Pain ---
General Chief Complaint: Abdominal/GI Problems Stated Complaint: LLQ PAIN; BLOODY STOOL; N/V Nursing Triage Note: PT REPORTS LLQ PAIN SINCE ABOUT 2 THIS AM AND HAS A HX OF ULCERATICE COLITIS. SHE REPORTS BRIGHT RED BLOOD WHEN WIPING AND DIARRHEA. Sepsis Screen: No Definite Risk Source of Information: Patient Exam Limitations: No Limitations History of Present Illness Date Seen by Provider: Jan 23, 2020 Time Seen by Provider: 12:20 Initial Comments Patient is a 49-year-old male with history of diverticulosis, ulcerative colitis previous cholecystectomy appendectomy and hysterectomy presents with acute onset left lower quadrant pain, nausea vomiting and diarrhea. Symptom onset was hours prior to arrival. Vomit contains stomach contents, diarrhea is watery and nonbloody. No recent travel, antibiotics, hospitalization or history of C. difficile. Abdominal pain is described as sharp, rated moderate to severe is worse with palpation and movement and ambulation. Patient unable to find position of comfort No medications or therapies taken prior to ED arrival. No other acute symptoms or complaints. Timing/Duration: 4-6 Hours Severity/Quality: Moderate Location: LLQ Radiation: No Radiation Activities at Onset: None Associated Symptoms: Denies Symptoms Allergies and Home Medications Allergies Coded Allergies: cephalexin (Verified Allergy, Unknown, 09/13/19) ketorolac (Verified Allergy, Unknown, 09/13/19) prochlorperazine (Verified Allergy, Unknown, 09/13/19) Home Medications Budesonide 3 Mg Capdr...er, 9 MG PO DAILY 3 tablets daily x3 days 2 tablets daily x3 days 1 tablet daily x3 days Prescribed by: NEVAEH DAMON on 12/20/192318 Dicyclomine HCl 20 Mg/2 Ml Inj, 20 MG PO QID, (Reported) Ondansetron 4 Mg Tab.rapdis, 4 MG PO Q6H PRN for NAUSEA/VOMITING Prescribed by: NEVAEH DAMON on 12/20/192318 Ondansetron HCl 4 Mg Tab, 4 MG PO Q6H Prescribed by: SHIN REYNOLDS on 11/15/19 230 Oxycodone HCl/Acetaminophen 1 Each Tablet, 1 EACH PO Q4H PRN for PAIN-SEVERE Prescribed by: LAURA VINCENT on 11/08/19 0129 Oxycodone Hcl 5 Mg Tab, 10 MG PO Q6H PRN for PAIN-SEVERE Prescribed by: MARQUES WANG on 10/06/192109 Prednisone 20 Mg Tab, 40 MG PO DAILY Prescribed by: STERLING STREETER on 10/13/192231 Prednisone 20 Mg Tab, 40 MG PO DAILY Prescribed by: LAURA VINCENT on 11/08/19 0128 Prednisone 20 Mg Tab, 20 MG PO DAILY Prescribed by: LEANNE CADE on 01/07/20 0226 Sulfasalazine 500 Mg Tablet, 500 MG PO QID, (Reported) Patient Home Medication List Home Medication List Reviewed: Yes Review of Systems Review of Systems Constitutional: see HPI EENTM: See HPI Respiratory: See HPI Cardiovascular: See HPI Gastrointestinal: See HPI Genitourinary: See HPI Musculoskeletal: see HPI Skin: see HPI Psychiatric/Neurological: See HPI Endocrine: See HPI Hematologic/Lymphatic: See HPI Past Utmucly-Bporav-Araevn Hx Past Med/Social Hx: Reviewed Nursing Past Med/Soc Hx Patient Social History Alcohol Use: Denies Use Recreational Drug Use: No Smoking Status: Former Smoker Type Used: Cigarettes 2nd Hand Smoke Exposure: No Recent Foreign Travel: No Contact w/Someone Who Travel: No Recent Infectious Disease Expo: No Recent Hopitalizations: No Physical Abuse: No Sexual Abuse: No Mistreated: No Fear: No Immunizations Up To Date Tetanus Booster (TDap): Unknown Seasonal Allergies Seasonal Allergies: No Past Medical History Surgeries: Yes (UMBILICAL HERNIA REPAIR, RECTAL PROLAPSE REPAIR.) Appendectomy, Gallbladder, Hysterectomy, Rectal Respiratory: No Cardiac: Yes High Cholesterol, Hypertension 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 Genitourinary: No Gastrointestinal: Yes Abdominal Hernia, Colitis, Gastroesophageal Reflux, Gastrointestinal Bleed, Chronic Diarrhea Musculoskeletal: Yes (chronic back pain) Degenerate Disk Disease, Arthritis, Chronic Back Pain Endocrine: Yes (patient has a cushingoid facies consistent with prednisone use) HEENT: No Cancer: No Psychosocial: Yes Anxiety, Depression Integumentary: Yes (patient has multiple lesions on her upper extremities that are excoriated) Blood Disorders: Yes (iron deficiency and anemia of chronic disease) Physical Exam Vital Signs Vital Signs - First Documented 01/23/20 12:40 Temp 35.2 Pulse 130 Resp 18 B/P (MAP) 146/104 (118) Pulse Ox 100 O2 Delivery Room Air Capillary Refill : Less Than 3 Seconds Height/Weight/BMI Height: '" Weight: lbs. oz. kg; 43.00 BMI Method: General Appearance: WD/WN, no apparent distress HEENT: PERRL/EOMI, normal ENT inspection Neck: non-tender, supple Respiratory: chest non-tender, lungs clear Gastrointestinal: soft, tenderness (LLQ pain/tenderness) Extremities: normal range of motion, non-tender Back: normal inspection Neurologic/Psychiatric: no motor/sensory deficits, alert, oriented x 3 Skin: normal color Focused Exam Sepsis Stage: Ruled Out Progress/Results/Core Measures Results/Orders Lab Results Laboratory Tests Test 01/23/20 12:26 01/23/20 12:41 01/23/20 14:12 Range/Units White Blood Count 15.5 H 4.3-11.0 10^3/uL Red Blood Count 4.73 4.35-5.85 10^6/uL Hemoglobin 11.7 11.5-16.0 G/DL Hematocrit 39 35-52 % Mean Corpuscular Volume 82 80-99 FL Mean Corpuscular Hemoglobin 25 25-34 PG Mean Corpuscular Hemoglobin Concent 30 L 32-36 G/DL Red Cell Distribution Width 14.1 10.0-14.5 % Platelet Count 348 130-400 10^3/uL Mean Platelet Volume 10.3 7.4-10.4 FL Neutrophils (%) (Auto) 89 H 42-75 % Lymphocytes (%) (Auto) 6 L 12-44 % Monocytes (%) (Auto) 4 0-12 % Eosinophils (%) (Auto) 1 0-10 % Basophils (%) (Auto) 0 0-10 % Neutrophils # (Auto) 13.8 H 1.8-7.8 X 10^3 Lymphocytes # (Auto) 0.9 L 1.0-4.0 X 10^3 Monocytes # (Auto) 0.7 0.0-1.0 X 10^3 Eosinophils # (Auto) 0.1 0.0-0.3 10^3/uL Basophils # (Auto) 0.0 0.0-0.1 10^3/uL Neutrophils % (Manual) 88 % Lymphocytes % (Manual) 6 % Monocytes % (Manual) 3 % Eosinophils % (Manual) 0 % Basophils % (Manual) 0 % Myelocytes % 1 % Band Neutrophils 2 % Hypochromasia 1+ Sodium Level 141 135-145 MMOL/L Potassium Level 4.2 3.6-5.0 MMOL/L Chloride Level 102 98-107 MMOL/L Carbon Dioxide Level 22 21-32 MMOL/L Anion Gap 17 H 5-14 MMOL/L Blood Urea Nitrogen 8 7-18 MG/DL Creatinine 0.67 0.60-1.30 MG/DL Estimat Glomerular Filtration Rate > 60 BUN/Creatinine Ratio 12 Glucose Level 158 H 70-105 MG/DL Calcium Level 9.2 8.5-10.1 MG/DL Corrected Calcium 9.4 8.5-10.1 MG/DL Total Bilirubin 0.4 0.1-1.0 MG/DL Aspartate Amino Transf (AST/SGOT) 15 5-34 U/L Alanine Aminotransferase (ALT/SGPT) 23 0-55 U/L Alkaline Phosphatase 91 40-136 U/L Troponin I < 0.30 <0.30 NG/ML Total Protein 6.6 6.4-8.2 GM/DL Albumin 3.8 3.2-4.5 GM/DL Lipase 15 8-78 U/L Urine Color YELLOW Urine Clarity CLEAR Urine pH 8.5 5-9 Urine Specific [place] 1.020 1.016-1.022 Urine Protein 1+ H NEGATIVE Urine Glucose (UA) NEGATIVE NEGATIVE Urine Ketones TRACE H NEGATIVE Urine Nitrite NEGATIVE NEGATIVE Urine Bilirubin 1+ H NEGATIVE Urine Urobilinogen 0.2 < = 1.0 MG/DL Urine Leukocyte Esterase NEGATIVE NEGATIVE Urine RBC (Auto) NEGATIVE NEGATIVE Urine RBC 2-5 H /HPF Urine WBC 2-5 /HPF Urine Crystals NONE /LPF Urine Bacteria NEGATIVE /HPF Urine Casts NONE /LPF Urine Mucus LARGE H /LPF Urine Culture Indicated NO My Orders Orders - AURELIO GARRETT DO Cbc With Automated Diff (01/23/20 12:08) Comprehensive Metabolic Panel (01/23/20 12:08) Ua Culture If Indicated (01/23/20 12:08) Lipase (01/23/20 12:08) Troponin I Fs (01/23/20 12:08) Ondansetron Injection (Zofran Injectio (01/23/20 12:15) Ns Iv 1000 Ml (Sodium Chloride 0.9%) (01/23/20 12:15) Morphine Injection (Morphine Injection (01/23/20 12:30) Ct Abdomen/Pelvis W (01/23/20 12:30) Ondansetron Injection (Zofran Injectio (01/23/20 12:45) Iohexol Injection (Omnipaque 350 Mg/Ml 1 (01/23/20 12:45) Received Contrast (Hold Metformin- Contr (01/23/20 12:45) Sodium Chloride Flush (Catheter Flush Sy (01/23/20 12:45) Ns (Ivpb) (Sodium Chloride 0.9% Ivpb Bag (01/23/20 12:45) Manual Differential (01/23/20 12:26) Medications Given in ED Current Medications Medications Dose Ordered Sig/Stiven Route Start Time Stop Time Status Last Admin Dose Admin Iohexol 100 ml ONCE ONCE IV 01/23/20 12:45 01/23/20 12:46 DC 01/23/20 13:04 100 ML Ondansetron HCl 4 mg ONCE ONCE IVP 01/23/20 12:15 01/23/20 12:16 DC 01/23/20 12:30 4 MG Sodium Chloride 10 ml NEEDED PRN IV 01/23/20 12:45 01/23/20 14:23 DC 01/23/20 13:04 10 ML Sodium Chloride 100 ml ONCE ONCE IV 01/23/20 12:45 01/23/20 12:46 DC 01/23/20 13:04 100 ML Vital Signs/I&O 01/23/20 01/23/20 12:40 14:22 Temp 35.2 36.2 Pulse 130 83 Resp 18 18 B/P (MAP) 146/104 (118) 112/76 Pulse Ox 100 99 O2 Delivery Room Air Room Air Blood Pressure Mean: 118 Departure Communication (Admissions) CT lab, reviewed. No acute findings with the exception of elevation with blood cell count. Patient afebrile with normal vital signs. No discrete source of infection abdomen. Of note, patient has had 12 ED visits within the past 6 months for similar abdominal pain type complaints. She has not had routine follow-up with her GI her primary care provider. Symptoms appear markedly worse when the provider or nursing staff entered the room and improves with distraction raising the possibility of a component of drug-seeking behavior. I discussed with the patient need for outpatient pain management and PCP and GI i nvolvement what appears to be chronic abdominal pain of uncertain etiology. Patient verbally upset and hostile prior to the departure emesis and leaving the emergency department prior to obtaining full lab results and discharge instructions. As such, she is receiving full responsibility for her care and is instructed to follow up with her PCP for review of all lab studies and results and further management. Impression Primary Impression: Drug-seeking behavior Additional Impression: Chronic abdominal pain Disposition: HOME, SELF-CARE Condition: Unchanged Departure-Patient Inst. Referrals: NO,LOCAL PHYSICIAN (PCP/Family) Primary Care Physician AURELIO GARRETT DO Jan 23, 2020 12:59
[2020-01-23 13:03] LABS: BASOPHILS % (AUTO) 0 % (0-10); EOSINOPHILS # (AUTO) 0.1 10^3/uL (0.0-0.3); EOSINOPHILS % (AUTO) 1 % (0-10); HEMATOCRIT 39 % (35-52); HEMOGLOBIN 11.7 G/DL (11.5-16.0); LYMPHOCYTES # (AUTO) 0.9 X 10^3 (1.0-4.0); LYMPHOCYTES % (AUTO) 6 % (12-44); MEAN CORPUSCULAR HEMOGLOBIN 25 PG (25-34); MEAN CORPUSCULAR HGB CONC 30 G/DL (32-36); MEAN CORPUSCULAR VOLUME 82 FL (80-99); MEAN PLATELET VOLUME 10.3 FL (7.4-10.4); MONOCYTES # (AUTO) 0.7 X 10^3 (0.0-1.0); MONOCYTES % (AUTO) 4 % (0-12); NEUTROPHILS % (AUTO) 89 % (42-75); PLATELET COUNT 348 10^3/uL (130-400); RED CELL DISTRIBUTION WIDTH 14.1 % (10.0-14.5); WHITE BLOOD COUNT 15.5 10^3/uL (4.3-11.0)
[2020-01-23 13:04] LABS: NEUTROPHILS # (AUTO) 13.8 X 10^3 (1.8-7.8)
[2020-01-23 13:13] LABS: BAND NEUTROPHILS 2 %; BASOPHILS % (MANUAL) 0 %; EOSINOPHILS % (MANUAL) 0 %; LYMPHOCYTES % (MANUAL) 6 %; MONOCYTES % (MANUAL) 3 %; MYELOCYTES % 1 %; NEUTROPHILS % (MANUAL) 88 %
[2020-01-23 13:14] LABS: HYPOCHROMASIA 1+
[2020-01-23 13:21] LABS: ALANINE AMINOTRANSFERASE 23 U/L (0-55); ALBUMIN 3.8 GM/DL (3.2-4.5); ALKALINE PHOSPHATASE 91 U/L (40-136); BILIRUBIN,TOTAL 0.4 MG/DL (0.1-1.0); BUN/CREATININE RATIO 12; CALCIUM 9.2 MG/DL (8.5-10.1); CARBON DIOXIDE 22 MMOL/L (21-32); CHLORIDE 102 MMOL/L (98-107); CREATININE SERUM 0.67 MG/DL (0.60-1.30); GFR ESTIMATED > 60; GLUCOSE 158 MG/DL (70-105); POTASSIUM 4.2 MMOL/L (3.6-5.0); SODIUM 141 MMOL/L (135-145); TOTAL PROTEIN 6.6 GM/DL (6.4-8.2)
[2020-01-23 13:22] LABS: LIPASE 15 U/L (8-78)
--- NOTE | 2020-01-23 13:54 | Diagnostic Imaging Report ---
PROCEDURE: CT abdomen and pelvis with contrast. TECHNIQUE: Multiple contiguous axial images were obtained through the abdomen and pelvis after administration of intravenous contrast. Auto Exposure Controls were utilized during the CT exam to meet ALARA standards for radiation dose reduction. INDICATION: Left lower quadrant pain, nausea, vomiting and diarrhea, history of ulcerative colitis. COMPARISON: Study compared to 12/20/2019. FINDINGS: There is no evidence for diverticulitis. Postsurgical changes at the base of the cecum, presumed appendectomy performed. No adjacent inflammatory process. There are no radiopaque urinary tract stones. There is no hydroureteronephrosis. The liver density is compatible with at least mild fatty infiltration, unchanged. The gallbladder is surgically absent and there is unchanged mild postcholecystectomy ectasia of the extrahepatic bile ducts. No visualized radiopaque stone. No intrahepatic dilatation. Spleen, adrenals, and pancreas appeared unremarkable. The aortoiliac vessels are patent and nonaneurysmal. No mesenteric or retroperitoneal adenopathy. The lung bases and the osseous structures are nonacute. There was no evidence for colonic wall thickening, pericolonic edema, or abnormal mucosal hyperenhancement. There is thick abnormal periosteal new bone formation in the right hemipelvis along the inferior acetabulum, the right ischium, and to a lesser extent involving the right superior and inferior pubic rami. I cannot identify an underlying fracture, acute or chronic. While the appearance is nonspecific, areas of extensive abnormal periosteal new bone formation are known associates with inflammatory bowel disease and Crohn's. Correlate with any right hemipelvic or hip pain. Further characterization with MRI may be of benefit to exclude the possibility of new bone formation owing to a stress type fracture or other occult bony injury or marrow infiltration. The remaining osseous structures are unremarkable. IMPRESSION: 1. No evidence for acute small or large bowel inflammatory process. No obstructive features, perforation, abscess, or acute findings. Mild hepatic steatosis, chronic. 2. Etiology-indeterminate right hemipelvic thick periosteal new bone formation, likely secondary to the underlying history of inflammatory bowel disease however sequelae of occult fracture or an infiltrative process could not be excluded. Correlate with any pain as well as consider follow-up with MRI. Dictated by: Dictated on workstation # [id number]
[2020-01-23 14:22] VITALS: BP 112/76
--- NOTE | 2020-01-23 14:23 | NUR ---
PT BECAME UPSET WITH DR GARRETT AFTER HER DIAGNOSIS OF DRUG SEEKING BEHAVIORS. SHE BECAME ANGRY AND CAME OUT OF THE ROOM AND WANTED HER IV OUT IMMEDIATELY BC SHE WASNT WAITING ON HER URINE. SHE WAS DEMANDING MORE PAIN MEDICATION THROUGHOUT HER VISIT. PT HAS FREQUENTED THIS ER 12 TIMES SINCE AUGUST AND IS DRIVING FROM SOCIAL CIRCLE TO COME TO THIS ER. PT DID SIGN HER DISCHARGE BUT REFUSED TO TAKE THE DC PAPERS.
[2020-01-23 14:36] LABS: CLARITY,URINE CLEAR; COLOR,URINE YELLOW; GLUCOSE, URINE (UA) NEGATIVE (NEGATIVE); PH,URINE 8.5 (5-9); PROTEIN,URINE 1+ (NEGATIVE)
[2020-01-23 14:37] LABS: BACTERIA,URINE NEGATIVE /HPF; BILIRUBIN,URINE 1+ (NEGATIVE); KETONES,URINE TRACE (NEGATIVE); LEUKOCYTE ESTERASE ,URINE NEGATIVE (NEGATIVE); NITRITE,URINE NEGATIVE (NEGATIVE)
--- OUTSIDE RECORDS SUMMARY | 2020-01-23 14:37 | XMS REPORT | Continuity of Care Document ---
Author Author [facility] Organization [facility] Address [address] [place] [address] Phone Unavailable Care Team Providers Care Paper Counter Name Role Phone UNKNOWN PCP Unavailable Allergies, Adverse Reactions, Alerts Allergen Type Severity Reaction Last Updated Verified Status Prochlorperazine Allergy Severe ANXIETY January 08, 2020 Yes Active Cephalexin Allergy Moderate HIVES January 08, 2020 Yes Acti ve Ketorolac Allergy Moderate HIVES January 08, 2020 Yes Activ e Medications Medication Status Dose Units Route Sig Qty Days Start Date End Date Instructions Alprazolam Active 2 Once A Day as needed for Anxiety Dicyclomine Hcl Active 20 Four Times Duloxetine Hcl Active 60 Once A Day for Anxiety Ferrous Gluconate Active 240 Once A Day for Supplement Lansoprazole Active 30 Once A Day for Gerd Ondansetron Active 4 As Needed for Nausea Simvastatin Active 40 Once A Day for High Cholestrol Sulfasalazine Active 500 Four Times Mirtazapine Discontinued 15 Everyday At 9 Pm for Sleep November 18, 2019 Prednisone Discontinued 20 Once A Day 18 Oct 2:42am November 18, 2019 3 Each day [...] TO 125 MG November 14, 2019 completed ROUTINE VENIPUNCTURE November 18, 2019 completed COMPREHEN METABOLIC PANEL November 18, 2019 completed ASSAY OF LACTIC ACID November 18, 2019 completed ASSAY OF LIPASE November 18, 2019 completed COMPLETE CBC W/AUTO DIFF WBC November 18, 2019 completed THER/PROPH/DIAG INJ IV PUSH November 18, 2019 completed EMERGENCY DEPT VISIT November 18, 2019 completed EMERGENCY DEPT VISIT November 18, 2019 completed INJECTION, ONDANSETRON HYDROCHLORIDE, PER 1 MG November 18, 2019 completed INFUSION, NORMAL SALINE SOLUTION , 1000 CC November 18, 2019 completed Computed tomography of abdomen and pelvis without contrast N ovember 2018 completed Computed tomography of abdomen and pelvis without contrast D ecember 2018 completed Insertion of intravenous saline lock July 27, 2019 act silvia Relevant Diagnostic Tests and/or Laboratory Data Laboratory Results Test Date/Time Result Interpretation Reference Range Result Co mment Performing Site White Blood Count November 18, 2019 8:10pm 8.1 4.0-11.0 MAIN LAB, [address] [facility] [address] [place] [address] Red Blood Count November 18, 2019 8:10pm 3.96 3.80-5.80 MAIN LAB, [address] [facility] [address] [place] [address] Hemoglobin November 18, 2019 8:10pm 10.9 11.5-16.5 MAIN LAB, [address] [facility] [address] [place] [address] Hematocrit November 18, 2019 8:10pm 35.0 37.0-47.0 MAIN LAB, [address] [facility] [address] [place] [address] Mean Corpuscular Volume November 18, 2019 8:10pm 88 76 -96 MAIN LAB, [facility] [address] [place] [address] Mean Corpuscular Hemoglobin November 18, 2019 8:10pm 27.5 27.0-32.0 MAIN LAB, [address] [facility] [address] [place] [address] Mean Corpuscular Hemoglobin Concent November 18, 2019 8:10pm 31.1 31.0-35.0 MAIN LAB, [facility] [address] [place] [address] Red Cell Distribution Width November 18, 2019 8:10pm 13.5 11.0-16.0 MAIN LAB, [facility] [address] [place] [address] Platelet Count November 18, 2019 8:10pm 282 150-500 MAIN LAB, [facility] [address] [place] [address] Mean Platelet Volume November 18, 2019 8:10pm 9.0 6.0-1 0.0 MAIN LAB, [address] [facility] [address] [place] [address] Neutrophils (%) (Auto) November 18, 2019 8:10pm 82.6 45. 0-70.0 MAIN LAB, [facility] [address] [place] [address] Lymphocytes (%) (Auto) November 18, 2019 8:10pm 8.4 20. 0-40.0 MAIN LAB, [facility] [address] [place] [address] Monocytes (%) (Auto) November 18, 2019 8:10pm 7.6 3.0-1 0.0 MAIN LAB, [address] [place] [address] [address] [place] [address] Eosinophils (%) (Auto) November 18, 2019 8:10pm 0.9 1.0 -5.0 MAIN LAB, [facility] [address] [place] [address] Basophils (%) (Auto) November 18, 2019 8:10pm 0.5 0.0-0 .5 MAIN LAB, [address] [place] [address] [address] [place] [address] Neutrophils # (Auto) November 18, 2019 8:10pm 6.70 2.00- 7.50 MAIN LAB, [address] [place] [address] [address] [place] [address] Lymphocytes # (Auto) November 18, 2019 8:10pm 0.68 1.50- 4.00 MAIN LAB, [address] [place] [address] [address] [place] [address] Monocytes # (Auto) November 18, 2019 8:10pm 0.62 0.20-0. 80 MAIN LAB, [address] [place] [address] [address] [place] [address] Eosinophils # (Auto) November 18, 2019 8:10pm 0.07 0.04- 0.40 MAIN LAB, [address] [place] [address] [address] [place] [address] Basophils # (Auto) November 18, 2019 8:10pm 0.04 0.02-0. 10 MAIN LAB, [address] [place] [address] [address] [place] [address] Neutrophils % (Manual) October 27, 2019 6:45am 94 39-7 9 MAIN LAB, [address] [place] [address] [address] [place] [address] Band Neutrophils % October 27, 2019 6:45am 0 0-10 MAIN LAB, [address] [place] [address] [address] [place] [address] Lymphocytes % (Manual) October 27, 2019 6:45am 4 20-6 0 MAIN LAB, [address] [place] [address] [address] [place] [address] Monocytes % (Manual) October 27, 2019 6:45am 2 0-9 MAIN LAB, [address] [place] [address] [address] [place] [address] Eosinophils % (Manual) October 27, 2019 6:45am 0 0-7 MAIN LAB, [address] [place] [address] [address] [place] [address] Basophils % (Manual) October 27, 2019 6:45am 0 0-8 MAIN LAB, [address] [place] [address] [address] [place] [address] Platelet Morphology Comment October 27, 2019 6:45am ADEQUATE MAIN LAB, [address] [facility] [address] [place] [address] Red Blood Cell Morphology October 27, 2019 6:45am NORMAL MAIN LAB, [address] [place] [address] [address] [place] [address] Volume Urine Centrifuged October 27, 2019 7:25am 12 Test based ON 12 ml volume. MAIN LAB, [address] [place] [address] [address] [place] [address] Urine Color October 27, 2019 7:25am STRAW STRAW MAIN LAB, [address] [place] [address] [address] [place] [address] Urine Clarity October 27, 2019 7:25am CLEAR CLEAR MAIN LAB, [address] [place] [address] [address] [place] [address] Urine Specific [place] October 27, 2019 7:25am 1.020 1.01 0-1.020 MAIN LAB, [address] [place] [address] [address] [place] [address] Urine pH October 27, 2019 7:25am 5.5 5.0-6.0 MAIN LAB, [address] [place] [address] [address] [place] [address] Urine Leukocyte Esterase October 27, 2019 7:25am NEGATIVE NE GATIVE MAIN LAB, [address] [place] [address] [address] [place] [address] Urine Nitrite October 27, 2019 7:25am NEGATIVE NEGATIVE MAIN LAB, [address] [place] [address] [address] [place] [address] Urine Protein October 27, 2019 7:25am NEGATIVE NEGATIVE MAIN LAB, [address] [place] [address] [address] [place] [address] Urine Glucose (UA) October 27, 2019 7:25am 2+ NEGATIVE MAIN LAB, [address] [place] [address] [address] [place] [address] Urine Ketones October 27, 2019 7:25am 1+ NEGATIVE MAIN LAB, [address] [place] [address] [address] [place] [address] Urine Urobilinogen October 27, 2019 7:25am 0.2 0.2-1.0 MAIN LAB, [address] [place] [address] [address] [place] [address] Urine Bilirubin October 27, 2019 7:25am NEGATIVE NEGATIVE MAIN LAB, [address] [place] [address] [address] [place] [address] Urine Occult Blood October 27, 2019 7:25am TRACE NEGATIVE MAIN LAB, [address] [facility] [address] [place] [address] Urine WBC October 27, 2019 7:25am NONE OCCASIONAL MAIN LAB, [address] [facility] [address] [place] [address] Urine RBC October 27, 2019 7:25am 2-4 OCCASIONAL MAIN LAB, [address] [facility] [address] [place] [address] Urine Epithelial Cells October 27, 2019 7:25am NONE OCCA SIONAL MAIN LAB, [address] [facility] [address] [place] [address] Urine Other Casts October 27, 2019 7:25am NONE NEGATIVE MAIN LAB, [address] [facility] [address] [place] [address] Urine Bacteria October 27, 2019 7:25am NONE NONE MAIN LAB, [address] [facility] [address] [place] [address] Urine Other Crystals October 27, 2019 7:25am NONE NONE MAIN LAB, [address] [facility] [address] [place] [address] Urine Mucus October 27, 2019 7:25am NONE NONE MAIN LAB, [address] [facility] [address] [place] [address] Urine Culture Indicated October 27, 2019 7:25am NO NO MAIN LAB, [address] [facility] [address] [place] [address] Sodium Level November 18, 2019 8:10pm 139 137-145 MAIN LAB, [address] [facility] [address] [place] [address] Potassium Level November 18, 2019 8:10pm 3.3 3.5-5.1 MAIN LAB, [address] [facility] [address] [place] [address] Chloride Level November 18, 2019 8:10pm 101 98-107 MAIN LAB, [address] [facility] [address] [place] [address] Carbon Dioxide Level November 18, 2019 8:10pm 30.7 22-30 MAIN LAB, [address] [facility] [address] [place] [address] Anion Gap November 18, 2019 8:10pm 10.6 8-16 MAIN LAB, [facility] [address] [place] [address] Blood Urea Nitrogen November 18, 2019 8:10pm 8 7-17 MAIN LAB, [address] [facility] [address] [place] [address] Creatinine November 18, 2019 8:10pm 0.81 0.52-1.04 MAIN LAB, [address] [place] [address] [place] [address] Est Glomerular Filtrat Rate mL/min November 18, 2019 8:10pm 74.84 GFR NORMALS:Stage I: GFR >90Stage II GFR 60-89Stage III GFR 30-60Stage IV: GFR 15-29Stage V: GFR <15 MAIN LAB, [address] [place] [address] [place] [address] BUN/Creatinine Ratio November 18, 2019 8:10pm 9.87 MAIN LAB, [address] [place] [address] [place] [address] Glucose Level November 18, 2019 8:10pm 161 74-106 MAIN LAB, [address] [place] [address] [place] [address] Hemoglobin A1c October 27, 2019 6:45am 7.3 4.0-5.6 MAIN LAB, [address] [place] [address] [place] [address] Calculated Osmolality November 18, 2019 8:10pm 288.8 273- 304 MAIN LAB, [address] [place] [address] [place] [address] Calcium Level November 18, 2019 8:10pm 8.5 8.4-10.2 MAIN LAB, [address] [place] [address] [place] [address] Total Bilirubin November 18, 2019 8:10pm 0.3 0.2-1.3 MAIN LAB, [address] [place] [address] [place] [address] Aspartate Amino Transf (AST/SGOT) October 27, 2019 6:45am 17 14-36 MAIN LAB, [address] [place] [address] [place] [address] Alanine Aminotransferase (ALT/SGPT) November 18, 2019 8:10pm 20 9-52 MAIN LAB, [address] [place] [address] [place] [address] Alkaline Phosphatase November 18, 2019 8:10pm 120 38-12 6 MAIN LAB, [address] [place] [address] [place] [address] Total Protein November 18, 2019 8:10pm 7.0 6.4-8.4 MAIN LAB, [address] [place] [address] [place] [address] Albumin November 18, 2019 8:10pm 3.2 3.4-5.5 MAIN LAB, [address] [facility] [address] [place] [address] Globulin November 18, 2019 8:10pm 3.8 2.3-3.5 MAIN LAB, [address] [facility] [address] [place] [address] Albumin/Globulin Ratio November 18, 2019 8:10pm 0.842 MAIN LAB, [address] [facility] [address] [place] [address] Lipase November 18, 2019 8:10pm 80 23-300 MAIN LAB, [address] [facility] [address] [place] [address] Lactic Acid Level November 18, 2019 8:10pm 1.7 0.4-2.0 MAIN LAB, [address] [facility] [address] [place] [address] Phencyclidine (PCP) Screen July 27, 2019 1:00pm NEGATIVE NEGATIVE MAIN LAB, [address] [facility] [address] [place] [address] Propoxyphene Screen July 27, 2019 1:00pm NEGATIVE NEGA TIVE MAIN LAB, [address] [facility] [address] [place] [address] C-Reactive Protein October 27, 2019 7:25am 0.9 0-0.9 MAIN LAB, [address] [facility] [address] [place] [address] Health Concerns Concerns pain Advance Directives Advance Directive Response Recorded Date/Time Advance Directives No June 28, 2019 1 0:16pm Advance Directive on File No November 17 7:28pm Durable POA for HC No November 18, 2019 7:2 8pm Power of Neon Sign Maker No November 18, 2019 7:2 8pm Organ Donor Yes November 18, 2019 7:3 3pm Living Will No November 18, 2019 7:2 8pm Chief Complaint and Reason for Visit Chief Complaint Abdominal Pain Reason for Visit [id number] Encounters Encounter Location(s) Arrival/Admit Date Discharge/Depart Date Provider(s) Departed Emergency Room [facility] January 08, 2020 4:1 8pm January 08, 2020 5:04pm KINGA ROGERS Departed Emergency Room [facility] November 18, 2019 7 :25pm November 18, 2019 8:25pm JOSI MOORE Departed Emergency Room [facility] November 14, 2019 1 :40am November 14, 2019 2:55am SARANYA DELONG APRN Departed Emergency Room [facility] October 27, 2019 6: 46am October 27, 2019 9:10am DENTON HOOPER DNP Departed Emergency Room [facility] July 27, 2019 12:42pm July 27, 2019 3:07pm PERRI LIPSCOMB APRN Departed Emergency Room [facility] June 28, 2019 10:10pm June 29, 2019 12:40am KINGA ROGERS Assessments No Assessments Information Available Functional Status Observation Response Date Recorded Activities of Daily Living Performs w/o Assistance January 08, 2020 4:21pm Goals Acute Goals Problem: Pain Goal: Decreased Pain Instructions: Follow up with Primary Care Provider & Follow Discharge Instructions given in ER. 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 Home Phone: Payer Policy Id Coverage Id Subscriber's Name Subscriber Id Effect silvia Date Expiration Date [facility] [id number] Mignon Rg [id number] Plan of Treatment Patient left AGAINST MEDICAL ADVICE, signed AMA. Future Tests Future scheduled test information is unavailable Pending Tests Test Name Date ordered White Blood Count January 08, 2020 4:47pm Red Blood Count January 08, 2020 4:47pm Hemoglobin January 08, 2020 4:47pm Hematocrit January 08, 2020 4:47pm Mean Corpuscular Volume January 08, 2020 4:47pm Mean Corpuscular Hemoglobin January 08, 2020 4:47pm Mean Corpuscular Hemoglobin Concent January 08, 2020 4:4 7pm Red Cell Distribution Width January 08, 2020 4:47pm Platelet Count January 08, 2020 4:47pm Mean Platelet Volume January 08, 2020 4:47pm Neutrophils (%) (Auto) January 08, 2020 4:47pm Lymphocytes (%) (Auto) January 08, 2020 4:47pm Monocytes (%) (Auto) January 08, 2020 4:47pm Eosinophils (%) (Auto) January 08, 2020 4:47pm Basophils (%) (Auto) January 08, 2020 4:47pm Neutrophils # (Auto) January 08, 2020 4:47pm Lymphocytes # (Auto) January 08, 2020 4:47pm Monocytes # (Auto) January 08, 2020 4:47pm Eosinophils # (Auto) January 08, 2020 4:47pm Basophils # (Auto) January 08, 2020 4:47pm Sodium Level January 08, 2020 4:47pm Potassium Level January 08, 2020 4:47pm Chloride Level January 08, 2020 4:47pm Carbon Dioxide Level January 08, 2020 4:47pm Anion Gap January 08, 2020 4:47pm Blood Urea Nitrogen January 08, 2020 4:47pm Creatinine January 08, 2020 4:47pm Est Glomerular Filtrat Rate mL/min January 08, 2020 4:47 pm BUN/Creatinine Ratio January 08, 2020 4:47pm Glucose Level January 08, 2020 4:47pm Calculated Osmolality January 08, 2020 4:47pm Calcium Level January 08, 2020 4:47pm Total Bilirubin January 08, 2020 4:47pm Aspartate Amino Transf (AST/SGOT) January 08, 2020 4:47p m Alanine Aminotransferase (ALT/SGPT) January 08, 2020 4:4 7pm Alkaline Phosphatase January 08, 2020 4:47pm Total Protein January 08, 2020 4:47pm Albumin January 08, 2020 4:47pm Globulin January 08, 2020 4:47pm Albumin/Globulin Ratio January 08, 2020 4:47pm Future Visits Future appointment information is unavailable Referrals to Other Providers Reason for Referral Referral Start Date Provider Provider Conta ct Information Provider Address UNKNOWN Future Procedures Future procedure information is unavailable Future Medications Future medication information is unavailable Patient Instructions Abdominal Pain (ED) Social History Smoking Status Status Date of Observation January 08, 2020 4:21pm Observation Status Observation Response Date of Response Alcohol Use none January 08, 2020 5:18p m Drug Use none January 08, 2020 5:18p m Smoking Status Former smoker January 08, 2020 4:21p m Smoked in the last 12 months? No January 08, 2020 4:21pm Do you dip or chew tobacco? Yes January 07 4:21pm Approx how many cigs per day? 0 January 08, 2020 4:21pm Level of Dependence Low January 08, 2020 4:21p m Former smoker, last day smoked? 11/05 4:21pm Assigned Sex Female Vital Signs Vital Reading Result Collection Date/Time Weight 253 [lb_av] January 08, 2020 4:21p m BMI (Body Mass Index) 43.4 kg/m2 January 08, 2020 4:2 1pm
== END 2020-01-23 14:23 | disposition home or self-care (01) ==
LOC: EDUNIT# 12:03 → ER FS 12:04
DX: G89.29 Other chronic pain (principal); R10.32 Left lower quadrant pain; Z76.5 Malingerer [conscious simulation]; Z90.49 Acquired absence of other specified parts of digestive tract; Z87.19 Personal history of other diseases of the digestive system; Z88.1 Allergy status to other antibiotic agents; Z88.6 Allergy status to analgesic agent; Z88.8 Allergy status to other drugs, medicaments and biological substances; Z87.891 Personal history of nicotine dependence
CPT/HCPCS: 36415; 74177; 80053; 81000; 82274; 83690; 84484; 85007; 85027

== ENCOUNTER 2020-03-20 22:37 | Emergency (ER) | payer OTHER ==
[~2020-03-20] VITALS: Ht 162 cm; Wt 113.0 kg
--- OUTSIDE RECORDS SUMMARY | 2020-03-20 22:46 | XMS REPORT | Continuity of Care Document ---
Author Author [facility] Address [address] 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 Art Gallery Director Name Role Phone Shivani Cheng PCP Fred Lau Rndphys Allergies, Adverse Reactions, Alerts Allergen Type Severity Reaction Last Updated Verified Status cephalexin Allergy Unkno wn Hives March 13, 2020 7:07pm Yes Active ketorolac Allergy Unknown Hives March 13, 2020 7:07pm Yes Active prochlorperazine Adverse Reaction Shakiness March 13, 2020 7:07pm Yes Active Medications Medication Status Dose Units Route Sig Qty Days Start Date End Date Instructions Hydrocodone-Acetaminophen Active 1 TAB Oral Q4H 10 September 15, 2019 7:10pm Sulfasalazine Active 500 MG Oral Four Times Daily September 16, 2019 8:58am Methylprednisolone Active 0 Oral .COMPLEX February 20, 2020 4:51pm orally per package directions Acetaminophen Active 500 MG Oral Every 6 [...] Rectally Bedtime 28.35 February 07, 2018 12:11pm Trazodone Active 200 MG Oral Bedtime February 26, 2020 12:56pm Prednisone Active 10 MG Oral Twice a Day 20 February 26, 2020 2:16pm Problems Active Problems Medical Problem Onset Date [...] disease) Active GERD (gastroesophageal reflux disease) Active Nausea & vomiting Acti ve Abdominal pain Active Abdominal pain Active Cystitis Active Hemorrhoids Active Hepatosplenomegaly Act silvia Hypertension Active Ulcerative colitis Act silvia Ulcerative colitis Act silvia Nausea Active Constipation [...] Result Comment Performing Site White Blood Count March 13, 2020 7:05pm 7.7 10^3/uL 4.5-11.0 [facility], [address] [facility] [address] Red Blood Count March 13, 2020 7:05pm 4.39 10^6/uL 3.50-5.40 [facility], [address] [facility] [address] Hemoglobin March 13, 2020 7:05pm 10.2 g/dL 12.0-16.0 [facility], [address] [facility] [address] Hematocrit March 13, 2020 7:05pm 33.3 % 36-48 [facility] [address] [facility] [address] Mean Corpuscular Volume March 13, 7:05pm 75.9 fL 79-99 [facility], [address] [facility] [address] Mean Corpuscular Hemoglobin February h2019 7:05pm 23.3 pg 25.0-34.0 [facility], [address] [facility] [address] Mean Corpuscular Hemoglobin Concent March 13, 2020 7:05pm 30.7 g/dL 31.0-36.0 [facility], [address] [facility] [address] Red Cell Distribution Width February 7:05pm 16.7 % 11.0-15.0 [facility], [address] [place] [address] Platelet Count March 13, 2020 7:05pm 295 10^3 uL 130-400 [facility], [address] [place] [address] percy [facility] [address] Mean Platelet Volume March 13, 2020 7:05p m 8.0 fL 7.0-11.0 [facility], [address] [place] [address] [facility] [address] Neutrophils % (Manual) March 13 7:05pm 81.0 % 50-65 [facility], [address] [facility] [address] Band Neutrophils % (Manual) February h2019 7:05pm 3.0 % 0-10 [facility], [address] [facility] percy [facility] [address] Lymphocytes % (Manual) March 13 7:05pm 12.0 % 15-45 [facility], [address] [place] [address] [facility] [address] Monocytes % (Manual) March 13, 2020 7:05p m 3.0 % 0-10 [facility], [address] [place] [address] [facility] [address] Eosinophils % (Manual) March 13 7:05pm 1.0 % 0-5 [facility], [address] [place], [place] [address]gabriella greer [facility] [address] Neutrophils # (Manual) March 13 7:05pm 6.5 # 1.0-8.0 [facility], [address] [place] [address] [facility] [address] Lymphocytes # (Manual) March 13 7:05pm 0.9 # 1.0-3.0 [facility], [address] [place] [address] Monocytes # (Manual) March 13, 2020 7:05p m 0.2 # 0.0-1.0 [facility], [address] [place] [address] Eosinophils # (Manual) March 13 7:05pm 0.1 # 0.0-0.4 [facility], [address] [place] [address] Hypochromasia March 13, 2020 7:05pm 3+ [facility], [address] [place], [place] [id number] Anisocytosis March 13, 2020 7:05pm 1+ [facility], 120[facility]. [address] [place], [place] [id number] Microcytosis March 13, 2020 7:05pm 1+ [facility], [facility]. [address] [place] [address] Sodium Level March 13, 2020 7:05pm 141 mmol/L 135-150 [facility], [address] [place] [address] Potassium Level March 13, 2020 7:05pm 3.6 mmol/L 3.4-5.2 [facility], [facility] [address] [place] [address] Chloride Level March 13, 2020 7:05pm 103 mmol/L 100-112 [facility], [facility]. [address] [place] [address] Carbon Dioxide Level March 13, 2020 7:05p m 20 mEq/L 18-30 [facility], [address] [place] [address] Anion Gap March 13, 2020 7:05pm 18 mmol/L 8-11 [facility], [facility]. [address] [place] [address] Blood Urea Nitrogen March 13, 2020 7:05pm 10 mg/dL 5-21 [facility], [facility] [address] [place] [address] Creatinine March 13, 2020 7:05pm 0.83 mg/dL 0.60-1.30 [facility], [address] [place] [address] Glomerular Filtration Rate Calc March 13, 2020 7:05pm > 60 mL/Min The GFR is not validated for use in drug dosing adjustments.Continue to use estimated creatinine clearance per dosingreference text.Chronic Kidney Disease is defined as either kidney damage ora GFR less than 60 ml/min that persists for at least 3months. Stage 3 = 30-59 ml/min Stage 4 = 15-29 ml/min Stage 5 = <15 ml/min [facility], [address] [place] [address] Glucose Level March 13, 2020 7:05pm 175 mg/dL 70-99 [facility], [address] [place] [address] Calcium Level March 13, 2020 7:05pm 9.6 mg/dL 8.6-10.5 [facility], [address] [place] [address] Total Bilirubin March 13, 2020 7:05pm 0.2 mg/dL 0.0-1.2 [facility], [address] [place] [address] Aspartate Amino Transf (AST/SGOT) Ju 2019 7:05pm 13 U/L 6-37 [facility], [address] [place] [address] Alanine Aminotransferase (ALT/SGPT) March 13, 2020 7:05pm 24 U/L 12-78 [facility], [address] [place] [address] Total Protein March 13, 2020 7:05pm 7.1 g/dL 6.4-8.2 [facility], [address] [place] [address] Albumin March 13, 2020 7:05pm 3.8 g/dL 3.3-4.5 [facility], [address] [place] [address] Albumin/Globulin Ratio March 13 7:05pm 1.2 0.7-2.0 [facility], [address] [place] [address] Alkaline Phosphatase March 13, 2020 7:05p m 94 U/L 50-136 [facility], [address] [place] [address] Lipase March 13, 2020 7:05pm 28 U/L 8-78 [facility], [address] [place] [address] Health Concerns Health Concerns may be documented in an alternate section. Advance Directives Advance Directive Response Recorded Date/Time Advance Directive on File? No September 15, 2019 10:49pm Chief Complaint and Reason for Visit Chief Complaint abdominal pain Encounters Encounter Location(s) Ar rival/Admit Date Discharge/Depart Date Provider(s) Departed Emergency [facility]alt-Emergency Department March 13, 2020 6:49pm March 13 8:15pm null Assessments No Assessments Information Available Family History Relationship Condition A ge at Onset Recorded Date/Time Unknown Family History U nknown March 13, 2020 7:29pm Functional Status No Functional Status information available Goals Goals may be documented in an alternate section. Immunizations No Immunization Information Available Mental Status No Mental Status Information Available Medical Equipment No Medical Equipment Information available Insurance Providers Guarantor Mignon Kirk Address [address] [address] Contact Info. Home Phone: Payer Policy Id Coverage Id Subscriber's Name Subscriber Id Effective Date [facility]piration Date [id number] Mignon Kirk [id number] Self Pay Self N/A Plan of Treatment Future Tests Future scheduled test information is unavailable Pending Tests Pending diagnostic test information is unavailable Future Visits Future appointment information is unavailable Referrals to Other Providers Reason for Referral Referral Start Date Provider Provider Conta ct Information Provider Address Soham Soto Work Phone: [address] [place] [address] Prosper Soto Work Phone: [address] [place] [address] Prosper Soto Work Phone: [address] [place] [address] Prosper Soto Work Phone: [address] [place] [address] Prosper Soto Work Phone: [address] [place] [address]NONE CUELLO Preferably in the next 1 to 2 days Thom robles Email: [email or web address] Work Phone: [facility] [address], [place] [address] [place] [address] DRGorgeNONE NONE NONE NONE [facility] NONE [facility] NONE NONE [facility] NONE NONE NONE DRGorgeNONE DRGorgeNONE DRGorgeNONE NONE NONE NONE NONE OF [place] OUT DOCTOR M Atkins Charles Work Phone: [address] [address] [facility] Charles Work Phone: [address] [place] [address] [facility] Charles Work Phone: [address] [place] [address] [facility] Charles Work Phone: [address] [place] [address] [facility] Charles Work Phone: [address] [place] [address] [facility] NONE NONE Jude Talbert Work Phone: [facility] [address] [place] [facility] [id number] [facility] NONE NONE NONE NONE Future Procedures Future [...] (ED) Abdominal Pain (ED) Abdominal Pain (ED) Urinary Tract Infection in Women (ED) Acute Nausea and Vomiting (ED) Colitis (ED) Panic Disorder (ED) Anxiety (ED) Social History Smoking Status Status Date of Observation Ex-smoker (finding) March 13, 2020 7:26pm Observation Status Observation Response Lito e of Response quit date 11/05 7:22pm second hand exposure Yes March 13, 2020 7:22pm housing house March 13, 2020 7:22pm household members family March 13, 2020 7:22pm children March 13 7:22pm service No March 13, 2020 7:22pm current occupational status employed March 13, 2020 7:22pm current occupational exposures/hazards No March 13, 2020 7:22pm Recent Travel No October 222019 9:32pm Recent Travel No uar 2019 12:46am Recent Travel No [email or web address] 3:09pm Recent Travel No March [id number] 5:19pm Recent Travel No October 192018 8:31pm Recent Travel No uar 2018 1:15am Recent Travel No Decemb r 2017 10:32pm Recent Travel No [email or web address] 8:38am Recent Travel No June 18, 2018 [...] Result Ref erence Range Collection Date/Time Height 63 [in_i] March 13, 2020 7:26pm Weight 200.00 [lb_av] March 13, 2020 7:26pm Body Temperature 96.3 [degF] 97.5-99.5 March 13, 2020 7:24pm Heart Rate 132 /min 60-90 March 13, 2020 7:24pm Respiratory rate 14 /min 12-March 13, 2020 7:24pm Oxygen saturation by Pulse oximetry 100 % 90-100 March 13, 2020 7:24pm BP Systolic 156 mm[Hg] 1 00-160 March 13, 2020 7:24pm BP Diastolic 104 mm[Hg] 50-80 March 13, 2020 7:24pm BMI (Body Mass Index) 35.4 kg/m2 March 13, 2020 7:26pm
--- OUTSIDE RECORDS SUMMARY | 2020-03-20 22:47 | XMS REPORT | Continuity of Care Document ---
Author Author [facility] Address [address] 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 [facility] [address] Red Blood Count February 20, 2020 3:45pm 3.82 10^6/uL 3.50-5.40 [facility] [address] [facility] [address] Hemoglobin February 20, 2020 3:45pm 9.0 g/dL 12.0-16.0 [facility], [address] [place] [address] Hematocrit February 20, 2020 3:45pm 29.5 % 36-48 [facility], [address] [facility] [address] Mean Corpuscular Volume February 19 20 3:45pm 77.2 fL 79-99 [facility], [address] [place] [address] Mean Corpuscular Hemoglobin February 3:45pm 23.7 pg 25.0-34.0 [facility], [address] [place] [address] Mean Corpuscular Hemoglobin Concent February 20, 2020 3:45pm 30.7 g/dL 31.0-36.0 [facility], [address] [place] [address] Red Cell Distribution Width February 3:45pm 15.9 % 11.0-15.0 [facility], [address] [place] [address] Platelet Count February 20, 2020 3:45pm 253 10^3 uL 130-400 [facility], [address] [place] [address] Mean Platelet Volume February 20, 2020 3:45pm 7.6 fL 7.0-11.0 [facility], [address] [place] [address] Neutrophils % (Manual) February 19 0 3:45pm 80.0 % 50-65 [facility], [address] [place] [address] Lymphocytes % (Manual) February 19 0 3:45pm 11.0 % 15-45 [facility], [address] [place] [address] Monocytes % (Manual) February 20, 2020 3:45pm 8.0 % 0-10 [facility], [address] [place] [address] Metamyelocytes % (manual) February 20, 2020 3:45pm 1.0 % >0 [facility], [address] [place] [address] Neutrophils # (Manual) February 19 0 3:45pm 4.8 # 1.0-8.0 [facility], [address] [place] [address] Lymphocytes # (Manual) February 19 0 3:45pm 0.6 # 1.0-3.0 [facility], [address] [place] [address] Monocytes # (Manual) February 20, 2020 3:45pm 0.5 # 0.0-1.0 [facility], [address] [place] [address] Hypochromasia February 20, 2020 3:45pm 3+ [facility], [address] [address] Anisocytosis February 20, 2020 3:45pm 1+ [facility], [address] [place] [address] Microcytosis February 20, 2020 3:45pm 1+ [facility], [address] [place] [address] Prothrombin Time February 20, 2020 3:45pm 11.6 Secconds 11.5-13.8 [facility], [address] [place] [address] INR International Normalized Ratio J josse 2019 3:45pm 0.90 0.87-1.14 Therapeutic Range: Prophylaxis - Thromb osis 2.0-3.0 Mechanical Heart Valves 2.5-3.5 Myocardial Infarction 2.0-3.0 [facility], [address] [address] Activated Partial Thromboplast Time February 20, 2020 3:45pm 22.7 Seconds 24.6-32.5 [facility], [address] [place] [address] Urine Color February 20, 2020 4:20pm Yellow Yellow [facility], [address] [place] [address] Urine Appearance February 20, 2020 4:20pm Clear Clear [facility], [address] [place] [address] Urine pH February 20, 2020 4:20pm 7.5 [facility], [address] [place] [address] Urine Specific Girard February 19 0 4:20pm 1.020 [facility], [address] [place] [address] Urine Protein February 20, 2020 4:20pm Negative Neg-Trace [facility], [address] [place] [address] Urine Glucose (UA) February 20, 2020 4:20pm Negative Negative [facility], [address] [place] [address] Urine Ketones February 20, 2020 4:20pm Negative Negative [facility], [address] [place] [address] Urine Blood February 20, 2020 4:20pm Negative Negative [facility], [address] [place] [address] Urine Nitrite February 20, 2020 4:20pm Negative Negative [facility], [address] [place] [address] Urine Bilirubin February 20, 2020 4:20pm Negative Negative [facility], [address] [place] [address] Urine Urobilinogen February 20, 2020 4:20pm 0.2 [facility], [address] [place] [address] Urine Leukocyte Esterase February 19 4:20pm Negative Negative [facility], [address] [place] [address] Urine Culture Indicated February 19 4:20pm Not Indicated No Culture Reflex Ordered.The specimen did not meet the following criteria OR contained >25 epithelials, indicating contamination. * Culture Criteria: * * * * Urinalysis Leukocyte 1+ or > * * Urinalysis Nitrates + * * Microscopic WBC 10 or > * * Microscopic Bacteria 2+ or > * * Microscopic Yeast 2+ or > * [facility], [address] [place] [address] Urinalysis Comment February 20, 2020 4:20pm See comment Asymptomatic bacteriuria should seldom if [...] is not a criterion for symptomatic UTI.Source: [facility] National Healthcare Safety Network Criteria for Defining UTI EventsTreatment [id number] line: Nitrofurantoin for 5 days; Bactrim DS for 3 [id number] line: Beta-lactams for 5 days; Cipro or Levaquin for 3 [place] Fluoroquinolones for severe infections or those with no alternative treatment options. Serious adverse effects outweigh benefits for patients with uncomplicated infections [facility], [address] [place] [address] Sodium Level February 20, 2020 3:45pm 140 mmol/L 135-150 [facility], [address] [place] [address] Potassium Level February 20, 2020 3:45pm 3.2 mmol/L 3.4-5.2 [facility], [address] [place] [address] Chloride Level February 20, 2020 3:45pm 102 mmol/L 100-112 [facility], [address] [place] [address] Carbon Dioxide Level February 20, 2020 3:45pm 24 mEq/L 18-30 [facility], [address] [place] [address] Anion Gap February 20, 2020 3:45pm 14 mmol/L 8-11 [facility], [address] [place] [address] Blood Urea Nitrogen February 20, 2020 3:45pm 10 mg/dL 5- [facility], [facility] [address] [place] [address] Creatinine February 20, 2020 3:45pm 0.72 mg/dL 0.60-1.30 [facility], [address] [facility] [address] Glomerular Filtration Rate Calc February 20, 2020 3:45pm > 60 mL/Min The GFR is not validated for use in drug dosing adjustments.Continue to use estimated creatinine clearance per dosingreference text.Chronic Kidney Disease is defined as either kidney damage ora GFR less than 60 ml/min that persists for at least 3months. Stage 3 = 30-59 ml/min Stage 4 = 15-29 ml/min Stage 5 = <15 ml/min [facility], [address] [facility] [address] Glucose Level February 20, 2020 3:45pm 125 mg/dL 70-99 [facility], [address] [place] [address] Lactic Acid Level February 20, 2020 3:45pm 1.8 mmol/L 0.4-2.0 [facility], [address] [place] [address] Calcium Level February 20, 2020 3:45pm 8.4 mg/dL 8.6-10.5 [facility], [address] [place] [address] Total Bilirubin February 20, 2020 3:45pm 0.2 mg/dL 0.0-1.2 [facility], [address] [place] [address] Aspartate Amino Transf (AST/SGOT) Ju 2019 3:45pm 12 U/L 6-37 [facility], [address] [place] [address] Alanine Aminotransferase (ALT/SGPT) February 20, 2020 3:45pm 26 U/L 12-78 [facility], [address] [place] [address] Total Protein February 20, 2020 3:45pm 6.2 g/dL 6.4-8.2 [facility], [address] [place] [address] Albumin February 20, 2020 3:45pm 3.4 g/dL 3.3-4.5 [facility], [address] [place] [address] Albumin/Globulin Ratio February 19 0 3:45pm 1.2 0.7-2.0 [facility], [address] [facility] [address] Alkaline Phosphatase February 20, 2020 3:45pm 101 U/L 50-136 [facility], [address] [facility] [address] Lipase February 20, 2020 3:45pm 28 U/L 8-78 [facility], [address] [facility] [address] Health Concerns Health Concerns may be documented in an alternate section. Advance Directives Advance Directive Response Recorded Date/Time Advance Directive on File? No September 15, 2019 10:49pm Chief Complaint and Reason for Visit Chief Complaint Abdominal pain Encounters Encounter Location(s) Ar rival/Admit Date Discharge/Depart Date Provider(s) Departed Emergency [facility] February 20, 2020 3:04pm February 20, 2020 5:15pm null Assessments No Assessments Information Available Family History Relationship Condition A ge at Onset Recorded Date/Time Unknown Family History U nknown February 20, 2020 3:23pm Functional Status No Functional Status information available Goals Acute Goals Problem: General Adult Complaint Goal: Establish baseline assessment. Return to [facility]'s. Plan: Refer to patient instructions provided. Immunizations No Immunization Information Available Mental Status No Mental Status Information Available Medical Equipment No Medical Equipment Information available Insurance Providers Guarantor Mignon Kirk Address [address] [place] [address] Contact Info. Home Phone: Payer Policy Id Coverage Id Subscriber's Name Subscriber Id Effective Date Expiration Date [facility] [id number] Mignon Kirk [id number] Self Pay Self N/A Plan of Treatment Future Tests Future scheduled test information is unavailable Pending Tests Pending diagnostic test information is unavailable Future Visits Future appointment information is unavailable Referrals to Other Providers Reason for Referral Referral Start Date Provider Provider Conta ct Information Provider Address Soham Soto Work Phone: [address] [place] [address] Soham Soto Work Phone: [address] [place] [address] Soham Soto Work Phone: [address] [place] [address]NONE CUELLO Preferably in the next 1 to 2 days Thom robles Email: [email or web address] Work Phone: [facility] [address] [place] [address] NONE NONE NONE NONE [facility] NONE [facility] NONE NONE [facility] NONE DRGorgeNONE DRGorgeNONE DRGorgeNONE DRGorgeNONE DRGorgeNONE DRGorgeNONE NONE NONE NONE OF [facility] DOCTOR M Prosper Soto Work Phone: [address] [place] [address] [facility] Charles Work Phone: [address] [place] [address] [facility] Work Phone: [address] [place] [address] [facility] Work Phone: [address] [place] [address] [facility] Work Phone: [address] [place] [address] [facility] DR.NONE DR.NONE Jude Talbert Work Phone: [facility] [address] [facility] [address] [address] C[address]O [facility] DR.NONE DR.NONE BALDWINNONE NONE Future Procedures Future procedure [...] Acute Nausea and Vomiting (ED) Colitis (ED) Social History Smoking Status Status Date of Observation Ex-smoker (finding) February 20, 2020 3 :09pm Observation Status Observation Response Lito e of Response Recent Travel No October 222019 9:32pm Recent Travel No ua2019 12:46am Recent Travel No uar y 2019 3:09pm Recent Travel No March 012018 5:19pm Recent Travel No October 192018 8:31pm Recent Travel No Februar 2018 1:15am Recent Travel No Decembe r 2017 10:32pm Recent Travel No Novembe r 2017 8:38am Recent Travel No June 18, 2018 6:34pm Recent Travel No June 03, 2018 9:05pm Recent Travel No February 072017 12:03pm quit date 11/05February 20, 2020 3:09pm second hand exposure Yes February 20, 2020 3:09pm housing house February 20, 2020 3:09pm household members family February 20, 2020 3:09pm children February 19 0 3:09pm service No February 20, 2020 3:09pm current occupational status employed February 20, 2020 3:09pm current occupational exposures/hazards No February 20, 2020 3:09pm Recent Travel No October 272019 8:08pm Recent Travel No October 242019 8:23pm Recent Travel No September 15, 2019 10:58pm Recent Travel No 2017 9:10pm Recent Travel No March 032017 3:48pm Recent Travel No December 10:32pm Assigned Sex Female Vital Signs Vital Reading Result Ref erence Range Collection Date/Time Height 64 [in_i] February 20, 2020 3:09pm Weight 250.00 [lb_av] February 20, 2020 3:09pm Body Temperature 96.4 [degF] 97.5-99.5 February 20, 2020 3:09pm Heart Rate 115 /min 60-90 February 20, 2020 3:09pm Respiratory rate 18 /min 12-February 20, 2020 3:09pm Oxygen saturation by Pulse oximetry 99 % 90- 100 February 20, 2020 3:09pm BP Systolic 139 mm[Hg] 1 00-160 February 20, 2020 3:09pm BP Diastolic 119 mm[Hg] 50-80 February 20, 2020 3:09pm BMI (Body Mass Index) 42.9 kg/m2 February 20, 2020 3:09pm
--- OUTSIDE RECORDS SUMMARY | 2020-03-20 22:47 | XMS REPORT | Continuity of Care Document ---
Author Author [facility] Address [address] [place] [address] Phone Care Team Providers Care Stock Pitcher Name Role Phone Shivani Cheng PCP Soham Guajardo Jr Rndphys Unavailable Allergies, Adverse Reactions, Alerts Allergen [...] 500 MG Oral Three Times a Day 21 November 14, 2019 10:47am Ciprofloxacin Hcl Active 500 MG Oral Twice a Day 14 November 14, 2019 10:48am Sulfamethoxazole-Trimethoprim Active 1 TAB Oral Twice a Day 14 February 05, 2020 8:4 2pm Problems Active Problems Medical Problem Onset Date [...] Procedure Date Performed Status CT abdomen pelvis wo con February 05, 2020 6:03pm completed Relevant Diagnostic Tests and/or Laboratory Data Laboratory Results Test Date/Time Result Interpretation Reference Range Result Comment Performing Site White Blood Count February 05, 2020 6:42pm 4.1 10^3/uL 4.5-11.0 [facility], [address] [place] [address] Red Blood Count February 05, 2020 6:42pm 3.77 10^6/uL 3.50-5.40 [facility], [address] [facility] [address] Hemoglobin February 05, 2020 6:42pm 9.3 g/dL 12.0-16.0 [facility], [address] [facility] [address] Hematocrit February 05, 2020 6:42pm 29.2 % 36-48 [facility], [address] [place] [address] Mean Corpuscular Volume February 04 6:42pm 77.5 fL 79-99 [facility], [address] [place], [place] [address]gabriella [facility] [address] Mean Corpuscular Hemoglobin January 6:42pm 24.6 pg 25.0-34.0 [facility], [address] [place], [place] [address]gabriella [facility] [address] Mean Corpuscular Hemoglobin Concent February 05, 2020 6:42pm 31.7 g/dL 31.0-36.0 [facility], [address] [place] [place] [address] Red Cell Distribution Width January 6:42pm 15.9 % 11.0-15.0 [facility], [address] [place], [place] [address]gabriella [facility] [address] Platelet Count February 05, 2020 6:42pm 256 10^3 uL 130-400 [facility], [address] [place], [place] [address]gabriella [facility] [address] Mean Platelet Volume February 05, 2020 6:42p m 7.6 fL 7.0-11.0 [facility], [address] gabriella [facility] [address] Neutrophils % (Manual) February 04 6:42pm 78.0 % 50-65 [facility], [address] [place], [place] [address]gabriella [facility] [address] Band Neutrophils % (Manual) January 6:42pm 3.0 % 0-10 [facility], [address] [facility]ya [facility] [address] Lymphocytes % (Manual) February 04 6:42pm 10.0 % 15-45 [facility], [address] [facility] Priya greer [facility] [address] Monocytes % (Manual) February 05, 2020 6:42p m 8.0 % 0-10 [facility], [address] [place] [address] Eosinophils % (Manual) February 04 6:42pm 1.0 % 0-5 [facility], [facility]. [address] [place] [address] Neutrophils # (Manual) February 04 6:42pm 3.3 # 1.0-8.0 [facility], [facility]. [address] [place] [address] Lymphocytes # (Manual) February 04 6:42pm 0.4 # 1.0-3.0 [facility], [facility]. [address] [place] [address] Monocytes # (Manual) February 05, 2020 6:42p m 0.3 # 0.0-1.0 [facility], [facility]. [address] [place] [address] Eosinophils # (Manual) February 04 6:42pm 0.0 # 0.0-0.4 [facility], [address] [place] [address] Hypochromasia February 05, 2020 6:42pm 1+ [facility], [address] [place] [address] Anisocytosis February 05, 2020 6:42pm 1+ [facility], [address] [place] [address] Microcytosis February 05, 2020 6:42pm 1+ [facility], [address] [place] [address] Urine Color February 05, 2020 7:00pm Yellow Yellow [facility], [address] [place] [address] Urine Appearance February 05, 2020 7:00pm Clear Clear [facility], [address] [place] [address] Urine pH February 05, 2020 7:00pm 7.5 [facility], [address] [place] [address] Urine Specific Anthony February 04 7:00pm 1.015 [facility], [address] [place] [address] Urine Protein February 05, 2020 7:00pm Negative Neg-Trace [facility], [address] [place] [address] Urine Glucose (UA) February 05, 2020 7:00pm Negative Negative [facility], [address] [place] [address] 42781 Urine Ketones February 05, 2020 7:00pm Negative Negative [facility], [address] [place] [address] 38305 Urine Blood February 05, 2020 7:00pm Negative Negative [facility], [address] [place] [address] 64448 Urine Nitrite February 05, 2020 7:00pm Negative Negative [facility], [address] [place] [address]67[address] Urine Bilirubin February 05, 2020 7:00pm Negative Negative [facility], [address] [place] [address] 09783 Urine Urobilinogen February 05, 2020 7:00pm 0.2 [facility], [address] [place] [address] 46890 Urine Leukocyte Esterase February 05, 2020 7:00pm 1+ Negative [facility], [address] [place] [address] 07710 Urine RBC February 05, 2020 7:00pm 0-2 [facility], [address] [place] [address] 29569 Urine WBC February 05, 2020 7:00pm 10-25 [facility], [address] [place] [address] 01182 Urine Squamous Epithelial Cells February 05, 2020 7:00pm 5-10 [facility], [address] [place] [address] 80907 Urine Culture Indicated February 04 020 7:00pm Culture Set Culture Reflex OrderedThe specimen met the following criteria, and aUrine Culture has been ordered. * Culture Criteria: * * * * Urinalysis Leukocyte 1+ or > * * Urinalysis Nitrates + * * Microscopic WBC 10 or > * * Microscopic Bacteria 2+ or > * * Microscopic Yeast 2+ or > * [facility], [address] [place] [address] Urinalysis Comment February 05, 2020 7:00pm See comment Asymptomatic bacteriuria should seldom if [...] is not a criterion for symptomatic UTI.Source: [facility] National Healthcare Safety Network Criteria for Defining UTI EventsTreatment [id number] line: Nitrofurantoin for 5 days; Bactrim DS for 3 asse6sf line: Beta-lactams for 5 days; Cipro or Levaquin for 3 daysNicolaus Fluoroquinolones for severe infections or those with no alternative treatment options. Serious adverse effects outweigh benefits for patients with uncomplicated infections [facility], [address] [place] [address] Sodium Level February 05, 2020 6:42pm 141 mmol/L 135-150 [facility], [facility] [address] [place] [address] Potassium Level February 05, 2020 6:42pm 3.5 mmol/L 3.4-5.2 [facility], [facility] [address] [place] [address] Chloride Level February 05, 2020 6:42pm 105 mmol/L 100-112 [facility], [facility] [address] [facility] [address] Carbon Dioxide Level February 05, 2020 6:42p m 24 mEq/L 18-30 [facility], [facility] [address] [place] [address] 60807 Anion Gap February 05, 2020 6:42pm 12 mmol/L 8-11 [facility], [address] [place] [address]697 Blood Urea Nitrogen February 05, 2020 6:42pm 9 mg/dL 5-21 [facility], [address] [place] [address] Creatinine February 05, 2020 6:42pm 0.67 mg/dL 0.60-1.30 [facility], [address] [place] [address] 99929 Glomerular Filtration Rate Calc February 05, 2020 6:42pm > 60 mL/Min The GFR is not validated for use in drug dosing adjustments.Continue to use estimated creatinine clearance per dosingreference text.Chronic Kidney Disease is defined as either kidney damage ora GFR less than 60 ml/min that persists for at least 3months. Stage 3 = 30-59 ml/min Stage 4 = 15-29 ml/min Stage 5 = <15 ml/min [facility], [address] [place] [place] [address] 19621 Glucose Level February 05, 2020 6:42pm 112 mg/dL 70-99 [facility], [address] [place] [address] 51667 Calcium Level February 05, 2020 6:42pm 9.0 mg/dL 8.6-10.5 [facility], [address] [place] [address] 42508 Total Bilirubin February 05, 2020 6:42pm 0.3 mg/dL 0.0-1.2 [facility], [address] [place] [address] 09587 Aspartate Amino Transf (AST/SGOT) Ju 2019 6:42pm 19 U/L 6-37 [facility], [address] [place] [address] 64826 Alanine Aminotransferase (ALT/SGPT) February 05, 2020 6:42pm 17 U/L 12-78 [facility], [address] [place] [place] [address] 21455 Total Protein February 05, 2020 6:42pm 6.4 g/dL 6.4-8.2 [facility], [address] [place] [address] Albumin February 05, 2020 6:42pm 3.5 g/dL 3.3-4.5 [facility], [address] [facility] [address] Albumin/Globulin Ratio February 04 6:42pm 1.2 0.7-2.0 [facility] [address] [facility] [address] Alkaline Phosphatase February 05, 2020 6:42p m 94 U/L 50-136 [place] [address] [facility] [address] Health Concerns Health Concerns may be documented in an alternate section. Advance Directives Advance Directive Response Recorded Date/Time Advance Directive on File? No September 15, 2019 10:49pm Chief Complaint and Reason for Visit Chief Complaint vomiting Encounters Encounter Location(s) [facility]/Admit Date Discharge/Depart Date Provider(s) Departed Emergency [facility] February 05, 2020 5:47pm February 04 9:25pm null Assessments No Assessments Information Available Family History Relationship Condition A ge at Onset Recorded Date/Time Unknown Family History U nknown February 05, 2020 6:14pm Functional Status No Functional Status information available Goals Acute Goals Problem: Abdominal Pain Goal: Relief of abdominal pain Plan: Refer to patient instructions provided. Immunizations No Immunization Information Available Mental Status No Mental Status Information Available Medical Equipment No Medical Equipment Information available Insurance Providers Guarantor Mignon Kirk Address [address] [address] Contact Info. Home Phone: Payer Policy Id Coverage Id Subscriber's Name Subscriber Id Effective Date Expiration Date [facility] [id number] Mignon Kirk [id number] Self Pay Self N/A Plan of Treatment Future Tests Future scheduled test information is unavailable Pending Tests Pending diagnostic test information is unavailable Future Visits Future appointment information is unavailable Referrals to Other Providers Reason for Referral Referral Start Date Provider Provider John ct Information Provider Address Soham Soto Work Phone: [address] [place] [address] Prosper Soto Work Phone: [address] [place] [address] Prosper Soto Work Phone: [address] [place] [address] NONE Preferably in the next 1 to 2 days Thom navarrotrista Email: [email or web address] Work Phone: [facility] [address] [place] [address] NONE NONE NONE NONE [facility] NONE NONE Count Includes [facility] NONE NONE Count Includes [facility] DRGorgeNONE DRGorgeNONE DRGorgeNONE DRGorgeNONE DRGorgeNONE DRGorgeNONE NONE NONE NONE NONE OF [facility] DOCTOR Prosper Soto Work Phone: [address] [place] [address] [facility] Work Phone: [address] [place] [address] [facility] Work Phone: [address] [place] [address] [facility] Work Phone: [address] [place] [address] Count Includes [facility] NONE NONE Jude Talbert Work Phone: [facility] [address] [facility] [address] [address]NONE CUELLO Count Includes [facility] NONE NONE NONE NONE Future Procedures [...] Women (ED) Acute Nausea and Vomiting (ED) Social History Smoking Status Status Date of Observation Ex-smoker (finding) February 05, 2020 6:02pm Observation Status Observation Response Lito e of Response quit date 11/05 6:02pm second hand exposure Yes February 05, 2020 6:02pm housing house February 05, 2020 6:02pm household members family February 05, 2020 6:02pm children February 04 6:02pm service No February 05, 2020 6:02pm current occupational status employed February 05, 2020 6:02pm current occupational exposures/hazards No February 05, 2020 6:02pm Recent Travel No October 222019 9:32pm Recent Travel No 2019 12:46am Recent Travel No [email or web address] 3:09pm Recent Travel No March 012018 5:19pm Recent Travel No October 192018 8:31pm Recent Travel No uar y 2018 1:15am Recent Travel No Decemb r 2017 10:32pm Recent Travel No 2017 8:38am Recent Travel No June 18, [...] Range Collection Date/Time Height 64 [in_i] February 05, 2020 5:56pm Weight 250.00 [lb_av] February 05, 2020 5:56pm Body Temperature 98.1 [degF] 97.5-99.5 February 05, 2020 5:55pm Heart Rate 95 /min 60-90 February 05, 2020 9:01pm Respiratory rate 13 /min 12-20 February 05, 2020 9:01pm Oxygen saturation by Pulse oximetry 96 % 90- 100 February 05, 2020 9:01pm BP Systolic 158 mm[Hg] 1 00-160 February 05, 2020 9:01pm BP Diastolic 111 mm[Hg] 50-80 February 05, 2020 9:01pm BMI (Body Mass Index) 42.9 kg/m2 February 05, 2020 5:56pm Hospital Discharge Instructions Additional Instructions bactrim ds 2x daily for 1 week follow up with your primary physician
--- OUTSIDE RECORDS SUMMARY | 2020-03-20 22:47 | XMS REPORT | Continuity of Care Document ---
Author Author [facility] Address [address] [place] [address] Phone Care Team Providers Care Founder And President Name Role Phone Shivani Cheng PCP Fred [...] Performed Status Blood Culture February 20, 2020 completed Relevant Diagnostic Tests and/or Laboratory Data Laboratory Results Test Date/Time Result Interpretation Reference Range Result Comment Performing Site White Blood Count February 26, 2020 1:01pm 5.4 10^3/uL 4.5-11.0 [place] [address] [facility] [address] White Blood Count February 20, 2020 3:45pm 5.9 10^3/uL 4.5-11.0 [facility] [address] [facility] [address] Red Blood Count February 26, 2020 1:01pm 4.17 10^6/uL 3.50-5.40 [facility], [address] [facility] 8[address]48 Red Blood Count February 20, 2020 3:45pm 3.82 10^6/uL 3.50-5.40 [place] [address] [facility] 65[address] Hemoglobin February 26, 2020 1:01pm 9.9 g/dL 12.0-16.0 [facility], [address] [facility] percy [facility] [address] Hemoglobin February 20, 2020 3:45pm 9.0 g/dL 12.0-16.0 [facility], [address] gabriella greer [facility] [address] Hematocrit February 20, 2020 3:45pm 29.5 % 36-48 [facility], [address] [place] [address] Hematocrit February 26, 2020 1:01pm 31.8 % 36-48 [facility], [address] [place] [address] 41828 Mean Corpuscular Volume February 19 3:45pm 77.2 fL 79-99 [facility], [address] [place] [address] Mean Corpuscular Volume February 25 1:01pm 76.2 fL 79-99 [facility], [address] [facility] [address] Mean Corpuscular Hemoglobin February 1:01pm 23.8 pg 25.0-34.0 [facility], [address] [facility] [address] Mean Corpuscular Hemoglobin February 3:45pm 23.7 pg 25.0-34.0 [facility], [address] [place] [address] [facility] [address] Mean Corpuscular Hemoglobin Concent February 26, 2020 1:01pm 31.2 g/dL 31.0-36.0 [facility], [address] [place] [address] 90756 Mean Corpuscular Hemoglobin Concent February 20, 2020 3:45pm 30.7 g/dL 31.0-36.0 [facility], [address] [place] [address] 64265 Red Cell Distribution Width February 1:01pm 16.3 % 11.0-15.0 [facility], [address] [facility] [address] Red Cell Distribution Width February 3:45pm 15.9 % 11.0-15.0 [facility], [address] [place] [address] [facility] [address] Platelet Count February 26, 2020 1:01pm 269 10^3 uL 130-400 [facility], [address] [facility] [address] Platelet Count February 20, 2020 3:45pm 253 10^3 uL 130-400 [facility], [address] [place] [address] Mean Platelet Volume February 26, 2020 1:01pm 7.6 fL 7.0-11.0 [facility], [address] [place] [address] Mean Platelet Volume February 20, 2020 3:45pm 7.6 fL 7.0-11.0 [facility], [address] [place] [address] Neutrophils % (Manual) February 25 0 1:01pm 85.0 % 50-65 [facility], [address] [facility] [address] Neutrophils % (Manual) February 19 0 3:45pm 80.0 % 50-65 [facility], [address] [facility] [address] Lymphocytes % (Manual) February 25 0 1:01pm 10.0 % 15-45 [facility], [address] [place] [address] Lymphocytes % (Manual) February 19 0 3:45pm 11.0 % 15-45 [facility], [address] [facility] [address] Monocytes % (Manual) February 20, 2020 3:45pm 8.0 % 0-10 [facility], [address] [facility] [address] Monocytes % (Manual) February 26, 2020 1:01pm 4.0 % 0-10 [facility], [address] [place] [address] Eosinophils % (Manual) February 25 0 1:01pm 1.0 % 0-5 [facility], [address] [place] [address] Metamyelocytes % (manual) February 20, 2020 3:45pm 1.0 % >0 [facility], [address] [facility] [address] Neutrophils # (Manual) February 25 0 1:01pm 4.6 # 1.0-8.0 [facility], [address] [facility] 7[address] Neutrophils # (Manual) February 19 0 3:45pm 4.8 # 1.0-8.0 [facility], [address] [place] [address] Lymphocytes # (Manual) February 19 0 3:45pm 0.6 # 1.0-3.0 [facility], [address] [facility] 212[address] Lymphocytes # (Manual) February 25 0 1:01pm 0.5 # 1.0-3.0 [facility], [address] [facility] [address] Monocytes # (Manual) February 20, 2020 3:45pm 0.5 # 0.0-1.0 [facility], [address] [place] [address] Monocytes # (Manual) February 26, 2020 1:01pm 0.2 # 0.0-1.0 [facility], [address] [place] [address] 22467 Eosinophils # (Manual) February 25 0 1:01pm 0.1 # 0.0-0.4 [facility], [address] [facility] 401[address] Hypochromasia February 20, 2020 3:45pm 3+ [facility], [facility] [address] [place] [address] Anisocytosis February 20, 2020 3:45pm 1+ [facility], [facility]. [address] [place] [address] Anisocytosis February 26, 2020 1:01pm 1+ [facility], [address] [place] [address] 216[address] Microcytosis February 20, 2020 3:45pm 1+ [facility]. [address] [place] [address] Prothrombin Time February 26, 2020 1:01pm 11.5 Secconds 11.5-13.8 [facility], [address] [place] [address] Prothrombin Time February 20, 2020 3:45pm 11.6 Secconds 11.5-13.8 [facility], [address] [place] [address] 59086 INR International Normalized Ratio J josse 2019 3:45pm 0.90 0.87-1.14 Therapeutic Range: Prophylaxis - Thromb osis 2.0-3.0 Mechanical Heart Valves 2.5-3.5 Myocardial Infarction 2.0-3.0 [facility], [address] [place] [address] 87698 INR International Normalized Ratio J josse 2019 1:01pm 0.89 0.87-1.14 Therapeutic Range: Prophylaxis - Thromb osis 2.0-3.0 Mechanical Heart Valves 2.5-3.5 Myocardial Infarction 2.0-3.0 [facility], [address] [place] [address] 28864 Activated Partial Thromboplast Time February 20, 2020 3:45pm 22.7 Seconds 24.6-32.5 [facility], [address] [place] [address] 61052 Activated Partial Thromboplast Time February 26, 2020 1:01pm 22.1 Seconds 24.6-32.5 [facility], [address] [place] [address] 08064 Urine Color February 20, 2020 4:20pm Yellow Yellow [facility], [address] [place] [address]2007 Urine Appearance February 20, 2020 4:20pm Clear Clear [facility], [address] [place] [address] 14789 Urine pH February 20, 2020 4:20pm 7.5 [facility], [address] [place] [address]77 Urine Specific [place] February 19 0 4:20pm 1.020 [facility], [address] [place] [address] 8[address]25 Urine Protein February 20, 2020 4:20pm Negative Neg-Trace [facility], [address] [place] [address] 42373 Urine Glucose (UA) February 20, 2020 4:20pm Negative Negative [facility], [address] [place] [address] 38337 Urine Ketones February 20, 2020 4:20pm Negative Negative [facility], [address] [place] [address] 74795 Urine Blood February 20, 2020 4:20pm Negative Negative [facility], [address] [place] [address] 85842 Urine Nitrite February 20, 2020 4:20pm Negative Negative [facility], [address] [place] [address] 58581 Urine Bilirubin February 20, 2020 4:20pm Negative Negative [facility], [address] [facility] 19853 Urine Urobilinogen February 20, 2020 4:20pm 0.2 [facility], [address] [place] [address] 42090 Urine Leukocyte Esterase February 19 020 4:20pm Negative Negative [facility], [address] [facility] [address] Urine Culture Indicated February 19 4:20pm Not [...] * Microscopic Yeast 2+ or > * [facility], [address] [place] [address] 8[address]31 Urinalysis Comment February 20, 2020 4:20pm See [...] is not a criterion for symptomatic UTI.Source: [facility] National Healthcare Safety Network Criteria for Defining UTI EventsTreatment [id number] line: Nitrofurantoin for 5 days; Bactrim DS for 3 isgr0dd line: Beta-lactams for 5 days; Cipro or Levaquin for 3 daysElwood Fluoroquinolones for severe infections or those with no alternative treatment options. Serious adverse effects outweigh benefits for patients with uncomplicated infections [facility], [address] [facility] [address] Sodium Level February 26, 2020 1:01pm 141 mmol/L 135-150 [facility], [address] [facility] [address]270 Sodium Level February 20, 2020 3:45pm 140 mmol/L 135-150 [facility], [address] [place] [address] 9[address] Potassium Level February 20, 2020 3:45pm 3.2 mmol/L 3.4-5.2 [facility], [address] [facility] 54662 Potassium Level February 26, 2020 1:01pm 3.4 mmol/L 3.4-5.2 [facility], [address] [facility] 39628 Chloride Level February 26, 2020 1:01pm 105 mmol/L 100-112 [facility], [address] [facility] 16443 Chloride Level February 20, 2020 3:45pm 102 mmol/L 100-112 [facility], [address] [facility] 74586 Carbon Dioxide Level February 26, 2020 1:01pm 25 mEq/L 18-30 [facility], [address] [facility] 98327 Carbon Dioxide Level February 20, 2020 3:45pm 24 mEq/L 18-30 [facility], [address] [facility] 36134 Anion Gap February 20, 2020 3:45pm 14 mmol/L 8-11 [facility], [address] [place] [address] 75657 Anion Gap February 26, 2020 1:01pm 11 mmol/L 8-11 [facility], [address] [facility] [address] Blood Urea Nitrogen February 20, 2020 3:45pm 10 mg/dL 5- [facility], [address] [facility] 13194 Blood Urea Nitrogen February 26, 2020 1:01pm 7 mg/dL 01-08 [facility], [address] [facility] 57570 Creatinine February 20, 2020 3:45pm 0.72 mg/dL 0.60-1.30 [facility], [address] [facility] 61965 Creatinine February 26, 2020 1:01pm 0.74 mg/dL 0.60-1.30 [facility], [address] [facility] 12197 Glomerular Filtration Rate Calc February 26, 2020 1:01pm > 60 mL/Min The GFR is not validated for use in drug dosing adjustments.Continue to use estimated creatinine clearance per dosingreference text.Chronic Kidney Disease is defined as either kidney damage ora GFR less than 60 ml/min that persists for at least 3months. Stage 3 = 30-59 ml/min Stage 4 = 15-29 ml/min Stage 5 = <15 ml/min [facility], [address] [facility] [address] Glomerular Filtration Rate Calc February 20, 2020 [...] 15-29 ml/min Stage 5 = <15 ml/min [facility], [address] [facility] [address] Glucose Level February 26, 2020 1:01pm 133 mg/dL 70-99 [facility], [address] [facility] 75593 Glucose Level February 20, 2020 3:45pm 125 mg/dL 70-99 [facility], [address] [place] [address] 68891 Lactic Acid Level February 20, 2020 3:45pm 1.8 mmol/L 0.4-2.0 [facility], [address] [facility] 75603 Calcium Level February 20, 2020 3:45pm 8.4 mg/dL 8.6-10.5 [facility], [address] [place] [address] 17792 Calcium Level February 26, 2020 1:01pm 9.0 mg/dL 8.6-10.5 [facility], [address] [place] [address] 88921 Total Bilirubin February 26, 2020 1:01pm 0.3 mg/dL 0.0-1.2 [facility], [address] [place] [address] 03882 Total Bilirubin February 20, 2020 3:45pm 0.2 mg/dL 0.0-1.2 [facility], [address] [place] [address] 19436 Aspartate Amino Transf (AST/SGOT) Ju ly 2019 3:45pm 12 U/L 6-37 [facility], [address] [place] [address] 82662 Aspartate Amino Transf (AST/SGOT) Ju ly 2019 1:01pm 12 U/L [facility], [address] [place] [address] 86019 Alanine Aminotransferase (ALT/SGPT) February 20, 2020 3:45pm 26 U/L [facility], [address] [place] [address] 02999 Alanine Aminotransferase (ALT/SGPT) February 26, 2020 1:01pm 23 U/L [facility], [address] [place] [address] 69769 Total Protein February 20, 2020 3:45pm 6.2 g/dL 6.4-8.2 [facility], [address] [place] [address] 14121 Total Protein February 26, 2020 1:01pm 6.7 g/dL 6.4-8.2 [facility], [address] [place] [address] 70868 Albumin February 20, 2020 3:45pm 3.4 g/dL 3.3-4.5 [facility], [address] [place] [address] 19296 Albumin February 26, 2020 1:01pm 3.7 g/dL 3.3-4.5 [facility], [address] [place] [address] 84210 Albumin/Globulin Ratio February 19 0 3:45pm 1.2 0.7-2.0 [facility], [address] [place] [address] 82676 Albumin/Globulin Ratio February 25 0 1:01pm 1.2 0.7-2.0 [facility], [address] [facility] 21995 Alkaline Phosphatase February 26, 2020 1:01pm 101 U/L 50-136 [facility], [address] [facility] 16978 Alkaline Phosphatase February 20, 2020 3:45pm 101 U/L 50-136 [facility], [address] [place] [address] 21421 Lipase February 26, 2020 1:01pm 25 U/L 8-78 N [facility], [address] [place] [address] 08594 Lipase February 20, 2020 3:45pm 28 U/L 8-78 N [facility], [address] [place] [address] 97408 Microbiology Results Procedure Source Result Collection Date/Time Result Date/Time Result Comment Performing Site Blood Culture Blood Bloo d cultures are monitored every 10 minutes. February 20, 2020 3:51pm February 25, 2020 3:51pm [facility], [address] [place] [address]87 Health Concerns Health Concerns may be documented in an alternate section. Advance Directives Advance Directive Response Recorded Date/Time Advance Directive on File? No September 15, 2019 10:49pm Chief Complaint and Reason for Visit Chief Complaint Abdominal pain Abdominal pain Encounters Encounter Location(s) Ar rival/Admit Date Discharge/Depart Date Provider(s) Departed Emergency [facility] February 20, 2020 3:04pm February 20, 2020 5:15pm null Departed Emergency [facility] February 26, 2020 12:51pm February 25 0 2:36pm null Assessments No Assessments Information Available Family History Relationship Condition A ge at Onset Recorded Date/Time Unknown Family History U nknown February 26, 2020 1:20pm Functional Status No Functional Status information available Goals Acute Goals Problem: General Adult Complaint Goal: Establish baseline assessment. Return to ADL's. Plan: Refer to patient instructions provided. Problem: Abdominal Pain Goal: Relief of abdominal pain Plan: Refer to patient instructions provided. Immunizations No Immunization Information Available Mental Status No Mental Status Information Available Medical Equipment No Medical Equipment Information available Insurance Providers Guarantor Mignon Kirk Address [address] [address] Contact Info. Home Phone: Payer Policy Id Coverage Id Subscriber's Name Subscriber Id Effective Date Expiration Date Jena [id number] Mignon Kirk [id number] Self Pay Self N/A Plan of Treatment Future Tests Future scheduled test information is unavailable Pending Tests Pending diagnostic test information is unavailable Future Visits Future appointment information is unavailable Referrals to Other Providers Reason for Referral Referral Start Date Provider Provider John ct Information Provider Address M Prosper Soto Work Phone: [address] [place] [address] Prosper Soto Work Phone: [address] [place] [address]20 Prosper Soto Work Phone: [address] [place] [address] Prosper Soto Work Phone: [address] [place] [address]NONE Preferably in the next 1 to 2 days Thom robles Email: [email or web address] Work Phone: [facility] [address] [address] [place] [address]NONE [address].NONE [facility] DR.NONE DR.NONE [facility] DR.NONE DR.NONE [facility] DR.NONE DR.NONE DR.NONE DR.NONE DR.NONE DR.NONE DR.NONE DR.NONE DR.NONE DR.NONE [facility] Soham Soto Work Phone: [address] [place] [address] Prosper Soto Work Phone: [address] [place] [address] Prosper Soto Work Phone: [address] [place] [address] Prosper Soto Work Phone: [address] [place] [address] Prosper Soto Work Phone: [address] [facility] [address] [facility] DR.NONE DR.NONE Jude Talbert Work Phone: [facility] [address] [place] [facility] [address] [address] CUELLO [facility] DR.NONE DR.NONE DR.NONE CUELLO Future Procedures [...] Status Date of Observation Ex-smoker (finding) February 26, 2020 1 2:56pm Observation Status Observation Response Lito e of Response quit date 11/05February 26, 2020 12:56pm second hand exposure Yes February 26, 2020 12:56pm housing house February 26, 2020 12:56pm household members family February 26, 2020 12:56pm children February 25 0 12:56pm service No February 26, 2020 12:56pm current occupational status employed February 26, 2020 12:56pm current occupational exposures/hazards No February 26, 2020 12:56pm Recent Travel No October 222019 9:32pm Recent Travel No uar 2019 12:46am Recent Travel No uar y 2019 3:09pm Recent Travel No March 012018 5:19pm Recent Travel No October 192018 8:31pm Recent Travel No uar 2018 1:15am Recent Travel No Decembe r [...] 20, 2020 3:09pm Respiratory rate 18 /min 08-09February 20, 2020 3:09pm Oxygen saturation by Pulse oximetry 99 % 90- 100 February 20, 2020 3:09pm BP Systolic 139 mm[Hg] 1 00-160 February 20, 2020 3:09pm BP Diastolic 119 mm[Hg] 50-80 February 20, 2020 3:09pm BMI (Body Mass Index) 42.9 kg/m2 February 20, 2020 3:09pm Height 64 [in_i] February 26, 2020 12:55pm Weight 250.00 [lb_av] February 26, 2020 12:55pm Body Temperature 97.7 [degF] 97.5-99.5 February 26, 2020 12:57pm Heart Rate 112 /min 60-90 February 26, 2020 12:57pm Respiratory rate 18 /min 12-February 26, 2020 12:57pm Oxygen saturation by Pulse oximetry 98 % 90- 100 February 26, 2020 2:31pm BP Systolic 145 mm[Hg] 1 00-160 February 26, 2020 2:30pm BP Diastolic 104 mm[Hg] 50-80 February 26, 2020 2:30pm BMI (Body Mass Index) 42.9 kg/m2 February 26, 2020 12:55pm
--- OUTSIDE RECORDS SUMMARY | 2020-03-20 22:50 | XMS REPORT | Continuity of Care Document ---
Author Author [facility] Organization [facility] Address [address] [place] [address] Phone Support Name Relationship Address Phone Kirsten García PRS KENN Mendoza [address] [address] PRS [address] [place] [address] Allergies, Adverse Reactions, Alerts Allergen Type Severity Reaction Last Updated Verified Status cephalexin Allergy Rash February 15, 2020 12:52am Yes Active ketorolac Allergy Hives February 15, 2020 12:52am Yes Active prochlorperazine Adverse Reaction Palpitations February 15, 2020 12:52am Yes Active Medications Medication Status Dose Units [...] 24, 2019 8:24am October 27, 2019 9:05am Prednisone Active 20 MG THREE TIMES A DAY 10 February 15, 2020 3:17am Sulfasalazine Active 500 MG Q6H May 05, [...] d 100 MG TWICE A DAY 14 7 September 26, 2019 4:02pm October 27, 2019 [...] Resolve d Abdominal pain Resolve d Procedures Procedure Date Performed Status Abdomen 1V February 15, 2020 1:00am active Relevant Diagnostic Tests and/or Laboratory Data Laboratory Results Test Date/Time Result Interpretation Reference Range Result Comment Performing Site White Blood Count February 15, 2020 1:10am 5.4 K/uL 4.8-10.8 [facility], [address] [facility] [address] Red Blood Count February 15, 2020 1:10am 3.94 M/uL 4.20-5.40 [facility], [address] [facility] [address] Hemoglobin February 15, 2020 1:10am 9.7 gm/dL 12.0-16.0 [facility], [address] [facility] [address] Hematocrit February 15, 2020 1:10am 30.7 % 37.0-47.0 [facility], [address] [facility] [address] Mean Corpuscular Volume February 14 020 1:10am 77.8 fL 81.0-99.0 [facility], [address] [facility] [address] Mean Corpuscular Hemoglobin January 1:10am 24.6 pg 27.0-31.0 [facility], [address] [facility] [address] Mean Corpuscular Hemoglobin Concent February 15, 2020 1:10am 31.5 g/dL 30.0-37.0 [facility], [address] [facility] [address] Red Cell Distribution Width January 1:10am 17.1 % 11.5-14.5 [facility], [address] [facility] [address] Platelet Count February 15, 2020 1:10am 229 K/uL 130-400 [facility], [address] [facility] [address] Neutrophils (%) (Auto) February 14 1:10am 91.7 % 42.2-75.2 [facility], [address] [facility] [address] Lymphocytes (%) (Auto) February 14 1:10am 5.6 % 20.5-51.1 [facility], [address] [facility] [address] Monocytes (%) (Auto) February 15, 2020 1:10a m 1.9 % 0.0-10.0 [facility], [address] [facility] [address] Eosinophils (%) (Auto) February 14 1:10am 0.5 % 0.0-3.0 [facility], [address] [facility] [address] Basophils (%) (Auto) February 15, 2020 1:10a m 0.3 % 0.0-1.0 [facility], [address] [place] [address] Neutrophils # (Auto) February 15, 2020 1:10a m 5.0 K/uL 2.0-6.9 [facility], [address] [place] [address] Lymphocytes # (Auto) February 15, 2020 1:10a m 0.3 K/uL 1.2-3.4 [facility], [address] [place] [address] Monocytes # (Auto) February 15, 2020 1:10am 0.1 K/ul 0.1-0.6 [facility], [address] [place] [address] Eosinophils # (Auto) February 15, 2020 1:10a m 0.0 K/uL 0.0-0.7 [facility], [address] [place] [address] Basophils # (Auto) February 15, 2020 1:10am 0.0 K/ul 0.0-0.20 [facility], [address] [facility] [address] Sodium Level February 15, 2020 1:10am 141 mEq/L 136-145 [facility], [address] [facility] [address] Potassium Level February 15, 2020 1:10am 3.9 mEq/L 3.5-5.0 [facility], [address] [facility] [address] Chloride Level February 15, 2020 1:10am 105 mEq/L 98-107 [facility], [address] [facility] [address] Carbon Dioxide Level February 15, 2020 1:10a m 25.0 mEq/L 21-32 [facility], [address] [facility] [address] Random Glucose February 15, 2020 1:10am 268 mg/dL 70-110 [facility], [address] [facility] [address] Blood Urea Nitrogen February 15, 2020 1:10am 10 mg/dL 7-18 [facility], [address] [facility] [address] Creatinine February 15, 2020 1:10am 1.0 mg/dL 0.6-1.0 [facility], [address] [facility] [address] Glomerular Filtration Rate Calc February 15, 2020 1:10am 58.7 mL/min [facility], [address] [facility] [address] Calcium Level February 15, 2020 1:10am 8.8 mg/dL 8.8-10.5 [facility], [address] [facility] [address] Total Bilirubin February 15, 2020 1:10am 0.20 mg/dL 0.00-1.00 [facility], [address] [facility] [address] Aspartate Amino Transf (AST/SGOT) Ju 2019 1:10am 13 U/L 15-37 [facility], [address] [place] [address] Alanine Aminotransferase (ALT/SGPT) February 15, 2020 1:10am 31 U/L 12-78 [facility], [address] [place] [address] Total Protein February 15, 2020 1:10am 7.1 gm/dL 6.4-8.2 [facility], [address] [facility] [address] Albumin February 15, 2020 1:10am 3.6 gm/dL 3.4-5.0 [facility], [address] [place] [address] Alkaline Phosphatase February 15, 2020 1:10a m 99 U/L 50-136 [facility], [address] [place] [address] Health Concerns Health Concerns may be documented in an alternate section. Advance Directives Advance Directive Response Recorded Date/Time Does the patient have an Advance Directive on File? No July 27, 2019 9:08pm Do you have a Medical Power of Upstairs Maid? N o July 27, 2019 9:08pm Do you have a Health Care Proxy? No July 27, 2019 9:08pm Do you have a Living Will? No July 27, 2019 9:08pm Encounters Encounter Location(s) Ar rival/Admit Date Discharge/Depart Date Provider(s) Departed Emergency [facility] Department February 15, 2020 12:38am February 15, 2020 3:48am null Assessments No Assessments Information Available Functional Status No Functional Status information available Goals Goals may be documented in an alternate section. Immunizations No Immunization Information Available Mental Status No Mental Status Information Available Medical Equipment No Medical Equipment Information available Insurance Providers Guarantor Mignon Soham Kirk Address [address] [address] Contact Info. Home Phone: Payer Policy Id Coverage Id Subscriber's Name Subscriber Id Effective Date Expiration Date [employer] Other [id number] Mignon Reagan [id number] Self Pay Self N/A Plan of Treatment Future Tests Future scheduled test information is unavailable Pending Tests Pending diagnostic test information is unavailable Future Visits Future appointment information is unavailable Referrals to Other Providers Referral information is unavailable Future Procedures Future procedure information is unavailable Future Medications Future medication information is unavailable Patient Instructions Ulcerative Colitis (ED) Social History Smoking Status Status Date of Observation Unknown if ever smoked February 14 3:17am Observation Status Observation Response Lito e of Response Smoking Status Former Smoker February 15, 2020 3:17am Exposure to Secondhand Smoke No February 15, 2020 3:17am Alcohol Use Occasionally February 15, 2020 3:17am Illicit Drug Use No February 15, 2020 3:17am Assigned Sex Female Vital Signs Vital Reading Result Ref erence Range Collection Date/Time Height 61 [in_i] February 15, 2020 12:38am Weight 113.39 kg February 15, 2020 12:38am Body Temperature 98.1 [degF] 97.5-100.3 February 15, 2020 3:32am Heart Rate 100 /min 60-1 00 February 15, 2020 3:32am Respiratory rate 16 /min 12-20 February 15, 2020 3:32am Oxygen saturation by Pulse oximetry 96 % 95- 100 February 15, 2020 3:32am BP Systolic 168 mm[Hg] 9 0-140 February 15, 2020 3:32am BP Diastolic 99 mm[Hg] 6 0-90 February 15, 2020 3:32am BMI (Body Mass Index) 47.2 kg/m2 February 15, 2020 12:38am
--- OUTSIDE RECORDS SUMMARY | 2020-03-20 22:50 | XMS REPORT | Continuity of Care Document ---
Author Author [facility] Organization [facility] Address [address] [place] [address] Phone Support Name Relationship Address Phone Kirsten García PRS KENN Mendoza [address] [address]S [address] [place] [address] Allergies, Adverse Reactions, Alerts Allergen Type Severity [...] February 15, 2020 1:10am 5.4 K/uL 4.8-10.8 [facility], [address] [facility] [address] Red Blood Count February 15, 2020 1:10am 3.94 M/uL 4.20-5.40 [facility], [address] [facility] [address] Hemoglobin February 15, 2020 1:10am 9.7 gm/dL 12.0-16.0 [facility], [address] [facility] [address] Hematocrit February 15, 2020 1:10am 30.7 % 37.0-47.0 [facility], [address] [facility] [address] Mean Corpuscular Volume February 14 020 1:10am 77.8 fL 81.0-99.0 [facility], [address] [facility] [address] Mean Corpuscular Hemoglobin January 1:10am 24.6 pg 27.0-31.0 [facility], [address] [facility] [address] Mean Corpuscular Hemoglobin Concent February 15, 2020 1:10am 31.5 g/dL 30.0-37.0 [facility], [address] [facility] [address] Red Cell Distribution Width January 1:10am 17.1 % 11.5-14.5 [facility], [address] [facility] [address] Platelet Count February 15, 2020 1:10am 229 K/uL 130-400 [facility], [address] [facility] [address] Neutrophils (%) (Auto) February 14 1:10am 91.7 % 42.2-75.2 [facility], [address] [facility] [address] Lymphocytes (%) (Auto) February 14 1:10am 5.6 % 20.5-51.1 [facility], [address] [facility] [address] Monocytes (%) (Auto) February 15, 2020 1:10a m 1.9 % 0.0-10.0 [facility], [address] [facility] [address] Eosinophils (%) (Auto) February 14 1:10am 0.5 % 0.0-3.0 [facility], [address] [facility] [address] Basophils (%) (Auto) February 15, 2020 1:10a m 0.3 % 0.0-1.0 [facility], [address] [place] [address] Neutrophils # (Auto) February 15, 2020 1:10a m 5.0 K/uL 2.0-6.9 [facility], [address] [place] [address] Lymphocytes # (Auto) February 15, 2020 1:10a m 0.3 K/uL 1.2-3.4 [facility], [address] [place] [address] Monocytes # (Auto) February 15, 2020 1:10am 0.1 K/ul 0.1-0.6 [facility], [address] [place] [address] Eosinophils # (Auto) February 15, 2020 1:10a m 0.0 K/uL 0.0-0.7 [facility], [address] [place] [address] Basophils # (Auto) February 15, 2020 1:10am 0.0 K/ul 0.0-0.20 [facility], [address] [facility] [address] Sodium Level February 15, 2020 1:10am 141 mEq/L 136-145 [facility], [address] [facility] [address] Potassium Level February 15, 2020 1:10am 3.9 mEq/L 3.5-5.0 [facility], [address] [facility] [address] Chloride Level February 15, 2020 1:10am 105 mEq/L 98-107 [facility], [address] [facility] [address] Carbon Dioxide Level February 15, 2020 1:10a m 25.0 mEq/L 21-32 [facility], [address] [facility] [address] Random Glucose February 15, 2020 1:10am 268 mg/dL 70-110 [facility], [address] [facility] [address] Blood Urea Nitrogen February 15, 2020 1:10am 10 mg/dL 7-18 [facility], [address] [facility] [address] Creatinine February 15, 2020 1:10am 1.0 mg/dL 0.6-1.0 [facility], [address] [facility] [address] Glomerular Filtration Rate Calc February 15, 2020 1:10am 58.7 mL/min [facility], [address] [facility] [address] Calcium Level February 15, 2020 1:10am 8.8 mg/dL 8.8-10.5 [facility], [address] [facility] [address] Total Bilirubin February 15, 2020 1:10am 0.20 mg/dL 0.00-1.00 [facility], [address] [facility] [address] Aspartate Amino Transf (AST/SGOT) Ju 2019 1:10am 13 U/L 15-37 [facility], [address] [place] [address] Alanine Aminotransferase (ALT/SGPT) February 15, 2020 1:10am 31 U/L 12-78 [facility], [address] [place] [address] Total Protein February 15, 2020 1:10am 7.1 gm/dL 6.4-8.2 [facility], [address] [facility] [address] Albumin February 15, 2020 1:10am 3.6 gm/dL 3.4-5.0 [facility], [address] [place] [address] Alkaline Phosphatase February 15, 2020 1:10a m 99 U/L 50-136 [facility], [address] [place] [address] Health Concerns Health Concerns may be documented in an alternate section. Advance Directives Advance Directive Response Recorded Date/Time Does the patient have an Advance Directive on File? No July 27, 2019 9:08pm Do you have a Medical Power of Hand Edge Bander? N o July 27, 2019 9:08pm Do you have a Health Care Proxy? No July 27, 2019 9:08pm Do you have a Living Will? No July 27, 2019 9:08pm Encounters Encounter Location(s) Ar rival/Admit Date Discharge/Depart Date Provider(s) Departed Emergency [facility] February 15, 2020 12:38am February 15, 2020 3:48am null Assessments No Assessments Information Available Functional Status No Functional Status information available Goals Goals may be documented in an alternate section. Immunizations No Immunization Information Available Mental Status No Mental Status Information Available Medical Equipment No Medical Equipment Information available Insurance Providers Guarantor Mignon Soham Kirk Address [address] [address] Contact Info. Home Phone: Payer Policy Id Coverage Id Subscriber's Name Subscriber Id Effective Date Expiration Date [employer] Other [id number] Mignon Reagan [id number] Self Pay Self N/A Plan of Treatment [...]
[2020-03-20] MEDS ORDERED: ONDANSETRON 4 MG/2 ML (SDV) Z0FRAN IVP ONE (23:15)
[2020-03-20] MEDS ORDERED: morphine INJ 10 MG/ML 1ML (SYR OR VIAL) IVP STA (23:15)
[2020-03-20 23:20] LABS: BILIRUBIN,URINE NEGATIVE (NEGATIVE); CLARITY,URINE CLEAR; COLOR,URINE YELLOW; GLUCOSE, URINE (UA) NEGATIVE (NEGATIVE); KETONES,URINE NEGATIVE (NEGATIVE); LEUKOCYTE ESTERASE ,URINE NEGATIVE (NEGATIVE); NITRITE,URINE NEGATIVE (NEGATIVE); PH,URINE 5.5 (5-9); PROTEIN,URINE NEGATIVE (NEGATIVE)
[2020-03-20 23:31] LABS: BACTERIA,URINE TRACE /HPF; RBC,URINE RARE /HPF; WBC,URINE 0-2 /HPF
[2020-03-20 23:45] LABS: BASOPHILS % (AUTO) 0 % (0-10); EOSINOPHILS # (AUTO) 0.1 10^3/uL (0.0-0.3); EOSINOPHILS % (AUTO) 1 % (0-10); HEMATOCRIT 28 % (35-52); HEMOGLOBIN 8.4 G/DL (11.5-16.0); LYMPHOCYTES # (AUTO) 0.6 X 10^3 (1.0-4.0); LYMPHOCYTES % (AUTO) 10 % (12-44); MEAN CORPUSCULAR HGB CONC 30 G/DL (32-36); MEAN CORPUSCULAR VOLUME 78 FL (80-99); MEAN PLATELET VOLUME 9.6 FL (7.4-10.4); MONOCYTES # (AUTO) 0.4 X 10^3 (0.0-1.0); MONOCYTES % (AUTO) 7 % (0-12); NEUTROPHILS # (AUTO) 4.6 X 10^3 (1.8-7.8); NEUTROPHILS % (AUTO) 82 % (42-75); PLATELET COUNT 254 10^3/uL (130-400); RED CELL DISTRIBUTION WIDTH 15.5 % (10.0-14.5); WHITE BLOOD COUNT 5.6 10^3/uL (4.3-11.0)
[2020-03-20 23:52] LABS: MEAN CORPUSCULAR HEMOGLOBIN 23 PG (25-34)
[2020-03-20 23:55] LABS: ALBUMIN 3.6 GM/DL (3.2-4.5)
[2020-03-20 23:56] LABS: CHLORIDE 105 MMOL/L (98-107); POTASSIUM 3.2 MMOL/L (3.6-5.0); SODIUM 140 MMOL/L (135-145)
[2020-03-20 23:57] LABS: CALCIUM 7.8 MG/DL (8.5-10.1)
[2020-03-20 23:58] LABS: GLUCOSE 242 MG/DL (70-105); TOTAL PROTEIN 5.8 GM/DL (6.4-8.2)
[2020-03-20 23:59] LABS: CARBON DIOXIDE 21 MMOL/L (21-32)
[2020-03-21] LABS: BILIRUBIN,TOTAL 0.2 MG/DL (0.1-1.0)
[2020-03-21 00:02] LABS: ALKALINE PHOSPHATASE 58 U/L (40-136); CREATININE SERUM 0.81 MG/DL (0.60-1.30); GFR ESTIMATED > 60
[2020-03-21 00:03] LABS: BUN/CREATININE RATIO 12
[2020-03-21 00:05] LABS: ALANINE AMINOTRANSFERASE 22 U/L (0-55); LIPASE 40 U/L (8-78)
[2020-03-21 00:25] LABS: ERYTHROCYTE SEDIMENTATION RATE 45 MM/HR (0-30)
[2020-03-21 00:59] LABS: AMPHETAMINE SCREEN, URINE NEGATIVE (NEGATIVE); BARBITURATE SCREEN URINE NEGATIVE (NEGATIVE); BENZODIAZEPINES SCREEN URINE POSITIVE (NEGATIVE); CANNABINOID SCREEN, URINE POSITIVE (NEGATIVE); COCAINE SCREEN URINE NEGATIVE (NEGATIVE); METHADONE STAT NEGATIVE (NEGATIVE); METHAMPHETAMINE SCREEN URINE S NEGATIVE (NEGATIVE); OPIATE SCREEN URINE POSITIVE (NEGATIVE); OXYCODONE STAT NEGATIVE (NEGATIVE); PROPOXYPHENE STAT NEGATIVE (NEGATIVE); TRICYCLIC ANTIDEPRESSANTS SCRE NEGATIVE (NEGATIVE)
[2020-03-21] MEDS ORDERED: KCL 10 MEQ TAB (MICRO K) PO ONE (01:00)
[2020-03-21] MEDS ORDERED: morphine INJ 10 MG/ML 1ML (SYR OR VIAL) IVP STA (01:26)
--- NOTE | 2020-03-21 01:29 | ED Abdominal Pain ---
General Chief Complaint: Abdominal/GI Problems Stated Complaint: LLQ PAIN, N/V Nursing Triage Note: TO ED VIA POV AND AMBULATORY TO ROOM 6 WITH C/O LLQ PAIN. Sepsis Screen: No Definite Risk Source of Information: Patient, Old Records Exam Limitations: No Limitations History of Present Illness Date Seen by Provider: Mar 20, 2020 Time Seen by Provider: 22:55 Initial Comments This 49-year-old woman with ulcerative colitis presents to the emergency room with left lower quadrant pain. This is a recurrent problem for her. She reports some diarrhea with blood streaking. She sees a Dr. Teodoro Ruelas at the [facility] in [place]. She comes to [place] to stay with her cousin often and has been seen in our facilities many times. She reports being diagnosed earlier in the day with colitis by her primary care provider and starting Cipro and Flagyl. She took her hydrocodone as usual to treat the pain but it was not effective. She is hypertensive and tachycardic on arrival. She last took pain medication around 20:30. She has had 2 doses of the Cipro and Flagyl. She reports it has been about a year since her last colonoscopy. Allergies and Home Medications Allergies Coded Allergies: cephalexin (Verified Allergy, Unknown, 09/13/19) ketorolac (Verified Allergy, Unknown, 09/13/19) prochlorperazine (Verified Allergy, Unknown, 09/13/19) Home Medications Budesonide 3 Mg Capdr...er, 9 MG PO DAILY 3 tablets daily x3 days 2 tablets daily x3 days 1 tablet daily x3 days Prescribed by: NEVAEH DAMON on 12/20/192318 Dicyclomine HCl 20 Mg/2 Ml Inj, 20 MG PO QID, (Reported) Ondansetron 4 Mg Tab.rapdis, 4 MG PO Q6H PRN for NAUSEA/VOMITING Prescribed by: NEVAEH DAMON on 12/20/192318 Ondansetron HCl 4 Mg Tab, 4 MG PO Q6H Prescribed by: SHIN REYNOLDS on 11/15/192306 Oxycodone HCl/Acetaminophen 1 Each Tablet, 1 EACH PO Q4H PRN for PAIN-SEVERE Prescribed by: LAURA VINCENT on 11/08/19 0129 Oxycodone Hcl 5 Mg Tab, 10 MG PO Q6H PRN for PAIN-SEVERE Prescribed by: MARQUES WANG on 10/06/192109 Prednisone 20 Mg Tab, 40 MG PO DAILY Prescribed by: STERLING STREETER on 10/13/192231 Prednisone 20 Mg Tab, 40 MG PO DAILY Prescribed by: LAURA VINCENT on 11/08/19 0128 Prednisone 20 Mg Tab, 20 MG PO DAILY Prescribed by: LEANNE CADE on 01/07/20 0226 Sulfasalazine 500 Mg Tablet, 500 MG PO QID, (Reported) Patient Home Medication List Home Medication List Reviewed: Yes Review of Systems Review of Systems Constitutional: no symptoms reported EENTM: No Symptoms Reported Respiratory: No Symptoms Reported Cardiovascular: See HPI Gastrointestinal: See HPI Genitourinary: No Symptoms Reported Musculoskeletal: no symptoms reported Skin: no symptoms reported Psychiatric/Neurological: No Symptoms Reported Endocrine: No Symptoms Reported Hematologic/Lymphatic: No Symptoms Reported Past Vujnjxb-Xaljgl-Cnpihf Hx Past Med/Social Hx: Reviewed Nursing Past Med/Soc Hx Patient Social History Alcohol Use: Occasionally Uses Recreational Drug Use: No Smoking Status: Former Smoker Type Used: Cigarettes 2nd Hand Smoke Exposure: No Recent Foreign Travel: No Contact w/Someone Who Travel: No Recent Infectious Disease Expo: No Recent Hopitalizations: No Physical Abuse: No Sexual Abuse: No Mistreated: No Fear: No Immunizations Up To Date Tetanus Booster (TDap): Unknown Seasonal Allergies Seasonal Allergies: No Past Medical History Surgeries: Yes (UMBILICAL HERNIA REPAIR, RECTAL PROLAPSE REPAIR. 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 Genitourinary: No Gastrointestinal: Yes Abdominal Hernia, Colitis, Gastroesophageal Reflux, Gastrointestinal Bleed, Chronic Diarrhea Musculoskeletal: Yes (chronic back pain) Degenerate Disk Disease, Arthritis, Chronic Back Pain Endocrine: Yes (patient has a cushingoid facies consistent with prednisone use) HEENT: No Cancer: No Psychosocial: Yes Anxiety, Depression Integumentary: Yes (patient has multiple lesions on her upper extremities that are excoriated) Blood Disorders: Yes (iron deficiency and anemia of chronic disease) Physical Exam Vital Signs Vital Signs - First Documented 03/20/20 22:51 Temp 37.5 Pulse 102 Resp 16 B/P (MAP) 175/105 (128) Pulse Ox 96 O2 Delivery Room Air Capillary Refill : Less Than 3 Seconds Height/Weight/BMI Height: '" Weight: lbs. oz. 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, no motor/sensory deficits, alert, normal mood/affect, oriented x 3 Skin: normal color, warm/dry Progress/Results/Core Measures Results/Orders Lab Results Laboratory Tests Test 03/20/20 23:00 03/20/20 23:35 03/21/20 00:00 Range/Units Urine Color YELLOW Urine Clarity CLEAR Urine pH 5.5 5-9 Urine Specific [place] 1.020 1.016-1.022 Urine Protein NEGATIVE NEGATIVE Urine Glucose (UA) NEGATIVE NEGATIVE Urine Ketones NEGATIVE NEGATIVE Urine Nitrite NEGATIVE NEGATIVE Urine Bilirubin NEGATIVE NEGATIVE Urine Urobilinogen 0.2 < = 1.0 MG/DL Urine Leukocyte Esterase NEGATIVE NEGATIVE Urine RBC (Auto) NEGATIVE NEGATIVE Urine RBC RARE /HPF Urine WBC 0-2 /HPF Urine Squamous Epithelial Cells 2-5 /HPF Urine Crystals NONE /LPF Urine Bacteria TRACE /HPF Urine Casts NONE /LPF Urine Mucus NEGATIVE /LPF Urine Culture Indicated NO White Blood Count 5.6 4.3-11.0 10^3/uL Red Blood Count 3.58 L 4.35-5.85 10^6/uL Hemoglobin 8.4 L 11.5-16.0 G/DL Hematocrit 28 L 35-52 % Mean Corpuscular Volume 78 L 80-99 FL Mean Corpuscular Hemoglobin 23 L 25-34 PG Mean Corpuscular Hemoglobin Concent 30 L 32-36 G/DL Red Cell Distribution Width 15.5 H 10.0-14.5 % Platelet Count 254 130-400 10^3/uL Mean Platelet Volume 9.6 7.4-10.4 FL Neutrophils (%) (Auto) 82 H 42-75 % Lymphocytes (%) (Auto) 10 L 12-44 % Monocytes (%) (Auto) 7 0-12 % Eosinophils (%) (Auto) 1 0-10 % Basophils (%) (Auto) 0 0-10 % Neutrophils # (Auto) 4.6 1.8-7.8 X 10^3 Lymphocytes # (Auto) 0.6 L 1.0-4.0 X 10^3 Monocytes # (Auto) 0.4 0.0-1.0 X 10^3 Eosinophils # (Auto) 0.1 0.0-0.3 10^3/uL Basophils # (Auto) 0.0 0.0-0.1 10^3/uL Erythrocyte Sedimentation Rate 45 H 0-30 MM/HR Sodium Level 140 135-145 MMOL/L Potassium Level 3.2 L 3.6-5.0 MMOL/L Chloride Level 105 98-107 MMOL/L Carbon Dioxide Level 21 21-32 MMOL/L Anion Gap 14 5-14 MMOL/L Blood Urea Nitrogen 10 7-18 MG/DL Creatinine 0.81 0.60-1.30 MG/DL Estimat Glomerular Filtration Rate > 60 BUN/Creatinine Ratio 12 Glucose Level 242 H 70-105 MG/DL Calcium Level 7.8 L 8.5-10.1 MG/DL Corrected Calcium 8.1 L 8.5-10.1 MG/DL Total Bilirubin 0.2 0.1-1.0 MG/DL Aspartate Amino Transf (AST/SGOT) 8 5-34 U/L Alanine Aminotransferase (ALT/SGPT) 22 0-55 U/L Alkaline Phosphatase 58 40-136 U/L C-Reactive Protein High Sensitivity 0.15 0.00-0.50 MG/DL Total Protein 5.8 L 6.4-8.2 GM/DL Albumin 3.6 3.2-4.5 GM/DL Lipase 40 8-78 U/L Urine Opiates Screen POSITIVE H NEGATIVE Urine Oxycodone Screen NEGATIVE NEGATIVE Urine Methadone Screen NEGATIVE NEGATIVE Urine Propoxyphene Screen NEGATIVE NEGATIVE Urine Barbiturates Screen NEGATIVE NEGATIVE Ur Tricyclic Antidepressants Screen NEGATIVE NEGATIVE Urine Phencyclidine Screen NEGATIVE NEGATIVE Urine Amphetamines Screen NEGATIVE NEGATIVE Urine Methamphetamines Screen NEGATIVE NEGATIVE Urine Benzodiazepines Screen POSITIVE H NEGATIVE Urine Cocaine Screen NEGATIVE NEGATIVE Urine Cannabinoids Screen POSITIVE H NEGATIVE My Orders Orders - LAURA KASPER MD Cbc With Automated Diff (03/20/20 23:15) Comprehensive Metabolic Panel (03/20/20 23:15) Hs C Reactive Protein (03/20/20 23:15) Lipase (03/20/20 23:15) Ua Culture If Indicated (03/20/20 23:15) Erythrocyte Sedimentation Rate (03/20/20 23:15) Ondansetron Injection (Zofran Injectio (03/20/20 23:15) Morphine Injection (Morphine Injection (03/20/20 23:15) Abdomen, Flat & Upright/Decub (03/21/20 00:30) Drug Screen Stat (Urine) (03/21/20 00:36) Potassium Chloride (Tablet) (Klor Con Ta (03/21/20 01:00) Morphine Injection (Morphine Injection (03/21/20 01:26) Medications Given in ED Current Medications Medications Dose Ordered Sig/Stiven Route Start Time Stop Time Status Last Admin Dose Admin Ondansetron HCl 8 mg ONCE ONCE IVP 03/20/20 23:15 03/20/20 23:17 DC 03/20/20 23:40 8 MG Potassium Chloride 20 meq ONCE ONCE PO 03/21/20 01:00 03/21/20 01:01 DC 03/21/20 01:43 20 MEQ Vital Signs/I&O 03/20/20 22:51 Temp 37.5 Pulse 102 Resp 16 B/P (MAP) 175/105 (128) Pulse Ox 96 O2 Delivery Room Air Blood Pressure Mean: 128 Progress Progress Note : Progress Note Patient was treated with morphine and Zofran. Labs were relatively unremarkable when compared with prior. Anemia was slightly worse than her prior values. 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 She had no vomiting or diarrhea while in the ER. Morphine controlled her pain quite well. Sedimentation rate was lower than on prior visit. CRP was not elevated. She was dismissed home in improved condition. Mild hypokalemia was treated with oral potassium. Diagnostic Imaging Diagonstic Imaging: Xray Plain Films/CT/US/NM/MRI: abdomen, pelvis Comments KUB and upright x-ray viewed by me. Report not yet available. No acute findings, especially evidence of bowel obstruction, were appreciated. Departure Impression Primary Impression: Left lower quadrant pain Additional Impressions: Ulcerative colitis Qualified Codes: K51.911 - Ulcerative colitis, unspecified with rectal bleeding Nausea Hematochezia Anemia Qualified Codes: D64.9 - Anemia, unspecified Chronic abdominal pain Hypokalemia Disposition: HOME, SELF-CARE Condition: Improved Departure-Patient Inst. Decision time for Depature: 01:28 Referrals: NO,LOCAL PHYSICIAN (PCP/Family) Primary Care Physician Patient Instructions: Severe Abdominal Pain, Adult (DC) Add. Discharge Instructions: Continue with your medications as previously prescribed. Drink plenty of clear fluids. Adhere to a clear liquid diet for the next 24 hours, then gradually advance your diet with small quantities of bland food as tolerated. Follow-up with your primary care provider and your auto clutch specialist as soon as possible. Your hemoglobin needs to be followed and you need to discuss repeating colonoscopy. Return to care if you have worsening symptoms in the meantime. All discharge instructions reviewed with patient and/or family. Voiced understanding. LAURA KASPER MD Mar 21, 2020 01:29
[2020-03-21 01:58] VITALS: BP 138/96
--- NOTE | 2020-03-21 07:36 | Diagnostic Imaging Report ---
EXAMINATION: Abdominal radiographs, 2 views, supine and upright. DATE: March 21, 2020. CLINICAL INDICATION: 49-year-old female, left lower quadrant abdominal pain. Nausea, vomiting, diarrhea. COMPARISON: CT abdomen pelvis January 23, 2020. COMMENTS: Right upper quadrant surgical clips relate to prior cholecystectomy. There is no identified free intraperitoneal air, pneumatosis, or portal venous gas. There is no abnormally distended gas-filled segments of bowel. There is heterotopic ossification adjacent to the right posterior acetabulum which is also seen on prior recent CT. There is no identified abnormal radiodensity overlying the expected positions of the kidneys or ureters. IMPRESSION: 1. No radiographically apparent acute abdominal abnormality. Dictated by: Dictated on workstation # [id number]
== END 2020-03-21 01:58 | disposition home or self-care (01) ==
LOC: EDUNIT# 22:37 → ER 22:39
DX: R10.32 Left lower quadrant pain (principal); K51.90 Ulcerative colitis, unspecified, without complications; R11.0 Nausea; K92.1 Melena; D64.9 Anemia, unspecified; E87.6 Hypokalemia; E66.9 Obesity, unspecified; K52.9 Noninfective gastroenteritis and colitis, unspecified; G89.29 Other chronic pain; M54.9 Dorsalgia, unspecified; Z88.1 Allergy status to other antibiotic agents; Z88.6 Allergy status to analgesic agent; Z88.8 Allergy status to other drugs, medicaments and biological substances; Z87.891 Personal history of nicotine dependence; Z68.41 Body mass index [BMI] 40.0-44.9, adult; Z79.891 Long term (current) use of opiate analgesic
CPT/HCPCS: 36415; 74019; 80053; 80306; 81000; 83690; 85025; 85652; 86141

== ENCOUNTER 2020-03-31 14:42 | Emergency (ER) | payer OTHER ==
[~2020-03-31] VITALS: Ht 162.5 cm; Wt 109.0 kg
[2020-03-31 14:51] VITALS: BP 150/100
--- NOTE | 2020-03-31 15:10 | NUR ---
PATIENT DECIDED SHE WOULD SIGN AMA IT WAS DISCUSSED WITH HER BY Chandan RUDD APRN THAT SHE HAS BEEN HERE SEVERAL TIMES FOR SAME C/O WAS TOLD HE WOULD GIVE HER SOME KETAMINE IV BUT WOULD NOT RECEIVE A NARCOTICS. DECIDED SHE WOULD LEAVE AMA. WHEN ATTEMPTING TO START IV HAS SEVERAL AREA ON L FA AND HAD TAHT APPEAR TO BE TRACK ROMO.
--- NOTE | 2020-03-31 15:10 | ED Abdominal Pain ---
General Stated Complaint: LOWER L ABDOMINAL PAIN/NAUSEA/DIARRHEA Source of Information: Patient Exam Limitations: No Limitations History of Present Illness Date Seen by Provider: Mar 31, 2020 Time Seen by Provider: 15:08 Initial Comments ER with left lower quadrant abdominal pain and diarrhea. History of Crohn's, this is her 14th ER visit this year. Timing/Duration: 1-2 Days, 1 Week Severity/Quality: Moderate Location: LLQ Radiation: No Radiation Associated Symptoms: Denies Symptoms Allergies and Home Medications Allergies Coded Allergies: cephalexin (Verified Allergy, Unknown, 09/13/19) ketorolac (Verified Allergy, Unknown, 09/13/19) prochlorperazine (Verified Allergy, Unknown, 09/13/19) Home Medications Budesonide 3 Mg Capdr...er, 9 MG PO DAILY 3 tablets daily x3 days 2 tablets daily x3 days 1 tablet daily x3 days Prescribed by: NEVAEH DAMON on 12/20/192318 Dicyclomine HCl 20 Mg/2 Ml Inj, 20 MG PO QID, (Reported) Ondansetron 4 Mg Tab.rapdis, 4 MG PO Q6H PRN for NAUSEA/VOMITING Prescribed by: NEVAEH DAMON on 12/20/19 2319 Ondansetron HCl 4 Mg Tab, 4 MG PO Q6H Prescribed by: SHIN REYNOLDS on 11/15/19 2307 Oxycodone HCl/Acetaminophen 1 Each Tablet, 1 EACH PO Q4H PRN for PAIN-SEVERE Prescribed by: LAURA VINCENT on 11/08/19 0129 Oxycodone Hcl 5 Mg Tab, 10 MG PO Q6H PRN for PAIN-SEVERE Prescribed by: MARQUES WANG on 10/06/192109 Prednisone 20 Mg Tab, 40 MG PO DAILY Prescribed by: STERLING STREETER on 10/13/19 223 Prednisone 20 Mg Tab, 40 MG PO DAILY Prescribed by: LAURA VINCENT on 11/08/19 0128 Prednisone 20 Mg Tab, 20 MG PO DAILY Prescribed by: LEANNE CADE on 01/07/20 0226 Sulfasalazine 500 Mg Tablet, 500 MG PO QID, (Reported) Patient Home Medication List Home Medication List Reviewed: Yes Review of Systems Review of Systems Constitutional: see HPI EENTM: No Symptoms Reported Respiratory: No Symptoms Reported Cardiovascular: No Symptoms Reported Gastrointestinal: See HPI, Abdominal Pain, Diarrhea Genitourinary: No Symptoms Reported Musculoskeletal: no symptoms reported Skin: no symptoms reported Psychiatric/Neurological: No Symptoms Reported Endocrine: No Symptoms Reported Past Ngzizso-Hgvwlu-Zrokjj Hx Patient Social History Type Used: Cigarettes 2nd Hand Smoke Exposure: No Recent Hopitalizations: No Immunizations Up To Date Tetanus Booster (TDap): Unknown Seasonal Allergies Seasonal Allergies: No Past Medical History Surgeries: Yes (UMBILICAL HERNIA REPAIR, RECTAL PROLAPSE REPAIR. 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 Genitourinary: No Gastrointestinal: Yes Abdominal Hernia, Colitis, Gastroesophageal Reflux, Gastrointestinal Bleed, Chronic Diarrhea Musculoskeletal: Yes (chronic back pain) Degenerate Disk Disease, Arthritis, Chronic Back Pain Endocrine: Yes (patient has a cushingoid facies consistent with prednisone use) HEENT: No Cancer: No Psychosocial: Yes Anxiety, Depression Integumentary: Yes (patient has multiple lesions on her upper extremities that are excoriated) Blood Disorders: Yes (iron deficiency and anemia of chronic disease) Physical Exam Vital Signs Capillary Refill : Height/Weight/BMI Height: '" Weight: lbs. oz. kg; 43.00 BMI Method: General Appearance: WD/WN, no apparent distress, obese Respiratory: no respiratory distress, no accessory muscle use Gastrointestinal: normal bowel sounds, soft, tenderness Extremities: normal range of motion, non-tender Neurologic/Psychiatric: alert, normal mood/affect, oriented x 3 Skin: normal color, warm/dry Departure Communication (Admissions) I offered the patient Toradol for pain control, she states she is allergic. I offered her ketamine, she declines, I discussed with her that I'll be withholding opiates until further workup comes back. She states "I'll just leave". Impression Primary Impression: Left lower quadrant pain Additional Impression: Left against medical advice Disposition: 07 AGAINST MEDICAL ADVICE Condition: Against Medical Advice Departure-Patient Inst. Referrals: NO,LOCAL PHYSICIAN (PCP/Family) Primary Care Physician ALYSSA RUDD APRN Mar 31, 2020 15:10
== END 2020-03-31 15:10 | disposition left against medical advice (07) ==
LOC: EDUNIT# 14:42 → ER 14:43
DX: R10.32 Left lower quadrant pain (principal); K50.90 Crohn's disease, unspecified, without complications; G89.29 Other chronic pain; M54.9 Dorsalgia, unspecified; Z88.1 Allergy status to other antibiotic agents; Z88.6 Allergy status to analgesic agent; Z88.8 Allergy status to other drugs, medicaments and biological substances; Z79.52 Long term (current) use of systemic steroids; Z79.891 Long term (current) use of opiate analgesic
CPT/HCPCS: 99282

== ENCOUNTER 2020-06-19 18:07 | Emergency (ER) | payer OTHER ==
[~2020-06-19] VITALS: Ht 162.5 cm; Wt 107.4 kg
[2020-06-19 18:10] VITALS: BP 167/110
--- NOTE | 2020-06-19 18:18 | ED GI ---
General Stated Complaint: LT LOWER ABD PAIN Source of Information: Patient Exam Limitations: No Limitations History of Present Illness Date Seen by Provider: Jun 19, 2020 Time Seen by Provider: 18:13 Initial Comments 50-year-old female presents with left lower quadrant abdominal pain. Patient has chronic left lower abdominal pain with 14 previous ER visits this year for similar symptoms. Patient reports a history of Crohn's. Patient states that last week she saw her GI specialist. Patient reports that she's taken her sulfasalazine, hydrocodone's, Bentyl and other medications with no relief. She reports she does have a little bit of bloody stool. Patient has not had a colonoscopy in at least a year. Patient reports that the symptoms worsen this morning around 5:30 AM. Allergies and Home Medications Allergies Coded Allergies: cephalexin (Verified Allergy, Unknown, 09/13/19) ketorolac (Verified Allergy, Unknown, 09/13/19) prochlorperazine (Verified Allergy, Unknown, 09/13/19) Home Medications Budesonide 3 Mg Capdr...er, 9 MG PO DAILY 3 tablets daily x3 days 2 tablets daily x3 days 1 tablet daily x3 days Prescribed by: NEVAEH DAMON on 12/20/19 3472 Dicyclomine HCl 20 Mg/2 Ml Inj, 20 MG PO QID, (Reported) Sulfasalazine 500 Mg Tablet, 500 MG PO QID, (Reported) Patient Home Medication List Home Medication List Reviewed: Yes Review of Systems Review of Systems Constitutional: No chills, No fever EENTM: No Symptoms Reported Respiratory: Denies Cough, Denies Shortness of Air Cardiovascular: Denies Chest Pain, Denies Irregular Heart Rate, Denies Lightheadedness Gastrointestinal: See HPI, Abdominal Pain, Diarrhea, Nausea, Rectal Bleeding; Denies Vomiting Musculoskeletal: no symptoms reported Skin: no symptoms reported Psychiatric/Neurological: No Symptoms Reported Past Vejpatj-Abdphl-Pxozps Hx Past Med/Social Hx: Reviewed Nursing Past Med/Soc Hx Patient Social History Type Used: Cigarettes 2nd Hand Smoke Exposure: No Recent Foreign Travel: No Contact w/Someone Who Travel: No Recent Hopitalizations: No Immunizations Up To Date Tetanus Booster (TDap): Unknown Seasonal Allergies Seasonal Allergies: No Past Medical History Surgeries: Yes (UMBILICAL HERNIA REPAIR, RECTAL PROLAPSE REPAIR. Endoscopy) Appendectomy, Gallbladder, Hysterectomy, Rectal Respiratory: No Cardiac: Yes High Cholesterol, Hypertension Neurological: No NEWS AGENT History: Hysterectomy Genitourinary: No Gastrointestinal: Yes Abdominal Hernia, Colitis, Gastroesophageal Reflux, Gastrointestinal Bleed, Chronic Diarrhea Musculoskeletal: Yes (chronic back pain) Degenerate Disk Disease, Arthritis, Chronic Back Pain Endocrine: Yes (patient has a cushingoid facies consistent with prednisone use) HEENT: No Cancer: No Psychosocial: Yes Anxiety, Depression Integumentary: Yes (patient has multiple lesions on her upper extremities that are excoriated) Blood Disorders: Yes (iron deficiency and anemia of chronic disease) Physical Exam Vital Signs Capillary Refill : Height/Weight/BMI Height: '" Weight: lbs. oz. kg; 41.00 BMI Method: General Appearance: obese HEENT: PERRL/EOMI Neck: supple Respiratory: lungs clear, normal breath sounds Cardiovascular: normal peripheral pulses, regular rate, rhythm Gastrointestinal: soft; No distended; tenderness (RLQ) Extremities: normal range of motion, non-tender Neurologic/Psychiatric: no motor/sensory deficits, alert, normal mood/affect, oriented x 3 Skin: normal color, warm/dry Focused Exam Lactate Level 06/19/20 18:45: Lactic Acid Level Laboratory Tests Test 06/19/20 18:45 Progress/Results/Core Measures Results/Orders Lab Results Laboratory Tests Test 06/19/20 18:30 06/19/20 18:45 Range/Units My Orders Orders - LADARIUS HINOJOSA DO Cbc With Automated Diff (06/19/20 18:21) Comprehensive Metabolic Panel (06/19/20 18:21) Drug Screen Stat (Urine) (06/19/20 18:21) Lactic Acid Analyzer (06/19/20 18:21) Ua Culture If Indicated (06/19/20 18:21) Erythrocyte Sedimentation Rate (06/19/20 18:21) Crp Fs (06/19/20 18:21) Lipase (06/19/20 18:21) Acute Abd Series (06/19/20 18:21) Lactated Ringers (Lr 1000 Ml Iv Solution (06/19/20 18:21) Ondansetron Injection (Zofran Injectio (06/19/20 19:00) Progress Progress Note : Time: 19:04 Progress Note Patient is very concerning for drug-seeking behavior. Patient is complaining to nurse that she was not given anything for pain. Chart review shows patient has been at the [facility] ER [facility] 14 times prior to this visit. Her [place] ANALOG DESIGN ENGINEER shows oxycodone medication scripts from [place] through the [place] area. Patient has left both [place] and [place] previous visits AMA when not given narcotics upon chart review. I went and asked patient where she lived try to clarify if she moved here or if she lived in [place]. Patient currently lives in [address] [place] [address], I mentioned that she has some concerning issues to assist physicians with this widespread visits through the area.. Patient then got up angry early and left the ER without saying anything else. Departure Impression Primary Impression: Chronic abdominal pain Disposition: HOME, SELF-CARE Condition: Against Medical Advice Departure-Patient Inst. Referrals: NO,LOCAL PHYSICIAN (PCP/Family) Primary Care Physician Patient Instructions: No Instuctions Given LADARIUS HINOJOSA DO Jun 19, 2020 18:17
[2020-06-19] MEDS ORDERED: LACTATED RINGERS 1,000 ML IV STA (18:21)
[2020-06-19] MEDS ORDERED: Bentyl (18:23)
[2020-06-19] MEDS ORDERED: Hydrocodone (18:23)
--- NOTE | 2020-06-19 18:45 | NUR ---
Patient was a 2 attempt IV start and both unsuccessful, numerous dk purple bruising bilat scattered upper extremities with pinpoint scabs in the bruises. Left AC with numerous pinpoint markings along veins and pt reports all these are r/t her "Iron Infusions I have to have." "My veins are just no good." "Good [place]." The 2 attempts were able to pull all blood necessary to send tests because only patent at minimally under skin barely into vein. Pt reports, "Most nurses have to leave the IV's partially out and taped good." This RN explained the blood can be sent to start work up then urine and xray. RN was going to discuss IV situation with Dr as IV fluids ordered. Pt began sobbing without tears stating, "What NO pain meds for my pain and of course something for my nausea?" Pt has not requested an emesis bag in ER nor had an emesis. States has had Hydrocodone and Zofran without relief.
[2020-06-19] MEDS ORDERED: ONDANSETRON 4 MG/2 ML (SDV) Z0FRAN IVP ONE (19:00)
--- NOTE | 2020-06-19 19:00 | NUR ---
Patient had returned from [facility] and went back onto cart when Dr Dumont entered room to clarify where patient lives and where she buys her prescriptions and what is her medication regimen as he was reviewing things in the computer system on medication tracking. Pt waited for to leave room then jumped up grabbing her belongings and stomping her feet yelling "I am not gonna sit here and take this. I am leaving." Pt was not able to be confronted to stop for the AMA signature for risks and benefits of a medical screening exam.
[2020-06-19 19:03] LABS: BASOPHILS % (AUTO) 0 % (0-10); EOSINOPHILS # (AUTO) 0.1 10^3/uL (0.0-0.3); EOSINOPHILS % (AUTO) 1 % (0-10); HEMATOCRIT 31 % (35-52); HEMOGLOBIN 9.9 G/DL (11.5-16.0); LYMPHOCYTES # (AUTO) 0.6 X 10^3 (1.0-4.0); LYMPHOCYTES % (AUTO) 9 % (12-44); MEAN CORPUSCULAR HEMOGLOBIN 27 PG (25-34); MEAN CORPUSCULAR HGB CONC 32 G/DL (32-36); MEAN CORPUSCULAR VOLUME 84 FL (80-99); MEAN PLATELET VOLUME 9.7 FL (7.4-10.4); MONOCYTES # (AUTO) 0.6 X 10^3 (0.0-1.0); MONOCYTES % (AUTO) 8 % (0-12); NEUTROPHILS # (AUTO) 5.6 X 10^3 (1.8-7.8); NEUTROPHILS % (AUTO) 80 % (42-75); PLATELET COUNT 305 10^3/uL (130-400); WHITE BLOOD COUNT 6.9 10^3/uL (4.3-11.0)
[2020-06-19 19:13] LABS: AMPHETAMINE SCREEN, URINE NEGATIVE (NEGATIVE); BARBITURATE SCREEN URINE NEGATIVE (NEGATIVE); BENZODIAZEPINES SCREEN URINE POSITIVE (NEGATIVE); CANNABINOID SCREEN, URINE POSITIVE (NEGATIVE); COCAINE SCREEN URINE NEGATIVE (NEGATIVE); METHADONE STAT NEGATIVE (NEGATIVE); METHAMPHETAMINE SCREEN URINE S NEGATIVE (NEGATIVE); OPIATE SCREEN URINE POSITIVE (NEGATIVE); OXYCODONE STAT NEGATIVE (NEGATIVE); PROPOXYPHENE STAT NEGATIVE (NEGATIVE); TRICYCLIC ANTIDEPRESSANTS SCRE NEGATIVE (NEGATIVE)
--- NOTE | 2020-06-19 19:13 | Diagnostic Imaging Report ---
INDICATION: Abdominal pain. COMPARISON: 03/21/[address] dated 04/25/2020. TECHNIQUE: Four radiographs of the abdomen and chest dated June 19, 2020. FINDINGS: The cardiac silhouette is within normal limits in size. No significant pulmonary vascular congestion. Chronic interstitial markings are again noted within the lung bases, appearing stable from the prior exam. No new focal pulmonary opacity. No pleural effusion. No pneumothorax. No acute osseous abnormality of the chest. Surgical clips are present in the right upper quadrant of the abdomen. Stool is identified within the right sided colon. However, there is a generalized paucity of small bowel gas. Calcifications associated with the right acetabulum are again identified, felt to relate to heterotopic ossification based upon prior imaging. Mild apex right curvature of the spine without acute osseous abnormality. No free air. IMPRESSION: 1. Nonspecific bowel gas pattern with a generalized paucity of small bowel gas. 2. No acute cardiopulmonary abnormality with mild background chronic interstitial lung changes. Dictated by: Dictated on workstation # [id number]
[2020-06-19 19:14] LABS: BILIRUBIN,URINE NEGATIVE (NEGATIVE); CLARITY,URINE CLEAR; COLOR,URINE YELLOW; GLUCOSE, URINE (UA) NEGATIVE (NEGATIVE); KETONES,URINE NEGATIVE (NEGATIVE); LEUKOCYTE ESTERASE ,URINE NEGATIVE (NEGATIVE); NITRITE,URINE NEGATIVE (NEGATIVE); PH,URINE 6.5 (5-9); PROTEIN,URINE NEGATIVE (NEGATIVE)
[2020-06-19 19:17] LABS: ERYTHROCYTE SEDIMENTATION RATE 46 MM/HR (0-30)
[2020-06-19 19:19] LABS: ALANINE AMINOTRANSFERASE 16 U/L (0-55); ALBUMIN 3.9 GM/DL (3.2-4.5); ALKALINE PHOSPHATASE 115 U/L (40-136); BILIRUBIN,TOTAL 0.2 MG/DL (0.1-1.0); BUN/CREATININE RATIO 21; CALCIUM 8.8 MG/DL (8.5-10.1); CARBON DIOXIDE 25 MMOL/L (21-32); CHLORIDE 104 MMOL/L (98-107); CREATININE SERUM 0.63 MG/DL (0.60-1.30); GFR ESTIMATED > 60; GLUCOSE 119 MG/DL (70-105); LIPASE 47 U/L (8-78); POTASSIUM 3.6 MMOL/L (3.6-5.0); SODIUM 141 MMOL/L (135-145); TOTAL PROTEIN 6.5 GM/DL (6.4-8.2)
== END 2020-06-19 19:00 | disposition left against medical advice (07) ==
LOC: EDUNIT# 18:07 → ER FS 18:08
DX: R10.31 Right lower quadrant pain (principal); R10.32 Left lower quadrant pain; K50.90 Crohn's disease, unspecified, without complications; E66.9 Obesity, unspecified; Z68.41 Body mass index [BMI] 40.0-44.9, adult; Z88.1 Allergy status to other antibiotic agents; Z88.8 Allergy status to other drugs, medicaments and biological substances
CPT/HCPCS: 36415; 74022; 80053; 80306; 81000; 83605; 83690; 85025; 85652; 86141

== ENCOUNTER 2021-02-07 16:09 | Emergency (ER) | payer OTHER ==
[~2021-02-07] VITALS: Ht 162 cm; Wt 95.0 kg
[~2021-02-07 16:09] MED LIST changes: +Bentyl; -CIPR500T4; +CIPR500T5; +Hydrocodone; -OXYC-471 PO; +OXYC1TAB11 PO
[2021-02-07] MEDS ORDERED: HOLD METFORMIN - RECEIVED CONTRAST 20 ML VIAL IV SCH (17:00)
[2021-02-07] MEDS ORDERED: IOHEXOL 350 MG/ML 100 ML (OMNIPAQUE 350) VIAL IV ONE (17:00)
[2021-02-07] MEDS ORDERED: ONDANSETRON 4 MG/2 ML (SDV) Z0FRAN IVP ONE (17:00)
[2021-02-07] MEDS ORDERED: NS IV 1000 ML 1,000 ML IV SCH (17:00)
[2021-02-07] MEDS ORDERED: fentaNYL INJ 100 MCG/2 ML AMP IVP ONE (17:00)
[2021-02-07] MEDS ORDERED: NS 100 ML (IVPB) BAG IV ONE (17:00)
[2021-02-07 17:02] LABS: BASOPHILS % (AUTO) 0 % (0-10); EOSINOPHILS # (AUTO) 0.1 10^3/uL (0.0-0.3); EOSINOPHILS % (AUTO) 2 % (0-10); HEMATOCRIT 26 % (35-52); HEMOGLOBIN 7.7 g/dL (11.5-16.0); LYMPHOCYTES # (AUTO) 0.4 10^3/uL (1.0-4.0); LYMPHOCYTES % (AUTO) 12 % (12-44); MEAN CORPUSCULAR HEMOGLOBIN 26 pg (25-34); MEAN CORPUSCULAR HGB CONC 30 g/dL (32-36); MEAN CORPUSCULAR VOLUME 85 fL (80-99); MEAN PLATELET VOLUME 9.7 fL (9.0-12.2); MONOCYTES # (AUTO) 0.3 10^3/uL (0.0-1.0); MONOCYTES % (AUTO) 10 % (0-12); NEUTROPHILS # (AUTO) 2.5 10^3/uL (1.8-7.8); NEUTROPHILS % (AUTO) 75 % (42-75); PLATELET COUNT 262 10^3/uL (130-400); WHITE BLOOD COUNT 3.3 10^3/uL (4.3-11.0)
[2021-02-07 17:04] LABS: ALBUMIN 3.4 GM/DL (3.2-4.5); CHLORIDE 107 MMOL/L (98-107); SODIUM 141 MMOL/L (135-145)
[2021-02-07 17:05] LABS: CALCIUM 8.3 MG/DL (8.5-10.1)
[2021-02-07 17:06] LABS: GLUCOSE 142 MG/DL (70-105); TOTAL PROTEIN 5.9 GM/DL (6.4-8.2)
[2021-02-07 17:08] LABS: BILIRUBIN,TOTAL 0.2 MG/DL (0.1-1.0); CARBON DIOXIDE 24 MMOL/L (21-32)
[2021-02-07 17:10] LABS: ALKALINE PHOSPHATASE 111 U/L (40-136); GFR ESTIMATED > 60
--- NOTE | 2021-02-07 17:10 | ED Abdominal Pain ---
General Chief Complaint: Abdominal/GI Problems Stated Complaint: LOWER LEFT ABDOMINAL PAIN, DIAREAH, VOMITTING Source of Information: Patient Exam Limitations: No Limitations History of Present Illness Date Seen by Provider: Feb 07, 2021 Time Seen by Provider: 17:05 Initial Comments To ER with left lower quadrant abdominal pain nausea vomiting diarrhea. She states this is secondary to her ulcerative colitis which she gets a couple of times a year. Oftentimes nothing shows up on CT however. She has hydrocodone at home to take but she took 1 today and it did not help. No fevers or chills. Timing/Duration: 1-2 Days Severity/Quality: Moderate Radiation: No Radiation Activities at Onset: None Associated Symptoms: Denies Symptoms Allergies and Home Medications Allergies Coded Allergies: cephalexin (Verified Allergy, Unknown, 09/13/19) ketorolac (Verified Allergy, Unknown, 09/13/19) prochlorperazine (Verified Allergy, Unknown, 09/13/19) Home Medications Budesonide 3 Mg Capdr...er, 9 MG PO DAILY 3 tablets daily x3 days 2 tablets daily x3 days 1 tablet daily x3 days Prescribed by: NEVAEH DAMON on 12/20/19 1332 Dicyclomine HCl 20 Mg/2 Ml Inj, 20 MG PO QID, (Reported) Sulfasalazine 500 Mg Tablet, 500 MG PO QID, (Reported) Patient Home Medication List Home Medication List Reviewed: Yes Review of Systems Review of Systems Constitutional: see HPI EENTM: No Symptoms Reported Respiratory: No Symptoms Reported Cardiovascular: No Symptoms Reported Gastrointestinal: See HPI, Abdominal Pain Genitourinary: No Symptoms Reported Musculoskeletal: no symptoms reported Skin: no symptoms reported Psychiatric/Neurological: No Symptoms Reported Endocrine: No Symptoms Reported Hematologic/Lymphatic: No Symptoms Reported Past Xhccpna-Hattvz-Draxnc Hx Patient Social History Type Used: Cigarettes 2nd Hand Smoke Exposure: No Recent Hopitalizations: No Immunizations Up To Date Tetanus Booster (TDap): Unknown Seasonal Allergies Seasonal Allergies: No Past Medical History Surgeries: Yes (UMBILICAL HERNIA REPAIR, RECTAL PROLAPSE REPAIR. Endoscopy) Appendectomy, Gallbladder, Hysterectomy, Rectal Respiratory: No Cardiac: Yes High Cholesterol, Hypertension Neurological: No [employer] History: Hysterectomy Genitourinary: No Gastrointestinal: Yes Abdominal Hernia, Colitis, Gastroesophageal Reflux, Gastrointestinal Bleed, Chronic Diarrhea Musculoskeletal: Yes (chronic back pain) Degenerate Disk Disease, Arthritis, Chronic Back Pain Endocrine: Yes (patient has a cushingoid facies consistent with prednisone use) HEENT: No Cancer: No Psychosocial: Yes Anxiety, Depression Integumentary: Yes (patient has multiple lesions on her upper extremities that are excoriated) Blood Disorders: Yes (iron deficiency and anemia of chronic disease) Physical Exam Vital Signs Capillary Refill : Height/Weight/BMI Height: '" Weight: lbs. oz. kg; 40.00 BMI Method: General Appearance: WD/WN, no apparent distress, other (Lethargic, slow speech) Neck: non-tender, full range of motion Respiratory: no respiratory distress, no accessory muscle use Cardiovascular: regular rate, rhythm, no murmur Gastrointestinal: normal bowel sounds, soft, tenderness Extremities: normal range of motion, non-tender Neurologic/Psychiatric: alert, normal mood/affect, oriented x 3 Skin: normal color, warm/dry Progress/Results/Core Measures Results/Orders Lab Results Laboratory Tests Test 02/07/21 16:45 Range/Units White Blood Count 3.3 L 4.3-11.0 10^3/uL Red Blood Count 3.01 L 3.80-5.11 10^6/uL Hemoglobin 7.7 L 11.5-16.0 g/dL Hematocrit 26 L 35-52 % Mean Corpuscular Volume 85 80-99 fL Mean Corpuscular Hemoglobin 26 25-34 pg Mean Corpuscular Hemoglobin Concent 30 L 32-36 g/dL Red Cell Distribution Width 13.9 10.0-14.5 % Platelet Count 262 130-400 10^3/uL Mean Platelet Volume 9.7 9.0-12.2 fL Immature Granulocyte % (Auto) 0 % Neutrophils (%) (Auto) 75 42-75 % Lymphocytes (%) (Auto) 12 12-44 % Monocytes (%) (Auto) 10 0-12 % Eosinophils (%) (Auto) 2 0-10 % Basophils (%) (Auto) 0 0-10 % Neutrophils # (Auto) 2.5 1.8-7.8 10^3/uL Lymphocytes # (Auto) 0.4 L 1.0-4.0 10^3/uL Monocytes # (Auto) 0.3 0.0-1.0 10^3/uL Eosinophils # (Auto) 0.1 0.0-0.3 10^3/uL Basophils # (Auto) 0.0 0.0-0.1 10^3/uL Immature Granulocyte # (Auto) 0.0 0.0-0.1 10^3/uL Sodium Level 141 135-145 MMOL/L Potassium Level 4.0 3.6-5.0 MMOL/L Chloride Level 107 98-107 MMOL/L Carbon Dioxide Level 24 21-32 MMOL/L Anion Gap 10 5-14 MMOL/L Creatinine 0.80 0.60-1.30 MG/DL Estimat Glomerular Filtration Rate > 60 Glucose Level 142 H 70-105 MG/DL Calcium Level 8.3 L 8.5-10.1 MG/DL Corrected Calcium 8.8 8.5-10.1 MG/DL Total Bilirubin 0.2 0.1-1.0 MG/DL Alkaline Phosphatase 111 40-136 U/L Total Protein 5.9 L 6.4-8.2 GM/DL Albumin 3.4 3.2-4.5 GM/DL My Orders Orders - ALYSSA RUDD [employer] Cbc With Automated Diff (02/07/21 16:50) Comprehensive Metabolic Panel (02/07/21 16:50) Ua Culture If Indicated (02/07/21 16:50) Ed Iv/Invasive Line Start (02/07/21 16:50) Ct Abdomen/Pelvis W (02/07/21 16:50) Ondansetron Injection (Zofran Injectio (02/07/21 17:00) Ns Iv 1000 Ml (Sodium Chloride 0.9%) (02/07/21 17:00) Fentanyl Inj (Sublimaze Injection) (02/07/21 17:00) Drug Screen Stat (Urine) (02/07/21 16:58) Hs C Reactive Protein (02/07/21 16:58) Iohexol Injection (Omnipaque 350 Mg/Ml 1 (02/07/21 17:00) Received Contrast (Hold Metformin- Contr (02/07/21 17:00) Ns (Ivpb) (Sodium Chloride 0.9% Ivpb Bag (02/07/21 17:00) Departure Communication (Admissions) 1700-I did a [employer] search, she has a significant list of opiates including hydrocodone Xanax oxycodone Dilaudid and diazepam from a variety of prescribers in a variety of locations all within the past 2 month. The list is more impressive going back 1 year. Discussed with her that I would be happy to check some labs to determine if she has a surgical problem or need for antibiotics but I would not be able to help on the pain management side of things given her extensive list of opiates. She replies "great" and rolls her eyes. 171-patient left out the back doors with her IV in place. Impression Primary Impression: Drug-seeking behavior Additional Impression: Chronic abdominal pain Disposition: 07 AGAINST MEDICAL ADVICE Condition: Against Medical Advice Departure-Patient Inst. Referrals: NO,LOCAL PHYSICIAN (PCP/Family) Primary Care Physician ALYSSA RUDD APRN Feb 07, 2021 17:10
[2021-02-07 17:11] LABS: BUN/CREATININE RATIO 11
[2021-02-07 17:13] LABS: ALANINE AMINOTRANSFERASE 10 U/L (0-55)
[2021-02-07 17:15] VITALS: BP 157/109
== END 2021-02-07 17:15 | disposition left against medical advice (07) ==
LOC: EDUNIT# 16:09 → ER 16:12
DX: G89.29 Other chronic pain (principal); R10.32 Left lower quadrant pain; I10 Essential (primary) hypertension; K52.9 Noninfective gastroenteritis and colitis, unspecified; Z76.5 Malingerer [conscious simulation]; Z88.6 Allergy status to analgesic agent; Z79.899 Other long term (current) drug therapy
CPT/HCPCS: 36415; 80053; 85025; 86141

== ENCOUNTER 2021-02-07 17:53 | Emergency (ER) | payer OTHER ==
[~2021-02-07] VITALS: Ht 162.5 cm; Wt 98.7 kg
[2021-02-07 18:16] VITALS: BP 159/104
--- NOTE | 2021-02-07 18:35 | ED Abdominal Pain ---
General Chief Complaint: Abdominal/GI Problems Stated Complaint: BACK PAIN | NAUSEA | VOMITING | RS ABDOMINAL PAIN Source of Information: Patient Exam Limitations: No Limitations History of Present Illness Date Seen by Provider: Feb 07, 2021 Time Seen by Provider: 18:15 Initial Comments Patient is a 50-year-old female with history of chronic abdominal pain, ulcerative colitis who presents with intermittent right flank pain for the past 4 hours. Pain is described as sharp, radiating is intermittent and progressive. It is rated moderate to severe. Pain is not worse with position change palpation or movement. Denies nausea vomiting. No fever chills, sweats. No urinary frequency urgency hematuria. No constipation diarrhea or bloody stools. History of kidney stones. Patient states she took ibuprofen prior to ED arrival but did not take any other medications. She states she has not been evaluated for her current condition. . Allergies and Home Medications Allergies Coded Allergies: cephalexin (Verified Allergy, Unknown, 09/13/19) ketorolac (Verified Allergy, Unknown, 09/13/19) prochlorperazine (Verified Allergy, Unknown, 09/13/19) Home Medications Budesonide 3 Mg Capdr...er, 9 MG PO DAILY 3 tablets daily x3 days 2 tablets daily x3 days 1 tablet daily x3 days Prescribed by: NEVAEH DAMON on 12/20/19 1733 Dicyclomine HCl 20 Mg/2 Ml Inj, 20 MG PO QID, (Reported) Sulfasalazine 500 Mg Tablet, 500 MG PO QID, (Reported) Patient Home Medication List Home Medication List Reviewed: Yes Review of Systems Review of Systems Constitutional: see HPI EENTM: See HPI Respiratory: See HPI Cardiovascular: See HPI Gastrointestinal: See HPI Genitourinary: See HPI Skin: see HPI Psychiatric/Neurological: See HPI Endocrine: See HPI Hematologic/Lymphatic: See HPI All Other Systems Reviewed Negative Unless Noted: Yes Past Fudoldd-Gprrvi-Oyplvi Hx Past Med/Social Hx: Reviewed Nursing Past Med/Soc Hx Patient Social History Type Used: Cigarettes 2nd Hand Smoke Exposure: No Recent Hopitalizations: No Immunizations Up To Date Tetanus Booster (TDap): Unknown Seasonal Allergies Seasonal Allergies: No Past Medical History Surgeries: Yes (UMBILICAL HERNIA REPAIR, RECTAL PROLAPSE REPAIR. Endoscopy) Appendectomy, Gallbladder, Hysterectomy, Rectal Respiratory: No Cardiac: Yes High Cholesterol, Hypertension Neurological: No CHANNELER History: Hysterectomy Genitourinary: No Gastrointestinal: Yes Abdominal Hernia, Colitis, Gastroesophageal Reflux, Gastrointestinal Bleed, Chronic Diarrhea Musculoskeletal: Yes (chronic back pain) Degenerate Disk Disease, Arthritis, Chronic Back Pain Endocrine: Yes (patient has a cushingoid facies consistent with prednisone use) HEENT: No Cancer: No Psychosocial: Yes Anxiety, Depression Integumentary: Yes (patient has multiple lesions on her upper extremities that are excoriated) Blood Disorders: Yes (iron deficiency and anemia of chronic disease) Physical Exam Vital Signs Capillary Refill : Height/Weight/BMI Height: '" Weight: lbs. oz. kg; 36.00 BMI Method: General Appearance: WD/WN, no apparent distress HEENT: PERRL/EOMI Neck: non-tender, supple Cardiovascular: normal peripheral pulses, regular rate, rhythm Gastrointestinal: non tender, soft Back: normal inspection, no CVA tenderness Neurologic/Psychiatric: alert, oriented x 3 Focused Exam Sepsis Stage: Ruled Out Departure Communication (Admissions) Recent labs reviewed. Patient's abdomen soft, nonsurgical. She does not appear to be in any distress. Vital signs are stable. Upon review of the patient's medical record, the patient was evaluated at [facility] earlier this afternoon and eloped from the emergency department through the back door with an IV in place when pain medication was questioned. Upon discussing with the patient, she states she deliberately misled nursing staff and myself regard to the history and then promptly left the emergency department without further comment or paperwork. Impression Primary Impression: Right flank pain Disposition: 07 AGAINST MEDICAL ADVICE Condition: Against Medical Advice Departure-Patient Inst. Decision time for Depature: 18:35 Referrals: NO,LOCAL PHYSICIAN (PCP/Family) Primary Care Physician AURELIO GARRETT DO Feb 07, 2021 18:35
== END 2021-02-07 18:28 | disposition left against medical advice (07) ==
LOC: EDUNIT# 17:53 → ER FS 17:56
DX: R10.9 Unspecified abdominal pain (principal); I10 Essential (primary) hypertension; Z88.6 Allergy status to analgesic agent
CPT/HCPCS: 99282